=== PATIENT | female | born 1965 | race Hispanic/Latino ===

== ENCOUNTER 2018-11-11 05:21 | Observation (INO) | payer SELFPAY ==
[2018-11-11 06:05] LABS: Absolute Lymphocytes (CBC) 3.1 K/uL (0.7-4.9); Absolute Monocytes 0.4 K/uL (0.1-1.3); Absolute Neutrophil 4.5 K/uL (1.8-8.0); Basophils % 0.6 % (0-1.3); Eosinophils % 2.9 % (0-4.4); Lymphocytes % 37.4 % (15.3-44.8); MPV 10.1 fL (7.6-11.3); Protime INR 1.04; RBC Red Blood Cell Count 4.98 M/uL (3.86-4.86)
[2018-11-11 06:11] LABS: ALT/SGPT 54 U/L (12-78); AST/SGOT 34 U/L (15-37); Albumin 3.8 g/dL (3.4-5.0); Alkaline Phosphatase 118 U/L (45-117); BUN Blood Urea Nitrogen 14 mg/dL (7-18); Bicarbonate 27 mmol/L (21-32); Bilirubin Direct 0.1 mg/dL (0-0.2); Bilirubin Total 0.2 mg/dL (0.2-1.0); Glucose Level 269 mg/dL (74-106); Magnesium 1.9 mg/dL (1.8-2.4); NT PRO-BNP 24 pg/mL (<125); Protein, Total 7.6 g/dL (6.4-8.2); Sodium Level 139 mmol/L (136-145); Troponin (Emerg Dept Use Only) < 0.02 ng/mL (0.0-0.045)
[2018-11-11] MEDS ORDERED: ASPIRIN 81 MG CHEWABLE TABLET ONE (06:24)
[2018-11-11] MEDS ORDERED: NITROGLYCERIN 0.4 MG/TAB SL ONE (06:25)
--- NOTE | 2018-11-11 07:04 | ER ---
Nurse's Notes [facility] Name: Magaly Galeana Age: 53 yrs Sex: Female : 1965 Arrival Date: 11/11/2018 Time: 05:24 Bed 5 Private MD: Diagnosis: Chest pain, unspecified Presentation: 11/11 05:25 Presenting complaint: Patient states: that she was sleeping and was woken up by severe fc left sided chest pain that radiates to her left arm and back. Positive shortness of breath but denies any nausea or vomiting. Has not taken any of her bp medication for 2 months. Transition of care: patient was not received from another setting of care. Onset of symptoms was November 11, 2018 at 03:30. Risk Assessment: Do you want to hurt yourself or someone else? Patient reports no desire to harm self or others. Initial Sepsis Screen: Does the patient meet any 2 criteria? HR > 90 bpm. Yes Does the patient have a suspected source of infection? No. Patient's initial sepsis screen is negative. Care prior to arrival: None. 05:25 Method Of Arrival: Ambulatory 05:25 Acuity: EKATERINA 3 fc Historical: - Allergies: 05:36 No Known Allergies; fc - Home Meds: 05:36 None [Active]; fc - PMHx: 05:36 Hypertension; fc - PSHx: 05:36 None; fc - Immunization history:: Last tetanus immunization: unknown, Flu vaccine is not up to date. - Social history:: Smoking status: Patient uses tobacco products, quit 2 months ago, was smoking 1/2 pack a day, Patient/guardian denies using alcohol, the patient reports quitting approximately .5 years ago. - Ebola Screening: : Patient negative for fever greater than or equal to 101.5 degrees Fahrenheit, and additional compatible Ebola Virus Disease symptoms Patient denies exposure to infectious person Patient denies travel to an Ebola-affected area in the 21 days before illness onset. Screenin:35 Abuse screen: Denies threats or abuse. Nutritional screening: No deficits noted. fc Tuberculosis screening: No symptoms or risk factors identified. Fall Risk None identified. Assessment: 05:50 General: Appears in no apparent distress. uncomfortable, Behavior is calm, cooperative, tl2 appropriate for age. Pain: Complains of pain in anterior aspect of left upper chest and left breast Pain radiates to back and left arm Pain currently is 9 out of 10 on a pain scale. Pain began 1 hour ago. Neuro: Level of Consciousness is awake, alert, obeys commands, Oriented to person, place, time, situation. Cardiovascular: Chest pain is described as severe, quality is sharp, is located in left anterior radiates to left arm(s) back began 1 hour prior to arrival. Respiratory: Reports shortness of breath Airway is patent Respiratory effort is even, unlabored, Respiratory pattern is regular, symmetrical. GI: Patient currently denies nausea. Derm: Skin is pink, warm \T\ dry. 07:09 General: Appears in no apparent distress. uncomfortable, Behavior is calm, cooperative, hj appropriate for age. Pain: Complains of pain in chest and left breast and anterior aspect of left upper chest Pain currently is 3 out of 10 on a pain scale. Pain began 1 day ago. Pain: Pain radiates to back and left arm Pain currently is 3 out of 10 on a pain scale. Neuro: Level of Consciousness is awake, alert, obeys commands, Oriented to person, place, time, situation. Cardiovascular: Chest pain is described as mild, quality is sharp, is located in left anterior radiates to left arm(s) back began 1 hour prior to arrival. Respiratory: Airway is patent Respiratory effort is even, unlabored, Respiratory pattern is regular, symmetrical. GI: Patient currently denies nausea. : No signs and/or symptoms were reported regarding the genitourinary system. EENT: No signs and/or symptoms were reported regarding the EENT system. Derm: No signs and/or symptoms reported regarding the dermatologic system. Musculoskeletal: No signs and/or symptoms reported regarding the musculoskeletal system. 08:20 Reassessment: awaiting room placement;. hj 09:42 Reassessment: Patient and/or family updated on plan of care and expected duration. Pain hj level reassessed. Patient is alert, oriented x 3, equal unlabored respirations, skin warm/dry/pink. awaiting room placement;. 10:13 Reassessment: Patient and/or family updated on plan of care and expected duration. Pain hj level reassessed. Patient is alert, oriented x 3, equal unlabored respirations, skin warm/dry/pink. pt eating breakfast; informed pt room 230; called for report; nurse just got a new pt, advised floor sec to call back for report at ext [phone];. 10:47 Reassessment: still waiting for callback from floor nurse;. hj Vital Signs: 05:25 BP 182 / 88; Pulse 100; Resp 18; Temp 98.9(O); Pulse Ox 98% on R/A; Weight 108.86 kg fc (R); Height 4 ft. 11 in. (149.86 cm) (R); Pain 5/10; 06:48 BP 141 / 98; Pulse 77; Resp 15; Pulse Ox 98% on R/A; tl2 07:11 BP 157 / 80; Pulse 78; Resp 18; Pulse Ox 99% on R/A; hj 08:20 BP 153 / 79; Pulse 79; Resp 18; Pulse Ox 100% on R/A; hj 09:43 BP 150 / 87; Pulse 75; Resp 18; Pulse Ox 100% on R/A; hj 10:28 BP 150 / 86; Pulse 76; Resp 18; Pulse Ox 100% on R/A; hj 10:47 BP 149 / 78; Pulse 75; Resp 18; Pulse Ox 100% on R/A; hj 05:25 Body Mass Index 48.47 (108.86 kg, 149.86 cm) fc ED Course: 05:24 Patient arrived in ED. ag3 05:25 Arm band placed on Patient placed in an exam room, on a stretcher. fc 05:25 Patient has correct armband on for positive identification. Placed in gown. Bed in low fc position. Call light in reach. Side rails up X 1. jackaroo on. Pulse ox on. NIBP on. 05:25 No provider procedures requiring assistance completed. fc 05:33 Triage completed. fc 05:42 Inserted saline lock: 20 gauge in right antecubital area, using aseptic technique. tl1 Blood collected. Patient maintains SpO2 saturation greater than 95% on room air. 05:45 X-ray completed. Portable x-ray completed in exam room. Patient tolerated procedure sg4 well. 05:47 XRAY Chest (1 view) In Process Unspecified. EDMS 06:00 Estevan Jefferson PA is PHCP. jr8 06:00 Liu Becerra MD is Attending Physician. jr8 07:03 Saira Mazariegos MD is Hospitalizing Provider. jr8 07:09 Moo Mathias, RN is Primary Nurse. 07:29 Colton Palm MD is Hospitalizing Provider. jr8 10:59 Patient admitted, IV remains in place. intact. hj Administered Medications: 06:43 Drug: Aspirin Chewable Tablet 324 mg Route: PO; tl2 07:11 Follow up: Response: No adverse reaction 06:43 Drug: Nitroglycerin 0.4 mg Route: Sublingual; tl2 07:11 Follow up: Response: No adverse reaction; Pain is decreased Outcome: 07:03 Decision to Hospitalize by Provider. jr8 10:58 Admitted to Med/surg accompanied by tech, via wheelchair, room 230, with chart, Report hj called to ABRAHAM Stiles 10:58 Condition: stable 10:58 Instructed on the need for admit, Demonstrated understanding of instructions. 11:05 Patient left the ED. Signatures: Dispatcher [employer] EDMS Bruna Prince RN RN fc Roszak, Josh, PA PA jr8 Kay Nieves RN RN tl1 Moo Mathias RN RN hj Knox, Taylor, RN RN tl2 Monica Deng Susana 4
--- NOTE | 2018-11-11 07:04 | EDPHYS ---
Physician Documentation [facility] Name: Magaly Galeana Age: 53 yrs Sex: Female : 1965 Arrival Date: 11/11/2018 Time: 05:24 Bed 5 Private MD: ED Physician Liu Becerra HPI: 11/11 06:21 This 53 yrs old Female presents to ER via Ambulatory with complaints of Chest jr8 Pain. 06:21 The patient or guardian reports chest pain that is located primarily in the anterior jr8 chest wall, left. Onset: acutely, this morning, at 04:00. The pain radiates to the left arm, left back. Associated signs and symptoms: The patient has no apparent associated signs or symptoms. The chest pain is described as a pressure, sharp. Duration: The patient or guardian reports a single episode, that is still ongoing, but improving. Modifying factors: The symptoms are alleviated by nothing. the symptoms are aggravated by nothing. Severity of pain: At its worst the pain was moderate in the emergency department the pain has improved. The patient has not experienced similar symptoms in the past. The patient has not recently seen a physician. Historical: - Allergies: 05:36 No Known Allergies; fc - Home Meds: 05:36 None [Active]; fc - PMHx: 05:36 Hypertension; fc - PSHx: 05:36 None; fc - Immunization history:: Last tetanus immunization: unknown, Flu vaccine is not up to date. - Social history:: Smoking status: Patient uses tobacco products, quit 2 months ago, was smoking 1/2 pack a day, Patient/guardian denies using alcohol, the patient reports quitting approximately .5 years ago. - Ebola Screening: : Patient negative for fever greater than or equal to 101.5 degrees Fahrenheit, and additional compatible Ebola Virus Disease symptoms Patient denies exposure to infectious person Patient denies travel to an Ebola-affected area in the 21 days before illness onset. ROS: 06:21 Eyes: Negative for injury, pain, redness, and discharge, ENT: Negative for injury, jr8 pain, and discharge, Neck: Negative for injury, pain, and swelling, Respiratory: Negative for shortness of breath, cough, wheezing, and pleuritic chest pain, Abdomen/GI: Negative for abdominal pain, nausea, vomiting, diarrhea, and constipation, Back: Negative for injury and pain, MS/Extremity: Negative for injury and deformity, Skin: Negative for injury, rash, and discoloration, Neuro: Negative for headache, weakness, numbness, tingling, and seizure. 06:21 Cardiovascular: Positive for chest pain, Negative for edema, orthopnea, palpitations, paroxysmal nocturnal dyspnea. Exam: 06:21 Eyes: Pupils equal round and reactive to light, extra-ocular motions intact. Lids and jr8 lashes normal. Conjunctiva and sclera are non-icteric and not injected. Cornea within normal limits. Periorbital areas with no swelling, redness, or edema. ENT: Nares patent. No nasal discharge, no septal abnormalities noted. Tympanic membranes are normal and external auditory canals are clear. Oropharynx with no redness, swelling, or masses, exudates, or evidence of obstruction, uvula midline. Mucous membranes moist. Neck: Trachea midline, no thyromegaly or masses palpated, and no cervical lymphadenopathy. Supple, full range of motion without nuchal rigidity, or vertebral point tenderness. No Meningismus. Chest/axilla: Normal chest wall appearance and motion. Nontender with no deformity. No lesions are appreciated. Cardiovascular: Regular rate and rhythm with a normal S1 and S2. No gallops, murmurs, or rubs. Normal PMI, no JVD. No pulse deficits. Respiratory: Lungs have equal breath sounds bilaterally, clear to auscultation and percussion. No rales, rhonchi or wheezes noted. No increased work of breathing, no retractions or nasal flaring. Abdomen/GI: Soft, non-tender, with normal bowel sounds. No distension or tympany. No guarding or rebound. No evidence of tenderness throughout. Back: No spinal tenderness. No costovertebral tenderness. Full range of motion. Skin: Warm, dry with normal turgor. Normal color with no rashes, no lesions, and no evidence of cellulitis. MS/ Extremity: Pulses equal, no cyanosis. Neurovascular intact. Full, normal range of motion. Neuro: Awake and alert, GCS 15, oriented to person, place, time, and situation. Cranial nerves II-XII grossly intact. Motor strength 5/5 in all extremities. Sensory grossly intact. Cerebellar exam normal. Normal gait. Vital Signs: 05:25 BP 182 / 88; Pulse 100; Resp 18; Temp 98.9(O); Pulse Ox 98% on R/A; Weight 108.86 kg fc (R); Height 4 ft. 11 in. (149.86 cm) (R); Pain 5/10; 06:48 BP 141 / 98; Pulse 77; Resp 15; Pulse Ox 98% on R/A; tl2 07:11 BP 157 / 80; Pulse 78; Resp 18; Pulse Ox 99% on R/A; hj 08:20 BP 153 / 79; Pulse 79; Resp 18; Pulse Ox 100% on R/A; hj 09:43 BP 150 / 87; Pulse 75; Resp 18; Pulse Ox 100% on R/A; hj 10:28 BP 150 / 86; Pulse 76; Resp 18; Pulse Ox 100% on R/A; hj 10:47 BP 149 / 78; Pulse 75; Resp 18; Pulse Ox 100% on R/A; hj 05:25 Body Mass Index 48.47 (108.86 kg, 149.86 cm) MDM: 06:00 Patient medically screened. jr8 06:55 The patient was given aspirin in the Emergency Department. Data reviewed: vital signs, jr8 nurses notes, lab test result(s), EKG, radiologic studies, plain films, and as a result, I will admit patient. Data interpreted: Pulse oximetry: on room air is 98 %. Interpretation: normal. Counseling: I had a detailed discussion with the patient and/or guardian regarding: the historical points, exam findings, and any diagnostic results supporting the discharge/admit diagnosis, lab results, radiology results, the need for further work-up and treatment in the hospital. ED course: Patient newly diagnosed diabetic. Uncontrolled HTN patient with chest pain. Will put in obs. No PCP. 11/11 05:37 Order name: Basic Metabolic Panel 11/11 05:37 Order name: CBC with Diff 11/11 05:37 Order name: LFT's 11/11 05:37 Order name: Magnesium 11/11 05:37 Order name: NT PRO-BNP 11/11 05:37 Order name: PT-INR; Complete Time: 06:17 11/11 05:37 Order name: Troponin (emerg Dept Use Only); Complete Time: 06:17 11/11 05:37 Order name: XRAY Chest (1 view); Complete Time: 10:50 11/11 05:38 Order name: Basic Metabolic Panel; Complete Time: 06:17 EDMS 11/11 05:38 Order name: CBC with Automated Diff; Complete Time: 06:09 EDMS 11/11 05:38 Order name: Liver (Hepatic) Function; Complete Time: 06:17 EDMS 11/11 05:38 Order name: Magnesium; Complete Time: 06:17 EDMS 11/11 05:38 Order name: NT PRO-BNP; Complete Time: 06:17 EDMS 11/11 05:37 Order name: EKG; Complete Time: 05:38 fc 11/11 05:37 Order name: Cardiac monitoring; Complete Time: 05:37 fc 11/11 05:37 Order name: EKG - Nurse/Tech; Complete Time: 05:37 fc 11/11 05:37 Order name: IV Saline Lock; Complete Time: 05:45 fc 11/11 05:37 Order name: Labs collected and sent; Complete Time: 05:45 fc 11/11 05:37 Order name: O2 Per Protocol; Complete Time: 05:45 fc 11/11 05:37 Order name: O2 Sat Monitoring; Complete Time: 05:45 fc Administered Medications: 06:43 Drug: Aspirin Chewable Tablet 324 mg Route: PO; tl2 07:11 Follow up: Response: No adverse reaction 06:43 Drug: Nitroglycerin 0.4 mg Route: Sublingual; tl2 07:11 Follow up: Response: No adverse reaction; Pain is decreased hj Disposition: 11/11/18 07:03 Hospitalization ordered by Colton Palm for Observation. Preliminary diagnosis is Chest pain, unspecified. - Bed requested for Telemetry/MedSurg (observation). - Status is Observation. hj - Condition is Stable. - Problem is new. - Symptoms have improved. UTI on Admission? No Signatures: Dispatcher [employer] EDOR Iman Ramirez RN ABRAHAM Bruna Prince RN RN Estevan Jefferson PA PA jr8 Moo Mathias RN RN Sandie De RN RN tl2 Corrections: (The following items were deleted from the chart) 07:29 07:03 Hospitalization Ordered by Saira Mazariegos MD for Observation. Preliminary jr8 diagnosis is Chest pain, unspecified. Bed requested for Telemetry/MedSurg (observation). Status is Observation. Condition is Stable. Problem is new. Symptoms have improved. UTI on Admission? No. jr8 10:05 07:29 11/11/2018 07:03 Hospitalization Ordered by Colton Palm MD for Observation. dw Preliminary diagnosis is Chest pain, unspecified. Bed requested for Telemetry/MedSurg (observation). Status is Observation. Condition is Stable. Problem is new. Symptoms have improved. UTI on Admission? No. jr8 11:05 10:05 11/11/2018 07:03 Hospitalization Ordered by Colton Palm MD for Observation. hj Preliminary diagnosis is Chest pain, unspecified. Bed requested for Telemetry/MedSurg (observation). Status is Observation. Condition is Stable. Problem is new. Symptoms have improved. UTI on Admission? No. dw
[2018-11-11 10:40] VITALS: BMI 48.4
--- NOTE | 2018-11-11 10:49 | RAD REPORT ---
EXAM DESCRIPTION: Grazyna Single View11/11/2018 5:48 am CLINICAL HISTORY: Chest pain COMPARISON: none FINDINGS: The lungs appear clear of acute infiltrate. The heart is mildly enlarged IMPRESSION: No acute abnormalities displayed
[2018-11-11] MEDS ORDERED: ACETAMINOPHEN 500 MG TAB PO PRN (10:58)
[2018-11-11] MEDS: ENOXAPARIN 40 MG/0.4 ML SQ SCH (11:28)
[2018-11-11] MEDS ORDERED: INFLUENZA VACCINE (for 3y+) 0.5 ML DOSE IMVAC ONE (12:00)
--- NOTE | 2018-11-11 13:54 | EKG ---
Test Date: 2018-11-11 Test Time: 05:34:02 Soft Sugar Operator Head: MINGO MEASUREMENT RESULTS: Intervals: Rate: 78 IA: 164 QRSD: 80 QT: 376 QTc: 428 [place]: P: 26 IA: 164 QRS: 27 T: 72 INTERPRETIVE STATEMENTS: Normal sinus rhythm Cannot rule out Anterior infarct, age undetermined Abnormal ECG No previous ECG available for comparison Electronically Signed On 11-11-18 13:53:31 HEALTH INFORMATICS SPECIALIST by Uvaldo Petersen
--- NOTE | 2018-11-11 14:00 | P.HP ---
Certification for Inpatient Patient admitted to: Observation With expected LOS: <2 Midnights Practitioner: I am a practitioner with admitting privileges, knowledge of patient current condition, hospital course, and medical plan of care. Services: Services provided to patient in accordance with Admission requirements found in Title 42 Section 412.3 of the Code of Federal Regulations Patient History Date of Service: 11/11/18 Primary Care Provider: Does not have one Reason for admission: Chest pain, HTN History of Present Illness: This is a 53 year old female with hx of HTN, not on any medications for 2 months , no PCP, former 1 PPD smoker x 40 yrs admitted for chest pain. per patient, she had sharp chest pain this morning around 8 am, woke her from sleep, that went to the back. Associated with left arm numbness, and shortness of breath. no prior eposides like this. She came to the ER. In the ED, her BP was elevated to 188/88, given nitro. Symptoms resolved and BP improved. At the time of my exam, pt was AAOx4, not in any acute distress, symptoms had resolved. Allergies No Known Allergies Allergy (Verified 11/11/18 11:26) Home Medications: NK [No Home Meds] 11/11/18 - Past Medical/Surgical History Has patient received pneumonia vaccine in the past: No Diabetic: No -: HTN - Family History Father -: Hypertension - Social History Smoking Status: Never smoker Alcohol use: No CD- Drugs: No Caffeine use: Yes Place of Residence: Home Review of Systems 10-point ROS is otherwise unremarkable Physical Examination - Vital Signs Temperature: 97.2 F Blood Pressure: 152/69 Pulse: 86 Respirations: 17 Pulse Ox (%): 98 - Physical Exam General: Alert, In no apparent distress, Oriented x3 HEENT: Atraumatic, PERRLA, Mucous membr. moist/pink, EOMI, Sclerae nonicteric Neck: Supple, 2+ carotid pulse no bruit, No LAD, Without JVD or thyroid abnormality Respiratory: Clear to auscultation bilaterally, Normal air movement Cardiovascular: Regular rate/rhythm, Normal S1 S2 Gastrointestinal: Normal bowel sounds, No tenderness Musculoskeletal: No tenderness Integumentary: No rashes Neurological: Normal gait, Normal speech, Normal strength at 5/5 x4 extr, Normal tone, Normal affect Lymphatics: No axilla or inguinal lymphadenopathy - Studies Laboratory Data (last 24 hrs) 11/11/18 05:30: Triglycerides 176 H, Cholesterol 214 H, HDL Cholesterol 43, Cholesterol/HDL Ratio 4.98 11/11/18 05:30: PT 12.3, INR 1.04 11/11/18 05:30: WBC 8.4, Hgb 11.9 L, Hct 37.0, Plt Count 238 11/11/18 05:30: Sodium 139, Potassium 4.0, BUN 14, Creatinine 0.71, Glucose 269 H, Magnesium 1.9, Total Bilirubin 0.2, AST 34, ALT 54, Alkaline Phosphatase 118 H Assessment and Plan - Problems (Diagnosis) (1) Hypertension Current Visit: Yes Status: Chronic Qualifiers: Hypertension type: essential hypertension Qualified Code(s): I10 - Essential (primary) hypertension (2) Chest pain Current Visit: Yes Status: Acute Qualifiers: Chest pain type: unspecified Qualified Code(s): R07.9 - Chest pain, unspecified (3) Hyperglycemia Current Visit: Yes Status: Acute (4) Former heavy cigarette smoker (20-39 per day) Current Visit: Yes Status: Acute (5) Morbid obesity with BMI of 45.0-49.9, adult Current Visit: Yes Status: Acute (6) Hyperlipidemia Current Visit: Yes Status: Acute Qualifiers: Hyperlipidemia type: mixed hyperlipidemia Qualified Code(s): E78.2 - Mixed hyperlipidemia - Plan Patient Problems: Hypertension (Acute) I10 Chest pain (Acute) R07.9 Hyperglycemia (Acute) R73.9 Former heavy cigarette smoker (20-39 per day) (Acute) Z87.891 Hyperlipidemia Morbid obesity Admit patient to floor with tele, OBS BP elevated, though improved. A1c pending. Start lisinopril, ASA, metformin, and atorvastatin Monitor with AM labs. She will needs education on lifestyle modifications, emphasis on PCP followup and compliance. DVT Prophylaxis: Lovenox GI prophylaxis: None Diet: Heart healthy/Diabetic Dispo: Pending workup, symptomatic improvement. Likely discharge home in the next 24-48 hours of PO BP medications and possible Diabetes medications. - Advance Directives Does patient have a Living Will: No Does patient have a Durable POA for Healthcare: No Physician Review: Patient Assessed, Agree with Above Assessment and Plan Time Spent Managing Pts Care (In Minutes): 55
[2018-11-11 16:08] LABS: Urine Appearance CLEAR; Urine Bilirubin NEGATIVE (NEG); Urine Blood NEGATIVE (NEG); Urine Color YELLOW; Urine Glucose 3+ (NEG); Urine Protein NEGATIVE (NEG); Urine Specific Gravity >=1.030 (1.005-1.030); Urine Urobilinogen 0.2 mg/dL (0.2-1.0); Urine pH 5.5 (5.0-7.0)
[2018-11-11 16:15] LABS: Urine Microscopic Reflex NO UMIC
[2018-11-11] MEDS: METFORMIN HCL 500 MG TAB PO SCH (17:04)
[2018-11-11] MEDS: ATORVASTATIN 20 MG TAB PO SCH (20:56)
[2018-11-12 06:18] LABS: Absolute Lymphocytes (CBC) 2.7 K/uL (0.7-4.9); Absolute Monocytes 0.3 K/uL (0.1-1.3); Absolute Neutrophil 3.8 K/uL (1.8-8.0); Basophils % 0.6 % (0-1.3); Eosinophils % 2.2 % (0-4.4); Hematocrit 35.4 % (36.0-45.0); Lymphocytes % 38.1 % (15.3-44.8); MPV 9.8 fL (7.6-11.3); Monocytes % 4.9 % (3.3-12.3); RBC Red Blood Cell Count 4.81 M/uL (3.86-4.86)
[2018-11-12 06:38] LABS: ALT/SGPT 49 U/L (12-78); AST/SGOT 31 U/L (15-37); Albumin 3.5 g/dL (3.4-5.0); Alkaline Phosphatase 106 U/L (45-117); BUN Blood Urea Nitrogen 13 mg/dL (7-18); Bicarbonate 28 mmol/L (21-32); Bilirubin Total 0.5 mg/dL (0.2-1.0); Glucose Level 149 mg/dL (74-106); Potassium 3.9 mmol/L (3.5-5.1); Protein, Total 7.1 g/dL (6.4-8.2); Sodium Level 139 mmol/L (136-145)
[2018-11-12] MEDS ORDERED: POTASSIUM CL SA 10 MEQ TAB PO SCH (07:00)
[2018-11-12] MEDS ORDERED: POTASSIUM CL SA 10 MEQ TAB PO ONE (07:38)
[2018-11-12] MEDS ORDERED: LISINOPRIL 10 MG TAB PO SCH (09:00)
[2018-11-12] MEDS: METFORMIN HCL 500 MG TAB PO SCH ×2 (09:57→16:57)
[2018-11-12] MEDS: ENOXAPARIN 40 MG/0.4 ML SQ SCH (09:57)
--- NOTE | 2018-11-12 18:04 | P.PN ---
Subjective Date of Service: 11/12/18 Primary Care Provider: Does not have one Chief Complaint: Chest pain, HTN Subjective: No C/O voiced, Ambulating, Improving Patient seen and examined at bedside. family at bedside. Case discussed with nursing staff. Patient without any symptoms at this time. No complaints. Review of Systems 10-point ROS is otherwise unremarkable Physical Examination - Vital Signs Temperature: 97.8 F Blood Pressure: 165/74 Pulse: 70 Respirations: 16 Pulse Ox (%): 96 - Physical Exam General: Alert, In no apparent distress, Oriented x3 HEENT: Atraumatic, PERRLA, EOMI Neck: Supple, JVD not distended Respiratory: Clear to auscultation bilaterally, Normal air movement Cardiovascular: Regular rate/rhythm, Normal S1 S2 Gastrointestinal: Normal bowel sounds, No tenderness Musculoskeletal: No tenderness Integumentary: No rashes Neurological: Normal speech, Normal tone, Normal affect Lymphatics: No axilla or inguinal lymphadenopathy Assessment And Plan - Current Problems (Diagnosis) (1) Hypertension Current Visit: Yes Status: Chronic Qualifiers: Hypertension type: essential hypertension Qualified Code(s): I10 - Essential (primary) hypertension (2) Chest pain Current Visit: Yes Status: Acute Qualifiers: Chest pain type: unspecified Qualified Code(s): R07.9 - Chest pain, unspecified (3) Hyperglycemia Current Visit: Yes Status: Acute (4) Former heavy cigarette smoker (20-39 per day) Current Visit: Yes Status: Acute (5) Morbid obesity with BMI of 45.0-49.9, adult Current Visit: Yes Status: Acute (6) Hyperlipidemia Current Visit: Yes Status: Acute Qualifiers: Hyperlipidemia type: mixed hyperlipidemia Qualified Code(s): E78.2 - Mixed hyperlipidemia - Plan Patient Problems: Hypertension (Acute) I10 Chest pain (Acute) R07.9 Hyperglycemia (Acute) R73.9 Former heavy cigarette smoker (20-39 per day) (Acute) Z87.891 Hyperlipidemia Morbid obesity Admit patient to floor with tele, OBS BP elevated, though improved. Lisinopril dosage increased to 20 mg daily. if BP still elevated, may consider adding amlodipine. A1c still pending. Continue ASA, metformin, and atorvastatin Monitor with AM labs. Discussed and counseled extensively on lifestyle modifications and the importance of selecting a PCP for regualr folow up.. Will provide a list of PCP prior to discharge. DVT Prophylaxis: Lovenox GI prophylaxis: None Diet: Heart healthy/Diabetic Dispo: Pending workup, symptomatic improvement. Likely discharge home in the next 24-48 hours on PO BP medications and possible Diabetes medications. Physician Review: Patient Assessed, Agree with Above Assessment and Plan
[2018-11-12] MEDS: ATORVASTATIN 20 MG TAB PO SCH (20:23)
[2018-11-13 06:42] LABS: BUN Blood Urea Nitrogen 11 mg/dL (7-18); Bicarbonate 28 mmol/L (21-32); Glucose Level 148 mg/dL (74-106); Sodium Level 140 mmol/L (136-145)
[2018-11-13] MEDS: METFORMIN HCL 500 MG TAB PO SCH (08:00)
[2018-11-13] MEDS ORDERED: LISINOPRIL 20 MG TAB PO SCH (09:00)
[2018-11-13] MEDS: ENOXAPARIN 40 MG/0.4 ML SQ SCH (09:39)
--- NOTE | 2018-11-13 12:54 | EKG ---
Test Date: 2018-11-12 Test Time: 18:41:37 Skin Washer: JOHNSON MEASUREMENT RESULTS: Intervals: Rate: 89 OR: 156 QRSD: 86 QT: 360 QTc: 438 [place]: P: 49 OR: 156 QRS: 38 T: 60 INTERPRETIVE STATEMENTS: Normal sinus rhythm Possible Left atrial enlargement Borderline ECG Compared to ECG 11/11/2018 05:34:02 Myocardial infarct finding no longer present Electronically Signed On 11-13-18 12:53:00 SIGNAL TESTER by Valdez Munroe
[2018-11-13] MEDS ORDERED: hydroCHLOROthiazide 12.5 MG CAP PO SCH (14:00)
[2018-11-13 15:13] VITALS: O2SAT 100
[2018-11-13 17:43] VITALS: BP 164/79; TEMP 97.2
--- NOTE | 2018-11-13 23:18 | P.SSS ---
Patient History Date of Service: 11/13/18 Primary Care Provider: Does not have one Reason for admission: Chest pain, HTN History of Present Illness: This is a 53 year old female with hx of HTN, not on any medications for 2 months , no PCP, former 1 PPD smoker x 40 yrs admitted for chest pain. per patient, she had sharp chest pain this morning around 8 am, woke her from sleep, that went to the back. Associated with left arm numbness, and shortness of breath. no prior eposides like this. She came to the ER. In the ED, her BP was elevated to 188/88, given nitro. Symptoms resolved and BP improved. At the time of my exam, pt was AAOx4, not in any acute distress, symptoms had resolved. Allergies No Known Allergies Allergy (Verified 11/11/18 11:26) Home Medications: Atorvastatin Calcium [Lipitor*] 20 mg PO BEDTIME #30 tab 11/13/18 Lisinopril [Prinivil*] 20 mg PO DAILY #30 tab 11/13/18 Metformin HCl [Glucophage*] 1,000 mg PO BIDWM #60 tab 11/13/18 hydroCHLOROthiazide [Hydrochlorothiazide*] 12.5 mg PO DAILY #30 cap 11/13/18 - Past Medical/Surgical History Has patient received pneumonia vaccine in the past: No Diabetic: No -: HTN - Family History Father -: Hypertension - Social History Smoking Status: Never smoker Alcohol use: No CD- Drugs: No Caffeine use: Yes Place of Residence: Home Review of Systems 10-point ROS is otherwise unremarkable Physical Examination - Vital Signs Temperature: 97.2 F Blood Pressure: 164/79 Pulse: 78 Respirations: 20 Pulse Ox (%): 98 - Physical Exam General: Alert, In no apparent distress, Oriented x3 HEENT: Atraumatic, PERRLA, Mucous membr. moist/pink, EOMI, Sclerae nonicteric Neck: Supple, 2+ carotid pulse no bruit, No LAD, Without JVD or thyroid abnormality Respiratory: Clear to auscultation bilaterally, Normal air movement Cardiovascular: Regular rate/rhythm, Normal S1 S2 Gastrointestinal: Normal bowel sounds, No tenderness Musculoskeletal: No tenderness Integumentary: No rashes Neurological: Normal gait, Normal speech, Normal strength at 5/5 x4 extr, Normal tone, Normal affect Lymphatics: No axilla or inguinal lymphadenopathy - Diagnosis (Problem(s)) (1) Hypertension Onset Date: 11/13/18 Status: Chronic Qualifiers: Hypertension type: essential hypertension Qualified Code(s): I10 - Essential (primary) hypertension (2) Chest pain Onset Date: 11/13/18 Status: Acute Qualifiers: Chest pain type: unspecified Qualified Code(s): R07.9 - Chest pain, unspecified (3) Hyperglycemia Onset Date: 11/13/18 Status: Acute (4) Former heavy cigarette smoker (20-39 per day) Onset Date: 11/13/18 Status: Acute (5) Morbid obesity with BMI of 45.0-49.9, adult Onset Date: 11/13/18 Status: Acute (6) Hyperlipidemia Onset Date: 11/13/18 Status: Acute Qualifiers: Hyperlipidemia type: mixed hyperlipidemia Qualified Code(s): E78.2 - Mixed hyperlipidemia Treatment Summary: Admitted patient to floor with tele for OBS BP was elevated, though improved with Lisinopril 20 mg daily and HCTZ 12.5 mg daily. A1c elevated at 9.4. Started ASA, metformin, and atorvastatin Discussed and counseled extensively on lifestyle modifications and the importance of selecting a PCP for regualr folow up.. List of PCP provided to patient. Discharged on lisinopril 20 mg, HCTZ 12.5 mg, atorvastatin and metformin - Disposition Discharge Date: 11/13/18 Disposition: ROUTINE DISCHARGE Condition: GOOD Patient Discharge Instructions: Please follow up with a primary care physician in 1-2 weeks for follow up and furhter management of your diabetes and High blood pressure. New medications: Metformin, lisinopril, Hydrochlorothiazide, atorvastatin Diet: ADA Activity: Ad sammy Time Spent Managing Pts Care (In Minutes): 55
== END 2018-11-13 16:45 | disposition home or self-care (01) ==
LOC: ER 05:21 → ERHOLD 07:37 → 2ND 10:57
PROVIDERS: ADMIT Family Medicine; ATTEND Family Medicine
DX: R07.9 Chest pain, unspecified (principal); I10 Essential (primary) hypertension; R73.9 Hyperglycemia, unspecified; Z87.891 Personal history of nicotine dependence; E78.5 Hyperlipidemia, unspecified; E66.01 Morbid (severe) obesity due to excess calories; Z68.42 Body mass index [BMI] 45.0-49.9, adult; Z23 Encounter for immunization
CPT/HCPCS: 36415; 71045; 80048; 80053; 80061; 80076; 81003; 82962; 83036; 83735; 83880; 84484; 85025; 85610; 93005; 94760; 99285; G0008; G0378; J1650; Q2035

== ENCOUNTER 2018-12-20 23:57 | Emergency (ER) | payer SELFPAY ==
--- NOTE | 2018-12-21 02:22 | ER ---
Nurse's Notes [facility] Name: Magaly Galeana Age: 53 yrs Sex: Female : 1965 Arrival Date: 12/20/2018 Time: 23:59 Bed 8 Private MD: Diagnosis: Essential (primary) hypertension;Type 2 diabetes mellitus Presentation: 12/21 00:28 Presenting complaint: Patient states: my blood pressure has been high today, 211/106 mg2 mmHg. i have headache, upper back pain, shortness of breath. I dont have my bp medications because i dont have a doctor here. im also feeling shaky with tingling sensation in my left arm. Transition of care: patient was not received from another setting of care. Onset of symptoms was December 20, 2018. Risk Assessment: Do you want to hurt yourself or someone else? Patient reports no desire to harm self or others. Initial Sepsis Screen: Does the patient meet any 2 criteria? No. Patient's initial sepsis screen is negative. Does the patient have a suspected source of infection? No. Patient's initial sepsis screen is negative. Care prior to arrival: None. 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 - Social history:: Smoking status: Patient/guardian denies using tobacco, Patient/guardian denies using alcohol, street drugs, IV drugs. - Ebola Screening: : Patient positive for the following Ebola Virus Disease associated symptoms: . - Family history:: not pertinent. Screenin:51 Abuse screen: Denies threats or abuse. Denies injuries from another. Nutritional mg2 screening: No deficits noted. Tuberculosis screening: No symptoms or risk factors identified. Fall Risk None identified. Assessment: 02:10 General: Appears in no apparent distress. comfortable, Behavior is calm, cooperative, aa1 appropriate for age. Pain: Denies pain. Neuro: Level of Consciousness is awake, alert, obeys commands, Oriented to person, place, time, situation. Cardiovascular: Denies chest pain, diaphoresis, lightheadedness, nausea, palpitations, shortness of breath, Heart tones S1 S2 present Rhythm is regular. Respiratory: Airway is patent Respiratory effort is even, unlabored, Respiratory pattern is regular, symmetrical. GI: No signs and/or symptoms were reported involving the gastrointestinal system. : No signs and/or symptoms were reported regarding the genitourinary system. EENT: No signs and/or symptoms were reported regarding the EENT system. Derm: Skin is intact, is healthy with good turgor, Skin is pink, warm \T\ dry. Musculoskeletal: Circulation, motion, and sensation intact. Capillary refill < 3 seconds. 02:37 Reassessment: Patient appears in no apparent distress at this time. Patient is alert, aa1 oriented x 3, equal unlabored respirations, skin warm/dry/pink. Discussed d/c \T\ f/u instructions with pt \T\ spouse; denies questions or concerns at this time Patient denies pain at this time. Patient states feeling better. Vital Signs: 00:31 BP 165 / 66; Pulse 90; Resp 18; Temp 99(TE); Pulse Ox 100% ; Weight 102.06 kg; Height 4 mg2 ft. 11 in. (149.86 cm); Pain 7/10; 02:35 BP 160 / 73; Pulse 69; Resp 18; Pulse Ox 100% on R/A; Pain 0/10; aa1 00:31 Body Mass Index 45.44 (102.06 kg, 149.86 cm) mg2 ED Course: 12/20 23:59 Patient arrived in ED. ag3 12/21 00:31 Triage completed. mg2 00:33 Arm band placed on. mg2 00:51 Patient has correct armband on for positive identification. mg2 01:54 Tab Solo MD is Attending Physician. bo 02:10 Argenis Cote, ABRAHAM is Primary Nurse. lp1 02:37 No provider procedures requiring assistance completed. Patient did not have IV access aa1 during this emergency room visit. Administered Medications: 02:19 Drug: Lisinopril 20 mg Route: PO; aa1 02:39 Follow up: Response: No adverse reaction; Medication administered at discharge. aa1 Point of Care Testing: Blood Glucose: 00:38 Blood Glucose: 137 mg/dL; mg2 Ranges: Outcome: 02:21 Discharge ordered by . bo 02:37 Discharged to home ambulatory, with significant other. aa1 02:37 Condition: good 02:37 Discharge instructions given to patient, significant other, Instructed on discharge instructions, follow up and referral plans. medication usage, Demonstrated understanding of instructions, follow-up care, medications, Prescriptions given X 1. 02:38 Patient left the ED. aa1 Signatures: Selene Keys RN RN aa1 Tab Solo MD MD cha Pena, Laura, RN RN lp1 Ernie Chavez RN RN mg2 Monica Deng ag3
--- NOTE | 2018-12-21 02:22 | EDPHYS ---
Physician Documentation [facility] Name: Magaly Galeana Age: 53 yrs Sex: Female : 1965 Arrival Date: 12/20/2018 Time: 23:59 Bed 8 Private MD: ED Physician Tab Solo HPI: 12/21 02:14 This 53 yrs old Female presents to ER via Ambulatory with complaints of High bo Blood Pressure. 02:14 The patient has elevated blood pressure and discovered this at [facility]. Onset: The bo symptoms/episode began/occurred 1 week(s) ago. Modifying factors: The symptoms are aggravated by activity, The symptoms are alleviated by remaining still. Associated signs and symptoms: The patient has no apparent associated signs or symptoms. Severity of symptoms: At its worst the blood pressure was mild. The patient has experienced similar episodes in the past, several times. 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 - Social history:: Smoking status: Patient/guardian denies using tobacco, Patient/guardian denies using alcohol, street drugs, IV drugs. - Ebola Screening: : Patient positive for the following Ebola Virus Disease associated symptoms: . - Family history:: not pertinent. ROS: 02:14 Constitutional: Negative for fever, chills, and weight loss, Eyes: Negative for injury, bo pain, redness, and discharge, ENT: Negative for injury, pain, and discharge, Neck: Negative for injury, pain, and swelling, Cardiovascular: Negative for chest pain, palpitations, and edema, Respiratory: Negative for shortness of breath, cough, wheezing, and pleuritic chest pain, Abdomen/GI: Negative for abdominal pain, nausea, vomiting, diarrhea, and constipation, Back: Negative for injury and pain, : Negative for injury, bleeding, discharge, and swelling, MS/Extremity: Negative for injury and deformity, Skin: Negative for injury, rash, and discoloration, Neuro: Negative for headache, weakness, numbness, tingling, and seizure. Exam: 02:14 Constitutional: This is a well developed, well nourished patient who is awake, alert, bo and in no acute distress. Head/Face: Normocephalic, atraumatic. Eyes: Pupils equal round and reactive to light, extra-ocular motions intact. Lids and lashes normal. Conjunctiva and sclera are non-icteric and not injected. Cornea within normal limits. Periorbital areas with no swelling, redness, or edema. ENT: Nares patent. No nasal discharge, no septal abnormalities noted. Tympanic membranes are normal and external auditory canals are clear. Oropharynx with no redness, swelling, or masses, exudates, or evidence of obstruction, uvula midline. Mucous membranes moist. Neck: Trachea midline, no thyromegaly or masses palpated, and no cervical lymphadenopathy. Supple, full range of motion without nuchal rigidity, or vertebral point tenderness. No Meningismus. Chest/axilla: Normal chest wall appearance and motion. Nontender with no deformity. No lesions are appreciated. Cardiovascular: Regular rate and rhythm with a normal S1 and S2. No gallops, murmurs, or rubs. Normal PMI, no JVD. No pulse deficits. Respiratory: Lungs have equal breath sounds bilaterally, clear to auscultation and percussion. No rales, rhonchi or wheezes noted. No increased work of breathing, no retractions or nasal flaring. Abdomen/GI: Soft, non-tender, with normal bowel sounds. No distension or tympany. No guarding or rebound. No evidence of tenderness throughout. Back: No spinal tenderness. No costovertebral tenderness. Full range of motion. Skin: Warm, dry with normal turgor. Normal color with no rashes, no lesions, and no evidence of cellulitis. MS/ Extremity: Pulses equal, no cyanosis. Neurovascular intact. Full, normal range of motion. Neuro: Awake and alert, GCS 15, oriented to person, place, time, and situation. Cranial nerves II-XII grossly intact. Motor strength 5/5 in all extremities. Sensory grossly intact. Cerebellar exam normal. Normal gait. Psych: Awake, alert, with orientation to person, place and time. Behavior, mood, and affect are within normal limits. Vital Signs: 00:31 BP 165 / 66; Pulse 90; Resp 18; Temp 99(TE); Pulse Ox 100% ; Weight 102.06 kg; Height 4 mg2 ft. 11 in. (149.86 cm); Pain 7/10; 02:35 BP 160 / 73; Pulse 69; Resp 18; Pulse Ox 100% on R/A; Pain 0/10; aa1 00:31 Body Mass Index 45.44 (102.06 kg, 149.86 cm) mg2 MDM: 01:[address] [facility] 02:16 Data reviewed: vital signs, nurses notes. [facility] Administered Medications: 02:19 Drug: Lisinopril 20 mg Route: PO; aa1 02:39 Follow up: Response: No adverse reaction; Medication administered at discharge. [facility] Point of Care Testing: Blood Glucose: 00:38 Blood Glucose: 137 mg/dL; mg2 Ranges: Critical Glucose Levels:Adult <50 mg/dl or >400 mg/dl <40 mg/dl or >180 mg/dl Disposition: 12/21/18 02:21 Discharged to Home. Impression: Essential (primary) hypertension, Type 2 diabetes mellitus. - Condition is Stable. - Discharge Instructions: Type 2 Diabetes Mellitus, Diagnosis, Adult, Hypertension, Hypertension, [id number], How to Take Your Blood Pressure, [id number], Type 2 Diabetes Mellitus, Diagnosis, Adult, [id number], Managing Your Hypertension. - Prescriptions for Lisinopril 20 mg Oral Tablet - take 1 tablet by ORAL route once daily; 20 tablet. - Medication Reconciliation Form, Thank You Letter, Antibiotic Education, Prescription Opioid Use form. - Follow up: Private Physician; When: 2 - 3 days; Reason: Recheck today's complaints, Continuance of care, Re-evaluation by your physician. - Problem is new. - Symptoms have improved. Signatures: Selene Keys RN RN aa1 Tab Solo MD MD cha Gardose, Michele RN RN mg2 Corrections: (The following items were deleted from the chart) 02:38 02:21 12/21/2018 02:21 Discharged to Home. Impression: Essential (primary) aa1 hypertension; Type 2 diabetes mellitus. Condition is Stable. Forms are Medication Reconciliation Form, Thank You Letter, Antibiotic Education, Prescription Opioid Use. Follow up: Private Physician; When: 2 - 3 days; Reason: Recheck today's complaints, Continuance of care, Re-evaluation by your physician. Problem is new. Symptoms have improved. bo
[2018-12-21] MEDS ORDERED: LISINOPRIL 20 MG TAB ONE (02:27)
[2018-12-21 05:11] VITALS: TEMP 99; O2SAT 100
[2018-12-21 05:12] VITALS: BP 160/73
== END 2018-12-21 02:38 | disposition home or self-care (01) ==
LOC: ER 23:57
DX: I10 Essential (primary) hypertension (principal); E11.9 Type 2 diabetes mellitus without complications
CPT/HCPCS: 82962; 99283

== ENCOUNTER 2018-12-27 00:04 | Emergency (ER) | payer SELFPAY ==
[2018-12-27 00:27] LABS: Absolute Lymphocytes (CBC) 2.9 K/uL (0.7-4.9); Absolute Monocytes 0.4 K/uL (0.1-1.3); Basophils % 0.5 % (0-1.3); Eosinophils % 1.7 % (0-4.4); Hematocrit 35.8 % (36.0-45.0); Lymphocytes % 33.8 % (15.3-44.8); Monocytes % 4.9 % (3.3-12.3); RBC Red Blood Cell Count 4.85 M/uL (3.86-4.86)
[2018-12-27 00:45] LABS: BUN Blood Urea Nitrogen 12 mg/dL (7-18); Bicarbonate 27 mmol/L (21-32); Glucose Level 135 mg/dL (74-106); NT PRO-BNP 81 pg/mL (<125); Potassium 3.4 mmol/L (3.5-5.1); Sodium Level 140 mmol/L (136-145); Troponin (Emerg Dept Use Only) 0.02 ng/mL (0.0-0.045)
[2018-12-27] MEDS ORDERED: ACETAMINOPHEN 325 MG TABLET ONE (03:33)
--- NOTE | 2018-12-27 03:47 | ER ---
Nurse's Notes [facility] Name: Magaly Galeana Age: 53 yrs Sex: Female : 1965 Arrival Date: 12/27/2018 Time: 00:07 Bed 6 Private MD: Diagnosis: Paresthesia of skin;hypertension Presentation: 12/27 00:09 Presenting complaint: Patient states: increased stress at home. pt c/o increased blood ak1 pressure and tingling in her arm. Transition of care: patient was not received from another setting of care. Onset of symptoms was December 27, 2018. Risk Assessment: Do you want to hurt yourself or someone else? Patient reports no desire to harm self or others. Initial Sepsis Screen: Does the patient meet any 2 criteria? No. Patient's initial sepsis screen is negative. Does the patient have a suspected source of infection? No. Patient's initial sepsis screen is negative. Care prior to arrival: None. 00:09 Method Of Arrival: EMS: [facility] ak1 00:09 Acuity: EKATERINA 3 ak1 Triage Assessment: 00:12 General: Appears in no apparent distress. Behavior is calm, cooperative. Pain: Denies ak1 pain. EENT: No signs and/or symptoms were reported regarding the EENT system. Neuro: Level of Consciousness is awake, alert, obeys commands, Oriented to person, place, time, situation, Player Development Executive are equal bilaterally Moves all extremities. Gait is steady, Speech is normal, Facial symmetry appears normal. Cardiovascular: No deficits noted. Respiratory: No deficits noted. GI: No signs and/or symptoms were reported involving the gastrointestinal system. : No signs and/or symptoms were reported regarding the genitourinary system. Derm: No signs and/or symptoms reported regarding the dermatologic system. Musculoskeletal: No signs and/or symptoms reported regarding the musculoskeletal system. Historical: - Allergies: 00:12 No Known Allergies; ak1 - Home Meds: 00:12 lisinopril 20 mg Oral tab 1 tab once daily [Active]; ak1 - PMHx: 00:12 Diabetes - NIDDM; Hypertension; ak1 - PSHx: 00:12 ; ak1 - Immunization history:: Adult Immunizations unknown. - Social history:: Smoking status: Patient/guardian denies using tobacco. - Ebola Screening: : No symptoms or risks identified at this time. - Family history:: not pertinent. - Hospitalizations: : No recent hospitalization is reported. Screenin:15 Abuse screen: Denies threats or abuse. Denies injuries from another. Nutritional ak1 screening: No deficits noted. Tuberculosis screening: No symptoms or risk factors identified. Fall Risk None identified. Assessment: 00:17 Reassessment: Patient appears in no apparent distress at this time. No changes from ak1 previously documented assessment. see triage assessment. 01:52 Reassessment: Patient appears in no apparent distress at this time. No changes from ak1 previously documented assessment. Patient and/or family updated on plan of care and expected duration. Pain level reassessed. Patient is alert, oriented x 3, equal unlabored respirations, skin warm/dry/pink. 04:03 Reassessment: Patient appears in no apparent distress at this time. Patient is alert, aa1 oriented x 3, equal unlabored respirations, skin warm/dry/pink. Discussed d/c \T\ f/u instructions with pt; denies questions or concerns at this time Patient denies pain at this time. Patient states feeling better. Vital Signs: 00:08 BP 169 / 77; Pulse 82; Resp 18; Temp 98.6(O); Pulse Ox 97% on R/A; Weight 102.06 kg ak1 (R); Height 4 ft. 11 in. (149.86 cm) (R); Pain 0/10; 01:04 BP 148 / 67; Pulse 72; Resp 20; Temp 98.7; Pulse Ox 100% on R/A; ak1 01:52 BP 140 / 62; Pulse 69; Resp 18; Pulse Ox 100% on R/A; ak1 02:48 BP 138 / 66; Pulse 71; Resp 19; Pulse Ox 100% on R/A; ak1 00:08 Body Mass Index 45.44 (102.06 kg, 149.86 cm) ak1 ED Course: 00:07 Patient arrived in ED. rn 00:07 Rito Canada MD is Attending Physician. rn 00:07 Renetta Arizmenid, ABRAHAM is Primary Nurse. ak1 00:10 Triage completed. ak1 00:11 Inserted saline lock: 20 gauge in right antecubital area, using aseptic technique. mw2 Blood collected. 00:12 Arm band placed on Patient placed in an exam room, on a stretcher, on patient monitor, ak1 on pulse oximetry, Patient notified of wait time. 00:15 Patient has correct armband on for positive identification. Bed in low position. Call ak1 light in reach. Side rails up X 1. media monitor on. Pulse ox on. NIBP on. 00:17 CT Head Brain wo Cont Sent. mw2 00:[address] via wheelchair. kw1 00:27 CT completed. Patient tolerated procedure well. kw 00:27 Patient moved to radiology via wheelchair. kw 00:27 X-ray completed. Patient tolerated procedure well. kw 00:27 Patient moved back from radiology. kw 00:39 XRAY Chest (1 view) In Process Unspecified. EDMS 00:39 CT Head Brain wo Cont In Process Unspecified. EDMS 04:03 No provider procedures requiring assistance completed. IV discontinued, intact, aa1 bleeding controlled, No redness/swelling at site. Pressure dressing applied. Administered Medications: No medications were administered Outcome: 03:46 Discharge ordered by MD. rn 04:04 Discharged to home ambulatory. aa1 04:04 Condition: good 04:04 Discharge instructions given to patient, Instructed on discharge instructions, follow up and referral plans. Demonstrated understanding of instructions, follow-up care. 04:04 Patient left the ED. aa1 Signatures: Dispatcher [employer] EDMS Selene Keys, RN RN aa1 Rito Canada MD MD rn Whitley, Kimberlee kw Krenek, Amber, RN RN ak1 Anamaria Talavera kw1 Mary Gonzalez mw2
--- NOTE | 2018-12-27 03:48 | EDPHYS ---
Physician Documentation [facility] Name: Magaly Galeana Age: 53 yrs Sex: Female : 1965 Arrival Date: 12/27/2018 Time: 00:07 Bed 6 Private MD: ED Physician Rito Canada HPI: 12/27 00:17 This 53 yrs old Female presents to ER via EMS with complaints of paresthesias. rn 00:17 Reports has been very stressed lately, tonight one of her sons very intoxicated, felt rn left arm tingling, waited about an hour and didn't get better, so called 911, BP was elevated, no meds given, patient feels better now. Denies chest pain.. Onset: The symptoms/episode began/occurred 1 hour(s) ago. Severity of symptoms: At their worst the symptoms were moderate in the emergency department the symptoms have improved. The patient has not experienced similar symptoms in the past. The patient has not recently seen a physician. Historical: - Allergies: 00:12 No Known Allergies; ak1 - Home Meds: 00:12 lisinopril 20 mg Oral tab 1 tab once daily [Active]; ak1 - PMHx: 00:12 Diabetes - NIDDM; Hypertension; ak1 - PSHx: 00:12 ; ak1 - Immunization history:: Adult Immunizations unknown. - Social history:: Smoking status: Patient/guardian denies using tobacco. - Ebola Screening: : No symptoms or risks identified at this time. - Family history:: not pertinent. - Hospitalizations: : No recent hospitalization is reported. ROS: 00:17 Constitutional: Negative for fever, chills, and weight loss, Eyes: Negative for injury, rn pain, redness, and discharge, Cardiovascular: Negative for chest pain, palpitations, and edema, Respiratory: Negative for shortness of breath, cough, wheezing, and pleuritic chest pain, Abdomen/GI: Negative for abdominal pain, nausea, vomiting, diarrhea, and constipation, MS/Extremity: Negative for injury and deformity, Skin: Negative for injury, rash, and discoloration, Neuro: + numbness of left arm Exam: 00:17 Constitutional: This is a well developed, well nourished patient who is awake, alert, rn appears anxious Head/Face: Normocephalic, atraumatic. Eyes: Pupils equal round and reactive to light, extra-ocular motions intact. Lids and lashes normal. Conjunctiva and sclera are non-icteric and not injected. Cornea within normal limits. Periorbital areas with no swelling, redness, or edema. Cardiovascular: Regular rate and rhythm, No pulse deficits. Respiratory: Lungs have equal breath sounds bilaterally, clear to auscultation, No increased work of breathing, no retractions or nasal flaring. Abdomen/GI: soft, non-tender Skin: Warm, dry with normal turgor. Normal color with no rashes, no lesions, and no evidence of cellulitis. MS/ Extremity: Pulses equal, no cyanosis. Neurovascular intact. Full, normal range of motion. Equal circumference. Neuro: Awake and alert, GCS 15, oriented to person, place, time, and situation. Cranial nerves II-XII grossly intact. Motor strength 5/5 in all extremities. Sensory grossly intact. Cerebellar exam normal. Vital Signs: 00:08 BP 169 / 77; Pulse 82; Resp 18; Temp 98.6(O); Pulse Ox 97% on R/A; Weight 102.06 kg ak1 (R); Height 4 ft. 11 in. (149.86 cm) (R); Pain 0/10; 01:04 BP 148 / 67; Pulse 72; Resp 20; Temp 98.7; Pulse Ox 100% on R/A; ak1 01:52 BP 140 / 62; Pulse 69; Resp 18; Pulse Ox 100% on R/A; ak1 02:48 BP 138 / 66; Pulse 71; Resp 19; Pulse Ox 100% on R/A; ak1 00:08 Body Mass Index 45.44 (102.06 kg, 149.86 cm) ak1 MDM: 00:07 Patient medically screened. rn 03:45 Differential Diagnosis paresthesias, cardiac pain, stress, anxiety. Data reviewed: rn vital signs, nurses notes, lab test result(s), EKG, radiologic studies, plain films, and as a result, I will discharge patient. Counseling: I had a detailed discussion with the patient and/or guardian regarding: the historical points, exam findings, and any diagnostic results supporting the discharge/admit diagnosis, lab results, radiology results, the need for outpatient follow up, to return to the emergency department if symptoms worsen or persist or if there are any questions or concerns that arise at home. Special discussion: Based on the patient's history, exam, and Dx evaluation, there is no indication for emergent intervention or inpatient Tx. It is understood by the patient/guardian that if the Sx's persist or worsen they need to return immediately for re-evaluation. I discussed with the patient/guardian in detail that at this point there is no indication for admission to the hospital. It is understood, however, that if the symptoms persist or worsen the patient needs to return immediately for re-evaluation. ED course: Trop neg X 2, neg cxr, no changes in ECG and without ischemia.. 03:47 ED course: Pt states feels much better, symptoms comes and goes.. rn 12/27 00:08 Order name: Basic Metabolic Panel; Complete Time: 01:36 rn 12/27 00:08 Order name: CBC with Diff rn 12/27 00:08 Order name: NT PRO-BNP; Complete Time: 01:36 rn 12/27 00:08 Order name: Troponin (emerg Dept Use Only); Complete Time: 01:36 rn 12/27 00:34 Order name: CBC with Automated Diff EDMS 12/27 02:31 Order name: Troponin (emerg Dept Use Only): draw at 0300; Complete Time: 03:45 rn 12/27 00:08 Order name: XRAY Chest (1 view) rn 12/27 00:08 Order name: EKG; Complete Time: 00:09 rn 12/27 00:08 Order name: Cardiac monitoring; Complete Time: 00:16 rn 12/27 00:08 Order name: EKG - Nurse/Tech; Complete Time: 00:59 rn 12/27 00:08 Order name: IV Saline Lock; Complete Time: 00:16 rn 12/27 00:08 Order name: Labs collected and sent; Complete Time: 00:16 rn 12/27 00:08 Order name: CT Head Brain wo Cont rn 12/27 02:31 Order name: EKG; Complete Time: 02:31 rn 12/27 00:08 Order name: O2 Per Protocol; Complete Time: 00:16 rn 12/27 00:08 Order name: O2 Sat Monitoring; Complete Time: 00:16 rn 12/27 02:31 Order name: EKG - Nurse/Tech; Complete Time: 03:54 rn Administered Medications: No medications were administered Disposition: 12/27/18 03:46 Discharged to Home. Impression: Paresthesia of skin, hypertension. - Condition is Stable. - Discharge Instructions: Hypertension, Paresthesia. - Medication Reconciliation Form, Thank You Letter, Antibiotic Education, Prescription Opioid Use form. - Follow up: Private Physician; When: As needed; Reason: Recheck today's complaints, Re-evaluation by your physician. - Problem is new. - Symptoms have improved. Signatures: Dispatcher [employer] EDMS Selene Keys, RN RN aa1 Rito Canada MD MD rn Krenek, Amber, RN RN ak1 Corrections: (The following items were deleted from the chart) 04:04 03:46 12/27/2018 03:46 Discharged to Home. Impression: Paresthesia of skin; aa1 hypertension. Condition is Stable. Forms are Medication Reconciliation Form, Thank You Letter, Antibiotic Education, Prescription Opioid Use. Follow up: Private Physician; When: As needed; Reason: Recheck today's complaints, Re-evaluation by your physician. Problem is new. Symptoms have improved. rn
[2018-12-27 04:18] VITALS: TEMP 98.7; O2SAT 100
[2018-12-27 04:20] VITALS: BP 138/66
--- NOTE | 2018-12-27 07:46 | EKG ---
Test Date: 2018-12-27 Test Time: 00:55:31 Small Arms Repairer: ELISA MEASUREMENT RESULTS: Intervals: Rate: 66 DE: 162 QRSD: 86 QT: 382 QTc: 400 [place]: P: 24 DE: 162 QRS: 16 T: 48 INTERPRETIVE STATEMENTS: Normal sinus rhythm Normal ECG Compared to ECG 11/12/2018 18:41:37 No significant changes Electronically Signed On 12-27-18 07:45:44 ROLL OUT MANAGER by Valdez Munroe
--- NOTE | 2018-12-27 07:46 | EKG ---
Test Date: 2018-12-27 Test Time: 03:05:07 Crepe Sole Scourer: ELISA MEASUREMENT RESULTS: Intervals: Rate: 70 PA: 170 QRSD: 86 QT: 406 QTc: 438 [place]: P: 25 PA: 170 QRS: 16 T: 47 INTERPRETIVE STATEMENTS: Normal sinus rhythm Nonspecific T wave abnormality Abnormal ECG Compared to ECG 12/27/2018 00:55:31 T-wave abnormality now present Electronically Signed On 12-27-18 07:45:39 RAILROAD AUDITOR by Valdez Munroe
--- NOTE | 2018-12-27 08:50 | RAD REPORT ---
EXAM DESCRIPTION: Grazyna Single View12/27/2018 12:30 am CLINICAL HISTORY: Hypertension COMPARISON: November 2018 FINDINGS: The lungs appear clear of acute infiltrate. The heart is normal size IMPRESSION: No acute abnormalities displayed
--- NOTE | 2018-12-27 13:12 | RAD REPORT ---
EXAM DESCRIPTION: CT - Head Brain Wo Cont - 12/27/2018 5:05 am CLINICAL HISTORY: 53 years Female NUMBNESS COMPARISON: None. TECHNIQUE: Contiguous axial images of the brain were obtained without the administration of intravenous contrast . This exam was performed according to our departmental dose-optimization program, which includes aut omated exposure control, adjustment of the mA and/or kV according to patient size and/or less of iter ative reconstruction technique. FINDINGS: Brain: No acute intracranial hemorrhage. No acute territorial infarct. No extra-axial peter ection. No mass effect or herniation. Ventricles: Within normal limits in size. Globes and orbits: No acute abnormality. Bones: No acute osseous finding. Paranasal sinuses: Paranasal sinuses are clear. Frontal sinuses are hypoplastic. Mastoid air cells: Not pneumatized. Soft tissues: Within normal limits. Returned Goods Sorter view shows no additional significant finding. IMPRESSION: No acute intracranial abnormality. Electronically signed by Isreal Small DO 12/27/2018 12:37 AM BRICK KILN WORKER Due to temporary technical issues with the PACS/Fluency reporting system, reports are being signed by the in house radiologist as a courtesy to ensure prompt reporting. The interpreting radiologist is f ully responsible for the content of the report.
== END 2018-12-27 04:04 | disposition home or self-care (01) ==
LOC: ER 00:04
DX: R20.2 Paresthesia of skin (principal); I10 Essential (primary) hypertension; E11.9 Type 2 diabetes mellitus without complications
CPT/HCPCS: 36415; 70450; 71045; 80048; 83880; 84484; 85025; 93005; 99285

== ENCOUNTER 2019-03-22 00:32 | Observation (INO) | payer SELFPAY ==
[2019-03-22] MEDS ORDERED: ASPIRIN 81 MG CHEWABLE TABLET ONE (01:03)
[2019-03-22] MEDS ORDERED: NITROGLYCERIN 0.4 MG/TAB SL ONE (01:03)
[2019-03-22] MEDS ORDERED: NITROGLYCERIN 1 GM PKT TD ONE (01:03)
[2019-03-22 01:26] LABS: Absolute Lymphocytes (CBC) 2.7 K/uL (0.7-4.9); Absolute Monocytes 0.3 K/uL (0.1-1.3); Absolute Neutrophil 3.5 K/uL (1.8-8.0); Basophils % 0.5 % (0-1.3); Eosinophils % 2.3 % (0-4.4); Hematocrit 33.8 % (36.0-45.0); Lymphocytes % 40.1 % (15.3-44.8); MPV 10.4 fL (7.6-11.3); Monocytes % 4.8 % (3.3-12.3); RBC Red Blood Cell Count 4.35 M/uL (3.86-4.86)
[2019-03-22 01:27] LABS: Protime INR 1.07
[2019-03-22 01:33] LABS: ALT/SGPT 18 U/L (12-78); AST/SGOT 13 U/L (15-37); Albumin 4.1 g/dL (3.4-5.0); Alkaline Phosphatase 102 U/L (45-117); BUN Blood Urea Nitrogen 12 mg/dL (7-18); Bicarbonate 27 mmol/L (21-32); Bilirubin Direct 0.1 mg/dL (0-0.2); Bilirubin Total 0.5 mg/dL (0.2-1.0); Glucose Level 111 mg/dL (74-106); Magnesium 2.1 mg/dL (1.8-2.4); NT PRO-BNP 39 pg/mL (<125); Potassium 3.6 mmol/L (3.5-5.1); Sodium Level 138 mmol/L (136-145); Troponin (Emerg Dept Use Only) < 0.02 ng/mL (0.0-0.045)
--- NOTE | 2019-03-22 02:48 | EDPHYS ---
Physician Documentation [facility] Name: Magaly Galeana Age: 54 yrs Sex: Female : 1965 Arrival Date: 03/22/2019 Time: 00:34 Bed 13 Private MD: Renee Rene C ED Physician Jenaro Granados HPI: 03/22 07:28 This 54 yrs old Female presents to ER via Ambulatory with complaints of Chest wa Pain, Numbness Of Arm - tingling. 07:28 The patient or guardian reports chest pain that is located primarily in the substernal wa area. Onset: today. The pain radiates to the left arm. Associated signs and symptoms: Pertinent positives: dizziness, shortness of breath, Pertinent negatives: abdominal pain, cough, headache, palpitations, vomiting. The chest pain is described as a pressure. Duration: The patient or guardian reports multiple episodes, that are intermittent, the episodes last approximately 20 minute(s). Modifying factors: The symptoms are alleviated by nothing. the symptoms are aggravated by nothing. Severity of pain: At its worst the pain was moderate in the emergency department the pain is actually worse moderately. The patient has experienced a previous episode, approximately 3 months ago. The patient has not recently seen a physician. on and off chest pains with radiation to L arm. assoc with dizziness and mild SOB. DECAL TRANSFERRER: 00:35 LMP N/A - Post-menopause fc Historical: - Allergies: 00:54 No Known Allergies; fc - Home Meds: 00:54 lisinopril 20 mg Oral tab 1 tab once daily [Active]; terbinafine HCl 250 mg oral tab 1 fc tab once daily [Active]; metformin 500 mg Oral tab 1 tab 2 times per day [Active]; - PMHx: 00:54 Diabetes - NIDDM; Hypertension; High Cholesterol; fc - PSHx: 00:54 ; right ankle; fc - Immunization history:: Last tetanus immunization: unknown. - Social history:: Smoking status: Patient/guardian denies using tobacco, the patient reports quitting approximately 1 years ago, Patient/guardian denies using alcohol, street drugs. - Ebola Screening: : Patient negative for fever greater than or equal to 101.5 degrees Fahrenheit, and additional compatible Ebola Virus Disease symptoms Patient denies exposure to infectious person Patient denies travel to an Ebola-affected area in the 21 days before illness onset. - Family history:: not pertinent. - Hospitalizations: : No recent hospitalization is reported. ROS: 07:32 Constitutional: Negative for fever, chills, and weight loss, Eyes: Negative for injury, wa pain, redness, and discharge, ENT: Negative for injury, pain, and discharge, Neck: Negative for injury, pain, and swelling, Abdomen/GI: Negative for abdominal pain, nausea, vomiting, diarrhea, and constipation, Back: Negative for injury and pain, : Negative for injury, bleeding, discharge, and swelling, MS/Extremity: Negative for injury and deformity, Skin: Negative for injury, rash, and discoloration, Neuro: Negative for headache, weakness, numbness, tingling, and seizure, Psych: Negative for depression, anxiety, suicide ideation, homicidal ideation, and hallucinations. 07:32 Cardiovascular: Positive for chest pain, Negative for edema, orthopnea, palpitations, paroxysmal nocturnal dyspnea. 07:32 Respiratory: Positive for shortness of breath, Negative for cough, hemoptysis, wheezing. 07:32 All other systems are negative. Exam: 07:33 Constitutional: This is a well developed, well nourished patient who is awake, alert, wa and in no acute distress. Head/Face: Normocephalic, atraumatic. Eyes: Pupils equal round and reactive to light, extra-ocular motions intact. Lids and lashes normal. Conjunctiva and sclera are non-icteric and not injected. Cornea within normal limits. Periorbital areas with no swelling, redness, or edema. ENT: Nares patent. No nasal discharge, no septal abnormalities noted. Tympanic membranes are normal and external auditory canals are clear. Oropharynx with no redness, swelling, or masses, exudates, or evidence of obstruction, uvula midline. Mucous membranes moist. Neck: Trachea midline, no thyromegaly or masses palpated, and no cervical lymphadenopathy. Supple, full range of motion without nuchal rigidity, or vertebral point tenderness. No Meningismus. Chest/axilla: Normal chest wall appearance and motion. Nontender with no deformity. No lesions are appreciated. Abdomen/GI: Soft, non-tender, with normal bowel sounds. No distension or tympany. No guarding or rebound. No evidence of tenderness throughout. Back: No spinal tenderness. No costovertebral tenderness. Full range of motion. Skin: Warm, dry with normal turgor. Normal color with no rashes, no lesions, and no evidence of cellulitis. MS/ Extremity: Pulses equal, no cyanosis. Neurovascular intact. Full, normal range of motion. Neuro: Awake and alert, GCS 15, oriented to person, place, time, and situation. Cranial nerves II-XII grossly intact. Motor strength 5/5 in all extremities. Sensory grossly intact. Cerebellar exam normal. Normal gait. Psych: Awake, alert, with orientation to person, place and time. Behavior, mood, and affect are within normal limits. 07:33 Cardiovascular: Rate: normal, Rhythm: regular, Pulses: no pulse deficits are appreciated, Heart sounds: normal, Edema: is not appreciated, JVD: is not appreciated. 07:33 Respiratory: the patient does not display signs of respiratory distress, Respirations: normal, Breath sounds: are clear throughout, Respiratory rate: nml Vital Signs: 00:35 BP 154 / 84; Pulse 79; Resp 18; Temp 98.2(O); Pulse Ox 100% on R/A; Weight 102.06 kg fc (R); Height 5 ft. 0 in. (152.40 cm) (R); Pain 5/10; 01:30 BP 135 / 67; Pulse 65; Resp 17; Pulse Ox 99% on R/A; Pain 0/10; rr5 02:30 BP 131 / 81; Pulse 67; Resp 18; Pulse Ox 99% on R/A; rr5 03:50 BP 145 / 77; Pulse 65; Resp 17; Temp 98.3; Pulse Ox 99% on R/A; rr5 00:35 Body Mass Index 43.94 (102.06 kg, 152.40 cm) MDM: 00:41 Patient medically screened. 07:34 Differential diagnosis: acute myocardial infarction, acute pericarditis, coronary wa artery disease congestive heart failure stable angina, unstable angina. Data reviewed: vital signs, nurses notes, lab test result(s), EKG, radiologic studies. Test interpretation: by ED physician or midlevel provider: EKG: nml sinus. no acute zonal ischemia. CXR: wnl.. 03/22 00:42 Order name: Basic Metabolic Panel; Complete Time: 02:00 03/22 00:42 Order name: CBC with Diff; Complete Time: 02:00 sd 03/22 00:42 Order name: LFT's; Complete Time: 02: sd 03/22 00:42 Order name: Magnesium; Complete Time: 02: sd 03/22 00:42 Order name: NT PRO-BNP; Complete Time: 02:00 sd 03/22 00:42 Order name: PT-INR; Complete Time: 02: sd 03/22 00:42 Order name: Troponin (emerg Dept Use Only); Complete Time: 02: sd 03/22 00:42 Order name: XRAY Chest (1 view) 03/22 00:42 Order name: EKG; Complete Time: 00:44 sd 03/22 00:42 Order name: Cardiac monitoring; Complete Time: : sd 03/22 00:42 Order name: EKG - Nurse/Tech; Complete Time: : sd 03/22 00:42 Order name: IV Saline Lock; Complete Time: : sd 03/22 00:42 Order name: Labs collected and sent; Complete Time: : sd 03/22 00:42 Order name: O2 Sat Monitoring; Complete Time: 01: sd Administered Medications: 00:52 Drug: Nitro-Bid Ointment 2 % 1 inches {Note: right.} Route: Transdermal; Site: anterior rr5 chest wall; 02:00 Follow up: Response: No adverse reaction rr5 00:54 Drug: Nitroglycerin 0.4 mg Route: Sublingual; rr5 02:00 Follow up: Response: No adverse reaction; Marked relief of symptoms rr5 00:55 Drug: Aspirin Chewable Tablet 324 mg Route: PO; rr5 02:00 Follow up: Response: No adverse reaction rr5 Disposition: 03/22/19 02:47 Hospitalization ordered by Rubi Bingham for Observation. Preliminary diagnosis is Acute Chest Pain. - Bed requested for Telemetry/MedSurg (observation). - Status is Observation. rr5 - Condition is Fair. - Problem is new. - Symptoms have improved. UTI on Admission? No Signatures: Dispatcher [employer] Bruna Juarez RN RN fc Garcia, Cindy, RN RN Roberta, Jenaro, MD MD wa Contreras, Rajiv, RN RN rr5 Corrections: (The following items were deleted from the chart) 03:17 02:47 Hospitalization Ordered by Rubi Bingham MD for Observation. Preliminary cg diagnosis is Acute Chest Pain. Bed requested for Telemetry/MedSurg (observation). Status is Observation. Condition is Fair. Problem is new. Symptoms have improved. UTI on Admission? No. sd 04:25 03:17 03/22/2019 02:47 Hospitalization Ordered by Rubi Bingham MD for Observation. rr5 Preliminary diagnosis is Acute Chest Pain. Bed requested for Telemetry/MedSurg (observation). Status is Observation. Condition is Fair. Problem is new. Symptoms have improved. UTI on Admission? No. cg
--- NOTE | 2019-03-22 02:48 | ER ---
Nurse's Notes [facility] Name: Magaly Galeana Age: 54 yrs Sex: Female : 1965 Arrival Date: 03/22/2019 Time: 00:34 Bed 13 Private MD: Renee Rene C Diagnosis: Acute Chest Pain Presentation: 03/22 00:35 Presenting complaint: Patient states: that she is having chest pain that comes and fc goes. When it happens it only last for a few minutes. This has happened x 3 since 0. When the pain comes she has nausea, vomiting and shortness of breath. Transition of care: patient was not received from another setting of care. Onset of symptoms was March 21, 2019 at 17:00. Risk Assessment: Do you want to hurt yourself or someone else? Patient reports no desire to harm self or others. Initial Sepsis Screen: Does the patient meet any 2 criteria? No. Patient's initial sepsis screen is negative. Does the patient have a suspected source of infection? No. Patient's initial sepsis screen is negative. Care prior to arrival: None. 00:35 Method Of Arrival: Ambulatory fc 00:35 Acuity: EKATERINA 3 fc ROVING WEIGHT GAUGER: 00:35 LMP N/A - Post-menopause fc Historical: - Allergies: 00:54 No Known Allergies; fc - Home Meds: 00:54 lisinopril 20 mg Oral tab 1 tab once daily [Active]; terbinafine HCl 250 mg oral tab 1 fc tab once daily [Active]; metformin 500 mg Oral tab 1 tab 2 times per day [Active]; - PMHx: 00:54 Diabetes - NIDDM; Hypertension; High Cholesterol; fc - PSHx: 00:54 ; right ankle; fc - Immunization history:: Last tetanus immunization: unknown. - Social history:: Smoking status: Patient/guardian denies using tobacco, the patient reports quitting approximately 1 years ago, Patient/guardian denies using alcohol, street drugs. - Ebola Screening: : Patient negative for fever greater than or equal to 101.5 degrees Fahrenheit, and additional compatible Ebola Virus Disease symptoms Patient denies exposure to infectious person Patient denies travel to an Ebola-affected area in the 21 days before illness onset. - Family history:: not pertinent. - Hospitalizations: : No recent hospitalization is reported. Screenin:51 Abuse screen: Denies threats or abuse. Nutritional screening: No deficits noted. fc Tuberculosis screening: No symptoms or risk factors identified. Fall Risk None identified. Assessment: 00:50 General: Appears in no apparent distress. uncomfortable, Behavior is calm, cooperative, rr5 appropriate for age. 00:50 Pain: Complains of pain in chest Pain radiates to left arm Pain currently is 5 out of rr5 10 on a pain scale. Quality of pain is described as aching, Pain began gradually, Is intermittent. Neuro: Level of Consciousness is awake, alert, obeys commands, Oriented to person, place, time, situation. Cardiovascular: Reports chest pain, Capillary refill < 3 seconds Patient's skin is warm and dry. Respiratory: Airway is patent Respiratory effort is even, unlabored, Respiratory pattern is regular, symmetrical. GI: No signs and/or symptoms were reported involving the gastrointestinal system. : No signs and/or symptoms were reported regarding the genitourinary system. EENT: No signs and/or symptoms were reported regarding the EENT system. Derm: Skin is intact, Skin temperature is warm. Musculoskeletal: Capillary refill < 3 seconds, Range of motion: Reports tingling sensation at left arm. 01:30 Reassessment: Patient appears in no apparent distress at this time. Patient is alert, rr5 oriented x 3, equal unlabored respirations, skin warm/dry/pink. pain free Patient denies pain at this time. Patient states feeling better. Patient states symptoms have improved. 02:30 Reassessment: Patient appears in no apparent distress at this time. Patient is alert, rr5 oriented x 3, equal unlabored respirations, skin warm/dry/pink. Patient states symptoms have improved. 03:15 Reassessment: Patient appears in no apparent distress at this time. Patient is alert, rr5 oriented x 3, equal unlabored respirations, skin warm/dry/pink. asleep on bed comfortably. awaiting for room assignment. 04:00 Reassessment: Patient appears in no apparent distress at this time. Patient is alert, rr5 oriented x 3, equal unlabored respirations, skin warm/dry/pink. for transfer to room. no complaints made. Vital Signs: 00:35 BP 154 / 84; Pulse 79; Resp 18; Temp 98.2(O); Pulse Ox 100% on R/A; Weight 102.06 kg fc (R); Height 5 ft. 0 in. (152.40 cm) (R); Pain 5/10; 01:30 BP 135 / 67; Pulse 65; Resp 17; Pulse Ox 99% on R/A; Pain 0/10; rr5 02:30 BP 131 / 81; Pulse 67; Resp 18; Pulse Ox 99% on R/A; rr5 03:50 BP 145 / 77; Pulse 65; Resp 17; Temp 98.3; Pulse Ox 99% on R/A; rr5 00:35 Body Mass Index 43.94 (102.06 kg, 152.40 cm) ED Course: 00:34 Patient arrived in ED. am2 00:34 Renee Rene FNP is Private Physician. am2 00:35 Arm band placed on Patient placed in an exam room, on a stretcher. fc 00:41 Jenaro Granados MD is Attending Physician. wa 00:43 Rajiv Contreras RN is Primary Nurse. rr5 00:50 Triage completed. fc 00:51 Patient has correct armband on for positive identification. Placed in gown. Bed in low fc position. Call light in reach. Side rails up X 1. clinical research monitor on. Pulse ox on. NIBP on. 00:51 No provider procedures requiring assistance completed. fc 01:00 Patient maintains SpO2 saturation greater than 95% on room air. rr5 01:01 Initial lab(s) drawn, by me, sent to lab. EKG done, by ED staff. Inserted saline lock: lt1 20 gauge in right antecubital area, using aseptic technique. 01:33 X-ray completed. Portable x-ray completed in exam room. Patient tolerated procedure kw well. 01:39 XRAY Chest (1 view) In Process Unspecified. EDMS 02:46 Rubi Bingham MD is Hospitalizing Provider. wa 04:01 Patient admitted, IV remains in place. intact. rr5 Administered Medications: 00:52 Drug: Nitro-Bid Ointment 2 % 1 inches {Note: right.} Route: Transdermal; Site: anterior rr5 chest wall; 02:00 Follow up: Response: No adverse reaction rr5 00:54 Drug: Nitroglycerin 0.4 mg Route: Sublingual; rr5 02:00 Follow up: Response: No adverse reaction; Marked relief of symptoms rr5 00:55 Drug: Aspirin Chewable Tablet 324 mg Route: PO; rr5 02:00 Follow up: Response: No adverse reaction rr5 Outcome: 02:47 Decision to Hospitalize by Provider. sc 04:00 Admitted to Med/surg accompanied by tech, via wheelchair, room 219, with chart, Report rr5 called to sudhakar 04:00 Condition: stable 04:00 Instructed on the need for admit. 04:25 Patient left the ED. rr5 Signatures: Dispatcher [employer] EDMS Bruna Prince, RN RN Yvette Villafuerte Amanda am2 Jenaro Granados MD MD wa Roque, Raymond RN RN rr5 Fang Blackman 1
--- NOTE | 2019-03-22 03:30 | P.HP ---
Certification for Inpatient Patient admitted to: Observation With expected LOS: <2 Midnights Practitioner: I am a practitioner with admitting privileges, knowledge of patient current condition, hospital course, and medical plan of care. Services: Services provided to patient in accordance with Admission requirements found in Title 42 Section 412.3 of the Code of Federal Regulations Patient History Date of Service: 03/22/19 Reason for admission: chest pain History of Present Illness: Ms Galeana is a 54 years old woman with history of HTN, Dyslipidemia, Diabetes Mellitus II, who came to ED complaining of chest pain. Her symptoms started 5 PM last afternoon. She describe a sharp, pressure like retrosternal pain, radiated to left arm, 8/10 of intensity, lasting for a couple of minutes. She had this episodes 3 times yesterday. She also had nausea but no vomiting associated with. Denied SOB, diaphoresis or dizziness. Pain was not reproducible with palpation or breathing movements. She states that nitro helped with her pain. The patient was admitted on 11/25 with similar symptoms, but no cardiac work up was done. At the moment EKG shows SR at 60 bpm, without ST-T abnormalities. Trop I negative. Allergies No Known Allergies Allergy (Verified 11/11/18 11:26) Home medications list reviewed: Yes Home Medications: Atorvastatin Calcium [Lipitor*] 20 mg PO BEDTIME #30 tab 11/13/18 Lisinopril [Prinivil*] 20 mg PO DAILY #30 tab 11/13/18 Metformin HCl [Glucophage*] 1,000 mg PO BIDWM #60 tab 11/13/18 hydroCHLOROthiazide [Hydrochlorothiazide*] 12.5 mg PO DAILY #30 cap 11/13/18 - Past Medical/Surgical History Diabetic: No -: HTN -: diabetes mellitus II -: dyslipidemia Past Surgical History: Reviewed- Non-Contributory - Family History Family History: Reviewed- Non-Contributory - Family History Father -: Hypertension - Social History Smoking Status: Former smoker Alcohol use: No CD- Drugs: No Caffeine use: Yes Place of Residence: Home Review of Systems 10-point ROS is otherwise unremarkable Physical Examination - Physical Exam General: Alert, In no apparent distress HEENT: Atraumatic, PERRLA, Mucous membr. moist/pink, EOMI, Sclerae nonicteric Neck: Supple, 2+ carotid pulse no bruit, No LAD, Without JVD or thyroid abnormality Respiratory: Clear to auscultation bilaterally, Normal air movement Cardiovascular: Regular rate/rhythm, Normal S1 S2 Gastrointestinal: Normal bowel sounds, No tenderness Musculoskeletal: No tenderness Integumentary: No rashes Neurological: Normal gait, Normal speech, Normal strength at 5/5 x4 extr, Normal tone, Normal affect Lymphatics: No axilla or inguinal lymphadenopathy - Studies Laboratory Data (last 24 hrs) 03/22/19 00:57: PT 12.6 H, INR 1.07 03/22/19 00:57: WBC 6.7, Hgb 11.3 L, Hct 33.8 L, Plt Count 186 03/22/19 00:57: Sodium 138, Potassium 3.6, BUN 12, Creatinine 0.67, Glucose 111 H, Magnesium 2.1, Total Bilirubin 0.5, AST 13 L, ALT 18, Alkaline Phosphatase 102 Assessment and Plan - Problems (Diagnosis) (1) Chest pain Onset Date: 11/13/18 Current Visit: No Status: Acute Qualifiers: Chest pain type: precordial pain Qualified Code(s): R07.2 - Precordial pain (2) Diabetes mellitus Current Visit: No Status: Acute Qualifiers: Diabetes mellitus type: type 2 Diabetes mellitus 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 insulin use: without 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 use Diabetes mellitus complication status: with unspecified complications Qualified Code(s): E11.8 - Type 2 diabetes mellitus with unspecified complications (3) Former heavy cigarette smoker (20-39 per day) Onset Date: 11/13/18 Current Visit: No Status: Acute (4) Hyperlipidemia Onset Date: 11/13/18 Current Visit: No Status: Acute Qualifiers: Hyperlipidemia type: mixed hyperlipidemia Qualified Code(s): E78.2 - Mixed hyperlipidemia (5) Morbid obesity with BMI of 45.0-49.9, adult Onset Date: 11/13/18 Current Visit: No Status: Acute (6) Hypertension Onset Date: 11/13/18 Current Visit: No Status: Chronic Qualifiers: Hypertension type: essential hypertension Qualified Code(s): I10 - Essential (primary) hypertension - Plan Will admit the patient due to chest pain in order to R/O ACS. So far EKG and trop I negative. Will continue with serial cardiac enzymes, EKG, order ECHO and cardiology evaluation. - Advance Directives Does patient have a Living Will: No Does patient have a Durable POA for Healthcare: No - Code Status/Comfort Care Code Status Assessed: Yes Code Status: Full Code
[2019-03-22] MEDS ORDERED: NITROGLYCERIN 0.4 MG/TAB SL PRN (04:27)
[2019-03-22] MEDS: INSULIN -REGULAR HUMAN 50 UNIT/0.5 ML ML SQ SCH ×2 (06:00→12:00)
[2019-03-22 06:15] VITALS: BMI 43.9
[2019-03-22 06:23] LABS: HDL Cholesterol 43 mg/dL (40-60); LDL Cholesterol, Calculated 53 (<130); Troponin I < 0.02 ng/mL (0.0-0.045)
--- NOTE | 2019-03-22 08:36 | RAD REPORT ---
EXAM DESCRIPTION: Grazyna Single View03/22/2019 1:38 am CLINICAL HISTORY: Chest pain COMPARISON: December 2018 FINDINGS: The lungs appear clear of acute infiltrate. The heart is normal size IMPRESSION: No acute abnormalities displayed
[2019-03-22] MEDS ORDERED: LISINOPRIL 20 MG TAB PO SCH (09:00)
[2019-03-22] MEDS ORDERED: ENOXAPARIN 40 MG/0.4 ML SQ SCH (09:00)
[2019-03-22] MEDS ORDERED: REGADENOSON 0.4 MG/5 ML SYR IV ONE (09:15)
[2019-03-22 11:02] VITALS: O2SAT 93
--- NOTE | 2019-03-22 12:45 | EKG ---
Test Date: 2019-03-22 Test Time: 00:47:41 Hr Generalist: ADDY MEASUREMENT RESULTS: Intervals: Rate: 66 OH: 166 QRSD: 88 QT: 386 QTc: 404 [place]: P: 20 OH: 166 QRS: 10 T: 32 INTERPRETIVE STATEMENTS: Normal sinus rhythm Cannot rule out Anterior infarct, age undetermined Abnormal ECG Compared to ECG 12/27/2018 03:05:07 Myocardial infarct finding now present T-wave abnormality no longer present Electronically Signed On 03-22-19 12:44:08 CDT by Uvaldo Petersen
[2019-03-22 12:52] VITALS: BP 145/76; TEMP 97.9
--- NOTE | 2019-03-22 13:25 | ECHO ---
HEIGHT: 5 ft 0 in WEIGHT: 224 lb 13.944 oz DATE OF STUDY: 03/22/[address]: Rubi Bahena MD 2-DIMENSIONAL: YES M.MODE: YES DOPPLER: YES COLOR FLOW: YES TDS: PORTABLE: DEFINITY: BUBBLE STUDY: DIAGNOSIS: CHEST PAIN CARDIAC HISTORY: CATHERIZATION: NO SURGERY: NO PROSTHETIC VALVE: NO PACEMAKER: NO MEASUREMENTS (cm) DIASTOLIC (NORMALS) SYSTOLIC (NORMALS) IVSd 1.0 (0.6-1.2) LA Diam 3.4 (1.9-4.0) LVEF 68% LVIDd 4.7 (3.5-5.7) LVIDs 2.9 (2.0-3.5) %FS 38% LVPWd 1.1 (0.6-1.2) Ao Diam 2.3 (2.0-3.7) 2 DIMENSIONAL ASSESSMENT: RIGHT ATRIUM: NORMAL LEFT ATRIUM: NORMAL RIGHT VENTRICLE: NORMAL LEFT VENTRICLE: NORMAL TRICUSPID VALVE: NORMAL MITRAL VALVE: NORMAL PULMONIC VALVE: NORMAL AORTIC VALVE: NORMAL PERICARDIAL EFFUSION: NONE AORTIC ROOT: NORMAL LEFT VENTRICULAR WALL MOTION: NORMAL DOPPLER/COLOR FLOW: NORMAL COMMENTS: NORMAL TWO DIMENSIONAL ECHOCARDIOGRAM WITH DOPPLER. NO WALL MOTION ABNORMALITY. NO EFFUSION. TECHNOLOGIST: GARRETT DEL CASTILLO
--- NOTE | 2019-03-22 14:25 | P.DS ---
Admission Date: 03/22/19 Discharge Date: 03/22/19 Primary Care Provider: Shoaib Rene NP Disposition: ROUTINE DISCHARGE Discharge Condition: GOOD Reason for Admission: chest pain Consultations: Cardiology-Dr. Petersen Procedures: ECHO: Ejection fraction 68% LEFT VENTRICULAR WALL MOTION: NORMAL DOPPLER/COLOR FLOW: NORMAL COMMENTS: NORMAL TWO DIMENSIONAL ECHOCARDIOGRAM WITH DOPPLER. NO WALL MOTION ABNORMALITY. NO EFFUSION. Cardiac Stress Test: FINDINGS: There is uniformity of radiotracer activity involving the left ventricular myocardium on rest and stress images. Left ventricular ejection fraction equals 66% IMPRESSION: Negative for a myocardial perfusion defect Medical Problem List: Chest pain Hypertension Diabetes mellitus type 2 Obesity, BMI 43 Brief History of Present Illness: 54-year-old female presented to the emergency room with chest pain. Patient with history of diabetes, hypertension, hyperlipidemia. Patient was admitted for further evaluation. Hospital Course: Patient presented with chest pain. Patient was admitted for observation. Cardiac enzymes unremarkable. No significant ST changes noted. Echocardiogram appeared normal. Cardiac stress test performed. Cardiac stress test showed no stress-induced ischemia. No further intervention required. Chest pain may be noncardiac light GERD. Patient may take giva-psn-aptidvv Pepcid as needed. Patient may benefit with GI evaluation as an outpatient if pain persists. At discharge patient will continue with aspirin 81 mg daily. Patient will be provided nitroglycerin to be use as needed for chest pain. Patient may follow up with cardiology in 2-4 weeks to follow up this hospitalization. Patient with hypertension. Blood pressures have remained stable. Patient will continue with lisinopril 20 mg daily. Recommend to maintain blood pressures less 150/80. Further adjustment can be done by her PCP. Patient with diabetes mellitus type 2. Patient will continue with metformin 1000 mg 1 pill twice daily. Recommend to maintain blood sugars less 140 fasting and less than 200 after meals. Further adjustment can be done by her PCP. Patient will be provided Lifestyle modification education. Vital Signs/Physical Exam: Temp Pulse Resp BP Pulse Ox 97.9 F 62 16 145/76 H 99 03/22/19 12:00 03/22/19 12:00 03/22/19 12:00 03/22/19 12:00 03/22/19 12:00 General: Alert, In no apparent distress, Oriented x3, Cooperative HEENT: Atraumatic Neck: Supple Respiratory: Clear to auscultation bilaterally, Normal air movement Cardiovascular: Normal pulses, Regular rate/rhythm Gastrointestinal: Normal bowel sounds, Soft and benign, Non-distended Musculoskeletal: No erythema, No tenderness, No warmth Integumentary: No tenderness/swelling, No erythema, No warmth, No cyanosis Neurological: Normal speech, Normal strength at 5/5 x4 extr, Normal tone Laboratory Data at Discharge: WBC 6.7 K/uL (4.3-10.9) 03/22/19 00:57 Hgb 11.3 g/dL (12.0-15.0) L 03/22/19 00:57 Hct 33.8 % (36.0-45.0) L 03/22/19 00:57 Plt Count 186 K/uL (152-406) 03/22/19 00:57 PT 12.6 SECONDS (9.5-12.5) H 03/22/19 00:57 INR 1.07 03/22/19 00:57 Sodium 138 mmol/L (136-145) 03/22/19 00:57 Potassium 3.6 mmol/L (3.5-5.1) 03/22/19 00:57 BUN 12 mg/dL (7-18) 03/22/19 00:57 Creatinine 0.67 mg/dL (0.55-1.3) 03/22/19 00:57 Glucose 111 mg/dL (74-106) H 03/22/19 00:57 Magnesium 2.1 mg/dL (1.8-2.4) 03/22/19 00:57 Total Bilirubin 0.5 mg/dL (0.2-1.0) 03/22/19 00:57 AST 13 U/L (15-37) L 03/22/19 00:57 ALT 18 U/L (12-78) 03/22/19 00:57 Alkaline Phosphatase 102 U/L (45-117) 03/22/19 00:57 Troponin I < 0.02 ng/mL (0.0-0.045) 03/22/19 11:59 Triglycerides 85 mg/dL (<150) 03/22/19 05:43 Cholesterol 113 mg/dL (<200) 03/22/19 05:43 HDL Cholesterol 43 mg/dL (40-60) 03/22/19 05:43 Cholesterol/HDL Ratio 2.63 03/22/19 05:43 Home Medications: Aspirin [Aspirin EC 81 MG] 81 mg PO DAILY #30 tablet. 03/22/19 Lisinopril 20 mg PO DAILY 03/22/19 Metformin ER [Glucophage ER*] 500 mg PO BID 03/22/19 Nitroglycerin [Nitrostat*] 0.4 mg SL SEECOM PRN #15 tab 03/22/19 New Medications: Aspirin [Aspirin EC 81 MG] 81 mg PO DAILY #30 tablet. Nitroglycerin [Nitrostat*] 0.4 mg SL SEECOM PRN #15 tab PRN Reason: Pain Scale 2-4 (Mild) Patient Discharge Instructions: 1. Patient will follow up with her PCP in 1 week to follow up this hospitalization. 2. Patient presented with chest pain. Patient was admitted for observation. Cardiac enzymes unremarkable. No significant ST changes noted. Echocardiogram appeared normal. Cardiac stress test performed. Cardiac stress test showed no stress-induced ischemia. No further intervention required. Chest pain may be noncardiac light GERD. Patient may take klym-gva-suimuhb Pepcid as needed. Patient may benefit with GI evaluation as an outpatient if pain persists. At discharge patient will continue with aspirin 81 mg daily. Patient will be provided nitroglycerin to be use as needed for chest pain. Patient may follow up with cardiology in 2-4 weeks to follow up this hospitalization. 3. Patient with hypertension. Blood pressures have remained stable. Patient will continue with lisinopril 20 mg daily. Recommend to maintain blood pressures less 150/80. Further adjustment can be done by her PCP. 4. Patient with diabetes mellitus type 2. Patient will continue with metformin 1000 mg 1 pill twice daily. Recommend to maintain blood sugars less 140 fasting and less than 200 after meals. Further adjustment can be done by her PCP. 5. Patient will be provided Lifestyle modification education. Diet: ADA Activity: Ad sammy Time spent managing pt's care (in minutes): 55
--- NOTE | 2019-03-22 14:31 | RAD REPORT ---
EXAM DESCRIPTION: NM - Rest Stress Cardiac Imaging - 03/22/2019 2:10 pm CLINICAL HISTORY: Chest pain. COMPARISON: None. TECHNIQUE: The patient was administered approximately 10mCi of Tc 99m Sestamibi prior to resting SPE CT imaging of the heart. The patient was then administered approximately 30 mCi of Tc 99m Sestamibi f ollowing exercise or pharmacologic stress. Multiplanar SPECT images were reviewed. FINDINGS: There is uniformity of radiotracer activity involving the left ventricular myocardium on rest and stress images. Left ventricular ejection fraction equals 66% IMPRESSION: Negative for a myocardial perfusion defect
--- NOTE | 2019-03-22 23:53 | CON ---
Date of Consultation: 03/22/2019 Reason For Consultation: Chest pain. History Of Present Illness: Ms. Galeana is 54; has a history of diabetes, hypertension, dyslipidemia . Came in with chest pain radiating to the left arm that had been going on since of last we ek. Symptoms typically last 30 minutes to an hour intermittently without any nausea, vomiting, diaph oresis, PND, orthopnea, pedal edema, palpitations, or syncope. Past Medical History: As stated above. Allergies: NONE. Medications: At home include lisinopril, metformin. Review of Systems: Negative. Social History: Negative. Family History: Negative. Physical Examination: Vital signs: Stable. She was afebrile. HEENT: Negative. Neck: Supple without any bruit, lymphadenopathy, JVD, or thyromegaly. Chest: Clear to auscultation and percussion. Cardiac: Exam revealed a regular rhythm and rate. No murmurs, gallops, or rubs. Abdomen: Benign. Extremities: Revealed no clubbing, cyanosis, or edema. Diagnostic Data: Are all within normal limit, chest x-ray, EKG and troponin. Impression And Plan: Atypical chest pain, most likely gastroesophageal reflux disease or musculoskel etal. Her symptoms are nonexertional. Her arm pain happens without her chest pain. She has ruled o ut so far. She does have multiple cardiac risk factors including diabetes, hypertension, dyslipidemi a, and I think she needs to have an echocardiogram and a stress test before she goes home. CORBY/JOHN Voice ID: [id number] Report ID: [id number]
--- NOTE | 2019-03-23 08:30 | TREADPHA ---
DX: CHEST PAIN, HISTORY OF DIABETES, HYPERTENSION AND TOBACCO Date of Study: 03/22/2019 Ht: 5 0 Wt: 224 lb 13.944 oz Consulting Physician: CARLI MEDICATIONS: ASPIRIN, LOVENOX, PRINIVIL, NOVOLIN R, NITROSTAT HISTORY: 54 YEAR OLD FEMALE WITH COMPLAINTS OF CHEST PAIN. HISTORY OF NIDDM, HYPERTENSION, HYPERLIPIDEMIA, FORMER SMOKER QUIT LAST YEAR, NON DRINKER. PHYSICIAL EXAMINATION: RESTING B.P.: 157/78 RESTING H.R.: 72 RESTING EKG: NORMAL PROTOCOL: LEXISCAN EXERCISE TIME: 3:30 B.P. AT PEAK STRESS: 159/82 IMPRESSION: LEXISCAN INJECTED, FOLLOWED BY CARDIOLITE PER PROTOCOL. SEE NUCLEAR MEDICINE REPORT. NO SUPRAVENTRICULAR TACHYCARDIA, VENTRICULAR TACHYCARDIA, PREMATURE VENTRICULAR COMPLEXES OR PREMATURE ATRIAL COMPLEXES. PATIENT REPORTED NO CHEST PAIN. NON DIAGNOSTIC EKG WITH LEXISCAN STRESS.
[2019-03-23] MEDS ORDERED: ASPIRIN EC 81 MG TAB PO SCH (09:00)
== END 2019-03-22 17:15 | disposition home or self-care (01) ==
LOC: ER 00:32 → 2ND 03:13
PROVIDERS: ADMIT Internal Medicine; ATTEND Family Medicine
DX: R07.9 Chest pain, unspecified (principal); E11.8 Type 2 diabetes mellitus with unspecified complications; I10 Essential (primary) hypertension; E66.01 Morbid (severe) obesity due to excess calories; E78.2 Mixed hyperlipidemia; Z87.891 Personal history of nicotine dependence; Z68.41 Body mass index [BMI] 40.0-44.9, adult
CPT/HCPCS: 36415; 71045; 78452; 80048; 80061; 80076; 82962; 83735; 83880; 84484; 85025; 85610; 93005; 93017; 93306; 99285; A9500; G0378; J1650; J2785

== ENCOUNTER 2019-04-16 23:40 | Emergency (ER) | payer SELFPAY ==
[2019-04-17 00:07] LABS: Absolute Lymphocytes (CBC) 1.7 K/uL (0.7-4.9); Absolute Monocytes 0.3 K/uL (0.1-1.3); Absolute Neutrophil 3.8 K/uL (1.8-8.0); Basophils % 0.6 % (0-1.3); Eosinophils % 2.2 % (0-4.4); Hematocrit 30.5 % (36.0-45.0); Lymphocytes % 28.5 % (15.3-44.8); MPV 10.1 fL (7.6-11.3); Monocytes % 5.4 % (3.3-12.3); RBC Red Blood Cell Count 3.91 M/uL (3.86-4.86)
[2019-04-17 00:11] LABS: Protime INR 1.11
[2019-04-17 00:24] LABS: ALT/SGPT 17 U/L (12-78); AST/SGOT 10 U/L (15-37); Albumin 3.5 g/dL (3.4-5.0); Alkaline Phosphatase 92 U/L (45-117); BUN Blood Urea Nitrogen 20 mg/dL (7-18); Bicarbonate 26 mmol/L (21-32); Bilirubin Direct < 0.1 mg/dL (0-0.2); Bilirubin Total 0.2 mg/dL (0.2-1.0); Glucose Level 185 mg/dL (74-106); Magnesium 1.9 mg/dL (1.8-2.4); NT PRO-BNP 115 pg/mL (<125); Potassium 3.4 mmol/L (3.5-5.1); Protein, Total 7.1 g/dL (6.4-8.2); Sodium Level 141 mmol/L (136-145); Troponin (Emerg Dept Use Only) < 0.02 ng/mL (0.0-0.045)
--- NOTE | 2019-04-17 01:30 | ER ---
Nurse's Notes [facility] Name: Magaly Galeana Age: 54 yrs Sex: Female : 1965 Arrival Date: 04/16/2019 Time: 23:42 Bed 5 Private MD: Diagnosis: Essential (primary) hypertension Presentation: 04/16 23:35 Presenting complaint: EMS states: that pt took her bp at home and it was high. She also fc have tingling to left arm and tightness between shoulder blades. Took own Nitro 2220. Transition of care: patient was not received from another setting of care. Onset of symptoms was April 16, 2019 at 22:00. Risk Assessment: Do you want to hurt yourself or someone else? Patient reports no desire to harm self or others. Initial Sepsis Screen: Does the patient meet any 2 criteria? No. Patient's initial sepsis screen is negative. Does the patient have a suspected source of infection? No. Patient's initial sepsis screen is negative. Care prior to arrival: IV initiated. 20 GA, in the left antecubital area, Glucose check: 180. 23:35 Method Of Arrival: EMS: [facility] 23:35 Acuity: EKATERINA 3 fc Historical: - Allergies: 23:51 No Known Allergies; fc - Home Meds: 23:51 lisinopril 20 mg Oral tab 1 tab once daily [Active]; aspirin 81 mg Oral TbEC 1 tab once fc daily [Active]; metformin 500 mg Oral tab 0.5 tab 2 times per day [Active]; atorvastatin 40 mg oral tab 1 tab once daily [Active]; nitroglycerin 0.4 mg SL subl 1 tab every 5 minutes [Active]; - PMHx: 23:51 Diabetes - NIDDM; Hypertension; High Cholesterol; fc - PSHx: 23:51 ; Ankle surg; fc - Immunization history:: Last tetanus immunization: up to date. - Social history:: Smoking status: Patient/guardian denies using tobacco, Patient/guardian denies using alcohol, street drugs, Patient/guardian denies using The patient lives with family. - Ebola Screening: : Patient negative for fever greater than or equal to 101.5 degrees Fahrenheit, and additional compatible Ebola Virus Disease symptoms Patient denies exposure to infectious person Patient denies travel to an Ebola-affected area in the days before illness onset. - Family history:: not pertinent. Screenin:46 Abuse screen: Denies injuries from another. Nutritional screening: No deficits noted. Tuberculosis screening: No symptoms or risk factors identified. Fall Risk None identified. Assessment: 23:40 General: Appears in no apparent distress. comfortable, Behavior is calm, cooperative, aa1 appropriate for age. Pain: Denies pain. Neuro: Level of Consciousness is awake, alert, obeys commands, Oriented to person, place, time, situation, Moves all extremities. Full function Gait is steady, Speech is normal, Facial symmetry appears normal, Pupils are PERRLA, Tingling in left arm and left leg Numbness in left arm and left leg. Cardiovascular: Denies chest pain, diaphoresis, palpitations, shortness of breath, Heart tones S1 S2 present Capillary refill < 3 seconds Patient's skin is warm and dry. Rhythm is regular. Respiratory: Airway is patent Respiratory effort is even, unlabored, Respiratory pattern is regular, symmetrical. GI: No signs and/or symptoms were reported involving the gastrointestinal system. : No signs and/or symptoms were reported regarding the genitourinary system. EENT: No signs and/or symptoms were reported regarding the EENT system. Derm: Skin is intact, is healthy with good turgor, Skin is pink, warm \T\ dry. Musculoskeletal: Circulation, motion, and sensation intact. Capillary refill < 3 seconds. 04/17 00:30 Reassessment: Patient appears in no apparent distress at this time. Patient and/or aa1 family updated on plan of care and expected duration. Pain level reassessed. Patient is alert, oriented x 3, equal unlabored respirations, skin warm/dry/pink. Awaiting completion of test results. 01:44 Reassessment: Patient appears in no apparent distress at this time. Patient is alert, aa1 oriented x 3, equal unlabored respirations, skin warm/dry/pink. Discussed d/c \T\ f/u instructions with pt; denies questions or concerns at this time. Ambulatory to lobby with steady gait Patient denies pain at this time. Patient states feeling better. Vital Signs: 04/16 23:35 BP 150 / 68; Pulse 82; Resp 18; Temp 98.7(O); Pulse Ox 98% on R/A; Weight 102.06 kg (R); Height 4 ft. 11 in. (149.86 cm) (R); Pain 0/10; 04/17 00:30 BP 130 / 65; Pulse 78; Resp 16; Pulse Ox 100% on R/A; Pain 0/10; aa1 01:44 BP 135 / 77; Pulse 76; Resp 18; Temp 98.5; Pulse Ox 99% on R/A; Pain 0/10; aa1 04/16 23:35 Body Mass Index 45.44 (102.06 kg, 149.86 cm) fc ED Course: 04/16 23:35 Arm band placed on Patient placed in an exam room, on a stretcher. fc 23:35 Maintain EMS IV. Dressing intact. Good blood return noted. Site clean \T\ dry. Gauge \T\ fc site: 20 gauge to left a/c. 23:40 EKG done, by ED staff, reviewed by Nick Gordon MD. aa1 23:42 Patient arrived in ED. fc 23:42 Nick Gordon MD is Attending Physician. ma2 23:44 Triage completed. fc 23:46 Patient has correct armband on for positive identification. Placed in gown. Bed in low fc position. Call light in reach. Side rails up X2. telemetry monitor on. Pulse ox on. NIBP on. 23:46 No provider procedures requiring assistance completed. fc 23:50 Initial lab(s) drawn, by nc, sent to lab. aa1 23:56 Selene Ibrahim, RN is Primary Nurse. aa1 04/17 00:02 X-ray completed. Portable x-ray completed in exam room. Patient tolerated procedure kw well. 00:09 XRAY Chest (1 view) In Process Unspecified. EDMS 01:44 IV discontinued, intact, bleeding controlled, No redness/swelling at site. Pressure aa1 dressing applied. Administered Medications: No medications were administered Outcome: 01:29 Discharge ordered by . ma2 01:44 Discharged to home ambulatory, with family. aa1 01:44 Condition: good 01:44 Discharge instructions given to patient, family, Instructed on discharge instructions, follow up and referral plans. Demonstrated understanding of instructions, follow-up care. 01:48 Patient left the ED. aa1 Signatures: Dispatcher [employer] EDMS Dario Ibrahimssa, RN RN aa1 Bruna Prince RN RN fc Yvette Lopez Mohammad, MD MD ma2
--- NOTE | 2019-04-17 01:30 | EDPHYS ---
Physician Documentation [facility] [place] [place] Name: Magaly Galeana Age: 54 yrs Sex: Female : 1965 Arrival Date: 04/16/2019 Time: 23:42 Bed 5 Private MD: ED Physician Nick Gordon HPI: 04/17 01:28 This 54 yrs old Female presents to ER via EMS with complaints of High Blood ma2 Pressure. 01:28 The patient has elevated blood pressure and discovered this at home. Onset: The ma2 symptoms/episode began/occurred gradually, 2 day(s) ago. Associated signs and symptoms: Pertinent negatives: dyspnea, lightheadedness, visual changes. Severity of symptoms: At its worst the blood pressure was mild, in the emergency department the blood pressure is now normal. The blood pressure problem is resolved. The patient has experienced similar episodes in the past. Historical: - Allergies: 04/16 23:51 No Known Allergies; fc - Home Meds: 23:51 lisinopril 20 mg Oral tab 1 tab once daily [Active]; aspirin 81 mg Oral TbEC 1 tab once fc daily [Active]; metformin 500 mg Oral tab 0.5 tab 2 times per day [Active]; atorvastatin 40 mg oral tab 1 tab once daily [Active]; nitroglycerin 0.4 mg SL subl 1 tab every 5 minutes [Active]; - PMHx: 23:51 Diabetes - NIDDM; Hypertension; High Cholesterol; fc - PSHx: 23:51 ; Ankle surg; fc - Immunization history:: Last tetanus immunization: up to date. - Social history:: Smoking status: Patient/guardian denies using tobacco, Patient/guardian denies using alcohol, street drugs, Patient/guardian denies using The patient lives with family. - Ebola Screening: : Patient negative for fever greater than or equal to 101.5 degrees Fahrenheit, and additional compatible Ebola Virus Disease symptoms Patient denies exposure to infectious person Patient denies travel to an Ebola-affected area in the 21 days before illness onset. - Family history:: not pertinent. ROS: 04/17 01:28 Constitutional: Negative for fever, chills, and weight loss, Cardiovascular: Negative ma2 for chest pain, palpitations, and edema, Respiratory: Negative for shortness of breath, cough, wheezing, and pleuritic chest pain, Abdomen/GI: Negative for abdominal pain, nausea, diarrhea, and constipation. All other systems are negative. Exam: 01:28 Constitutional: This is a well developed, well nourished patient who is awake, alert, ma2 and in no acute distress. Chest/axilla: Normal chest wall appearance and motion. Nontender with no deformity. No lesions are appreciated. Cardiovascular: Regular rate and rhythm with a normal S1 and S2. No gallops, murmurs, or rubs. Normal PMI, no JVD. No pulse deficits. Respiratory: Lungs have equal breath sounds bilaterally, clear to auscultation and percussion. No rales, rhonchi or wheezes noted. No increased work of breathing, no retractions or nasal flaring. Abdomen/GI: Soft, non-tender, with normal bowel sounds. No distension or tympany. No guarding or rebound. No evidence of tenderness throughout. MS/ Extremity: Pulses equal, no cyanosis. Neurovascular intact. Full, normal range of motion. Neuro: Awake and alert, GCS 15, oriented to person, place, time, and situation. Cranial nerves II-XII grossly intact. Motor strength 5/5 in all extremities. Sensory grossly intact. Cerebellar exam normal. Normal gait. Vital Signs: 04/16 23:35 BP 150 / 68; Pulse 82; Resp 18; Temp 98.7(O); Pulse Ox 98% on R/A; Weight 102.06 kg fc (R); Height 4 ft. 11 in. (149.86 cm) (R); Pain 0/10; 04/17 00:30 BP 130 / 65; Pulse 78; Resp 16; Pulse Ox 100% on R/A; Pain 0/10; aa1 01:44 BP 135 / 77; Pulse 76; Resp 18; Temp 98.5; Pulse Ox 99% on R/A; Pain 0/10; aa1 04/16 23:35 Body Mass Index 45.44 (102.06 kg, 149.86 cm) fc MDM: 04/16 23:42 Patient medically screened. tx2 04/17 01:28 Differential diagnosis: hypertensive crisis, Malignant HTN. Data reviewed: vital signs, tx2 nurses notes. Counseling: I had a detailed discussion with the patient and/or guardian regarding: the historical points, exam findings, and any diagnostic results supporting the discharge/admit diagnosis, the presence of at least one elevated blood pressure reading (>120/80) during this emergency department visit, the need for outpatient follow up. Response to treatment: the patient's symptoms have resolved after treatment. 04/16 23:42 Order name: Basic Metabolic Panel tx2 04/16 23:42 Order name: CBC with Diff tx2 04/16 23:42 Order name: LFT's; Complete Time: 00:47 ma2 04/16 23:42 Order name: Magnesium; Complete Time: 00:47 ma2 04/16 23:42 Order name: NT PRO-BNP; Complete Time: 00:47 ma2 04/16 23:42 Order name: PT-INR; Complete Time: 00:47 ma2 04/16 23:42 Order name: Troponin (emerg Dept Use Only); Complete Time: 00:47 ma2 04/16 23:42 Order name: XRAY Chest (1 view) [facility] 04/16 23:42 Order name: EKG; Complete Time: 23:46 ma2 04/16 23:42 Order name: Cardiac monitoring; Complete Time: 23:51 ma2 04/16 23:42 Order name: EKG - Nurse/Tech; Complete Time: 23:51 ma2 04/16 23:42 Order name: IV Saline Lock; Complete Time: 23:51 ma2 04/16 23:45 Order name: Basic Metabolic Panel; Complete Time: 00:47 EDMS 04/16 23:45 Order name: CBC with Automated Diff; Complete Time: 00:47 EDMS 04/16 23:42 Order name: Labs collected and sent; Complete Time: 23:57 ma2 04/16 23:42 Order name: O2 Per Protocol; Complete Time: 23:48 ma2 04/16 23:42 Order name: O2 Sat Monitoring; Complete Time: 23:48 ma2 Administered Medications: No medications were administered Disposition: 04/17/19 01:29 Discharged to Home. Impression: Essential (primary) hypertension. - Condition is Stable. - Discharge Instructions: Hypertension, How to Take Your Blood Pressure, [id number]. - Medication Reconciliation Form, Thank You Letter, Antibiotic Education, Prescription Opioid Use form. - Follow up: Private Physician; When: Tomorrow; Reason: If symptoms return. Signatures: Dispatcher [employer] EDSelene Sexton RN RN aa1 Bruna Prince RN RN Nick Gordon MD MD ma2 Corrections: (The following items were deleted from the chart) 01:48 01:29 04/17/2019 01:29 Discharged to Home. Impression: Essential (primary) aa1 hypertension. Condition is Stable. Forms are Medication Reconciliation Form, Thank You Letter, Antibiotic Education, Prescription Opioid Use. Follow up: Private Physician; When: Tomorrow; Reason: If symptoms return. ma2
[2019-04-17 07:07] VITALS: BP 135/77; TEMP 98.5; O2SAT 99
--- NOTE | 2019-04-17 08:19 | RAD REPORT ---
EXAM DESCRIPTION: rGazyna Single View04/17/2019 12:06 am CLINICAL HISTORY: Chest pain COMPARISON: March 22, 2019 FINDINGS: The lungs appear clear of acute infiltrate. The heart is probably normal size IMPRESSION: No acute abnormalities displayed
--- NOTE | 2019-04-17 12:04 | EKG ---
Test Date: 2019-04-16 Test Time: 23:41:30 Manager Graphic: RAVEN MEASUREMENT RESULTS: Intervals: Rate: 78 AK: 162 QRSD: 88 QT: 376 QTc: 428 [place]: P: 14 AK: 162 QRS: 12 T: 40 INTERPRETIVE STATEMENTS: Normal sinus rhythm Cannot rule out Anterior infarct, age undetermined Abnormal ECG Compared to ECG 03/22/2019 00:47:41 No significant changes Electronically Signed On 04-17-19 12:02:29 CDT by Uvaldo Petersen
== END 2019-04-17 01:48 | disposition home or self-care (01) ==
LOC: ER 23:40
DX: I10 Essential (primary) hypertension (principal); E11.9 Type 2 diabetes mellitus without complications; E78.00 Pure hypercholesterolemia, unspecified; Z79.82 Long term (current) use of aspirin
CPT/HCPCS: 36415; 71045; 80048; 80076; 83735; 83880; 84484; 85025; 85610; 93005; 99284

== ENCOUNTER 2019-04-18 00:11 | Emergency (ER) | payer SELFPAY ==
--- NOTE | 2019-04-18 00:45 | ER ---
Nurse's Notes [facility] Name: Magaly Galeana Age: 54 yrs Sex: Female : 1965 Arrival Date: 04/18/2019 Time: 00:15 Bed 5 Private MD: Diagnosis: Zoster [herpes zoster] Presentation: 04/18 00:27 Presenting complaint: Patient states: Rash to upper right thigh and right buttock that lp1 she noticed this morning; States burning sensation to site and pain when walking. Transition of care: patient was not received from another setting of care. Onset of symptoms was April 18, 2019. Risk Assessment: Do you want to hurt yourself or someone else? Patient reports no desire to harm self or others. Initial Sepsis Screen: Does the patient meet any 2 criteria? No. Patient's initial sepsis screen is negative. Does the patient have a suspected source of infection? No. Patient's initial sepsis screen is negative. Care prior to arrival: None. 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 - Social history:: Smoking status: Patient/guardian denies using tobacco. - Ebola Screening: : No symptoms or risks identified at this time. Screenin:35 Abuse screen: Denies threats or abuse. Denies injuries from another. Nutritional lp1 screening: No deficits noted. Tuberculosis screening: No symptoms or risk factors identified. Fall Risk None identified. Assessment: 00:33 General: Appears in no apparent distress. Behavior is calm, cooperative, appropriate lp1 for age. Pain: Complains of pain in right gluteus kyle and right quadriceps Pain currently is 6 out of 10 on a pain scale. Quality of pain is described as burning. Neuro: No deficits noted. Cardiovascular: No deficits noted. Respiratory: No deficits noted. GI: No deficits noted. : No deficits noted. EENT: No deficits noted. Derm: Rash noted that is papular, red, on right gluteus kyle and right quadriceps. Musculoskeletal: Circulation, motion, and sensation intact. Vital Signs: 00:29 BP 151 / 66; Pulse 73; Resp 18; Temp 98.7(O); Pulse Ox 100% on R/A; Weight 102.06 kg; lp1 Height 4 ft. 11 in. (149.86 cm); Pain 6/10; 00:29 Body Mass Index 45.44 (102.06 kg, 149.86 cm) lp1 ED Course: 00:15 Patient arrived in ED. es 00:18 [facility] jr8 00:18 Rito Canada MD is Attending Physician. jr8 00:27 Argenis Cote, ABRAHAM is Primary Nurse. lp1 00:29 Triage completed. lp1 00:30 Arm band placed on right wrist. lp1 00:36 Patient has correct armband on for positive identification. lp1 01:05 No provider procedures requiring assistance completed. Patient did not have IV access lp1 during this emergency room visit. Administered Medications: 00:50 Drug: Acyclovir 800 mg Route: PO; ea 01:06 Follow up: Response: Medication administered at discharge. lp1 00:50 Drug: [place] (7.5 mg-325 mg) 1 tabs Route: PO; ea 01:06 Follow up: Response: Medication administered at discharge. lp1 Outcome: 00:44 Discharge ordered by . jr8 01:05 Discharged to home ambulatory, with family. lp1 01:05 Condition: good 01:05 Discharge instructions given to patient, Instructed on discharge instructions, follow up and referral plans. medication usage, Demonstrated understanding of instructions, follow-up care, medications, Prescriptions given X 2. 01:06 Patient left the ED. lp1 Signatures: Maggie Tran Laura, ABRAHAM ROSARIO lp1 Estevan Jefferson PA PA 8 Rowe, [place], RN RN ea
--- NOTE | 2019-04-18 00:45 | EDPHYS ---
Physician Documentation [facility] Name: Magaly Galeana Age: 54 yrs Sex: Female : 1965 Arrival Date: 04/18/2019 Time: 00:15 Bed 5 Private MD: ED Physician Rito Canada HPI: 04/18 01:58 This 54 yrs old Female presents to ER via Ambulatory with complaints of Rash. jr8 01:58 The patient's rash thought to be caused by an unknown cause. The rash is located on the jr8 right anterior proximal thigh and right back. The rash can be described as vesicular. Onset: The symptoms/episode began/occurred acutely, today. Associated signs and symptoms: Pertinent positives: burning sensation, Pain. Severity of symptoms: At their worst the symptoms were mild in the emergency department the symptoms are unchanged. The patient has not experienced similar symptoms in the past. The patient has not recently seen a physician. 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 - Social history:: Smoking status: Patient/guardian denies using tobacco. - Ebola Screening: : No symptoms or risks identified at this time. ROS: 01:58 Eyes: Negative for injury, pain, redness, and discharge, ENT: Negative for injury, jr8 pain, and discharge, Neck: Negative for injury, pain, and swelling, Cardiovascular: Negative for chest pain, palpitations, and edema, Respiratory: Negative for shortness of breath, cough, wheezing, and pleuritic chest pain, Abdomen/GI: Negative for abdominal pain, nausea, vomiting, diarrhea, and constipation, Back: Negative for injury and pain, MS/Extremity: Negative for injury and deformity, Neuro: Negative for headache, weakness, numbness, tingling, and seizure. :58 Skin: Positive for rash. Exam: :58 Eyes: Pupils equal round and reactive to light, extra-ocular motions intact. Lids and jr8 lashes normal. Conjunctiva and sclera are non-icteric and not injected. Cornea within normal limits. Periorbital areas with no swelling, redness, or edema. ENT: Nares patent. No nasal discharge, no septal abnormalities noted. Tympanic membranes are normal and external auditory canals are clear. Oropharynx with no redness, swelling, or masses, exudates, or evidence of obstruction, uvula midline. Mucous membranes moist. Neck: Trachea midline, no thyromegaly or masses palpated, and no cervical lymphadenopathy. Supple, full range of motion without nuchal rigidity, or vertebral point tenderness. No Meningismus. Cardiovascular: Regular rate and rhythm with a normal S1 and S2. No gallops, murmurs, or rubs. Normal PMI, no JVD. No pulse deficits. Respiratory: Lungs have equal breath sounds bilaterally, clear to auscultation and percussion. No rales, rhonchi or wheezes noted. No increased work of breathing, no retractions or nasal flaring. Abdomen/GI: Soft, non-tender, with normal bowel sounds. No distension or tympany. No guarding or rebound. No evidence of tenderness throughout. Back: No spinal tenderness. No costovertebral tenderness. Full range of motion. MS/ Extremity: Pulses equal, no cyanosis. Neurovascular intact. Full, normal range of motion. Neuro: Awake and alert, GCS 15, oriented to person, place, time, and situation. Cranial nerves II-XII grossly intact. Motor strength 5/5 in all extremities. Sensory grossly intact. Cerebellar exam normal. Normal gait. :58 Skin: rash a mild rash is noted, rash can be described as vesicular, zoster, on the right quadriceps and right back. Vital Signs: 00:29 BP 151 / 66; Pulse 73; Resp 18; Temp 98.7(O); Pulse Ox 100% on R/A; Weight 102.06 kg; lp1 Height 4 ft. 11 in. (149.86 cm); Pain 6/10; 00:29 Body Mass Index 45.44 (102.06 kg, 149.86 cm) lp1 MDM: 00:18 Patient medically screened. jr8 00:42 Data reviewed: vital signs, nurses notes, and as a result, I will discharge patient. jr8 Data interpreted: Pulse oximetry: on room air is 100 %. Interpretation: normal. Counseling: I had a detailed discussion with the patient and/or guardian regarding: the historical points, exam findings, and any diagnostic results supporting the discharge/admit diagnosis, the need for outpatient follow up, a family practitioner, to return to the emergency department if symptoms worsen or persist or if there are any questions or concerns that arise at home. Administered Medications: 00:50 Drug: Acyclovir 800 mg Route: PO; ea 01:06 Follow up: Response: Medication administered at discharge. lp1 00:50 Drug: [place] (7.5 mg-325 mg) 1 tabs Route: PO; ea 01:06 Follow up: Response: Medication administered at discharge. lp1 Disposition: 02:10 Co-signature as Attending Physician, Rito Canada MD. rn Disposition: 04/18/19 00:44 Discharged to Home. Impression: Zoster [herpes zoster]. - Condition is Stable. - Discharge Instructions: Shingles. - Prescriptions for Acyclovir 800 mg Oral Tablet - take 1 tablet by ORAL route 5 times per day for 7 days; 35 tablet. Tylenol- Codeine #3 300-30 mg Oral Tablet - take 2 tablets by ORAL route every 6 hours As needed; 20 tablet. - Medication Reconciliation Form, Thank You Letter, Antibiotic Education, Prescription Opioid Use form. - Follow up: Private Physician; When: 2 - 3 days; Reason: Recheck today's complaints, Continuance of care, Re-evaluation by your physician. - Problem is new. - Symptoms have improved. Signatures: Rito Canada MD MD rn Pena, Laura, RN RN lp1 Estevan Jefferson PA PA jr8 [place] Rowe RN RN ea Corrections: (The following items were deleted from the chart) 01:06 00:44 04/18/2019 00:44 Discharged to Home. Impression: Zoster [herpes zoster]. lp1 Condition is Stable. Forms are Medication Reconciliation Form, Thank You Letter, Antibiotic Education, Prescription Opioid Use. Follow up: Private Physician; When: 2 - 3 days; Reason: Recheck today's complaints, Continuance of care, Re-evaluation by your physician. Problem is new. Symptoms have improved. jr8
[2019-04-18] MEDS ORDERED: ACYCLOVIR 400 MG TABLET ONE (01:03)
[2019-04-18] MEDS ORDERED: HYDROCODONE/APAP 7.5/325 MG TAB ONE (01:04)
[2019-04-18 08:42] VITALS: BP 151/66; TEMP 98.7; O2SAT 100
== END 2019-04-18 01:06 | disposition home or self-care (01) ==
LOC: ER 00:11
DX: B02.9 Zoster without complications (principal); I10 Essential (primary) hypertension; E78.00 Pure hypercholesterolemia, unspecified; E11.9 Type 2 diabetes mellitus without complications; Z79.82 Long term (current) use of aspirin
CPT/HCPCS: 99283

== ENCOUNTER 2019-05-14 23:23 | Emergency (ER) | payer SELFPAY ==
[2019-05-15 00:37] LABS: Absolute Lymphocytes (CBC) 2.9 K/uL (0.7-4.9); Basophils % 0.5 % (0-1.3); Eosinophils % 1.9 % (0-4.4); Hematocrit 34.3 % (36.0-45.0); Lymphocytes % 37.1 % (15.3-44.8); MPV 10.2 fL (7.6-11.3); Monocytes % 5.1 % (3.3-12.3); RBC Red Blood Cell Count 4.36 M/uL (3.86-4.86)
[2019-05-15 00:38] LABS: Protime INR 1.05
[2019-05-15 00:52] LABS: ALT/SGPT 18 U/L (12-78); AST/SGOT 8 U/L (15-37); Albumin 3.8 g/dL (3.4-5.0); Alkaline Phosphatase 88 U/L (45-117); BUN Blood Urea Nitrogen 18 mg/dL (7-18); Bicarbonate 29 mmol/L (21-32); Bilirubin Direct < 0.1 mg/dL (0-0.2); Bilirubin Total 0.3 mg/dL (0.2-1.0); Glucose Level 99 mg/dL (74-106); Magnesium 2.3 mg/dL (1.8-2.4); NT PRO-BNP 25 pg/mL (<125); Potassium 3.9 mmol/L (3.5-5.1); Protein, Total 7.6 g/dL (6.4-8.2); Sodium Level 141 mmol/L (136-145); Troponin (Emerg Dept Use Only) < 0.02 ng/mL (0.0-0.045)
--- NOTE | 2019-05-15 02:08 | EDPHYS ---
Physician Documentation [facility] Name: Magaly Galeana Age: 54 yrs Sex: Female : 1965 Arrival Date: 05/14/2019 Time: 23:26 Bed 27 Private MD: ED Physician Rito Canada HPI: 05/15 00:56 This 54 yrs old Female presents to ER via Ambulatory with complaints of Arm jr8 Pain, Leg Pain. 00:56 The patient's problem is reported as paresthesias, in left upper extremity, in left jr8 side of face. Onset: The symptoms/episode began/occurred acutely, today. Duration: This was a single incident. Context: symptoms became apparent at 22:00. occurred at home, occurred while the patient was at rest. The symptoms are alleviated by nothing. The symptoms are aggravated by nothing. Associated signs and symptoms: The patient has no apparent associated signs or symptoms. Severity of symptoms: At their worst the symptoms were mild in the emergency department the symptoms are unchanged. Patient's baseline: Neuro: alert and fully oriented, Motor: no deficits, Ambulation: walks without assistance, Speech: normal. The patient has experienced similar episodes in the past, a few times. The patient has not recently seen a physician. Patient stated that she has history of paresthesias of the skin and chest pain in the past. Stated that tonight started to feel numbness to face and left arm without chest pain. Was at rest when symptoms occurred . 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 - Social history:: Smoking status: Patient/guardian denies using tobacco. - Ebola Screening: : No symptoms or risks identified at this time. ROS: 05/15 00:56 Eyes: Negative for injury, pain, redness, and discharge, ENT: Negative for injury, jr8 pain, and discharge, Neck: Negative for injury, pain, and swelling, Cardiovascular: Negative for chest pain, palpitations, and edema, Respiratory: Negative for shortness of breath, cough, wheezing, and pleuritic chest pain, Abdomen/GI: Negative for abdominal pain, nausea, vomiting, diarrhea, and constipation, Back: Negative for injury and pain, MS/Extremity: Negative for injury and deformity, Skin: Negative for injury, rash, and discoloration. Neuro: Positive for numbness, tingling. Exam: 00:56 Radiologist reports: no acute findings jr8 00:56 Eyes: Pupils equal round and reactive to light, extra-ocular motions intact. Lids and lashes normal. Conjunctiva and sclera are non-icteric and not injected. Cornea within normal limits. Periorbital areas with no swelling, redness, or edema. ENT: Nares patent. No nasal discharge, no septal abnormalities noted. Tympanic membranes are normal and external auditory canals are clear. Oropharynx with no redness, swelling, or masses, exudates, or evidence of obstruction, uvula midline. Mucous membranes moist. Neck: Trachea midline, no thyromegaly or masses palpated, and no cervical lymphadenopathy. Supple, full range of motion without nuchal rigidity, or vertebral point tenderness. No Meningismus. Cardiovascular: Regular rate and rhythm with a normal S1 and S2. No gallops, murmurs, or rubs. Normal PMI, no JVD. No pulse deficits. Respiratory: Lungs have equal breath sounds bilaterally, clear to auscultation and percussion. No rales, rhonchi or wheezes noted. No increased work of breathing, no retractions or nasal flaring. Abdomen/GI: Soft, non-tender, with normal bowel sounds. No distension or tympany. No guarding or rebound. No evidence of tenderness throughout. Back: No spinal tenderness. No costovertebral tenderness. Full range of motion. Skin: Warm, dry with normal turgor. Normal color with no rashes, no lesions, and no evidence of cellulitis. MS/ Extremity: Pulses equal, no cyanosis. Neurovascular intact. Full, normal range of motion. Neuro: Awake and alert, GCS 15, oriented to person, place, time, and situation. Cranial nerves II-XII grossly intact. Motor strength 5/5 in all extremities. Sensory grossly intact. Cerebellar exam normal. Normal gait. Vital Signs: 05/14 23:44 BP 168 / 79; Pulse 78; Resp 18; Temp 98.1(O); Pulse Ox 99% on R/A; Weight 90.72 kg (R); ak1 Height 4 ft. 11 in. (149.86 cm) (R); Pain 6/10; 05/15 01:00 BP 116 / 67; Pulse 73; Resp 17; Pulse Ox 97% on R/A; rv 02:02 BP 110 / 80; Pulse 75; Resp 16; Pulse Ox 100% on R/A; rv 05/14 23:44 Body Mass Index 40.39 (90.72 kg, 149.86 cm) ak1 NIH Stroke Scale Scores: 00:56 NIHSS Score: 0 jr8 MDM: 05/14 23:40 Patient medically screened. jr8 05/15 02:02 Data reviewed: vital signs, nurses notes, lab test result(s), EKG, radiologic studies, jr8 CT scan, plain films, and as a result, I will discharge patient. Data interpreted: Pulse oximetry: on room air is 97 %. Interpretation: normal. Test interpretation: by ED physician or midlevel provider: plain radiologic studies, No acute cardiac, osseous, or pulmonary findings noted on CXR . Counseling: I had a detailed discussion with the patient and/or guardian regarding: the historical points, exam findings, and any diagnostic results supporting the discharge/admit diagnosis, lab results, radiology results, the need for outpatient follow up, a family practitioner, a neurologist, to return to the emergency department if symptoms worsen or persist or if there are any questions or concerns that arise at home. 02:10 ED course: Patient feeling much better. BP reduced. Was not markedly elevated earlier jr8 but with where it is now is feeling much better. Stated that she has had similar symptoms in past and it ended up being her BP. Has been out of her meds for two days and has PCP appointment on Tue. Will refill her medication now so she can start taking tomorrow . 05/14 23:54 Order name: Basic Metabolic Panel; Complete Time: 00:52 jr8 05/14 23:54 Order name: CBC with Diff; Complete Time: 01:05/14 23:54 Order name: LFT's; Complete Time: 00:52 05/14 23:54 Order name: Magnesium; Complete Time: 00:52 05/14 23:54 Order name: NT PRO-BNP; Complete Time: 00:52 05/14 23:54 Order name: PT-INR; Complete Time: :05/14 23:54 Order name: Troponin (emerg Dept Use Only); Complete Time: 00:52 05/14 23:54 Order name: XRAY Chest (1 view) 05/14 23:54 Order name: EKG; Complete Time: 00:05/14 23:54 Order name: Cardiac monitoring; Complete Time: 00:30 05/14 23:54 Order name: EKG - Nurse/Tech; Complete Time: 00:30 05/14 23:54 Order name: IV Saline Lock; Complete Time: 00:05/14 23:54 Order name: Labs collected and sent; Complete Time: 00:30 05/14 23:54 Order name: CT Head Brain wo Cont 05/14 23:54 Order name: O2 Per Protocol; Complete Time: 00:30 05/14 23:54 Order name: O2 Sat Monitoring; Complete Time: 00:30 Administered Medications: No medications were administered Disposition: 02:24 Co-signature as Attending Physician, Rito Canada MD. rn Disposition: 05/15/19 02:06 Discharged to Home. Impression: Paresthesia of skin. - Condition is Stable. - Discharge Instructions: Paresthesia. - Prescriptions for Lisinopril 20 mg Oral Tablet - take 1 tablet by ORAL route once daily; 20 tablet. - Medication Reconciliation Form, Thank You Letter, Antibiotic Education, Prescription Opioid Use form. - Follow up: Private Physician; When: 2 - 3 days; Reason: Recheck today's complaints, Continuance of care, Re-evaluation by your physician. - Problem is new. - Symptoms have improved. NIH Stroke Scale - NIH Stroke Score Date: 05/15/2019 Time: 00:56 Total Score = 0 1a. Level of Consciousness (LOC) - 0(Alert) 1b. Level of Consciousness (LOC) (Year \T\ Age) - 0(Both) 1c. LOC Commands (Open \T\ Closes Eyes/Multiple Sclerosis Nurse) - 0(Both) 2. Best Gaze (Lateral Gaze Paresis) - 0(Normal) 3. Visual Field Loss - 0(No visual loss) 4. Facial Palsy - 0(Normal) 5a. Left Arm: Motor (10-second hold) - 0(No drift) 5b. Right Arm: Motor (10-second hold) - 0(No drift) 6a. Left Leg: Motor (5-second hold - always test supine) - 0(No drift) 6b. Right Leg: Motor (5-second hold - always test supine) - 0(No drift) 7. Limb Ataxia (finger/nose \T\ heel/gamez - test with eyes open) - 0(Absent) 8. Sensory Loss (pinprick arms/legs/face) - 0(Normal) 9. Best Language: Aphasia (description/naming/reading) - 0(No aphasia) 10. Dysarthria (speech clarity - read or repeat words) - 0(Normal) 11. Extinction and Inattention (visual/tactile/auditory/spatial/personal) - 0(No abnormality) Initials: jr8 Signatures: Dispatcher [employer] EDMS Rito Canada MD MD rn Roszak, Josh, PA PA jr8 Renetta Arizmendi, RN RN ak1 Balta Del Toro, RN RN rv Corrections: (The following items were deleted from the chart) 02:17 02:06 05/15/2019 02:06 Discharged to Home. Impression: Paresthesia of skin. rv Condition is Stable. Forms are Medication Reconciliation Form, Thank You Letter, Antibiotic Education, Prescription Opioid Use. Follow up: Private Physician; When: 2 - 3 days; Reason: Recheck today's complaints, Continuance of care, Re-evaluation by your physician. Problem is new. Symptoms have improved. jr8
--- NOTE | 2019-05-15 02:08 | ER ---
Nurse's Notes [facility] Name: Magaly Galeana Age: 54 yrs Sex: Female : 1965 Arrival Date: 05/14/2019 Time: 23:26 Bed 27 Private MD: Diagnosis: Paresthesia of skin Presentation: 05/14 23:45 Presenting complaint: Patient states: left leg pain. describes pain as "nerve pain and ak1 tingling" pt stated pain started at 2200. pt states she has had same s/s when "my blood pressure is high". Transition of care: patient was not received from another setting of care. Onset of symptoms was May 14, 2019. Risk Assessment: Do you want to hurt yourself or someone else? Patient reports no desire to harm self or others. Initial Sepsis Screen: Does the patient meet any 2 criteria? No. Patient's initial sepsis screen is negative. Does the patient have a suspected source of infection? No. Patient's initial sepsis screen is negative. Care prior to arrival: None. 23:45 Method Of Arrival: Ambulatory ak1 23:45 Acuity: EKATERINA 4 ak1 Triage Assessment: 23:49 General: Appears in no apparent distress. Behavior is calm, cooperative. ak1 23:50 Pain: Complains of pain in left leg. 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 - Social history:: Smoking status: Patient/guardian denies using tobacco. - Ebola Screening: : No symptoms or risks identified at this time. Screenin:49 Abuse screen: Denies threats or abuse. Denies injuries from another. Nutritional ak1 screening: No deficits noted. Tuberculosis screening: No symptoms or risk factors identified. Fall Risk None identified. Assessment: 05/15 00:02 General: Appears in no apparent distress. comfortable, Behavior is calm, cooperative, ca1 appropriate for age. Pain: Denies pain. Neuro: Level of Consciousness is awake, alert, obeys commands, Oriented to person, place, time, situation. Cardiovascular: Heart tones S1 S2 present Capillary refill < 3 seconds Patient's skin is warm and dry. Pulses are all present. Rhythm is regular. Respiratory: Airway is patent Respiratory effort is even, unlabored, Respiratory pattern is regular, symmetrical, Breath sounds are clear bilaterally. GI: Abdomen is round non-distended, Bowel sounds present X 4 quads. Abd is soft and non tender X 4 quads. : No deficits noted. No signs and/or symptoms were reported regarding the genitourinary system. EENT: No deficits noted. No signs and/or symptoms were reported regarding the EENT system. Derm: Skin is intact, is healthy with good turgor, Skin is pink, warm \\T\\ dry. Musculoskeletal: Circulation, motion, and sensation intact. Capillary refill < 3 seconds, Range of motion: intact in all extremities. 02:00 Reassessment: Patient appears in no apparent distress at this time. Patient and/or rv family updated on plan of care and expected duration. Pain level reassessed. Patient is alert, oriented x 3, equal unlabored respirations, skin warm/dry/pink. Vital Signs: 05/14 23:44 BP 168 / 79; Pulse 78; Resp 18; Temp 98.1(O); Pulse Ox 99% on R/A; Weight 90.72 kg (R); ak1 Height 4 ft. 11 in. (149.86 cm) (R); Pain 6/10; 05/15 01:00 BP 116 / 67; Pulse 73; Resp 17; Pulse Ox 97% on R/A; rv 02:02 BP 110 / 80; Pulse 75; Resp 16; Pulse Ox 100% on R/A; rv 05/14 23:44 Body Mass Index 40.39 (90.72 kg, 149.86 cm) ak1 NIH Stroke Scale Scores: 00:56 NIHSS Score: 0 jr8 ED Course: 05/14 23:26 Patient arrived in ED. ag3 23:40 Estevan Jefferson PA is PHCP. jr8 23:40 Rito Canada MD is Attending Physician. jr8 23:43 Balta Del Toro, ABRAHAM is Primary Nurse. rv 23:44 Arm band placed on Patient placed in an exam room, on a stretcher, on pulse oximetry, ak1 Patient notified of wait time. 23:46 Triage completed. ak1 23:49 Patient has correct armband on for positive identification. Bed in low position. Call ak1 light in reach. Side rails up X2. Adult w/ patient. Pulse ox on. NIBP on. 07 00:24 No provider procedures requiring assistance completed. Inserted saline lock: 20 gauge ca1 in right antecubital area, using aseptic technique. Blood collected. 00:29 XRAY Chest (1 view) In Process Unspecified. EDMS 01:37 CT Head Brain wo Cont In Process Unspecified. EDMS 02:17 IV discontinued, intact, bleeding controlled, No redness/swelling at site. Pressure rv dressing applied. Administered Medications: No medications were administered Outcome: 02:06 Discharge ordered by . jr8 02:16 Discharged to home ambulatory. rv 02:16 Condition: improved 02:16 Discharge instructions given to patient, Instructed on discharge instructions, follow up and referral plans. medication usage, Demonstrated understanding of instructions, follow-up care, medications, Prescriptions given X 1. 02:17 Patient left the ED. rv NIH Stroke Scale - NIH Stroke Score Date: 05/15/2019 Time: 00:56 Total Score = 0 1a. Level of Consciousness (LOC) - 0(Alert) 1b. Level of Consciousness (LOC) (Year \\T\\ Age) - 0(Both) 1c. LOC Commands (Open \\T\\ Closes Eyes/Wellness Health Coach) - 0(Both) 2. Best Gaze (Lateral Gaze Paresis) - 0(Normal) 3. Visual Field Loss - 0(No visual loss) 4. Facial Palsy - 0(Normal) 5a. Left Arm: Motor (10-second hold) - 0(No drift) 5b. Right Arm: Motor (10-second hold) - 0(No drift) 6a. Left Leg: Motor (5-second hold - always test supine) - 0(No drift) 6b. Right Leg: Motor (5-second hold - always test supine) - 0(No drift) 7. Limb Ataxia (finger/nose \\T\\ heel/gamez - test with eyes open) - 0(Absent) 8. Sensory Loss (pinprick arms/legs/face) - 0(Normal) 9. Best Language: Aphasia (description/naming/reading) - 0(No aphasia) 10. Dysarthria (speech clarity - read or repeat words) - 0(Normal) 11. Extinction and Inattention (visual/tactile/auditory/spatial/personal) - 0(No abnormality) Initials: jr8 Signatures: Dispatcher [employer] EDMS Estevan Jefferson PA PA jr8 Renetta Arizmendi RN RN ak1 Balta Del Toro, RN RN Monica Tian ag3 Angie Zuniga RN RN ca1
--- NOTE | 2019-05-15 08:07 | RAD REPORT ---
EXAM DESCRIPTION: Grazyna Single View05/15/2019 12:29 am CLINICAL HISTORY: Chest pain COMPARISON: April 2019 FINDINGS: The lungs appear clear of acute infiltrate. The heart is normal size IMPRESSION: No acute abnormalities displayed
--- NOTE | 2019-05-15 08:12 | EKG ---
Test Date: 2019-05-15 Test Time: 00:27:26 Bar Attendant: RV MEASUREMENT RESULTS: Intervals: Rate: 69 FL: 172 QRSD: 90 QT: 402 QTc: 430 [place]: P: 21 FL: 172 QRS: 17 T: 34 INTERPRETIVE STATEMENTS: Normal sinus rhythm Cannot rule out Anterior infarct, age undetermined Abnormal ECG Compared to ECG 04/16/2019 23:41:30 No significant changes Electronically Signed On 05-15-19 08:11:23 CDT by Uvaldo Petersen
--- NOTE | 2019-05-15 10:46 | RAD REPORT ---
EXAM DESCRIPTION: CT - Head Brain Wo Cont - 05/15/2019 2:41 am CLINICAL HISTORY: 54 years Female NUMBNESS COMPARISON: CT head without contrast dated December 27, 2018 TECHNIQUE: Contiguous axial images of the brain were obtained without the administration of intraven ous contrast.This exam was performed according to our departmental dose-optimization program which in cludes use of Automated Exposure Control, adjustment of the mA and/or kV according to patient size an d/or use of iterative reconstruction technique. FINDINGS: Brain: No acute intracranial hemorrhage. No acute territorial infarct. No extra-axial peter ection. No mass effect or herniation. Ventricles: Within normal limits in size. Globes and orbits: No acute abnormality. Bones: No acute osseous finding. Paranasal sinuses: Paranasal sinuses are clear. Mastoid air cells: Well pneumatized.. Soft tissues: Within normal limits IMPRESSION: No acute intracranial abnormality. Electronically signed by: Isreal Small DO 05/15/2019 1:45 AM CDT Due to temporary technical issues with the PACS/Fluency reporting system, reports are being signed by the in house radiologist as a courtesy to ensure prompt reporting. The interpreting radiologist is f ully responsible for the content of the report.
[2019-05-15 11:30] VITALS: TEMP 98.1
[2019-05-15 11:47] VITALS: BP 110/80; O2SAT 100
== END 2019-05-15 02:17 | disposition home or self-care (01) ==
LOC: ER 23:23
DX: R20.2 Paresthesia of skin (principal); E11.9 Type 2 diabetes mellitus without complications; E78.00 Pure hypercholesterolemia, unspecified; I10 Essential (primary) hypertension; Z79.84 Long term (current) use of oral hypoglycemic drugs
CPT/HCPCS: 36415; 70450; 71045; 80048; 80076; 83735; 83880; 84484; 85025; 85610; 93005; 99284

== ENCOUNTER 2019-06-22 21:20 | Emergency (ER) | payer SELFPAY ==
[2019-06-22 22:08] LABS: Absolute Lymphocytes (CBC) 2.5 K/uL (0.7-4.9); Basophils % 0.4 % (0-1.3); Hematocrit 33.5 % (36.0-45.0); Lymphocytes % 35.1 % (15.3-44.8); MPV 9.8 fL (7.6-11.3); RBC Red Blood Cell Count 4.17 M/uL (3.86-4.86)
[2019-06-22 22:27] LABS: Protime INR 1.03
[2019-06-22 22:33] LABS: ALT/SGPT 13 U/L (12-78); AST/SGOT 11 U/L (15-37); Albumin 3.6 g/dL (3.4-5.0); Alkaline Phosphatase 89 U/L (45-117); BUN Blood Urea Nitrogen 10 mg/dL (7-18); Bicarbonate 28 mmol/L (21-32); Bilirubin Direct 0.1 mg/dL (0-0.2); Bilirubin Total 0.3 mg/dL (0.2-1.0); Glucose Level 101 mg/dL (74-106); Magnesium 1.9 mg/dL (1.8-2.4); NT PRO-BNP 155 pg/mL (<125); Potassium 3.7 mmol/L (3.5-5.1); Sodium Level 139 mmol/L (136-145); Troponin (Emerg Dept Use Only) < 0.02 ng/mL (0.0-0.045)
--- NOTE | 2019-06-23 00:08 | ER ---
Nurse's Notes [facility] Name: Magaly Galeana Age: 54 yrs Sex: Female : 1965 Arrival Date: 06/22/2019 Time: 21:24 Bed 7 Private MD: Diagnosis: Hypertensive crisis Presentation: 06/22 21:15 Presenting complaint: Patient states: that her bp was 200/114 which is 60 points higher fc than her normal. Also having left arm and left leg tingling. Was just changed from Lisinopril to Losartan on Jun 07. Transition of care: patient was not received from another setting of care. Onset of symptoms was June 22, 2019. Risk Assessment: Do you want to hurt yourself or someone else? Patient reports no desire to harm self or others. Initial Sepsis Screen: Does the patient meet any 2 criteria? No. Patient's initial sepsis screen is negative. Does the patient have a suspected source of infection? No. Patient's initial sepsis screen is negative. Care prior to arrival: Glucose check: 115. 21:15 Method Of Arrival: EMS: [facility] 21:15 Acuity: EKATERINA 3 fc Historical: - Allergies: 21:37 No Known Allergies; fc - Home Meds: 21:37 losartan 100 mg oral tab 1 tab once daily [Active]; metformin 500 mg Oral tab 1 tab 2 fc times per day [Active]; atorvastatin 20 mg Oral tab 1 tab once daily [Active]; 21:37 aspirin 81 mg Oral TbEC 1 tab once daily [Active]; atorvastatin 20 mg Oral tab 1 tab mg2 once daily [Active]; metformin 500 mg Oral tab 1 tab 2 times per day [Active]; nitroglycerin 0.4 mg SL subl 1 tab every 5 minutes [Active]; losartan oral oral [Active]; - PMHx: 21:37 Diabetes - NIDDM; High Cholesterol; Hypertension; fc - PSHx: 21:37 ; Ankle surg; fc - Immunization history:: Last tetanus immunization: unknown. - Social history:: Smoking status: Patient/guardian denies using tobacco, Patient/guardian denies using alcohol, street drugs. - Ebola Screening: : Patient negative for fever greater than or equal to 101.5 degrees Fahrenheit, and additional compatible Ebola Virus Disease symptoms Patient denies exposure to infectious person Patient denies travel to an Ebola-affected area in the 21 days before illness onset. Screenin:35 Abuse screen: Denies threats or abuse. Nutritional screening: No deficits noted. fc Tuberculosis screening: No symptoms or risk factors identified. Fall Risk None identified. Assessment: 21:25 General: Appears in no apparent distress. comfortable, Behavior is calm, cooperative, aa1 appropriate for age. Pain: Denies pain. Neuro: Level of Consciousness is awake, alert, obeys commands, Oriented to person, place, time, situation, Moves all extremities. Full function Speech is normal, Facial symmetry appears normal, Pupils are PERRLA, Tingling in left arm and left leg. Cardiovascular: Denies chest pain, diaphoresis, nausea, palpitations, shortness of breath, Heart tones S1 S2 present Rhythm is regular. Respiratory: Airway is patent Respiratory effort is even, unlabored, Respiratory pattern is regular, symmetrical. GI: No signs and/or symptoms were reported involving the gastrointestinal system. : No signs and/or symptoms were reported regarding the genitourinary system. EENT: No signs and/or symptoms were reported regarding the EENT system. Derm: Skin is intact, is healthy with good turgor, Skin is pink, warm \T\ dry. Musculoskeletal: Circulation, motion, and sensation intact. Capillary refill < 3 seconds, Range of motion: intact in all extremities. 23:00 Reassessment: Patient appears in no apparent distress at this time. Patient and/or aa1 family updated on plan of care and expected duration. Pain level reassessed. Patient is alert, oriented x 3, equal unlabored respirations, skin warm/dry/pink. Awaiting CT results. 06/23 00:25 Reassessment: Patient appears in no apparent distress at this time. Patient is alert, aa1 oriented x 3, equal unlabored respirations, skin warm/dry/pink. Discussed d/c \T\ f/u instructions with pt; denies questions or concerns at this time. Ambulatory to lobby with steady gait Patient denies pain at this time. Patient states feeling better. Vital Signs: 06/22 21:15 BP 173 / 72; Pulse 70; Resp 18; Temp 98.2(O); Pulse Ox 99% on R/A; Weight 96.16 kg (R); fc Height 4 ft. 11 in. (149.86 cm) (R); Pain 0/10; 23:00 BP 141 / 73; Pulse 66; Resp 18; Pulse Ox 99% on R/A; Pain 0/10; aa1 06/23 00:00 BP 132 / 67; Pulse 68; Resp 16; Temp 98.0; Pulse Ox 98% on R/A; Pain 0/10; aa1 06/22 21:15 Body Mass Index 42.82 (96.16 kg, 149.86 cm) ED Course: 06/22 21:15 Arm band placed on Patient placed in an exam room, on a stretcher. fc 21:15 Patient has correct armband on for positive identification. Placed in gown. Bed in low fc position. Call light in reach. court recording monitor on. Pulse ox on. NIBP on. 21:15 No provider procedures requiring assistance completed. fc 21:24 Patient arrived in ED. mg2 21:30 Surjit Shane MD is Attending Physician. tw4 21:34 Triage completed. fc 21:50 Initial lab(s) drawn, by ar, sent to lab. Inserted saline lock: 20 gauge in right aa1 antecubital area, using aseptic technique. Blood collected. 21:54 Selene Ibrahim, RN is Primary Nurse. aa1 21:56 XRAY Chest (1 view) In Process Unspecified. EDMS 22:32 CT Head Brain wo Cont In Process Unspecified. EDMS 06/23 00:28 IV discontinued, intact, bleeding controlled, No redness/swelling at site. Pressure aa1 dressing applied. Administered Medications: No medications were administered Outcome: 00:05 Discharge ordered by . tw4 00:28 Discharged to home ambulatory, with family. aa1 00:28 Condition: good 00:28 Discharge instructions given to patient, family, Instructed on discharge instructions, follow up and referral plans. medication usage, Demonstrated understanding of instructions, follow-up care, medications. 00:29 Patient left the ED. aa1 Signatures: Dispatcher [employer] EDNE Selene Ibrahim, RN ABRAHAM aa1 Bruna Prince RN RN Surjit Shane MD MD tw4 Ernie Chavez RN RN mg2
--- NOTE | 2019-06-23 00:09 | EDPHYS ---
Physician Documentation [facility] Name: Magaly Galeana Age: 54 yrs Sex: Female : 1965 Arrival Date: 06/22/2019 Time: 21:24 Bed 7 Private MD: ED Physician Surjit Shane HPI: 06/23 04:03 This 54 yrs old Female presents to ER via EMS with complaints of elevated BP. tw4 04:03 The patient has elevated blood pressure and discovered this at home. Onset: The tw4 symptoms/episode began/occurred today. Modifying factors: The symptoms are aggravated by The symptoms are alleviated by. Associated signs and symptoms: The patient has no apparent associated signs or symptoms. Severity of symptoms: At its worst the blood pressure was severe, in the emergency department the blood pressure is unchanged. The patient has not recently seen a physician. Historical: - Allergies: 06/22 21:37 No Known Allergies; fc - Home Meds: 21:37 losartan 100 mg oral tab 1 tab once daily [Active]; metformin 500 mg Oral tab 1 tab 2 fc times per day [Active]; atorvastatin 20 mg Oral tab 1 tab once daily [Active]; 21:37 aspirin 81 mg Oral TbEC 1 tab once daily [Active]; atorvastatin 20 mg Oral tab 1 tab mg2 once daily [Active]; metformin 500 mg Oral tab 1 tab 2 times per day [Active]; nitroglycerin 0.4 mg SL subl 1 tab every 5 minutes [Active]; losartan oral oral [Active]; - PMHx: 21:37 Diabetes - NIDDM; High Cholesterol; Hypertension; fc - PSHx: 21:37 ; Ankle surg; fc - Immunization history:: Last tetanus immunization: unknown. - Social history:: Smoking status: Patient/guardian denies using tobacco, Patient/guardian denies using alcohol, street drugs. - Ebola Screening: : Patient negative for fever greater than or equal to 101.5 degrees Fahrenheit, and additional compatible Ebola Virus Disease symptoms Patient denies exposure to infectious person Patient denies travel to an Ebola-affected area in the 21 days before illness onset. ROS: 06/23 04:03 Constitutional: Negative for fever, chills, and weight loss, Eyes: Negative for injury, tw4 pain, redness, and discharge, Cardiovascular: Negative for chest pain, palpitations, and edema, Respiratory: Negative for shortness of breath, cough, wheezing, and pleuritic chest pain, Abdomen/GI: Negative for abdominal pain, nausea, vomiting, diarrhea, and constipation, Back: Negative for injury and pain, MS/Extremity: Negative for injury and deformity, Skin: Negative for injury, rash, and discoloration. Exam: 04:03 Constitutional: This is a well developed, well nourished patient who is awake, alert, tw4 and in no acute distress. Head/Face: Normocephalic, atraumatic. Chest/axilla: Normal chest wall appearance and motion. Nontender with no deformity. No lesions are appreciated. Cardiovascular: Regular rate and rhythm with a normal S1 and S2. No gallops, murmurs, or rubs. Normal PMI, no JVD. No pulse deficits. Respiratory: Lungs have equal breath sounds bilaterally, clear to auscultation and percussion. No rales, rhonchi or wheezes noted. No increased work of breathing, no retractions or nasal flaring. Abdomen/GI: Soft, non-tender, with normal bowel sounds. No distension or tympany. No guarding or rebound. No evidence of tenderness throughout. MS/ Extremity: Pulses equal, no cyanosis. Neurovascular intact. Full, normal range of motion. Neuro: Awake and alert, GCS 15, oriented to person, place, time, and situation. Cranial nerves II-XII grossly intact. Motor strength 5/5 in all extremities. Sensory grossly intact. Cerebellar exam normal. Normal gait. Vital Signs: 06/22 21:15 BP 173 / 72; Pulse 70; Resp 18; Temp 98.2(O); Pulse Ox 99% on R/A; Weight 96.16 kg (R); fc Height 4 ft. 11 in. (149.86 cm) (R); Pain 0/10; 23:00 BP 141 / 73; Pulse 66; Resp 18; Pulse Ox 99% on R/A; Pain 0/10; aa1 06/23 00:00 BP 132 / 67; Pulse 68; Resp 16; Temp 98.0; Pulse Ox 98% on R/A; Pain 0/10; aa1 06/22 21:15 Body Mass Index 42.82 (96.16 kg, 149.86 cm) fc MDM: 06/22 21:30 Patient medically screened. [facility] 06/23 04:03 Data reviewed: vital signs, nurses notes. Counseling: I had a detailed discussion with [facility] the patient and/or guardian regarding: the historical points, exam findings, and any diagnostic results supporting the discharge/admit diagnosis. Special discussion: I discussed with the patient/guardian in detail that at this point there is no indication for admission to the hospital. It is understood, however, that if the symptoms persist or worsen the patient needs to return immediately for re-evaluation. 06/22 21:34 Order name: Basic Metabolic Panel [facility] 06/22 21:34 Order name: CBC with Diff [facility] 06/22 21:34 Order name: LFT's [facility] 06/22 21:34 Order name: Magnesium [facility] 06/22 21:34 Order name: NT PRO-BNP [facility] 06/22 21:34 Order name: PT-INR [facility] 06/22 21:33 Order name: EKG - Nurse/Tech; Complete Time: 21:33 [facility] 06/22 21:34 Order name: Troponin (emerg Dept Use Only) [facility] 06/22 21:34 Order name: XRAY Chest (1 view) [facility] 06/22 21:34 Order name: EKG; Complete Time: 21:36 [facility] 06/22 21:36 Order name: Basic Metabolic Panel [facility] 06/22 21:36 Order name: CBC with Automated Diff [facility] 06/22 21:36 Order name: Liver (Hepatic) Function [facility] 06/22 22:09 Order name: CT Head Brain wo Cont [facility] 06/22 21:34 Order name: Cardiac monitoring; Complete Time: 21:38 [facility] 06/22 21:34 Order name: IV Saline Lock; Complete Time: 21:58 [facility] 06/22 21:34 Order name: Labs collected and sent; Complete Time: 21:58 [facility] 06/22 21:34 Order name: O2 Per Protocol; Complete Time: 21:38 [facility] 06/22 21:34 Order name: O2 Sat Monitoring; Complete Time: 21:38 4 Administered Medications: No medications were administered Disposition: 06/23/19 00:05 Discharged to Home. Impression: Hypertensive crisis. - Condition is Stable. - Discharge Instructions: Hypertension, Hypertension, [id number]. - Medication Reconciliation Form, Thank You Letter, Antibiotic Education, Prescription Opioid Use form. - Follow up: Private Physician; When: Upon discharge from the Emergency Department; Reason: If symptoms return, Recheck today's complaints, Continuance of care. - Problem is new. - Symptoms have improved. Signatures: Dispatcher [employer] Selene Lechuga RN RN aa1 Bruna Prince RN RN Surjit Shane MD MD tw4 Ernie Chavez RN RN mg2 Corrections: (The following items were deleted from the chart) 06/22 21:35 21:34 EKG - Nurse/Tech ordered. tw4 mg2 06/23 00:29 00:05 06/23/2019 00:05 Discharged to Home. Impression: Hypertensive crisis. Condition aa1 is Stable. Forms are Medication Reconciliation Form, Thank You Letter, Antibiotic Education, Prescription Opioid Use. Follow up: Private Physician; When: Upon discharge from the Emergency Department; Reason: If symptoms return, Recheck today's complaints, Continuance of care. Problem is new. Symptoms have improved. tw4
[2019-06-23 01:49] VITALS: BP 132/67; TEMP 98; O2SAT 98
--- NOTE | 2019-06-23 09:08 | EKG ---
Test Date: 2019-06-22 Test Time: 21:26:21 Metal Reed Tuner: MG MEASUREMENT RESULTS: Intervals: Rate: 64 TN: 164 QRSD: 92 QT: 400 QTc: 412 [place]: P: 21 TN: 164 QRS: 8 T: 26 INTERPRETIVE STATEMENTS: Normal sinus rhythm Cannot rule out Anterior infarct, age undetermined Abnormal ECG Compared to ECG 05/15/2019 00:27:26 No significant changes Electronically Signed On 06-23-19 09:07:45 CDT by Uvaldo Petersen
--- NOTE | 2019-06-23 12:01 | RAD REPORT ---
EXAM DESCRIPTION: RAD - Chest Single View - 06/22/2019 9:59 pm CLINICAL HISTORY: CHEST PAIN Chest pain. COMPARISON: Chest Single View dated 05/15/2019; Chest Single View dated 04/17/2019; Chest Single View d ated 03/22/2019; Chest Single View dated 12/27/2018 FINDINGS: Portable technique limits examination quality. The lungs are grossly clear. The heart is normal in size. No displaced fractures. IMPRESSION: No acute intrathoracic process suspected.
--- NOTE | 2019-06-25 09:55 | RAD REPORT ---
EXAM DESCRIPTION: Head Brain Wo Cont CLINICAL HISTORY: 54 years Female HTN, numbness COMPARISON: None TECHNIQUE: Images were obtained in axial, sagittal, and coronal planes. This exam was performed according to our departmental dose-optimization program which includes use of Automated Exposure Control, adjustment of the mA and/or kV according to patient size and/or use of i terative reconstruction technique. FINDINGS: Ventricular system appears normal. No abnormal areas of increased or decreased attenuation are seen involving the brain parenchyma. No e xtra-axial fluid collections noted. No evidence for skull fracture. Sclerotic changes mastoid air cells bilaterally. Unremarkable paranas al sinuses. IMPRESSION: No acute intracranial abnormality. No evidence for hemorrhage, mass lesion, or large acu te infarction. Suspected chronic inflammatory change mastoid air cells bilaterally. Electronically signed by: Marry Graham MD 06/22/2019 10:39 PM CDT Due to temporary technical issues with the PACS/Fluency reporting system, reports are being signed by the in house radiologist as a courtesy to ensure prompt reporting. The interpreting radiologist is f ully responsible for the content of the report.
== END 2019-06-23 00:29 | disposition home or self-care (01) ==
LOC: ER 21:20
DX: I16.9 Hypertensive crisis, unspecified (principal); E11.9 Type 2 diabetes mellitus without complications; I10 Essential (primary) hypertension; E78.00 Pure hypercholesterolemia, unspecified
CPT/HCPCS: 36415; 70450; 71045; 80048; 80076; 83735; 83880; 84484; 85025; 85610; 93005; 99284

== ENCOUNTER 2019-06-25 06:11 | Emergency (ER) | payer SELFPAY ==
[2019-06-25 06:44] LABS: Absolute Lymphocytes (CBC) 2.2 K/uL (0.7-4.9); Basophils % 0.7 % (0-1.3); Hematocrit 35.2 % (36.0-45.0); Lymphocytes % 29.5 % (15.3-44.8); MPV 10.1 fL (7.6-11.3); RBC Red Blood Cell Count 4.43 M/uL (3.86-4.86)
[2019-06-25 06:57] LABS: BUN Blood Urea Nitrogen 12 mg/dL (7-18); Bicarbonate 27 mmol/L (21-32); Glucose Level 122 mg/dL (74-106); Magnesium 1.9 mg/dL (1.8-2.4); Potassium 3.9 mmol/L (3.5-5.1); Sodium Level 139 mmol/L (136-145); Troponin (Emerg Dept Use Only) < 0.02 ng/mL (0.0-0.045)
--- NOTE | 2019-06-25 07:11 | ER ---
Nurse's Notes [facility] Name: Magaly Galeana Age: 54 yrs Sex: Female : 1965 Arrival Date: 06/25/2019 Time: 06:13 Bed 5 Private MD: Diagnosis: Essential (primary) hypertension Presentation: 06/25 06:22 Presenting complaint: Patient states: Pt reports she woke up this morning with her legs ea and arms cramping, reports she checked her blood pressure and it was elevated. Pt had recent blood pressure medication change, she was placed on losartan 100 mg QD. Transition of care: patient was not received from another setting of care. Onset of symptoms was June 25, 2019. Risk Assessment: Do you want to hurt yourself or someone else? Patient reports no desire to harm self or others. Initial Sepsis Screen: Does the patient meet any 2 criteria? No. Patient's initial sepsis screen is negative. Does the patient have a suspected source of infection? No. Patient's initial sepsis screen is negative. Care prior to arrival: None. 06:22 Method Of Arrival: Ambulatory ea 06:22 Acuity: EKATERINA 3 ea Historical: - Allergies: 06:28 No Known Allergies; ea - Home Meds: 06:28 nitroglycerin 0.4 mg SL subl 1 tab every 5 minutes [Active]; metformin 500 mg Oral tab ea 1 tab 2 times per day [Active]; losartan 100 mg Oral tab 1 tab once daily [Active]; atorvastatin 20 mg Oral tab 1 tab once daily [Active]; aspirin 81 mg Oral TbEC 1 tab once daily [Active]; losartan Oral [Active]; - PMHx: 06:28 Hypertension; High Cholesterol; Diabetes - NIDDM; ea - PSHx: 06:28 Ankle surg; ; ea - Immunization history:: Adult Immunizations up to date. - Social history:: Smoking status: Patient/guardian denies using tobacco. - Ebola Screening: : No symptoms or risks identified at this time. Screenin:26 Abuse screen: Denies threats or abuse. Nutritional screening: No deficits noted. ea Tuberculosis screening: No symptoms or risk factors identified. Fall Risk None identified. Assessment: 06:33 General: Appears in no apparent distress. comfortable, Behavior is calm, cooperative, ak1 anxious. Pain: Complains of pain in left arm. Neuro: Level of Consciousness is awake, alert, obeys commands, Oriented to person, place, time, situation, Firer Helper are equal bilaterally Moves all extremities. Gait is steady, Speech is normal, Facial symmetry appears normal. Cardiovascular: No deficits noted. Respiratory: No deficits noted. GI: No signs and/or symptoms were reported involving the gastrointestinal system. : No signs and/or symptoms were reported regarding the genitourinary system. EENT: No signs and/or symptoms were reported regarding the EENT system. Derm: No signs and/or symptoms reported regarding the dermatologic system. Musculoskeletal: No signs and/or symptoms reported regarding the musculoskeletal system. 07:04 Reassessment: Patient is alert, oriented x 3, equal unlabored respirations, skin aa5 warm/dry/pink. Awaiting disposition. . Vital Signs: 06:26 BP 158 / 78; Pulse 87; Resp 18; Temp 97.1; Pulse Ox 99% on R/A; Weight 96.16 kg; Height ea 4 ft. 11 in. (149.86 cm); 06:33 BP 138 / 64; Pulse 73; Resp 13; Pulse Ox 97% on R/A; ak1 07:04 BP 140 / 60; Pulse 70; Resp 18 S; Pulse Ox 98% on R/A; aa5 06:26 Body Mass Index 42.82 (96.16 kg, 149.86 cm) ea ED Course: 06:13 Patient arrived in ED. ag3 06:14 Steph Warner [facility]-C [facility]. kb 06:14 Surjit Shane MD is Attending Physician. kb 06:24 Triage completed. ea 06:25 Patient has correct armband on for positive identification. Bed in low position. Call ea light in reach. 06:25 Arm band placed on right wrist. Patient placed in an exam room, on a stretcher, on ea pulse oximetry. 06:31 Initial lab(s) drawn, by me, sent to lab. EKG done, by ED staff, reviewed by Surjit Shane MD. Inserted saline lock: 22 gauge in left hand, using aseptic technique. Blood collected. 07:03 Haley Patterson, RN is Primary Nurse. aa5 07:23 No provider procedures requiring assistance completed. IV discontinued, intact, jl7 bleeding controlled, No redness/swelling at site. Pressure dressing applied. Administered Medications: No medications were administered Outcome: 07:10 Discharge ordered by MD. crump 07:23 Discharged to home ambulatory. jl7 07:23 Condition: stable 07:23 Discharge instructions given to patient, family, Instructed on discharge instructions, follow up and referral plans. Demonstrated understanding of instructions, follow-up care. 07:24 Patient left the ED. jl7 Signatures: Steph Warner, BROADCAST OPERATIONS DIRECTOR-C BROADCAST OPERATIONS DIRECTOR-CkHaley Gonzalez RN RN aa5 Renetta Arizmendi RN RN ak1 Alicia Escobar RN RN jl7 China Rowe, RN RN Monica Rodriguez3
--- NOTE | 2019-06-25 07:12 | EDPHYS ---
Physician Documentation [facility] Name: Magaly Galeana Age: 54 yrs Sex: Female : 1965 Arrival Date: 06/25/2019 Time: 06:13 Bed 5 Private MD: ED Physician Surjit Shane HPI: 06/25 07:07 This 54 yrs old Female presents to ER via Ambulatory with complaints of High kb Blood Pressure. 07:07 The patient has elevated blood pressure and discovered this at home. Onset: The kb symptoms/episode began/occurred this morning. Modifying factors: The symptoms are aggravated by change of meds. Associated signs and symptoms: The patient has no apparent associated signs or symptoms. Severity of symptoms: At its worst the blood pressure was moderate, in the emergency department the blood pressure is unchanged. The patient has experienced similar episodes in the past. The patient has been recently seen at the [facility] Emergency Department, this week, for similar complaints labs were performed, X-rays were performed, CT scan was performed. Pt reports her dr changed her medication from lisinopril to losartan because the lisinopril wasn't keeping her BP done. States she has had feeling like her BP was high intermittently since then. "I just wake up and my blood pressure will be high." Denies any neuro symptoms. No weakness, headache. Reports she does have cramps in her extremities. . Historical: - Allergies: 06:28 No Known Allergies; ea - Home Meds: 06:28 nitroglycerin 0.4 mg SL subl 1 tab every 5 minutes [Active]; metformin 500 mg Oral tab ea 1 tab 2 times per day [Active]; losartan 100 mg Oral tab 1 tab once daily [Active]; atorvastatin 20 mg Oral tab 1 tab once daily [Active]; aspirin 81 mg Oral TbEC 1 tab once daily [Active]; losartan Oral [Active]; - PMHx: 06:28 Hypertension; High Cholesterol; Diabetes - NIDDM; ea - PSHx: 06:28 Ankle surg; ; ea - Immunization history:: Adult Immunizations up to date. - Social history:: Smoking status: Patient/guardian denies using tobacco. - Ebola Screening: : No symptoms or risks identified at this time. ROS: 07:01 Constitutional: Negative for fever, chills, and weight loss, Neck: Negative for injury, kb pain, and swelling, Cardiovascular: Negative for chest pain, palpitations, and edema, Respiratory: Negative for shortness of breath, cough, wheezing, and pleuritic chest pain, Abdomen/GI: Negative for abdominal pain, nausea, vomiting, diarrhea, and constipation, Back: Negative for injury and pain, Skin: Negative for injury, rash, and discoloration, Neuro: Negative for headache, weakness, numbness, tingling, and seizure. 07:01 MS/extremity: Positive for cramping in extremities. Exam: 07:06 Constitutional: This is a well developed, well nourished patient who is awake, alert, kb and in no acute distress. Head/Face: Normocephalic, atraumatic. Eyes: Pupils equal round and reactive to light, extra-ocular motions intact. Lids and lashes normal. Conjunctiva and sclera are non-icteric and not injected. Cornea within normal limits. Periorbital areas with no swelling, redness, or edema. ENT: Nares patent. No nasal discharge, no septal abnormalities noted. Tympanic membranes are normal and external auditory canals are clear. Oropharynx with no redness, swelling, or masses, exudates, or evidence of obstruction, uvula midline. Mucous membranes moist. Neck: Trachea midline, no thyromegaly or masses palpated, and no cervical lymphadenopathy. Supple, full range of motion without nuchal rigidity, or vertebral point tenderness. No Meningismus. Chest/axilla: Normal chest wall appearance and motion. Nontender with no deformity. No lesions are appreciated. Cardiovascular: Regular rate and rhythm with a normal S1 and S2. No gallops, murmurs, or rubs. Normal PMI, no JVD. No pulse deficits. Respiratory: Lungs have equal breath sounds bilaterally, clear to auscultation and percussion. No rales, rhonchi or wheezes noted. No increased work of breathing, no retractions or nasal flaring. Abdomen/GI: Soft, non-tender, with normal bowel sounds. No distension or tympany. No guarding or rebound. No evidence of tenderness throughout. Back: No spinal tenderness. No costovertebral tenderness. Full range of motion. Skin: Warm, dry with normal turgor. Normal color with no rashes, no lesions, and no evidence of cellulitis. MS/ Extremity: Pulses equal, no cyanosis. Neurovascular intact. Full, normal range of motion. Neuro: Awake and alert, GCS 15, oriented to person, place, time, and situation. Cranial nerves II-XII grossly intact. Motor strength 5/5 in all extremities. Sensory grossly intact. Cerebellar exam normal. Normal gait. Vital Signs: 06:26 BP 158 / 78; Pulse 87; Resp 18; Temp 97.1; Pulse Ox 99% on R/A; Weight 96.16 kg; Height ea 4 ft. 11 in. (149.86 cm); 06:33 BP 138 / 64; Pulse 73; Resp 13; Pulse Ox 97% on R/A; ak1 07:04 BP 140 / 60; Pulse 70; Resp 18 S; Pulse Ox 98% on R/A; aa5 06:26 Body Mass Index 42.82 (96.16 kg, 149.86 cm) ea MDM: 06:15 Patient medically screened. kb 07:01 Data reviewed: vital signs, nurses notes. Data interpreted: Pulse oximetry: on room air kb is 97 %. Interpretation: normal. Counseling: I had a detailed discussion with the patient and/or guardian regarding: the historical points, exam findings, and any diagnostic results supporting the discharge/admit diagnosis, lab results, the need for outpatient follow up, a family practitioner, to return to the emergency department if symptoms worsen or persist or if there are any questions or concerns that arise at home. 07:09 Data reviewed: old medical records, pt was seen on 06/22/19 for same symptoms. Had kb cardiac workup, CXR and CT head without acute findings. 06/25 06:21 Order name: Basic Metabolic Panel; Complete Time: 07:01 kb 06/25 06:21 Order name: CBC with Diff; Complete Time: 07:01 kb 06/25 06:21 Order name: Magnesium; Complete Time: 07:01 kb 06/25 06:21 Order name: Troponin (emerg Dept Use Only); Complete Time: 07:01 kb 06/25 06:21 Order name: EKG; Complete Time: 06:25 kb 06/25 06:21 Order name: Cardiac monitoring; Complete Time: 06:29 kb 06/25 06:21 Order name: EKG - Nurse/Tech; Complete Time: 06:31 kb 06/25 06:21 Order name: IV Saline Lock; Complete Time: 06:31 kb 06/25 06:21 Order name: Labs collected and sent; Complete Time: 06:31 kb 06/25 06:21 Order name: O2 Per Protocol; Complete Time: 06:23 kb 06/25 06:21 Order name: O2 Sat Monitoring; Complete Time: 06:23 kb Administered Medications: No medications were administered Disposition: 10:44 Co-signature as Attending Physician, Surjit Shane MD I agree with the assessment and tw4 plan of care. Disposition: 06/25/19 07:10 Discharged to Home. Impression: Essential (primary) hypertension. - Condition is Stable. - Discharge Instructions: Hypertension, [id number], Managing Your Hypertension. - Medication Reconciliation Form, Thank You Letter, Antibiotic Education, Prescription Opioid Use form. - Follow up: Emergency Department; When: As needed; Reason: Worsening of condition. Follow up: Private Physician; When: 2 - 3 days; Reason: Recheck today's complaints, Continuance of care, Re-evaluation by your physician. Signatures: Dispatcher [employer] EDMS Steph Warner, CLIENT SERVICES ASSOCIATE-C CLIENT SERVICES ASSOCIATE-CkAlicia Carrera RN RN jl7 China Rowe RN RN Surjit Winters MD MD tw4 Corrections: (The following items were deleted from the chart) 07:24 07:10 06/25/2019 07:10 Discharged to Home. Impression: Essential (primary) jl7 hypertension. Condition is Stable. Forms are Medication Reconciliation Form, Thank You Letter, Antibiotic Education, Prescription Opioid Use. Follow up: Emergency Department; When: As needed; Reason: Worsening of condition. Follow up: Private Physician; When: 2 - 3 days; Reason: Recheck today's complaints, Continuance of care, Re-evaluation by your physician. kb
[2019-06-25 07:31] VITALS: TEMP 97.1
[2019-06-25 07:34] VITALS: BP 140/60; O2SAT 98
--- NOTE | 2019-06-25 09:59 | EKG ---
Test Date: 2019-06-25 Test Time: 06:28:47 Cloth Burler: TANO MEASUREMENT RESULTS: Intervals: Rate: 68 MD: 164 QRSD: 88 QT: 370 QTc: 393 [place]: P: -25 MD: 164 QRS: -22 T: 146 INTERPRETIVE STATEMENTS: Normal sinus rhythm Low voltage QRS Inferior infarct, age undetermined Cannot rule out Anterior infarct, age undetermined Abnormal ECG Compared to ECG 06/22/2019 21:26:21 Low QRS voltage now present Myocardial infarct finding still present Electronically Signed On 06-25-19 09:58:08 CDT by Valdez Munroe
== END 2019-06-25 07:24 | disposition home or self-care (01) ==
LOC: ER 06:11
DX: I10 Essential (primary) hypertension (principal); E11.9 Type 2 diabetes mellitus without complications; E78.00 Pure hypercholesterolemia, unspecified; Z79.82 Long term (current) use of aspirin
CPT/HCPCS: 36415; 80048; 83735; 84484; 85025; 93005; 99284

== ENCOUNTER 2020-01-16 22:08 | Emergency (ER) | payer OTHER, SELFPAY ==
--- OUTSIDE RECORDS SUMMARY | 2020-01-16 22:10 | XMS REPORT ---
:1965 [facility] [place] [address] [place] [id number] Care Team Providers Name Role Phone Unavailable Unavailable Unavailable Problems This patient has no known problems. Allergies, Adverse Reactions, Alerts This patient has no known allergies or adverse reactions. Medications This patient has no known medications.
--- OUTSIDE RECORDS SUMMARY | 2020-01-16 22:11 | XMS REPORT | Summary of Care ---
:1965 Author Organization [facility] Address [address] [place] [address] Care Team Providers Name Role Phone Dominique Christianson MC KAY MACHINE OPERATOR Primary Care Provider Reason for Referral (Routine) Status Reason Specialty Diagnoses / Procedures Referred By Referred To Contact Contact New Request Gastroenterology Diagnoses Encounter for screening colonoscopy Dominique Christianson, Procedures CONSULT/REFERRAL GASTROENTEROLOGY MC KAY MACHINE OPERATOR [address] [place], [place] [id number] Radiology Services (MARIAH) Status Reason Specialty Diagnoses / Referred By Referred To Procedures Contact Contact New Request Diagnostic Diagnoses Abnormality of left breast on screening mammogram Dominique Christianson, Radiology Procedures BI ULTRASOUND BREAST COMPLETE LEFT MC KAY MACHINE OPERATOR [address] [place] [address] Radiology Services (Routine) Status Reason Specialty Diagnoses / Referred By Referred To Procedures Contact Contact New Request Diagnostic Diagnoses Abnormality of left breast on screening mammogram Dominique Christianson, Radiology Procedures BI ULTRASOUND BREAST COMPLETE LEFT MC KAY MACHINE OPERATOR [address] [place] [address] Radiology Services (Routine) Status Reason Specialty Diagnoses / Referred By Referred To Procedures Contact Contact New Request Diagnostic Diagnoses Abnormality of left breast on screening mammogram Dominique Christianson, Radiology Procedures BI DIAGNOSTIC MAMMOGRAM LEFT MC KAY MACHINE OPERATOR [address] [place] [address] Reason for Visit Reason Comments Arm Pain bilateral arm pain Refill Request needs refill on Metformin Encounter Details Date Type Department Care Team Description 11/29/2019 Office Visit [facility] Dominique Bowens, MC KAY MACHINE OPERATOR [address] [place], [place] [id number] Abnormality of left breast on screening mammogram (Primary Dx); [facility] Primary New onset type 2 diabetes mellitus; Clinic HTN (hypertension), benign; [address] [place] [address] Mixed hyperlipidemia; [place], [place] Chronic pain of both shoulders; [address] Influenza vaccine needed; [phone] Encounter for screening colonoscopy Allergies No Known Allergiesdocumented as of this encounter (statuses as of 11/29/2019) Medications Medication Sig Dispensed Refills Start Date End Date Status atorvastatin 20 mg Take 1 30 tablet 5 11/29/2019 Active tabletIndications: tablet by Mixed hyperlipidemia mouth at bedtime. carvediloL 6.25 mg Take 1 60 tablet 5 11/29/2019 Active tabletIndications: tablet by HTN (hypertension), mouth 2 benign (two) times daily with meals. metFORMIN 500 mg Take 1 60 tablet 5 11/29/2019 Active tabletIndications: tablet by New onset type 2 mouth 2 diabetes mellitus (two) times daily with meals. ibuprofen 600 mg Take 1 90 tablet 5 11/29/2019 Active tabletIndications: tablet by Chronic pain of both mouth every shoulders 6 (six) hours as needed for Pain (scale 4-6). metFORMIN 500 mg Take 500 mg 0 Discontinued tablet by mouth 2 0 (Reorder) (two) times daily with meals. atorvastatin 20 mg Take 20 mg 0 Discontinued tablet by mouth at 0 (Reorder) bedtime. carvedilol 6.25 mg Take 6.25 0 Discontinued tablet mg by mouth 0 (Reorder) 2 (two) times daily with meals. citalopram 20 mg Take 1 30 tablet 5 08/02/2019 Discontinued tabletIndications: tablet by 0 (Ineffective Anxiety and mouth Medication) depression daily. documented as of this encounter (statuses as of 11/29/2019) Active Problems Problem Noted Date New onset type 2 diabetes mellitus 08/02/2019 HTN (hypertension), benign 08/02/2019 Anxiety and depression 08/02/2019 Uterine bleeding, dysfunctional 08/02/2019 documented as of this encounter (statuses as of 11/29/2019) Immunizations Name Administration Dates Next Due Influenza Virus Vaccine Quad .5 mL IM 6+ MO 11/29/2019 Pneumococcal Polysaccharide, PPSV23 (PNEUMOVAX) 11/29/2019 Tdap 11/29/2019 Zoster Vaccine Recombinant 11/29/2019 documented as of this encounter Social History Tobacco Use Types Packs/Day Years Used Date Former Smoker Cigarettes 1 16 Quit: 10/07/2018 Smokeless Tobacco: Never Used Alcohol Use Drinks/Week oz/Week Comments Not Currently Last drink 1 year ago. drank a bottle or 12 ranjit a day Sex Assigned at Date Recorded Not on file Job Start Date Occupation Industry Not on file Not on file Not on file Travel History Travel Start Travel End No recent travel history available. documented as of this encounter Last Filed Vital Signs Vital Sign Reading Time Taken Comments Blood Pressure 133/76 11/29/2019 10:08 AM MANAGER MATERIAL Pulse 66 11/29/2019 10:08 AM MANAGER MATERIAL Temperature 37 C (98.6 F) 11/29/2019 10:08 AM MANAGER MATERIAL Respiratory Rate 18 11/29/2019 10:08 AM MANAGER MATERIAL Oxygen Saturation 99% 11/29/2019 10:08 AM MANAGER MATERIAL Inhaled Oxygen Concentration - - Weight 91.5 kg (201 lb 12.8 oz) 11/29/2019 10:08 AM MANAGER MATERIAL Height 149.9 cm (4' 11") 11/29/2019 10:08 AM MANAGER MATERIAL Body Mass Index 40.76 11/29/2019 10:08 AM MANAGER MATERIAL documented in this encounter Progress Notes Dominique Christianson, EUNICE - 11/29/2019 10:00 AM CST Cc: Chief Complaint Patient presents with Arm Pain bilateral arm pain Refill Request needs refill on Metformin HPI Magaly Galeana is a 54 year old female in clinic today for to follow up on her chronic issues, get refills and discuss new onset of bilateral shoulder pain which is worse at night for the last 2 months. Last labs were done in Jul 2019. Lipids were within normal limits. A1C was not done. Microalbumin was negative. Did not go the get the follow up left follow up US mammogram or the colonoscopy because she was supposed to go to [place] and can not get transportation to the area. Was given celexa 20mg on last visit. Took in 1 time. States she got every side effect that was mentioned on the pharmacy information document. Decided not to continue. New orders placed today Needs Tdap, pneumonia, Flu and shingles vaccines. Agrees to the flu, tdap and pneumonia. Is afraidof getting shingle if she takes the vaccine, therefore declines. Denies fevers, chills, Nausea or vomiting Allergies Magaly has No Known Allergies. Medications Outpatient Medications Prior to Visit Medication Sig Dispense Refill atorvastatin 20 mg tablet Take 20 mg by mouth at bedtime. carvedilol 6.25 mg tablet Take 6.25 mg by mouth 2 (two) times daily with meals. citalopram 20 mg tablet Take 1 tablet by mouth daily. 30 tablet 5 metFORMIN 500 mg tablet Take 500 mg by mouth 2 (two) times daily with meals. No facility-administered medications prior to visit. Histories Past Medical History: Diagnosis Date Anxiety Depression Diabetes mellitus Hyperlipidemia Hypertension Past Surgical History: Procedure Laterality Date ANKLE ORIF Right 1999 SECTION Social History Socioeconomic History Marital status: Spouse name: Not on file Number of children: Not on file Years of education: Not on file Highest education level: Not on file Occupational History Not on file Social Needs Financial resource strain: Not on file Food insecurity: Worry: Not on file Inability: Not on file Transportation needs: Medical: Not on file Non-medical: Not on file Tobacco Use Smoking status: Former Smoker Packs/day: 1.00 Years: 16.00 Pack years: 16.00 Types: Cigarettes Last attempt to quit: 10/07/2018 Years since quittin.1 Smokeless tobacco: Never Used Substance and Sexual Activity Alcohol use: Not Currently Comment: Last drink 1 year ago. drank a bottle or 12 ranjit a day Drug use: Never Sexual activity: Not Currently Partners: Male Comment: last active prior to 2008 Lifestyle Physical activity: Days per week: Not on file Minutes per session: Not on file Stress: Not on file Relationships Social connections: Talks on phone: Not on file Gets together: Not on file Attends religion service: Not on file Active member of club or organization: Not on file Attends meetings of clubs or organizations: Not on file Relationship status: Not on file Intimate partner violence: Fear of current or ex partner: Not on file Emotionally abused: Not on file Physically abused: Not on file Forced sexual activity: Not on file Other Topics Concern Not on file Social History Narrative Admission noted 9/26/19: Live alone in a single family home close to her 2 sons. Sons come to visit almost daily and teen grand daughter visits weekends Walks 10 blocks a day Working on losing weight and eating better since admission for DM/HTN dx in Nov 2018 Family History Problem Relation Age of Onset Diabetes Mother Hypertension Mother Coronary Heart Disease Father Diabetes Father Hypertension Father Review of Systems Constitutional: Positive for fatigue. HENT: Negative. Respiratory: Negative. Cardiovascular: Negative. Musculoskeletal: Positive for arthralgias and back pain. Skin: Negative. Neurological: Negative. Psychiatric/Behavioral: Negative. Vital Signs BP 133/76 | Pulse 66 | Temp 37 C (98.6 F) (Oral) | Resp 18 | Ht 4' 11" ( 1.499 m) | Wt 201 lb 12.8 oz (91.5 kg) | SpO2 99% | BMI 40.76 kg/m Physical Exam Constitutional: She is oriented to person, place, and time. Cardiovascular: Normal rate, regular rhythm and normal heart sounds. Pulmonary/Chest: Effort normal and breath sounds normal. No respiratory distress. Musculoskeletal: Normal range of motion. Patient has reduced ROM to both arm due to shoulder pain with lifting above the head, reaching behind her and lateral extension. Tenderness to bilateral supraspinous tendons. Neurological: She is alert and oriented to person, place, and time. Skin: Skin is warm and dry. Assessment/Plan 1. Abnormality of left breast on screening mammogram - BI DIAGNOSTIC MAMMOGRAM LEFT; Future - BI ULTRASOUND BREAST COMPLETE LEFT; Future - BI ULTRASOUND BREAST COMPLETE LEFT; Future 2. New onset type 2 diabetes mellitus - metFORMIN 500 mg tablet; Take 1 tablet by mouth 2 (two) times daily with meals. Dispense: 60 tablet; Refill: 5 3. HTN (hypertension), benig - carvediloL 6.25 mg tablet; Take 1 tablet by mouth 2 (two) times daily with meals. Dispense: 60 tablet; Refill: 5 4. Mixed hypernlipidemia - atorvastatin 20 mg tablet; Take 1 tablet by mouth at bedtime. Dispense: 30 tablet; Refill: 5 5. Chronic pain of both shoulders - ibuprofen 600 mg tablet; Take 1 tablet by mouth every 6 (six) hours as needed for Pain (scale 4-6). Dispense: 90 tablet; Refill: 5 6. Influenza vaccine needed - FLU VACC(), 6+ MONTHS, IM, QUAD (FLUZONE/FLULAVAL/FLUARIX) 7. Encounter for screening colonoscopy - CONSULT/REFERRAL GASTROENTEROLOGY 8. Tdap given by [facility] Fasting labs drawn today Appropriate plan of care, desired health behaviors, goals and medications discussed with patient andeducational resources and self-management tools provided, as applicable. Patient/family/guardian voice understanding. Barriers to adherence: none Ability to manage care: Good As necessary, prescribed medications and potential significant medication side effects or medicationinteractions were discussed with the patient and pt will let me know if any occur. Call or return to clinic prn if these symptoms worsen or fail to improve as anticipated. Call or report to ER if symptoms should symptoms progress or worsen. AVS reviewed and given to patient at conclusion of visit. The patient indicates understanding of these issues and agrees with the plan. Dominique DAWSON- WCC documented in this encounter Plan of Treatment Name Type Priority Associated Diagnoses Order Schedule BI DIAGNOSTIC MAMMOGRAM IMAGING Routine Abnormality of left Expected: 11/29, LEFT breast on screening Expires: 01/27/2021 mammogram BI ULTRASOUND BREAST IMAGING Routine Abnormality of left Expected: 2019, COMPLETE LEFT breast on screening Expires: 01/27/2021 mammogram BI ULTRASOUND BREAST IMAGING MARIAH Abnormality of left Expected: 11/29/2019, COMPLETE LEFT breast on screening Expires: 01/27/2021 mammogram Health Maintenance Due Date Last Done Comments PNEUMOCOCCAL 0-64 YEARS 1971 COMBINED SERIES (1 of 1 - PPSV23) DTaP,Tdap,and Td Vaccines (1 01/08/1976 - Tdap) PAP SMEAR 1986 COLONOSCOPY 2015 INFLUENZA VACCINE (#1) 2019 HgA1C 01/31/2020 08/02/2019 CREATININE (SERUM) 08/02/2020 08/02/2019, 01/23/2018 EYE EXAM 08/02/2020 08/02/2019 FOOT EXAM 08/02/2020 08/02/2019 LDL-C 08/02/2020 08/02/2019 URINE MICROALBUMIN 08/02/2020 08/02/2019 Breast Cancer Screening 09/06/2020 09/06/2019 (MAMMOGRAM) Zoster Recombinant Vaccine 11/29/2020 Postponed from 2015 (SHINGRIX) (1 of 2) (Refused) HEPATITIS C (HCV) SCREEN Completed 08/02/2019 documented as of this encounter Procedures Procedure Name Priority Date/Time Associated Diagnosis Comments FLU VACC ([id number]), Routine 11/29/2019 10:45 AM Influenza vaccine 6+ MONTHS, IM, QUAD MANAGER MATERIAL needed documented in this encounter Results Not on filedocumented in this encounter Visit Diagnoses Diagnosis Abnormality of left breast on screening mammogram - Primary New onset type 2 diabetes mellitus HTN (hypertension), benign Essential hypertension, benign Mixed hyperlipidemia Chronic pain of both shoulders Pain in joint, shoulder region Influenza vaccine needed Need for prophylactic vaccination and inoculation against influenza Encounter for screening colonoscopy Special screening for malignant neoplasms, colon documented in this encounter Insurance Payer Benefit Plan / Subscriber ID Effective Phone Address Type Group Dates MARIA DEL ROSARIO MIX [id number] 2019-Pres [phone] [facility] PRIMARY CARE PRIMARY CARE ent [address] [place] [address] documented as of this encounter
--- OUTSIDE RECORDS SUMMARY | 2020-01-16 22:11 | XMS REPORT | Summary of Care ---
:1965 Author Organization [facility] Address [address] [place] [address] Care Team Providers Name Role Phone Dominique Christianson Primary Care Provider Reason for Visit Reason Comments Lab Results Encounter Details Date Type Department Care Team Description 12/04/2019 Telephone [facility] Dominique Story FNP Lab Results [address], [address] [place] [address] [place] [address] Allergies No Known Allergiesdocumented as of this encounter (statuses as of 12/04/2019) Medications Medication Sig Dispensed Refills Start Date End Date Status atorvastatin 20 mg Take 1 tablet by 30 tablet 5 11/29/2019 Active tabletIndications: Mixed mouth at hyperlipidemia bedtime. carvediloL 6.25 mg Take 1 tablet by 60 tablet 5 11/29/2019 Active tabletIndications: HTN mouth 2 (two) (hypertension), benign times daily with meals. metFORMIN 500 mg Take 1 tablet by 60 tablet 5 11/29/2019 Active tabletIndications: New mouth 2 (two) onset type 2 diabetes times daily with mellitus meals. ibuprofen 600 mg Take 1 tablet by 90 tablet 5 11/29/2019 Active tabletIndications: mouth every 6 Chronic pain of both (six) hours as shoulders needed for Pain (scale 4-6). documented as of this encounter (statuses as of 12/04/2019) Active Problems Problem Noted Date New onset type 2 diabetes mellitus 08/02/2019 HTN (hypertension), benign 08/02/2019 Anxiety and depression 08/02/2019 Uterine bleeding, dysfunctional 08/02/2019 documented as of this encounter (statuses as of 12/04/2019) Immunizations Name Administration Dates Next Due Influenza [...] of this encounter Last Filed Vital Signs Not on filedocumented in this encounter Plan of Treatment Health Maintenance Due Date Last Done Comments PAP SMEAR 1986 COLONOSCOPY 2015 Zoster Recombinant Vaccine (SHINGRIX) (2 01/24/2020 11/29/2019 of 2) HgA1C 01/31/2020 08/02/2019 CREATININE (SERUM) 08/02/2020 08/02/2019, 01/23/2018 EYE EXAM 08/02/2020 08/02/2019 FOOT EXAM 08/02/2020 08/02/2019 LDL-C 08/02/2020 08/02/2019 URINE MICROALBUMIN 08/02/2020 08/02/2019 Breast Cancer Screening (MAMMOGRAM) 09/06/2020 09/06/2019 DTaP,Tdap,and Td Vaccines (2 - Td) 11/29/2029 11/29/2019 HEPATITIS C (HCV) SCREEN Completed 08/02/2019 INFLUENZA VACCINE Completed 11/29/2019 PNEUMOCOCCAL 0-64 YEARS COMBINED SERIES Completed 11/29/2019 documented as of this encounter Results Not on filedocumented in this encounter Insurance Payer Benefit Plan Subscriber ID Effective Phone Address Type / Group Dates MARIA DEL ROSARIO MIX [id number] 2019-Pres [phone] [facility] PRIMARY CARE PRIMARY CARE ent [address] [place] [address] [place]. [id number] 2019-[place] [address] [place] [address] documented as of this encounter
--- OUTSIDE RECORDS SUMMARY | 2020-01-16 22:11 | XMS REPORT | Summary of Care ---
:1965 Author Organization [facility] Address [address] [place] [address] Care Team Providers Name Role Phone Dominique Christianson Primary Care Provider Reason for Visit Reason Comments Lab Results Encounter Details Date Type Department Care Team Description 12/04/2019 Telephone [facility] Dominique Story FNP Lab Results [address], [address] [place] [address] [place] [address] Allergies No Known Allergiesdocumented as of this encounter (statuses as of 12/05/2019) Medications Medication Sig Dispensed Refills Start Date [...] as of this encounter (statuses as of 12/05/2019) Active Problems Problem Noted Date New onset type 2 diabetes mellitus 08/02/2019 HTN (hypertension), benign 08/02/2019 Anxiety and depression 08/02/2019 Uterine bleeding, dysfunctional 08/02/2019 documented as of this encounter (statuses as of 12/05/2019) Immunizations Name Administration Dates Next Due Influenza [...] / Group Dates MARIA DEL ROSARIO MIX [id number] 2019-Pres [phone] [facility] PRIMARY CARE PRIMARY CARE ent [address] [place] [address] [place]. [id number] 2019-[place] [address] [place] [address] documented as of this encounter
--- OUTSIDE RECORDS SUMMARY | 2020-01-16 22:11 | XMS REPORT | Summary of Care ---
:1965 Author Organization [facility] Address [address] [place] [address] Care Team Providers Name Role Phone Dominique Christianson Primary Care Provider Reason for Visit Reason Comments Lab Results Encounter Details Date Type Department Care Team Description 12/04/2019 Telephone [facility] Dominique Story FNP Lab Results [address], [address] [place] [address] [place] [address] Allergies No Known Allergiesdocumented as of this encounter (statuses as of 12/06/2019) Medications Medication Sig Dispensed Refills Start Date [...] as of this encounter (statuses as of 12/06/2019) Active Problems Problem Noted Date New onset type 2 diabetes mellitus 08/02/2019 HTN (hypertension), benign 08/02/2019 Anxiety and depression 08/02/2019 Uterine bleeding, dysfunctional 08/02/2019 documented as of this encounter (statuses as of 12/06/2019) Immunizations Name Administration Dates Next Due Influenza [...] / Group Dates MARIA DEL ROSARIO MIX [id number] 2019-Pres [phone] [facility] PRIMARY CARE PRIMARY CARE ent [address] [place] [address] [place]. [id number] 2019-[place] [address] [place] [address] documented as of this encounter
--- OUTSIDE RECORDS SUMMARY | 2020-01-16 22:11 | XMS REPORT | Summary of Care ---
:1965 Author Organization [facility] Address [address] [place] [address] Care Team Providers Name Role Phone Dominique Christianson DIRECTOR OF SECURITIES AND REAL ESTATE Primary Care Provider Reason for Referral (Routine) Status Reason Specialty Diagnoses / Procedures Referred By Referred To Contact Contact New Request Gastroenterology Diagnoses Encounter for screening colonoscopy Dominique Christianson, Procedures CONSULT/REFERRAL GASTROENTEROLOGY DIRECTOR OF SECURITIES AND REAL ESTATE [address] [place], [place] [address] Radiology Services (MARIAH) Status Reason Specialty Diagnoses / Referred By Referred To Procedures Contact Contact New Request Diagnostic Diagnoses Abnormality of left breast on screening mammogram Dominique Christianson, Radiology Procedures BI ULTRASOUND BREAST COMPLETE LEFT DIRECTOR OF SECURITIES AND REAL ESTATE [address] [place] [address] Radiology Services (Routine) Status Reason Specialty Diagnoses / Referred By Referred To Procedures Contact Contact New Request Diagnostic Diagnoses Abnormality of left breast on screening mammogram Dominique Christianson, Radiology Procedures BI ULTRASOUND BREAST COMPLETE LEFT DIRECTOR OF SECURITIES AND REAL ESTATE [address] [place] [address] Radiology Services (Routine) Status Reason Specialty Diagnoses / Referred By Referred To Procedures Contact Contact New Request Diagnostic Diagnoses Abnormality of left breast on screening mammogram Dominique Christianson, Radiology Procedures BI DIAGNOSTIC MAMMOGRAM LEFT DIRECTOR OF SECURITIES AND REAL ESTATE [address] [place] [address] Reason for Visit Reason Comments Arm Pain bilateral arm pain Refill Request needs refill on Metformin Encounter Details Date Type Department Care Team Description 11/29/2019 Office Visit [facility] Dominique Bowens, DIRECTOR OF SECURITIES AND REAL ESTATE [address] [place], [place] [address] Abnormality of left breast on screening mammogram (Primary Dx); [facility] Primary New onset type 2 diabetes mellitus; Clinic HTN (hypertension), benign; [address] Mixed hyperlipidemia; [place], [place] Chronic pain of both shoulders; [address] Influenza vaccine needed; [phone] Encounter for screening colonoscopy Allergies No Known [...] Comments Blood Pressure 133/76 11/29/2019 10:08 AM FULL TIME Pulse 66 11/29/2019 10:08 AM FULL TIME Temperature 37 C (98.6 F) 11/29/2019 10:08 AM FULL TIME Respiratory Rate 18 11/29/2019 10:08 AM FULL TIME Oxygen Saturation 99% 11/29/2019 10:08 AM FULL TIME Inhaled Oxygen Concentration - - Weight 91.5 kg (201 lb 12.8 oz) 11/29/2019 10:08 AM FULL TIME Height 149.9 cm (4' 11") 11/29/2019 10:08 AM FULL TIME Body Mass Index 40.76 11/29/2019 10:08 AM FULL TIME documented in this encounter Progress Notes Dominique [...] because she was supposed to go to [place] and can not get transportation to the [...] file Gets together: Not on file Attends adventism service: Not on file Active member of [...] - CONSULT/REFERRAL GASTROENTEROLOGY 8. Tdap given by [facility] Fasting labs drawn today Appropriate plan [...] Priority Date/Time Associated Diagnosis Comments FLU VACC ([id number]), Routine 11/29/2019 10:45 AM Influenza vaccine 6+ MONTHS, IM, QUAD FULL TIME needed documented in this encounter Results Not [...] Type Group Dates MARIA DEL ROSARIO MIX [id number] 2019-Pres [phone] [facility] PRIMARY CARE PRIMARY CARE ent [address] [place] [address] documented as of this encounter
--- OUTSIDE RECORDS SUMMARY | 2020-01-16 22:12 | XMS REPORT | Summary of Care ---
:1965 Author Organization [facility] Address [address] [place] [address] Care Team Providers Name Role Phone Dominique Christianson Primary Care Provider Reason for Visit Reason Comments COLD SYMPTOMS Encounter Details Date Type Department Care Team Description 01/03/2020 Office Visit [facility] Dominique Christianson FNP [address] [place] [address] Acute non-recurrent maxillary sinusitis (Primary Dx); [facility] New onset type 2 diabetes mellitus; Clinic Iron deficiency anemia due to chronic blood loss [address] [place] [address] Allergies No Known Allergiesdocumented as of this encounter (statuses as of 01/04/2020) Medications Medication Sig Dispensed Refills Start Date End Date Status atorvastatin 20 mg Take 1 tablet 30 tablet 5 11/29/2019 Active tabletIndications: by mouth at Mixed hyperlipidemia bedtime. carvediloL 6.25 mg Take 1 tablet 60 tablet 5 11/29/2019 Active tabletIndications: HTN by mouth 2 (hypertension), benign (two) times daily with meals. metFORMIN 500 mg Take 1 tablet 60 tablet 5 11/29/2019 Active tabletIndications: New by mouth 2 onset type 2 diabetes (two) times mellitus daily with meals. ibuprofen 600 mg Take 1 tablet 90 tablet 5 11/29/2019 Active tabletIndications: by mouth every Chronic pain of both 6 (six) hours shoulders as needed for Pain (scale 4-6). amoxicillin-clavulanate Take 1 tablet 20 tablet 0 01/03/2020 01/13/2020 Active 875-125 mg per by mouth 2 tabletIndications: (two) times Acute non-recurrent daily for 10 maxillary sinusitis days. documented as of this encounter (statuses as of 01/04/2020) Active Problems Problem Noted Date New onset type 2 diabetes mellitus 08/02/2019 HTN (hypertension), benign 08/02/2019 Anxiety and depression 08/02/2019 Uterine bleeding, dysfunctional 08/02/2019 documented as of this encounter (statuses as of 01/04/2020) Immunizations Name Administration Dates Next Due Influenza [...] Sign Reading Time Taken Comments Blood Pressure 118/69 01/03/2020 1:16 PM RADIO INTERFERENCE TROUBLE SHOOTER Pulse 73 01/03/2020 1:16 PM RADIO INTERFERENCE TROUBLE SHOOTER Temperature 36.6 C (97.9 F) 01/03/2020 1:16 PM RADIO INTERFERENCE TROUBLE SHOOTER Respiratory Rate 20 01/03/2020 1:16 PM RADIO INTERFERENCE TROUBLE SHOOTER Oxygen Saturation - - Inhaled Oxygen Concentration - - Weight 94.8 kg (209 lb) 01/03/2020 1:16 PM RADIO INTERFERENCE TROUBLE SHOOTER Height 149.9 cm (4' 11") 01/03/2020 1:16 PM RADIO INTERFERENCE TROUBLE SHOOTER Body Mass Index 42.21 01/03/2020 1:16 PM RADIO INTERFERENCE TROUBLE SHOOTER documented in this encounter Progress Notes Dominique Christianson FNP - 01/03/2020 1:30 PM CST Cc: Chief Complaint Patient presents with COLD SYMPTOMS . INMESH Galeana is a 54 year old female complaining of cough and congestion with facial pressure and pain for 10 days. Had fever of 101-103 for 3 days at the beginning of illness which has passed. Had seasonal flu vaccine in July. Last Jul was dx with dysfunctional uterine bleeding after no period for 10 months. Bleeding was heavy for 2 wks. Has definite drop in H/H of 10.5/33.7 in November. Was asked to take vitamins daily which she never started. Has not have any bleeding since last Jul. Declines CLOTH SANDER and GI referral for screening colonoscopy. Feels like she dosesn't need to see the specialist and transportation is difficult Allergies Magaly has No Known Allergies. Medications Outpatient Medications Prior to Visit Medication Sig Dispense Refill atorvastatin 20 mg tablet Take 1 tablet by mouth at bedtime. 30 tablet 5 carvediloL 6.25 mg tablet Take 1 tablet by mouth 2 (two) times daily with meals. 60 tablet 5 ibuprofen 600 mg tablet Take 1 tablet by mouth every 6 (six) hours as needed for Pain (scale 4-6). 90 tablet 5 metFORMIN 500 mg tablet Take 1 tablet by mouth 2 (two) times daily with meals. 60 tablet 5 No facility-administered medications prior to visit. Histories [...] Last attempt to quit: 10/07/2018 Years since quittin.2 Smokeless tobacco: Never Used Substance and Sexual [...] file Gets together: Not on file Attends jain service: Not on file Active member of [...] on file Social History Narrative Admission noted 08/02/19: Live alone in a single family home [...] Father Hypertension Father Review of Systems Constitutional: Negative. HENT: Positive for congestion, ear pain and sinus pressure. Eyes: Negative. Respiratory: Positive for cough. Negative for shortness of breath and wheezing. Gastrointestinal: Negative. Genitourinary: Negative. Musculoskeletal: Positive for myalgias. Skin: Negative. Neurological: Positive for headaches. Psychiatric/Behavioral: Negative. Vital Signs BP 118/69 (BP Location: Left arm, Patient Position: Sitting) | Pulse 73 | Temp 36.6 C (97.9 F)(Oral) | Resp 20 | Ht 4' 11" (1.499 m) | Wt 209 lb ( 94.8 kg) | BMI 42.21 kg/m Physical Exam Constitutional: She appears well-developed and well-nourished. No distress. HENT: Right Ear: Tympanic membrane is scarred and bulging. A middle ear effusion is present. Left Ear: Tympanic membrane is bulging. A middle ear effusion is present. Nose: Mucosal edema and sinus tenderness present. Right sinus exhibits maxillary sinus tenderness. Left sinus exhibits maxillary sinus tenderness. Cardiovascular: Normal rate, regular rhythm and normal heart sounds. Pulmonary/Chest: Effort normal and breath sounds normal. Lymphadenopathy: Head (right side): No submandibular adenopathy present. Head (left side): No submandibular adenopathy present. Skin: Skin is warm, dry and intact. Nursing note and vitals reviewed. Assessment/Plan 1. Acute non-recurrent maxillary sinusitis - amoxicillin-clavulanate 875-125 mg per tablet; Take 1 tablet by mouth 2 (two) times daily for 10 days. Dispense: 20 tablet; Refill: 0 Continue OTC cough and congestion medication 2. New onset type 2 diabetes mellitus - POCT GLUCOSE(AGE >30DAYS) 3. Iron Deficiency Anemia H/H drawn Appropriate plan of care, desired health behaviors, [...] if symptoms should symptoms progress or worsen. . The patient indicates understanding of these issues and agrees with the plan. [facility] arlota Mercer LVN - 01/03/2020 1:30 PM CSTMagaly Galeana is a 54 year old female Patient here today for cold symptoms. Reports 0 pain on scale 0/10, MD notified. Reviewed medications and allergies with patient today. Fall Risk Assessment/Screening performed with patient today and patient is not at risk for falls. Lab work drawn per provider orders. Needle stick x (1) attempt to left antecubital. Tolerated well. No bruising, or complaint of discomfort noted to site. documented in this encounter Plan of Treatment Date Type Specialty Care Team Description 01/09/2020 Office Visit [facility] [address] [place] [address] [phone] Health Maintenance Due Date Last Done Comments [...] Completed 11/29/2019 documented as of this encounter Procedures Procedure Name Priority Date/Time Associated Diagnosis Comments POCT GLUCOSE(AGE Routine 01/03/2020 1:28 PM New onset type 2 Results for this >30DAYS) RADIO INTERFERENCE TROUBLE SHOOTER diabetes mellitus procedure are in the results section. documented in this encounter Results POCT GLUCOSE(AGE >30DAYS) (01/03/2020 1:28 PM RADIO INTERFERENCE TROUBLE SHOOTER) POCT Glu (age>30days) 123 (A) 70 - 110 mg/dL Specimen Blood - CAPILLARY documented in this encounter Visit Diagnoses Diagnosis Acute non-recurrent maxillary sinusitis - Primary New onset type 2 diabetes mellitus Iron deficiency anemia due to chronic blood loss Iron deficiency anemia secondary to blood loss (chronic) documented in this encounter Insurance Payer Benefit Plan / Subscriber ID Effective Phone Address Type Group Dates MARIA [place] ROSARIO MIX [id number] 2019-Pres [phone] [facility] PRIMARY CARE PRIMARY CARE ent [address] [place] [address] documented as of this encounter
--- OUTSIDE RECORDS SUMMARY | 2020-01-16 22:12 | XMS REPORT | Summary of Care ---
:1965 Author Organization [facility] Address [address] [place] [address] Care Team Providers Name Role Phone Dominique Christianson Primary Care Provider Reason for Visit Reason Comments COLD SYMPTOMS Encounter Details Date Type Department Care Team Description 01/03/2020 Office Visit [facility] Dominique Christianson FNP [address] [place] [address] Acute non-recurrent maxillary sinusitis (Primary Dx); [facility] New onset type 2 diabetes mellitus; Clinic Iron deficiency anemia due to chronic blood loss [address] [place] [address] Allergies No Known Allergiesdocumented as [...] Comments Blood Pressure 118/69 01/03/2020 1:16 PM CIVIL ENGINEERING PROJECT DESIGNER Pulse 73 01/03/2020 1:16 PM CIVIL ENGINEERING PROJECT DESIGNER Temperature 36.6 C (97.9 F) 01/03/2020 1:16 PM CIVIL ENGINEERING PROJECT DESIGNER Respiratory Rate 20 01/03/2020 1:16 PM CIVIL ENGINEERING PROJECT DESIGNER Oxygen Saturation - - Inhaled Oxygen Concentration - - Weight 94.8 kg (209 lb) 01/03/2020 1:16 PM CIVIL ENGINEERING PROJECT DESIGNER Height 149.9 cm (4' 11") 01/03/2020 1:16 PM CIVIL ENGINEERING PROJECT DESIGNER Body Mass Index 42.21 01/03/2020 1:16 PM CIVIL ENGINEERING PROJECT DESIGNER documented in this encounter Progress Notes Dominique Christianson FNP - 01/03/2020 1:30 PM CST Cc: Chief Complaint Patient presents with COLD SYMPTOMS . NIMESH Galeana is a 54 year old female [...] have any bleeding since last Jul. 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 Feels [...] file Gets together: Not on file Attends druze service: Not on file Active member of [...] issues and agrees with the plan. [facility] arlota Mercer LVN - 01/03/2020 1:30 PM [...] 01/09/2020 Office Visit [facility] [address] [place] [address] [phone] Health Maintenance Due Date Last Done Comments [...] onset type 2 Results for this >30DAYS) CIVIL ENGINEERING PROJECT DESIGNER diabetes mellitus procedure are in the results section. documented in this encounter Results POCT GLUCOSE(AGE >30DAYS) (01/03/2020 1:28 PM CIVIL ENGINEERING PROJECT DESIGNER) POCT Glu (age>30days) 123 (A) 70 - [...] Type Group Dates MARIA DEL ROSARIO MIX [id number] 2019-Pres [phone] [facility] PRIMARY CARE PRIMARY CARE ent [address] [place] [address] documented as of this encounter
--- OUTSIDE RECORDS SUMMARY | 2020-01-16 22:12 | XMS REPORT | Summary of Care ---
:1965 Author Organization [facility] - Health Address [address] [place] [address] Care Team Providers Name Role Phone Sammy Dominique EUNICE Primary Care Provider Encounter Details Date Type Department Care Team Description 11/29/2019 Orders Only [facility] Doctor Unassigned, No [address] [facility] [place] [address] [address] [place] [id number] Allergies No Known Allergiesdocumented as of this encounter (statuses as of 01/11/2020) Medications Medication Sig Dispensed Refills Start Date [...] as of this encounter (statuses as of 01/11/2020) Active Problems Problem Noted Date New onset type 2 diabetes mellitus 08/02/2019 HTN (hypertension), benign 08/02/2019 Anxiety and depression 08/02/2019 Uterine bleeding, dysfunctional 08/02/2019 documented as of this encounter (statuses as of 01/11/2020) Immunizations Name Administration Dates Next Due Influenza [...] Done Comments PAP SMEAR 1986 COLONOSCOPY 2015 LUNG CANCER SCREEN: Recommended for age 0301/08/2020 55-80 with 30 + pack year history Zoster Recombinant Vaccine (SHINGRIX) (2 01/24/2020 11/29/2019 [...] Procedure Name Priority Date/Time Associated Diagnosis Comments SCANNED LAB RESULTS Routine 11/29/2019 12:01 AM PADDOCK JUDGE documented in this encounter Results SCANNED LAB RESULTS (11/29/2019 12:01 AM PADDOCK JUDGE) Specimen Performing Organization Address City/State/Zipcode Phone Number HIM documented in this encounter Insurance Payer Benefit Plan Subscriber ID Effective Phone Address Type / Group Dates MARIA DEL ROSARIO MIX [id number] 2019-Pres [phone] [facility] PRIMARY CARE PRIMARY CARE ent [address] [place] [address] MARIA DEL ROSARIO [place]. [id number] 2019-[place] [address] C I H C sent [address] [place] [address] documented as of this encounter
--- OUTSIDE RECORDS SUMMARY | 2020-01-16 22:12 | XMS REPORT | Summary of Care ---
:1965 Author Organization [facility] Address [address] [place] [address] Care Team Providers Name Role Phone Dominique Christianson NURSE PRACTITIONER ADULT Primary Care Provider Reason for Referral Radiology Services (Routine) Status Reason Specialty Diagnoses / Referred By Referred To Procedures Contact Contact Authorized Diagnostic Diagnoses Abnormality of left breast on screening mammogram Abnormality of left breast on screening mammogram Dominique Christianson, Radiology Procedures BI DIAGNOSTIC MAMMOGRAM LEFT CHG DIAGNOSTIC MAMMOGRAPHY COMPUTER-AIDED DETCJ UNI DIAGNOSTIC MAMMOGRAM LEFT NURSE PRACTITIONER ADULT [address] [place] [address] Reason for Visit Radiology Services (Routine) Status Reason Specialty Diagnoses / Referred By Referred To Procedures Contact Contact Authorized Diagnostic Diagnoses Abnormality of left breast on screening mammogram Abnormality of left breast on screening mammogram Dominique Christianson, Radiology Procedures BI DIAGNOSTIC MAMMOGRAM LEFT CHG DIAGNOSTIC MAMMOGRAPHY COMPUTER-AIDED DETCJ UNI DIAGNOSTIC MAMMOGRAM LEFT NURSE PRACTITIONER ADULT [address] [place] [address] Encounter Details Date Type Department Care Team Description 12/26/2019 Hospital Encounter [facility] Dominique Christianson, Canceled ( RAD EXAM [place] Breast NURSE PRACTITIONER ADULT CANCELLED PER Imaging 301 [facility] RADIOLOGIST) [address] [place] [address] [phone] Allergies No Known Allergiesdocumented as of this encounter (statuses as of 12/27/2019) Medications Medication Sig Dispensed Refills Start Date [...] as of this encounter (statuses as of 12/27/2019) Active Problems Problem Noted Date New onset type 2 diabetes mellitus 08/02/2019 HTN (hypertension), benign 08/02/2019 Anxiety and depression 08/02/2019 Uterine bleeding, dysfunctional 08/02/2019 documented as of this encounter (statuses as of 12/27/2019) Immunizations Name Administration Dates Next Due Influenza [...] filedocumented in this encounter Plan of Treatment Date Type Specialty Care Team Description 01/09/2020 Office Visit [facility] [address] [place] [address] [phone] Name Type Priority Associated Diagnoses Order Schedule BI DIAGNOSTIC IMAGING Routine Abnormality of left 1 Occurrences starting MAMMOGRAM LEFT breast on screening 12/26/2019 until mammogram 12/26/2019 Health Maintenance Due Date Last Done Comments [...] Abnormality of left breast on screening mammogram documented in this encounter Insurance Payer Benefit Plan Subscriber ID Effective Phone Address Type / Group Dates [place] [place] [employer] [id number] [place] [address] C [address] C sent [address] [place] [address] documented as of this encounter
--- OUTSIDE RECORDS SUMMARY | 2020-01-16 22:12 | XMS REPORT | Summary of Care ---
:1965 Author Organization [facility] Address [address] [place] [address] Care Team Providers Name Role Phone Dominique Christianson Primary Care Provider Reason for Visit Radiology Services (MARIA[facility]) Status Reason Specialty Diagnoses / Referred By Referred To Procedures Contact Contact New Request Diagnostic Diagnoses Abnormality of left breast on screening mammogram Abnormality of left breast on screening mammogram Dominique Christianson, Radiology Procedures BI ULTRASOUND BREAST LIMITED LEFT BI ULTRASOUND BREAST COMPLETE LEFT CHG US BREAST UNI REAL TIME WITH IMAGE COMPLETE ULTRASOUND BREAST COMPLETE LEFT APPLICATION PROCESSOR [address] [place] [address] Encounter Details Date Type Department Care Team Description 12/26/2019 Hospital Encounter [facility] Dominique Bowens FNP Arrived [place] [facility] [address] [facility] [address] [place] [facility] [place] [phone] Allergies No Known Allergiesdocumented as of this [...] 01/09/2020 Office Visit [facility] [address] [place], [place] [id number] Health Maintenance Due Date Last Done Comments [...] Procedure Name Priority Date/Time Associated Diagnosis Comments BI ULTRASOUND BREAST MARIAH 12/26/2019 11:49 Abnormality of left Results for this LIMITED LEFT AM NIGHT COURT MAGISTRATE breast on screening procedure are in mammogram the results section. NOTICE OF PRIVACY Routine 12/26/2019 11:[address] MAGISTRATE CONSENT/REFUSAL FOR Routine 12/26/2019 11:[address]IS AND AM [address] MAGISTRATE TREATMENT ASSIGNMENT OF Routine 12/26/2019 11:[address] MAGISTRATE documented in this encounter Results BI ULTRASOUND BREAST LIMITED LEFT (12/26/2019 11:[address] MAGISTRATE) Specimen Narrative Performed At Examination: PACS BI ULTRASOUND BREAST LIMITED LEFT History: Patient is 54 year old and is seen for: Abnormal mammagram screening. Comparisons: 09/06/2019 BI SCREENING MAMMOGRAM BILATERAL HISTORY: Abnormal mammogram. Rule out mass in the left breast. TECHNIQUE: Outer half of the left breast was evaluated in radial/antiradial/sagittal/coronal planes both by the technologist and by me. Female technologist was present in the room during all imaging evaluations. FINDINGS: Multiple cystic lesions are detected, 5.8 x 2.3 mm at 9:00, 3.0 x 2.0 mm at 10:00, 3.5 x 3.2 mm at 11:00 containing slightly thick fluid, 4.4 x 2.2 mm at 12:00 containing thick fluid, 9.2 x 7.5 mm at 3:00, 6.1 x 5.3 mm at 2:00, 6.4 x 3.3 mm at 3:00 locations. No solid lesions detected. Lesion at 1:00 appears slightly irregular in shape. Lesion at 2:00 appear multiloculated with complex texture. CONCLUSIONS: No solid masses detected. However, lesions at 1 and 2:00 locations in left breast should be monitored by follow up ultrasound study. This patient is due for bilateral annual mammography evaluation in August 2020, at which time patient should also be scheduled for left breast ultrasound. This was discussed with the patient and she appeared to understand. ACR classification: Category III. Recommendation: Short interval follow-up mammogram 6 months - Left BI-RADS Category: Left 3 - Probably Benign Performing Organization Address City/State/Zipcode Phone Number PACS documented in this encounter Visit Diagnoses Diagnosis Abnormality of left breast on screening mammogram documented in this encounter Insurance Payer Benefit Plan Subscriber ID Effective Phone Address Type / Group Dates [facility] [place] [place] [id number] 2019-Pre [phone] [facility] I H C sent [address] [place] [address] documented as of this encounter
[2020-01-16] MEDS ORDERED: HYDROCODONE/APAP 10/325 TAB ONE (23:14)
--- NOTE | 2020-01-16 23:34 | EDPHYS ---
Physician Documentation [facility] Name: Magaly Galeana Age: 55 yrs Sex: Female : 1965 Arrival Date: 01/16/2020 Time: 22:10 Bed 8 Private MD: ED Physician Tab Sool HPI: 01/15 22:57 This 55 yrs old Female presents to ER via Unassigned with complaints of Leg bo Pain. 22:57 The patient presents with decreased range of motion, pain, that is acute. The bo complaints affect the right knee. Context: The problem was sustained at home. Onset: The symptoms/episode began/occurred 5 day(s) ago. Modifying factors: The symptoms are alleviated by elevating leg, the symptoms are aggravated by nothing. Associated signs and symptoms: The patient has no apparent associated signs or symptoms. Severity of symptoms: At their worst the symptoms were mild, moderate, in the emergency department the symptoms are unchanged. The patient has not experienced similar symptoms in the past. Historical: - Allergies: 22:47 No Known Allergies; jb4 - Home Meds: 22:47 atorvastatin 20 mg Oral tab 1 tab once daily [Active]; metformin 500 mg Oral tab 1 tab jb4 2 times per day [Active]; Motrin 600mg Oral tab 1 tab every 6 hours [Active]; carvedilol 6.25 mg oral tab 1 tab every 12 hours [Active]; - PMHx: 22:47 Diabetes - NIDDM; High Cholesterol; Hypertension; jb4 - PSHx: 22:47 Ankle surg; ; jb4 - Immunization history:: Adult Immunizations up to date. - Social history:: Smoking status: Patient denies any tobacco usage or history of. Patient/guardian denies using alcohol, street drugs. - Family history:: not pertinent. ROS: 22:57 Constitutional: Negative for fever, chills, and weight loss, Eyes: Negative for injury, bo pain, redness, and discharge, ENT: Negative for injury, pain, and discharge, Neck: Negative for injury, pain, and swelling, Cardiovascular: Negative for chest pain, palpitations, and edema, Respiratory: Negative for shortness of breath, cough, wheezing, and pleuritic chest pain, Abdomen/GI: Negative for abdominal pain, nausea, vomiting, diarrhea, and constipation, Back: Negative for injury and pain, : Negative for injury, bleeding, discharge, and swelling, Skin: Negative for injury, rash, and discoloration, Neuro: Negative for headache, weakness, numbness, tingling, and seizure, Psych: Negative for depression, anxiety, suicide ideation, homicidal ideation, and hallucinations, Allergy/Immunology: Negative for hives, rash, and allergies, Endocrine: Negative for neck swelling, polydipsia, polyuria, polyphagia, and marked weight changes, Hematologic/Lymphatic: Negative for swollen nodes, abnormal bleeding, and unusual bruising. 22:57 MS/extremity: Positive for decreased range of motion, pain, swelling, tenderness, of the right knee. Exam: 22:57 Constitutional: This is a well developed, well nourished patient who is awake, alert, bo and in no acute distress. Head/Face: Normocephalic, atraumatic. Eyes: Pupils equal round and reactive to light, extra-ocular motions intact. Lids and lashes normal. Conjunctiva and sclera are non-icteric and not injected. Cornea within normal limits. Periorbital areas with no swelling, redness, or edema. ENT: Nares patent. No nasal discharge, no septal abnormalities noted. Tympanic membranes are normal and external auditory canals are clear. Oropharynx with no redness, swelling, or masses, exudates, or evidence of obstruction, uvula midline. Mucous membranes moist. Neck: Trachea midline, no thyromegaly or masses palpated, and no cervical lymphadenopathy. Supple, full range of motion without nuchal rigidity, or vertebral point tenderness. No Meningismus. Chest/axilla: Normal chest wall appearance and motion. Nontender with no deformity. No lesions are appreciated. Cardiovascular: Regular rate and rhythm with a normal S1 and S2. No gallops, murmurs, or rubs. Normal PMI, no JVD. No pulse deficits. Respiratory: Lungs have equal breath sounds bilaterally, clear to auscultation and percussion. No rales, rhonchi or wheezes noted. No increased work of breathing, no retractions or nasal flaring. Abdomen/GI: Soft, non-tender, with normal bowel sounds. No distension or tympany. No guarding or rebound. No evidence of tenderness throughout. Back: No spinal tenderness. No costovertebral tenderness. Full range of motion. Female : Normal external genitalia. Skin: Warm, dry with normal turgor. Normal color with no rashes, no lesions, and no evidence of cellulitis. Neuro: Awake and alert, GCS 15, oriented to person, place, time, and situation. Cranial nerves II-XII grossly intact. Motor strength 5/5 in all extremities. Sensory grossly intact. Cerebellar exam normal. Normal gait. Psych: Awake, alert, with orientation to person, place and time. Behavior, mood, and affect are within normal limits. 22:57 Musculoskeletal/extremity: Extremities: noted in the right knee: decreased ROM, pain. Vital Signs: 22:47 BP 192 / 84; Pulse 75; Resp 18; Temp 98.3(O); Pulse Ox 100% on R/A; Weight 94.8 kg (R); [facility] Height 5 ft. 0 in. (152.40 cm) (R); Pain 7/10; 01/16 01:01 BP 140 / 116; Pulse 69; Resp 16; Pulse Ox 99% on R/A; [facility] 01/15 22:47 Body Mass Index 40.82 (94.80 kg, 152.40 cm) [facility] MDM: 01/15 22:47 Patient medically screened. [facility] 22:59 Data reviewed: vital signs, nurses notes, radiologic studies, plain films. [facility] 01/15 23:00 Order name: Knee Right 3 View XRAY [facility] 01/15 23:00 Order name: Ice pack; Complete Time: 23:12 [facility] 01/15 23:00 Order name: Knee Immobilizer; Complete Time: 01:09 [facility] Administered Medications: 23:12 Drug: [place] 10 mg-325 mg 1 tabs Route: PO; [facility] 01/16 00:00 Follow up: Response: No adverse reaction; Pain is decreased; RASS: Alert and Calm (0) [facility] Disposition: 01/16/20 23:31 Discharged to Home. Impression: Pain in right knee, Fall due to bumping against object, Obesity, unspecified, Type 2 diabetes mellitus. - Condition is Stable. - Discharge Instructions: Joint Pain, Type 2 Diabetes Mellitus, Diagnosis, Adult, How to Use a Knee Brace, Musculoskeletal Pain, Obesity, Adult, Knee Pain, Fall Prevention in the Home, Wpyp-[id number]-[id number], Type 2 Diabetes Mellitus, Diagnosis, Adult, Myly-gh-Jwxf, Knee Pain, Vxqh-yx-Ztwe, Joint Pain, Mgrk-tc-Vtak. - Prescriptions for Ibuprofen 600 mg Oral Tablet - take 1 tablet by ORAL route every 8 hours As needed take with food; 24 tablet. Tylenol- Codeine #3 300-30 mg Oral Tablet - take 2 tablets by ORAL route every 6 hours As needed; 24 tablet. - Medication Reconciliation Form, Thank You Letter, Antibiotic Education, Prescription Opioid Use form. - Follow up: Private Physician; When: 2 - 3 days; Reason: Recheck today's complaints, Continuance of care, Re-evaluation by your physician. Follow up: Roger Sutton; When: 2 - 3 days; Reason: Recheck today's complaints, Re-evaluation by your physician. - Problem is new. - Symptoms have improved. Signatures: Dispatcher [employer] Tab Saldaña MD MD cha Bryson, James, RN RN jb4 Corrections: (The following items were deleted from the chart) 01:09 01/15 23:31 01/16/2020 23:31 Discharged to Home. Impression: Pain in right knee; Fall jb4 due to bumping against object; Obesity, unspecified; Type 2 diabetes mellitus. Condition is Stable. Discharge Instructions: Joint Pain, How to Use a Knee Brace, Musculoskeletal Pain, Knee Pain, Fall Prevention in the Home, Ndym-js-Krcg, Knee Pain, Kqgy-uw-Ecld, Joint Pain, Gndf-eu-Loxd. Prescriptions for Ibuprofen 600 mg Oral Tablet - take 1 tablet by ORAL route every 8 hours As needed take with food; 24 tablet, Tylenol-Codeine #3 300-30 mg Oral Tablet - take 2 tablets by ORAL route every 6 hours As needed; 24 tablet. and Forms are Medication Reconciliation Form, Thank You Letter, Antibiotic Education, Prescription Opioid Use. Follow up: Private Physician; When: 2 - 3 days; Reason: Recheck today's complaints, Continuance of care, Re-evaluation by your physician. Follow up: Roger Sutton; When: 2 - 3 days; Reason: Recheck today's complaints, Re-evaluation by your physician. Problem is new. Symptoms have improved. bo
--- NOTE | 2020-01-16 23:34 | ER ---
Nurse's Notes [facility] Name: Magaly Galeana Age: 55 yrs Sex: Female : 1965 Arrival Date: 01/16/2020 Time: 22:10 Bed 8 Private MD: Diagnosis: Pain in right knee;Fall due to bumping against object;Obesity, unspecified;Type 2 diabetes mellitus Presentation: 01/15 22:47 Chief complaint: Patient states: I fell a week ago and landed on my right knee. I have jb4 not injured it since and now today it just started hurting. 22:47 Coronavirus screen: The patient has NOT traveled to a country currently being monitored jb4 by the [facility] within the last 14 days. Proceed with normal triage procedures. The patient has NOT had contact with any known and/or suspected case of coronavirus. Proceed with normal triage procedures. Ebola Screen: No symptoms or risks identified at this time. Initial Sepsis Screen: Does the patient meet any 2 criteria? No. Patient's initial sepsis screen is negative. Does the patient have a suspected source of infection? No. Patient's initial sepsis screen is negative. Risk Assessment: Do you want to hurt yourself or someone else? Patient reports no desire to harm self or others. 22:47 Method Of Arrival: Wheelchair jb4 22:47 Acuity: EKATERINA 4 jb4 Historical: - Allergies: 22:47 No Known Allergies; jb4 - Home Meds: 22:47 atorvastatin 20 mg Oral tab 1 tab once daily [Active]; metformin 500 mg Oral tab 1 tab jb4 2 times per day [Active]; Motrin 600mg Oral tab 1 tab every 6 hours [Active]; carvedilol 6.25 mg oral tab 1 tab every 12 hours [Active]; - PMHx: 22:47 Diabetes - NIDDM; High Cholesterol; Hypertension; jb4 - PSHx: 22:47 Ankle surg; ; jb4 - Immunization history:: Adult Immunizations up to date. - Social history:: Smoking status: Patient denies any tobacco usage or history of. Patient/guardian denies using alcohol, street drugs. - Family history:: not pertinent. Screenin:47 Abuse screen: Denies threats or abuse. Nutritional screening: No deficits noted. jb4 Tuberculosis screening: No symptoms or risk factors identified. Fall Risk Fall in past 12 months (25 points). Total Mendez Fall Scale indicates Low Risk Score (25-44 pts). Fall prevention measures have been instituted. Side Rails Up X 2 Placed close to Nursing Station Frequent Obs/Assesments occuring Family Present and informed to notify staff if they need to leave bedside As available Patient and Family Educated on Fall Prevention Program and strategies. Assessment: 22:47 General: Appears in no apparent distress. uncomfortable, Behavior is calm, cooperative, jb4 appropriate for age. Pain: Complains of pain in right knee Pain does not radiate. Pain currently is 7 out of 10 on a pain scale. Quality of pain is described as Constant pain. Neuro: Level of Consciousness is awake, alert, obeys commands, Oriented to person, place, time, situation. Cardiovascular: Patient's skin is warm and dry. Respiratory: Airway is patent Respiratory effort is even, unlabored, Respiratory pattern is regular, symmetrical. GI: No signs and/or symptoms were reported involving the gastrointestinal system. : No signs and/or symptoms were reported regarding the genitourinary system. EENT: No signs and/or symptoms were reported regarding the EENT system. Derm: Skin is intact, Skin is pink, warm \T\ dry. Musculoskeletal: Circulation, motion, and sensation intact. Range of motion: intact in all extremities. 01/16 00:00 Reassessment: Patient appears in no apparent distress at this time. Patient and/or jb4 family updated on plan of care and expected duration. Pain level reassessed. Patient is alert, oriented x 3, equal unlabored respirations, skin warm/dry/pink. 01:00 Reassessment: Patient appears in no apparent distress at this time. Patient and/or jb4 family updated on plan of care and expected duration. Pain level reassessed. Patient is alert, oriented x 3, equal unlabored respirations, skin warm/dry/pink. Pt verbalized understanding of d/c and follow instructions. Denies questions or concerns. Pt assisted to vehicle via wheel chair. Vital Signs: 01/15 22:47 BP 192 / 84; Pulse 75; Resp 18; Temp 98.3(O); Pulse Ox 100% on R/A; Weight 94.8 kg (R); jb4 Height 5 ft. 0 in. (152.40 cm) (R); Pain 7/10; 01/16 01:01 BP 140 / 116; Pulse 69; Resp 16; Pulse Ox 99% on R/A; jb4 01/15 22:47 Body Mass Index 40.82 (94.80 kg, 152.40 cm) jb4 ED Course: 01/15 22:10 Patient arrived in ED. jg7 22:47 Tab Solo MD is Attending Physician. [facility] 22:47 Patient has correct armband on for positive identification. Placed in gown. Bed in low jb4 position. Call light in reach. Side rails up X 1. Pulse ox on. NIBP on. 23:01 Donell Alcazar, RN is Primary Nurse. jb4 23:03 Triage completed. jb4 23:06 Arm band placed on right wrist. jb4 23:30 Roger Sutton MD is Referral Physician. [facility] 01/16 01:00 No provider procedures requiring assistance completed. Patient did not have IV access jb4 during this emergency room visit. 05:21 Knee Right 3 View XRAY In Process Unspecified. EDMS Administered Medications: 01/15 23:12 Drug: [place] 10 mg-325 mg 1 tabs Route: PO; jb4 01/16 00:00 Follow up: Response: No adverse reaction; Pain is decreased; RASS: Alert and Calm (0) jb4 Outcome: 01/15 23:31 Discharge ordered by . [facility] 01/16 01:00 Discharged to home ambulatory, via wheelchair, with crutches. jb4 Condition: stable Discharge instructions given to patient, Instructed on discharge instructions, follow up and referral plans. medication usage, Demonstrated understanding of instructions, follow-up care, medications, Prescriptions given X 2. 01:09 Patient left the ED. jb4 Signatures: Dispatcher [employer] EDMS Tab Solo MD MD cha Bryson, James, RN RN jb4 Sandy Carlson jg7
[2020-01-17 01:17] VITALS: TEMP 98.3
[2020-01-17 01:18] VITALS: BP 140/116; O2SAT 99
--- NOTE | 2020-01-17 08:20 | RAD REPORT ---
EXAM DESCRIPTION: RAD - Knee Right 3 View - 01/16/2020 11:35 pm CLINICAL HISTORY: Right knee pain FINDINGS: No fracture or dislocation is seen. Mild osteoarthritis medial compartment
== END 2020-01-17 01:09 | disposition home or self-care (01) ==
LOC: ER 22:08
DX: M25.561 Pain in right knee (principal); E11.9 Type 2 diabetes mellitus without complications; E66.9 Obesity, unspecified; W18.00XA Striking against unspecified object with subsequent fall, initial encounter; Y93.9 Activity, unspecified; Y92.009 Unspecified place in unspecified non-institutional (private) residence as the place of occurrence of the external cause; I10 Essential (primary) hypertension; E78.00 Pure hypercholesterolemia, unspecified
CPT/HCPCS: 99284

== ENCOUNTER 2022-07-02 19:28 | Emergency (ER) | payer OTHER ==
--- OUTSIDE RECORDS SUMMARY | 2022-07-02 19:33 | XMS REPORT | Continuity of Care Document ---
:1965 Author Organization [facility] t Address [address] [place] [address] Care Team Providers Name Role Phone Pcp, Patient Does Not Have A Primary Care Physician [id number] Dominique Beltran Attending Clinician DOMINIQUE TRAN Attending Clinician Unavailable Doctor Unassigned, [place] Attending Clinician Unavailable Care, Ang Primary Attending Clinician Unavailable NGUYEN DEL CID Attending Clinician Unavailable DOMINIQUE TRAN Admitting Clinician Unavailable Payers Payer Name Policy Type Policy Number Effective Date Expiration Date Danielle [employer] [id number] 2019 00:00:00 Problems Condition Condition Condition Status Onset Resolution Last Treating Co mments Source Name Details Category Date Date Treatment Clinician Date HTN HTN Disease Active Univers (hypertens (hypertens 08-02 it y of ion), ion), 00:00: [place] benign benign 00 Medical Branch Anxiety Anxiety Disease Active Univers and [place] 08-[place] Uterine Uterine Disease Active Univers bleeding, bleeding, 08-02 ity of dysfunctio dysfunctio [place] New onset New onset Disease Active Uni vers type 2 type 2 08-02 ity of diabetes diabetes 00:00: [place] mellitus mellitus 00 Medica l Branch Allergies, Adverse Reactions, Alerts Allergy Allergy Status Severity Reaction(s) Onset Inactive Treating Comm ents Source Name Type Date Date Clinician NO KNOWN Drug Active Univers ALLERGIE Class ity of [facility] Social History Social Habit Start Date Stop Date Quantity Comments Source History SDOH University o f Alcohol Frequency [place] [facility] Std Drinks [place] [facility] [place] [facility] Alcohol Binge [place] [facility] Alcohol intake 2020-01-03 2020-01-03 Ex-drinker University of 00:00:00 00:00:00 (finding) [facility] Tobacco use and 2019-08-02 2019-08-02 Never used Universit y of exposure 00:00:00 00:00:00 [facility] Cigarettes smoked 2019-08-02 2019-08-02 Univers ity of current (pack per 00:00:00 00:00:00 [facility] edical ) - Reported Branch Cigarette 2019-08-02 2019-08-02 University of pack-years 00:00:00 00:00:00 [facility] Alcohol Comment 2019-08-02 2019-08-02 Last drink 1 Univers ity of 00:00:00 00:00:00 year ago. drank [place] [facility] ical a bottle or 12 Branch ranjit a day History of tobacco 2018-10-07 Cigarette Smoker University of use 00:00:00 [facility] Sex [birth year] Universit y of 00:00:00 00:00:00 [facility] Smoking Status Start Date Stop Date Source Former smoker 2019-08-02 00:00:00 2019-08-02 [facility] Medications Ordered Filled Start Stop Current Ordering Indication Dosage Frequency Signature Comments Components Source Medication Medication Date Date Medication? Clinician (SIG) Name Name IBUPROFEN 2020-11 Yes [id number] TAKE 1 Un yarelis 600 mg 2-16 TABLET BY ity of tablet 00:00: MOUTH 00 EVERY 6 Medical HOURS Branch NEEDED FOR PAIN METFORMIN Yes [id number] TAKE 1 Un yarelis 500 mg 4-02 TABLET BY ity of tablet 00:00: MOUTH 00 TWICE Medical DAILY WITH Branch MEALS. CARVEDILOL Yes [id number] TAKE 1 U nivers 6.25 mg 4-02 TABLET BY ity of tablet 00:00: MOUTH [place] 00 TWICE Medical DAILY WITH Branch MEALS. METFORMIN Yes [id number] TAKE 1 Un yarelis 500 mg 4-02 TABLET BY ity of tablet 00:00: MOUTH 00 TWICE Medical DAILY WITH Branch MEALS. CARVEDILOL Yes [id number] TAKE 1 U nivers 6.25 mg 4-02 TABLET BY ity of tablet 00:00: MOUTH [place] 00 TWICE Medical DAILY WITH Branch MEALS. amoxicillin 2019- No [id number] 1{tbl} Take 1 Univers -clavulanat 2-31 01-09 tablet by it y of e 875-125 00:00: 04:59 [place] mg per 00 :00 (two) Medical tablet times Branch daily for 10 days. amoxicillin 2019- No [id number] 1{tbl} Take 1 Univers -clavulanat 2- tablet by it y of e 875-125 00:00: 04:59 [place] per 00 :00 (two) Medical tablet times Branch daily for 10 days. metFORMIN 2019- No 500mg Take 500 Un yarelis 500 mg 1-23 01-23 mg by ity of tablet 16:27: 00:00 mouth 2 [place] 00 :00 (two) Medical times Branch daily with meals. atorvastati 2019- No 20mg Take 20 mg Univers n 20 mg 1-23 -23 by mouth ity of tablet 16:27: 00:00 at [place] 00 :00 bedtime. Medical Branch carvedilol 2020- No 6.25mg Take 6.25 Univers 6.25 mg 1-23 01-23 mg by ity of tablet 16:27: 00:00 mouth 2 [place] 00 :00 (two) Medical times Branch daily with meals. metFORMIN 2019- No 500mg Take 500 Un yarelis 500 mg 1-23 01-23 mg by ity of tablet 16:27: 00:00 mouth 2 [place] 00 :00 (two) Medical times Branch daily with meals. atorvastati 2019- 2020- No 20mg Take 20 mg Univers n 20 mg 1-23 -23 by mouth ity of tablet 16:27: 00:00 at [place] 00 :00 bedtime. Medical Branch carvedilol 2019- 2020- No 6.25mg Take 6.25 Univers 6.25 mg 1-23 01-23 mg by ity of tablet 16:27: 00:00 mouth 2 [place] 00 :00 (two) Medical times Branch daily with meals. atorvastati 2019- Yes [id number] 20mg Take 1 Univers n 20 mg 1-23 tablet by ity of tablet 00:00: mouth at [place] 00 bedtime. Medical Branch carvediloL 2020-0 Yes [id number] 6.25mg Take 1 Univers 6.25 mg 1-23 tablet by ity of tablet 00:00: mouth (two) Medical times Branch daily with meals. metFORMIN 2020-0 Yes [id number] 500mg Take 1 U nivers 500 mg 1-23 tablet by ity of tablet 00:00: mouth (two) Medical times Branch daily with meals. ibuprofen 2020-0 Yes [id number] 600mg Take 1 U nivers 600 mg 1-23 tablet by ity of tablet 00:00: mouth 00 every 6 Medical (six) Branch hours as needed for Pain (scale 4-6). atorvastati 2020-0 Yes [id number] 20mg Take 1 Univers n 20 mg 1-23 tablet by ity of tablet 00:00: mouth at [place] bedtime. Medical Branch carvediloL 2020-0 Yes [id number] 6.25mg Take 1 Univers 6.25 mg 1-23 tablet by ity of tablet 00:00: mouth (two) Medical times Branch daily with meals. metFORMIN 2020-0 Yes [id number] 500mg Take 1 U nivers 500 mg 1-23 tablet by ity of tablet 00:00: mouth (two) Medical times Branch daily with meals. ibuprofen 2020-0 Yes [id number] 600mg Take 1 U nivers 600 mg 1-23 tablet by ity of tablet 00:00: mouth 00 every 6 Medical (six) Branch hours as needed for Pain (scale 4-6). atorvastati 2020-0 Yes [id number] 20mg Take 1 Univers n 20 mg 1-23 tablet by ity of tablet 00:00: mouth at [place] 00 bedtime. Medical Branch carvediloL 2020-0 Yes [id number] 6.25mg Take 1 Univers 6.25 mg 1-23 tablet by ity of tablet 00:00: mouth (two) Medical times Branch daily with meals. metFORMIN 2020-0 Yes [id number] 500mg Take 1 U nivers 500 mg 1-23 tablet by ity of tablet 00:00: mouth (two) Medical times Branch daily with meals. ibuprofen 2020-0 Yes [id number] 600mg Take 1 U nivers 600 mg 1-23 tablet by ity of tablet 00:00: mouth [place] 00 every 6 Medical (six) Branch hours as needed for Pain (scale 4-6). atorvastati 2020-0 Yes [id number] 20mg Take 1 Univers n 20 mg 1-23 tablet by ity of tablet 00:00: mouth at [place] 00 bedtime. Medical Branch carvediloL 2020-0 Yes [id number] 6.25mg Take 1 Univers 6.25 mg 1-23 tablet by ity of tablet 00:00: mouth 2 (two) Medical times Branch daily with meals. metFORMIN 2020-0 Yes [id number] 500mg Take 1 U nivers 500 mg 1-23 tablet by ity of tablet 00:00: mouth (two) Medical times Branch daily with meals. ibuprofen 2020-0 Yes [id number] 600mg Take 1 U nivers 600 mg 1-23 tablet by ity of tablet 00:00: mouth 00 every 6 Medical (six) Branch hours as needed for Pain (scale 4-6). atorvastati 2020-0 Yes [id number] 20mg Take 1 Univers n 20 mg 1-23 tablet by ity of tablet 00:00: mouth at [place] 00 bedtime. Medical Branch carvediloL 2020-0 Yes [id number] 6.25mg Take 1 Univers 6.25 mg 1-23 tablet by ity of tablet 00:00: mouth (two) Medical times Branch daily with meals. metFORMIN 2020-0 Yes [id number] 500mg Take 1 U nivers 500 mg 1-23 tablet by ity of tablet 00:00: mouth (two) Medical times Branch daily with meals. ibuprofen 2020-0 Yes [id number] 600mg Take 1 U nivers 600 mg 1-23 tablet by ity of tablet 00:00: mouth [place] 00 every 6 Medical (six) Branch hours as needed for Pain (scale 4-6). atorvastati 2020-0 Yes [id number] 20mg Take 1 Univers n 20 mg 1-23 tablet by ity of tablet 00:00: mouth at [place] 00 bedtime. Medical Branch carvediloL 2020-0 Yes [id number] 6.25mg Take 1 Univers 6.25 mg 1-23 tablet by ity of tablet 00:00: mouth 2 (two) Medical times Branch daily with meals. metFORMIN 2020-0 Yes [id number] 500mg Take 1 U nivers 500 mg 1-23 tablet by ity of tablet 00:00: mouth 2 (two) Medical times Branch daily with meals. ibuprofen 2020-0 Yes [id number] 600mg Take 1 U nivers 600 mg 1-23 tablet by ity of tablet 00:00: mouth [place] 00 every 6 Medical (six) Branch hours as needed for Pain (scale 4-6). atorvastati 2020-0 Yes [id number] 20mg Take 1 Univers n 20 mg 1-23 tablet by ity of tablet 00:00: mouth at [place] 00 bedtime. Medical Branch carvediloL 2020-0 Yes [id number] 6.25mg Take 1 Univers 6.25 mg 1-23 tablet by ity of tablet 00:00: mouth (two) Medical times Branch daily with meals. metFORMIN 2020-0 Yes [id number] 500mg Take 1 U nivers 500 mg 1-23 tablet by ity of tablet 00:00: mouth [place] (two) Medical times Branch daily with meals. ibuprofen 2020-0 Yes [id number] 600mg Take 1 U nivers 600 mg 1-23 tablet by ity of tablet 00:00: mouth [place] 00 every 6 Medical (six) Branch hours as needed for Pain (scale 4-6). atorvastati 2020-0 Yes [id number] 20mg Take 1 Univers n 20 mg 1-23 tablet by ity of tablet 00:00: mouth at [place] 00 bedtime. Medical Branch ibuprofen 2020-0 Yes [id number] 600mg Take 1 U nivers 600 mg 1-23 tablet by ity of tablet 00:00: mouth [place] 00 every 6 Medical (six) Branch hours as needed for Pain (scale 4-6). atorvastati 2020-0 Yes [id number] 20mg Take 1 Univers n 20 mg 1-23 tablet by ity of tablet 00:00: mouth at [place] 00 bedtime. Medical Branch atorvastati 2020-0 Yes [id number] 20mg Take 1 Univers n 20 mg 1-23 tablet by ity of tablet 00:00: mouth at [place] 00 bedtime. Medical Branch carvediloL 2020-0 Yes [id number] 6.25mg Take 1 Univers 6.25 mg 1-23 tablet by ity of tablet 00:00: mouth (two) Medical times Branch daily with meals. metFORMIN 2020-0 Yes [id number] 500mg Take 1 U nivers 500 mg 1-23 tablet by ity of tablet 00:00: mouth 2 (two) Medical times Branch daily with meals. ibuprofen 2020-0 Yes [id number] 600mg Take 1 U nivers 600 mg 1-23 tablet by ity of tablet 00:00: mouth [place] 00 every 6 Medical (six) Branch hours as needed for Pain (scale 4-6). atorvastati 2020-0 Yes [id number] 20mg Take 1 Univers n 20 mg 1-23 tablet by ity of tablet 00:00: mouth at [place] 00 bedtime. Medical Branch carvediloL 2020-0 Yes [id number] 6.25mg Take 1 Univers 6.25 mg 1-23 tablet by ity of tablet 00:00: mouth (two) Medical times Branch daily with meals. metFORMIN 2020-0 Yes [id number] 500mg Take 1 U nivers 500 mg 1-23 tablet by ity of tablet 00:00: mouth [place] (two) Medical times Branch daily with meals. ibuprofen 2020-0 Yes [id number] 600mg Take 1 U nivers 600 mg 1-23 tablet by ity of tablet 00:00: mouth [place] 00 every 6 Medical (six) Branch hours as needed for Pain (scale 4-6). atorvastati 2020-0 Yes [id number] 20mg Take 1 Univers n 20 mg 1-23 tablet by ity of tablet 00:00: mouth at [place] 00 bedtime. Medical Branch carvediloL 2020-0 Yes [id number] 6.25mg Take 1 Univers 6.25 mg 1-23 tablet by ity of tablet 00:00: mouth (two) Medical times Branch daily with meals. metFORMIN 2020-0 Yes [id number] 500mg Take 1 U nivers 500 mg 1-23 tablet by ity of tablet 00:00: mouth 2 (two) Medical times Branch daily with meals. ibuprofen 2020-0 Yes [id number] 600mg Take 1 U nivers 600 mg 1-23 tablet by ity of tablet 00:00: mouth [place] 00 every 6 Medical (six) Branch hours as needed for Pain (scale 4-6). atorvastati 2020-0 Yes [id number] 20mg Take 1 Univers n 20 mg 1-23 tablet by ity of tablet 00:00: mouth at [place] 00 bedtime. Medical Branch carvediloL 2020-0 Yes [id number] 6.25mg Take 1 Univers 6.25 mg 1-23 tablet by ity of tablet 00:00: mouth 2 (two) Medical times Branch daily with meals. metFORMIN 2020-0 Yes [id number] 500mg Take 1 U nivers 500 mg 1-23 tablet by ity of tablet 00:00: mouth (two) Medical times Branch daily with meals. ibuprofen 2020-0 Yes [id number] 600mg Take 1 U nivers 600 mg 1-23 tablet by ity of tablet 00:00: mouth 00 every 6 Medical (six) Branch hours as needed for Pain (scale 4-6). atorvastati 2020-0 Yes [id number] 20mg Take 1 Univers n 20 mg 1-23 tablet by ity of tablet 00:00: mouth at [place] 00 bedtime. Medical Branch carvediloL 2020-0 Yes [id number] 6.25mg Take 1 Univers 6.25 mg 1-23 tablet by ity of tablet 00:00: mouth (two) Medical times Branch daily with meals. metFORMIN 2020-0 Yes [id number] 500mg Take 1 U nivers 500 mg 1-23 tablet by ity of tablet 00:00: mouth (two) Medical times Branch daily with meals. ibuprofen 2020-0 Yes [id number] 600mg Take 1 U nivers 600 mg 1-23 tablet by ity of tablet 00:00: mouth 00 every 6 Medical (six) Branch hours as needed for Pain (scale 4-6). atorvastati 2020-0 Yes [id number] 20mg Take 1 Univers n 20 mg 1-23 tablet by ity of tablet 00:00: mouth at [place] 00 bedtime. Medical Branch carvediloL 2020-0 Yes [id number] 6.25mg Take 1 Univers 6.25 mg 1-23 tablet by ity of tablet 00:00: mouth 2 (two) Medical times Branch daily with meals. metFORMIN 2020-0 Yes [id number] 500mg Take 1 U nivers 500 mg 1-23 tablet by ity of tablet 00:00: mouth 2 (two) Medical times Branch daily with meals. ibuprofen 2020-0 Yes [id number] 600mg Take 1 U nivers 600 mg 1-23 tablet by ity of tablet 00:00: mouth [place] 00 every 6 Medical (six) Branch hours as needed for Pain (scale 4-6). ibuprofen 2020- No [id number] 600mg Take 1 Univers 600 mg 1-23 12-16 tablet by ity of tablet 00:00: 00:00 mouth [place] 00 :00 every 6 Medical (six) Branch hours as needed for Pain (scale 4-6). carvediloL 2020- No [id number] 6.25mg Take 1 Univers 6.25 mg -27 02-02 tablet by ity of tablet 00:00: 00:00 mouth 2 [place] 00 :00 (two) Medical times Branch daily with meals. metFORMIN 2020- No [id number] 500mg Take 1 Univers 500 mg -27 02-02 tablet by ity of tablet 00:00: 00:00 mouth 2 [place] 00 :00 (two) Medical times Branch daily with meals. citalopram 2019- No [id number] 20mg Take 1 Univers 20 mg -02 12- tablet by ity of tablet 00:00: 00:00 mouth [place] 00 :00 daily. Medical Branch citalopram 2019- No [id number] 20mg Take 1 Univers 20 mg 9-26 - tablet by ity of tablet 00:00: 00:00 mouth [place] 00 :00 daily. Medical Branch Immunizations Ordered Filled Immunization Date Status Comments [facility] [place] e Immunization Name Name Influenza Virus 2019-11-29 Completed Universit y of Vaccine Quad .5 mL 00:00:00 [facility] IM 6+ MO Branch Pneumococcal 2019-11-29 Completed [place] o f Polysaccharide, 00:00:00 [facility] ical PPSV23 (PNEUMOVAX) Branch Tdap 2019-11-29 Completed University 00:00:00 [facility] Zoster Vaccine 2019-11-29 Completed [facility] 00:00:00 [facility] Influenza Virus 2019-11-29 Completed Universit y of Vaccine Quad .5 mL 00:00:00 [facility] IM 6+ MO Branch Pneumococcal 2019-11-29 Completed [place] o f Polysaccharide, 00:00:00 [place] Med ical PPSV23 (PNEUMOVAX) Branch Tdap 2019-11-29 Completed University of 00:00:00 [facility] Zoster Vaccine 2019-11-29 Completed University of Recombinant 00:00:00 [facility] Influenza Virus 2019-11-29 Completed Universit y of Vaccine Quad .5 mL 00:00:00 [facility] IM 6+ MO Branch Pneumococcal 2019-11-29 Completed University o f Polysaccharide, 00:00:00 [place] [facility] ical PPSV23 (PNEUMOVAX) Branch Tdap 2019-11-29 Completed University of 00:00:00 [facility] Zoster Vaccine 2019-11-29 Completed University of Recombinant 00:00:00 [facility] Influenza Virus 2019-11-29 Completed Universit y of Vaccine Quad .5 mL 00:00:00 [facility] 6+ MO Branch Pneumococcal 2019-11-29 Completed University o f Polysaccharide, 00:00:00 [place] [facility] ical PPSV23 (PNEUMOVAX) Branch Tdap 2019-11-29 Completed University of 00:00:00 [facility] Zoster Vaccine 2019-11-29 Completed University of Recombinant 00:00:00 [facility] Influenza Virus 2019-11-29 Completed Universit y of Vaccine Quad .5 mL 00:00:00 [facility] 6+ MO Branch Pneumococcal 2019-11-29 Completed University o f Polysaccharide, 00:00:00 [place] [facility] ical PPSV23 (PNEUMOVAX) Branch Tdap 2019-11-29 Completed University of 00:00:00 [facility] Zoster Vaccine 2019-11-29 Completed University of Recombinant 00:00:00 [facility] Influenza Virus 2019-11-29 Completed Universit y of Vaccine Quad .5 mL 00:00:00 [facility] 6+ MO Branch Pneumococcal 2019-11-29 Completed University o f Polysaccharide, 00:00:00 [place] [facility] ical PPSV23 (PNEUMOVAX) Branch Tdap 2019-11-29 Completed University of 00:00:00 [facility] Zoster Vaccine 2019-11-29 Completed University of Recombinant 00:00:00 [facility] Influenza Virus 2019-11-29 Completed Universit y of Vaccine Quad .5 mL 00:00:00 [facility] IM 6+ MO Branch Pneumococcal 2019-11-29 Completed University o f Polysaccharide, 00:00:00 [place] [facility] ical PPSV23 (PNEUMOVAX) Branch TDAP 2019-11-29 Completed University of 00:00:00 [facility] Zoster Vaccine 2019-11-29 Completed University of Recombinant 00:00:00 [facility] Influenza Virus 2019-11-29 Completed Universit y of Vaccine Quad .5 mL 00:00:00 [facility] IM 6+ MO Branch Pneumococcal 2019-11-29 Completed University o f Polysaccharide, 00:00:00 [place] [facility] ical PPSV23 (PNEUMOVAX) Branch TDAP 2019-11-29 Completed University of 00:00:00 [facility] Zoster Vaccine 2019-11-29 Completed University of Recombinant 00:00:00 [facility] Influenza Virus 2019-11-29 Completed Universit y of Vaccine Quad .5 mL 00:00:00 [facility] IM 6+ MO Branch Pneumococcal 2019-11-29 Completed University o f Polysaccharide, 00:00:00 [place] Med ical PPSV23 (PNEUMOVAX) Branch TDAP 2019-11-29 Completed University of 00:00:00 [facility] Zoster Vaccine 2019-11-29 Completed University of Recombinant 00:00:00 [facility] Influenza Virus 2019-11-29 Completed Universit y of Vaccine Quad .5 mL 00:00:00 [facility] 6+ MO Branch Pneumococcal 2019-11-29 Completed University o f Polysaccharide, 00:00:00 [place] [facility] ical PPSV23 (PNEUMOVAX) Branch Tdap 2019-11-29 Completed University of 00:00:00 [facility] Zoster Vaccine 2019-11-29 Completed University of Recombinant 00:00:00 [facility] Influenza Virus 2019-11-29 Completed Universit y of Vaccine Quad .5 mL 00:00:00 [facility] 6+ MO Branch Pneumococcal 2019-11-29 Completed University o f Polysaccharide, 00:00:00 [place] [facility] ical PPSV23 (PNEUMOVAX) Branch Tdap 2019-11-29 Completed University of 00:00:00 [facility] Zoster Vaccine 2019-11-29 Completed University of Recombinant 00:00:00 [facility] Influenza Virus 2019-11-29 Completed Universit y of Vaccine Quad .5 mL 00:00:00 [facility] IM 6+ MO Branch Pneumococcal 2019-11-29 Completed University o f Polysaccharide, 00:00:00 [place] [facility] ical PPSV23 (PNEUMOVAX) Branch Tdap 2019-11-29 Completed University of 00:00:00 [facility] Zoster Vaccine 2019-11-29 Completed University of Recombinant 00:00:00 [facility] Influenza Virus 2019-11-29 Completed Universit y of Vaccine Quad .5 mL 00:00:00 [facility] IM 6+ MO Branch Pneumococcal 2019-11-29 Completed University o f Polysaccharide, 00:00:00 [place] [facility] ical PPSV23 (PNEUMOVAX) Branch Tdap 2019-11-29 Completed University of 00:00:00 [facility] Zoster Vaccine 2019-11-29 Completed University of Recombinant 00:00:00 [facility] Influenza Virus 2019-11-29 Completed Universit y of Vaccine Quad .5 mL 00:00:00 [facility] IM 6+ MO Branch Pneumococcal 2019-11-29 Completed University o f Polysaccharide, 00:00:00 [place] [facility] ical PPSV23 (PNEUMOVAX) Branch Tdap 2019-11-29 Completed University of 00:00:00 [facility] Zoster Vaccine 2019-11-29 Completed University of Recombinant 00:00:00 [facility] Influenza Virus 2019-11-29 Completed Universit y of Vaccine Quad .5 mL 00:00:00 [facility] 6+ MO Branch Pneumococcal 2019-11-29 Completed University o f Polysaccharide, 00:00:00 [place] Med ical PPSV23 (PNEUMOVAX) Branch Tdap 2019-11-29 Completed University of 00:00:00 [facility] Zoster Vaccine 2019-11-29 Completed University of Recombinant 00:00:00 [facility] Vital Signs Vital Name Observation Time Observation Value Comments Source Systolic blood 2020-01-03 19:16:00 118 mm[Hg] Univer sity of pressure [facility] Diastolic blood 2020-01-03 19:16:00 69 mm[Hg] Unive rsity [facility] Heart rate 2020-01-03 19:16:00 73 /min [facility] Body temperature 2020-01-03 19:16:00 36.61 [facility] 2020-01-03 19:16:00 20 /min [facility] Body height 2020-01-03 19:16:00 149.9 cm [facility] Body weight 2020-01-03 19:16:00 94.802 kg [facility] BMI 2020-01-03 19:16:00 42.21 kg/m2 [facility] Systolic blood 2019-11-29 16:08:00 133 mm[Hg] Univer sity of pressure [facility] Diastolic blood 2019-11-29 16:08:00 76 mm[Hg] Unive rsity of pressure [facility] Heart rate 2019-11-29 16:08:00 66 [facility] 2019-11-29 16:08:00 37 Nellie [facility] Respiratory rate 2019-11-29 16:08:00 18 /min [facility] Body height 2019-11-29 16:08:00 149.9 cm [facility] ty [facility] Body weight 2019-11-29 16:08:[address] [facility] BMI 2019-11-29 16:08:00 40.76 kg/m2 [facility] Oxygen saturation in 2019-11-29 16:08:00 99 /min [facility] Arterial blood by [facility] Pulse oximetry Branch Procedures Procedure Date / Time Performed Performing Clinician Sourc e EXTERNAL PROVIDER 2020-01-29 05:01:00 Doctor Unassigned, No [facility] RECORDS [facility] [place] POCT GLUCOSE(AGE 2020-01-03 19:28:00 Dominique Tran [facility] >30DAYS) Medical Branch SCANNED LAB RESULTS 2020-01-03 06:01:00 Doctor Unassigned, No [facility] [place] BI ULTRASOUND BREAST 2019-12-26 17:49:54 Dominique Tran [facility] LIMITED LEFT Medical Branch NOTICE OF PRIVACY 2019-12-26 17:02:34 Doctor Unassigned, No [facility] PRACTICES Name Medical Branch CONSENT/REFUSAL FOR 2019-12-26 17:01:12 [facility] Un[facility], No [facility] [place] TREATMENT ASSIGNMENT OF BENEFITS 2019-12-26 17:00:49 Doctor Unassigned, No [facility] FLU VACC ([phone]), 2019-11-29 16:45:26 Dominique Tran [facility] 6+ MONTHS, IM, QUAD Medical Bran ch SCANNED LAB RESULTS 2019-11-29 06:01:00 Doctor Unassigned, No Un iversity of [facility] Medical [place] Encounters Start End Encounter Admission Attending Care Care Encounter Source Date/Time Date/Time Type Type Clinicians Facility Department ID 2021-10-21 2021-10-21 Dominique Garcia 1.2.840.114 [id number] Univers 00:00:00 00:00:00 PEDIATRIC 350.1.13.10 [id number] [address] Branch CARE CLINIC 2021-02-06 2021-02-06 Refill Dominique Tran 1.2.840.114 [id number] Univers 00:00:00 00:00:00 Pediatric 350.1.13.10 [place] [id number] [address] 2020-07-24 2020-07-24 Outpatient R MRACDOMINIQUE [facility] [id number] Univers 12:00:00 12:00:[id number] [facility] 2020-07-24 2020-07-24 Outpatient R MARC DOMINIQUE [facility] [id number] Univers 00:00:00 00:00:[address] [facility] 2020-06-27 2020-06-27 Telephone Dominique Tran [place]IA [place] 1.2.840.114 [id number] Univers 00:00:00 00:00:00 [facility] 350.1.13.10 it [place] [id number] [address] 2020-01-29 2020-01-29 Orders Doctor KRYSTYNA 1.2.840.114 [id number] Univers 00:00:00 00:00:00 Only Unassigned, NICK 350.1.13.10 ity of [place] [facility] 4.2.7.2.686 Deric [place] [phone] [place] [address] Branch 2020-01-03 2020-01-03 Office Care, [facility] Primary MARIA DEL ROSARIO 1.2.840 .114 [id number] Univers 13:12:10 14:01:39 Visit Dominique Tran [facility] 350.1.13.10 ity [place] [id number] [address] 2020-01-03 2020-01-03 Outpatient R [facility] [id number] Univers 13:30:00 13:30:[id number] [facility] 2020-01-03 2020-01-03 Outpatient R DOMINIQUE TRAN [facility] [id number] Univers 13:30:00 13:30:[address] [facility] 2020-01-03 2020-01-03 Orders Doctor [place] 1.2.840.114 [id number] Univers 00:00:00 00:00:00 Only Unassigned, NICK 350.1.13.10 ity of [place] [facility] 4.2.7.2.686 Deric as [id number] [facility] 009 Branch 2019-12-26 2019-12-26 [facility] Dominique Tran [facility] 1.2.840.114 [id number] Univers 11:00:00 23:59:00 Encounter [place] 350.1.13.10 it[place] [id number] [facility] [address] [place] 2019-12-26 2019-12-26 Outpatient R DOMINIQUE TRAN [facility] [id number] Univers 10:54:24 10:59:[address] [facility] 2019-12-26 2019-12-26 [facility] Dominique Tran [facility] 1.2.840.114 [id number] Univers 10:54:00 10:59:00 Encounter [place] 350.1.13.10 ity of [place] [id number] [facility] 806 [place] 2019-12-04 2019-12-04 Telephone Dominique Tran [place] 1.2.840.114 [id number] Univers 00:00:00 00:00:00 COUNTY 350.1.13.10 it y of [facility] [place] [id number] [facility] CARE - 362 Branch NATY 2019-11-29 2019-11-29 Office Care, Ang Primary MARIA DEL ROSARIO 1.2.840 .114 [id number] Univers 10:05:30 11:48:36 Visit Dominique Tran [facility] 350.1.13.10 ity [place] [id number] [facility] 362 Branch 2019-11-29 2019-11-29 Orders Doctor [place] 1.2.840.114 [id number] Univers 00:00:00 00:00:00 Only Unassigned, NICK 350.1.13.10 ity of [place] [facility] 4.2.7.2.686 [facility] as [phone] [place] [address] Branch 2019-10-22 2019-10-22 Outpatient R NEHEMIAS [facility] [id number] [facility] 00:00:00 00:00:[address] [facility] Results Test Description Test Time Test Comments Results Result Comments Source HEMOGLOBIN A1c 2022-04-23 04:09:24 Test Item Value Reference Range Interpretation Comme nts HEMOGLOBIN A1c (test code = 7.0 % 4.2-5.6 H [employer] 17869) GUIDELINES FOR HGB A1C: PREDIABETES/INC REASED RISK . . . . . . . 5.7-6.4% DIAGNO SIS OF DIABETES . . . . . . . . . >=6.5% WITH CONFIRMATION OR APPROPRIATE SYM PTOMS NOTE: ASSAY MAY BE AFFECTED BY HEM OGLOBINOPATHIES (SICKLE CELL ANEMIA, S- C DISEASE, OTHERS) OR ARTIFICIALLY LO WERED BY DECREASED RED CELL SURVIVAL ( HEMOLYTIC ANEMIAS, BLOOD LOSS, ETC.). CO NSIDER ALTERNATE TESTING OR LABORATORY C ONSULTATION. LIPID [id number] 03:51:40 Test Item Value Reference Range Interpretation Comments CHOLESTEROL (test 193 MG/DL <200 code = 2210) TRIGLYCERIDES (test 182 MG/DL <150 H code = 2232) HDL CHOLESTEROL (test 49 MG/DL >39 code = 2220) CALC LDL CHOL (test 114 MG/DL <100 H NOTE: C ALCULATED LDL code = 2237) IS BASED ON ALTAF-CARDOZA METHOD WHICHINCLUDES ADJUSTABLE TRIGLYCERIDE:VL DL CHOLESTEROL RAT IO.THIS FACTOR VARIES B Y MEASURED TRIGLY CERIDE AND NON-HDLCHOL ESTEROL CONCENTRATIONS WITH INCREASED CALCU LATED LDL SEENIN HIGH ER TRIGLYCERIDE OR LOWER NON-HDL SPECIME NS. FOR MOREINFORMATION , SEE CLIENT ANNOUNCE MENT AT [email or web address] [email or web address] RATIO LDL/HDL 2.33 RATIO <3.22 (test code = 2238) COMPREHENSIVE METABOLIC [id number] 03:51:40 Test Item Value Reference Range Interpretation Comments GLUCOSE (test code = 126 MG/DL 70-99 H 2216) BUN (test code = 17 MG/DL 6-20 2207) CREATININE (test 0.60 MG/DL 0.60-1.30 code = 2213) eGFR (2020 CKD-EPI) 105 >60 (test code = 33233) ML/MIN/1.73 CALC BUN/CREAT (test 28 RATIO 6-28 code = 2235) SODIUM (test code = 140 MEQ/L 919-476 4010) POTASSIUM (test code 4.5 MEQ/L 3.5-5.4 = 2227) CHLORIDE (test code 102 MEQ/L 95-107 = 2214) CARBON DIOXIDE (test 28 MEQ/L 19-31 code = 2205) CALCIUM (test code = 9.3 MG/DL 8.5-10.5 2208) PROTEIN, TOTAL (test 7.5 G/DL 6.1-8.3 code = 2228) ALBUMIN (test code = 4.5 G/DL 3.5-5.2 2200) CALC GLOBULIN (test 3.0 G/DL 1.9-3.7 code = 2239) CALC A/G RATIO (test 1.5 RATIO 1.0-2.6 code = 2233) BILIRUBIN, TOTAL 0.4 MG/DL See_Comment [Automated message] (test code = 2206) The syste m which generated this result transmitted ref erence range: <=1.2. T he reference range was not used to int erpret this result as normal/abnormal . ALKALINE PHOSPHATASE 119 U/L 40-136 (test code = 2203) AST (test code = 24 U/L 9-40 2217) ALT (test code = 32 U/L 5-40 UNLESS OTH ERWISE 2218) INDICATED, ALL TESTING PERFORM ED ATCLINICAL PATH OLOGY LABORATORIES, [place] [address] [facility] [place] [place] [address] [facility] DIRECTOR: Tushar RESENDIZIA NUMBER [id number] CAP ACCREDITATION N O. [id number] CBC W/AUTO DIFF WITH [id number] 03:01:10 Test Item Value Reference Range Interpretation Comments WBC (test code = 6.6 K/UL 3.5-11.0 1001) RBC (test code = 4.30 M/UL 3.80-5.40 1002) HEMOGLOBIN (test code 11.4 G/DL 11.5-15.5 L = 1003) HEMATOCRIT (test code 34.3 % 34.0-45.0 = 1004) MCV (test code = 79.8 fL 80.0-99.0 L 1005) MCH (test code = 26.5 PG 25.0-33.0 1006) MCHC (test code = 33.2 G/DL 31.0-36.0 1007) RDW (test code = 13.4 % 11.5-15.0 1038) NEUTROPHILS (test 55.3 % code = 1008) LYMPHOCYTES (test 36.3 % code = 1010) MONOCYTES (test code 5.2 % = 1011) EOSINOPHILS (test 2.4 % code = 1012) BASOPHILS (test code 0.5 % = 1013) IMMATURE GRANULOCYTES 0.3 % (test code = 1036) NUCLEATED RBCS (test 0.0 /100 WBC'S See_Comment [Aut omated code = 1065) message] The sy stem which generated this result transmitted reference range : 0.0. The refere nce range was not u sed to interpret th is result as normal/abnormal . PLATELET COUNT (test 194 K/UL 130-400 code = 1015) ABSOLUTE NEUTROPHILS 3.63 K/UL 1.50-7.50 (test code = 1066) ABSOLUTE LYMPHOCYTES 2.38 K/UL 1.00-4.00 (test code = 1067) ABSOLUTE MONOCYTES 0.34 K/UL 0.20-1.00 (test code = 1068) ABSOLUTE EOSINOPHILS 0.16 K/UL 0.00-0.50 (test code = 1040) ABSOLUTE BASOPHILS 0.03 K/UL 0.00-0.20 (test code = 1069) ABS IMMATURE 0.02 K/UL 0.00-0.10 GRANULOCYTES (test code = 1020) ABS NUCLEATED RBCS 0.00 K/UL 0.00-0.11 (test code = 99040) LIPID [id number] 04:32:29 Test Item Value Reference Range Interpretation Comments CHOLESTEROL (test 156 MG/DL <200 code = 2210) TRIGLYCERIDES (test 116 MG/DL <150 code = 2232) HDL CHOLESTEROL (test 49 MG/DL >39 code = 2220) CALC LDL CHOL (test 86 MG/DL <100 NOTE: C ALCULATED LDL code = 2237) IS BASED ON ALTAF-CARDOZA METHOD WHICHINCLUDES ADJUSTABLE TRIGLYCERIDE:VL DL CHOLESTEROL RAT IO.THIS FACTOR VARIES B Y MEASURED TRIGLY CERIDE AND NON-HDLCHOL ESTEROL CONCENTRATIONS WITH INCREASED CALCU LATED LDL SEENIN HIGH ER TRIGLYCERIDE OR LOWER NON-HDL SPECIME NS. FOR MOREINFORMATION , SEE CLIENT ANNOUNCE MENT AT [email or web address] RISK RATIO LDL/HDL 1.76 RATIO <3.22 (test code = 2238) COMPREHENSIVE METABOLIC [id number] 04:32:29 Test Item Value Reference Range Interpretation Comments GLUCOSE (test code = 113 MG/DL 70-99 H 2216) BUN (test code = 12 MG/DL 6-2207) CREATININE (test 0.56 MG/DL 0.60-1.30 L EFFECTIVE code = 2214) 10/19/2021, [facility] HAS IMPLEMENTED THE NKF-ASN RECOMME NDED KD-EPI EGF R REFIT CALCULATI ON THAT DOES NOT I NCLUDE A COEFFICIENT FORRACE. FOR MO RE INFORMATION, SE E ANNOUNCEMENT [email or web address] SV/EGFR_CALC eGFR (2020 CKD-EPI) 107 >60 (test code = 02930) ML/MIN/1.73 CALC BUN/CREAT (test 21 RATIO 6-28 code = 2235) SODIUM (test code = 142 MEQ/L 251-257 6319) POTASSIUM (test code 4.1 MEQ/L 3.5-5.4 = 2227) CHLORIDE (test code 103 MEQ/L 95-107 = 221) CARBON DIOXIDE (test 27 MEQ/L 19-31 code = 2206) CALCIUM (test code = 9.2 MG/DL 8.5-10.5 2208) PROTEIN, TOTAL (test 7.2 G/DL 6.1-8.3 code = 2229) ALBUMIN (test code = 4.3 G/DL 3.5-5.2 2200) CALC GLOBULIN (test 2.9 G/DL 1.9-3.7 code = 2240) CALC A/G RATIO (test 1.5 RATIO 1.0-2.6 code = 2234) BILIRUBIN, TOTAL 0.5 MG/DL See_Comment [Automated message] (test code = 2207) The syste m which generated this result transmitted ref erence range: <=1.2. T he reference range was not used to int erpret this result as normal/abnormal . ALKALINE PHOSPHATASE 116 U/L 40-136 (test code = 2203) AST (test code = 22 U/L 9-40 2218) ALT (test code = 25 U/L 5-40 UNLESS OTH ERWISE 2219) INDICATED, ALL TESTING PERFORM ED ATCLINICAL PATH OLOG LAB[facility]ATORIES[place] [address] [facility] [place] [address] [facility] DIRECTOR: WILD PERLA M.D. CLIA NUMBER [id number] CAP ACCREDITATION N O. [id number] CBC W/AUTO DIFF WITH [id number] 03:53:25 Test Item Value Reference Range Interpretation Comments WBC (test code = 6.3 K/UL 3.5-11.0 1001) RBC (test code = 4.40 M/UL 3.80-5.40 1002) HEMOGLOBIN (test code 11.4 G/DL 11.5-15.5 L = 1003) HEMATOCRIT (test code 34.9 % 34.0-45.0 = 1004) MCV (test code = 79.3 fL 80.0-99.0 L 1005) MCH (test code = 25.9 PG 25.0-33.0 1006) MCHC (test code = 32.7 G/DL 31.0-36.0 1007) RDW (test code = 13.5 % 11.5-15.0 1038) NEUTROPHILS (test 55.2 % code = 1008) LYMPHOCYTES (test 35.6 % code = 1010) MONOCYTES (test code 6.1 % = 1011) EOSINOPHILS (test 2.4 % code = 1012) BASOPHILS (test code 0.5 % = 1013) IMMATURE GRANYLOCYTES 0.2 % (test code = 1036) NUCLEATED RBCS (test 0.0 /100 WBC'S See_Comment [Aut omated code = 1065) message] The sy stem which generated this result transmitted reference range : 0.0. The refere nce range was not u sed to interpret th is result as normal/abnormal . PLATELET COUNT (test 200 K/UL 130-400 code = 1015) ABSOLUTE NEUTROPHILS 3.46 K/UL 1.50-7.50 (test code = 1066) ABSOLUTE LYMPHOCYTES 2.23 K/UL 1.00-4.00 (test code = 1067) ABSOLUTE MONOCYTES 0.38 K/UL 0.20-1.00 (test code = 1068) ABSOLUTE EOSINOPHILS 0.15 K/UL 0.00-0.50 (test code = 1040) ABSOLUTE BASOPHILS 0.03 K/UL 0.00-0.20 (test code = 1069) ABS IMMATURE 0.01 K/UL 0.00-0.10 GRANULOCYTES (test code = 1020) ABS NUCLEATED RBCS 0.00 K/UL 0.00-0.11 (test code = 86445) HEMOGLOBIN [id number] 03:36:21 Test Item Value Reference Range Interpretation Comments HEMOGLOBIN A1c (test 7.0 % 4.2-5.6 H [employer]ES code = 41972) ASSOCIATION IDELINES FOR HGB A1C: PREDIABETES/INC REASED RISK . . . . . . . 5.7 -6.4% DIAGNOSIS OF DI ABETES . . . . . . . . . >=6 .5% WITH CONFIRMATION OR APPROPRIATE SYMPTOMS NOTE: ASSAY MAY BE AFFECTED BY HEMOGLOBINOPATH IES (SICKLE CELL ANEMIA, S- C DISEASE, OTHERS) OR MARGARET FICIALLY LOWERED BY DECR EASED RED CELL SURVIVAL ( HEMOLYTIC ANEMIAS, BLOOD LOSS, ETC.). CONSIDER ALTERN ATE TESTING OR LABORATORY C ONSULTATION. POCT GLUCOSE(AGE >30DAYS)2020-01-03 19:28:00 Test Item Value Reference Range Interpretation Comments POCT Glu (age>30days) (test code = 123 mg/dL 70-110 A 3342) Lab Interpretation (test code = Abnormal 83868-1) [facility] >30DAYS[facility]2020-01-03 19:28:00 Test Item Value Reference Range Interpretation Comments POCT Glu (age>30days) (test code = 123 mg/dL 70-110 A 3342) Lab Interpretation (test code = Abnormal 98463-6) [facility] [id number] 18:07:27Examination:BI ULTRASOUND BREAST LIMITED LEFT History:Patient is 54 year old and is seen for: ?Abnormal mammagram screening. ? Comparisons: 09/06/2019 BI SCREENING MAMMOGRAM BILATERAL HISTORY: ?Abnormal mammogram. Rule out mass in the left breast. TECHNIQUE: Outer half of the left breast was evaluatedin radial/antiradial/sagittal/coronal planes both by the technologist and by me. Female technologistwas present in the room during all imaging [...] appeared to understand. ACR classification: Category III. Recommendation:Short interval follow-up mammogram 6 months - Left ? BI-RADS Category: Left 3 - [facility]
[2022-07-02] MEDS ORDERED: CYCLOBENZAPRINE 10 MG TAB ONE (19:59)
--- NOTE | 2022-07-02 20:36 | RAD REPORT ---
EXAM DESCRIPTION: RAD - Shoulder Left 2 View - 07/02/2022 8:14 pm CLINICAL HISTORY: PAIN COMPARISON: No comparisons TECHNIQUE: Internal and external rotation views of the left shoulder were obtained. FINDINGS: There is no fracture or dislocation. Spurring is seen along the superior aspect of the AC joint. No inferiorly directed spurring. Acromial humeral joint space within normal range. No abnormal soft tissue calcifications. IMPRESSION: Negative two-view left shoulder examination for acute findings. Mild degenerative whittaker e present at the AC joint.
--- NOTE | 2022-07-02 21:02 | ER ---
Nurse's Notes [facility] Name: Magaly Galeana Age: 57 yrs Sex: Female : 1965 Arrival Date: 07/02/2022 Time: 19:30 Bed 4 Private MD: Diagnosis: Pain in left shoulder Presentation: 07/02 19:38 Chief complaint: Patient states: left arm pain for past 3 weeks. ld1 19:38 Coronavirus screen: Vaccine status: Patient reports receiving the 2nd dose of the covid ld1 vaccine. Ebola Screen: No symptoms or risks identified at this time. Initial Sepsis Screen: Does the patient meet any 2 criteria? No. Patient's initial sepsis screen is negative. Does the patient have a suspected source of infection? No. Patient's initial sepsis screen is negative. Risk Assessment: Do you want to hurt yourself or someone else? Patient reports no desire to harm self or others. Onset of symptoms was June 11, 2022. 19:38 Method Of Arrival: Ambulatory ld1 19:38 Acuity: EKATERINA 3 ld1 Triage Assessment: 19:38 General: Appears distressed, uncomfortable, Behavior is cooperative, appropriate for ld1 age. Pain: Complains of pain in left arm Pain radiates to neck Radiates to left side of neck, left side of abdomen, and left mid and lower back Pain currently is 9 out of 10 on a pain scale. Quality of pain is described as aching, shooting, Pain began 3 weeks ago Is continuous, Alleviated by medications, Tylenol Noted to be guarding, resistant to movement, Also complains of no other associated symptoms. 19:51 Neuro: Level of Consciousness is awake, alert, obeys commands, Oriented to person, ld1 place, time, situation. Cardiovascular: Capillary refill < 3 seconds Patient's skin is warm and dry. Respiratory: Airway is patent Respiratory effort is even, unlabored. Historical: - Home Meds: 19:51 aspirin 81 mg Oral TbEC 1 tab once daily [Active]; atorvastatin 20 mg Oral tab 1 tab ld1 once daily [Active]; carvedilol 6.25 mg Oral tab 1 tab every 12 hours [Active]; losartan 100 mg Oral tab 1 tab once daily [Active]; losartan Oral [Active]; metformin 500 mg Oral tab 1 tab 2 times per day [Active]; Motrin 600mg Oral tab 1 tab every 6 hours [Active]; nitroglycerin 0.4 mg SL subl 1 tab every 5 minutes [Active]; - PMHx: 19:51 Diabetes - NIDDM; High Cholesterol; Hypertension; ld1 - Immunization history:: Adult Immunizations unknown. - Social history:: Smoking status: Patient denies any tobacco usage or history of. Patient/guardian denies using alcohol. Screenin:51 Abuse screen: Denies threats or abuse. Denies injuries from another. Nutritional tw5 screening: No deficits noted. Tuberculosis screening: No symptoms or risk factors identified. Fall Risk Secondary diagnosis (15 points). Assessment: 19:51 General: Reports "There is something wrong with my left arm. The pain started three tw5 weeks ago, I tried not to come but it is starting to hurt more. The pain is now starting to come up my neck and down my side.". Pain: Pain. Pain: Complains of pain in left arm Pain radiates to anterior aspect of left upper chest, left breast and anterior aspect of left lateral abdomen Pain currently is 9 out of 10 on a pain scale. Neuro: Level of Consciousness is awake, alert, obeys commands, Oriented to person, place, time, situation. Respiratory: Airway is patent Trachea midline Respiratory effort is even, unlabored. Vital Signs: 19:38 BP 170 / 94 RA Sitting (auto/lg); Pulse 81; Resp 16; Temp 98.0(TE); Pulse Ox 100% on ld1 R/A; Weight 106.59 kg; Height 5 ft. 0 in. (152.40 cm); Pain 10/10; 19:51 BP 185 / 95; Pulse 78; Resp 18; Pulse Ox 99% on R/A; tw5 19:38 Body Mass Index 45.89 (106.59 kg, 152.40 cm) ld1 ED Course: 19:30 Patient arrived in ED. jj6 19:35 Luis Galeana is PHCP. jl9 19:35 Galo Maher DO is Attending Physician. jl9 19:46 Triage completed. ld1 19:48 Isadora Baldwin is Primary Nurse. tw5 19:51 Arm band placed on right wrist. ld1 19:51 Placed in gown. Bed in low position. Call light in reach. Side rails up X 1. Pulse ox tw5 on. NIBP on. Door closed. Noise minimized. Moved to private room. Warm blanket given. Verbal reassurance given. 20:16 XRAY Shoulder LEFT 2 view In Process Unspecified. EDMS 21:12 No provider procedures requiring assistance completed. Patient did not have IV access ll3 during this emergency room visit. Administered Medications: 19:56 Drug: Cyclobenzaprine 10 mg Route: PO; tw5 21:12 Drug: HYDROcodone-acetaminophen 5 mg-325 mg 1 tabs Route: PO; ll3 Medication: 21:12 VIS not applicable for this client. ll3 Outcome: 21:01 Discharge ordered by . denise 21:12 Discharged to home ambulatory, with significant other. ll3 21:12 Condition: stable 21:12 Discharge instructions given to patient, significant other, Instructed on discharge instructions, follow up and referral plans. medication usage, Demonstrated understanding of instructions, follow-up care, medications, Prescriptions given X 2. 21:13 Patient left the ED. ll3 Signatures: Dispatcher [employer] EDPR Sindy Brody, RN RN [email or web address] Isadora Baldwin tw5 Hilda Baij6 Wiliam Toney RN RN ll3 Luis Galeana9
--- NOTE | 2022-07-02 21:02 | EDPHYS ---
Physician Documentation [facility] Name: Magaly Galeana Age: 57 yrs Sex: Female : 1965 Arrival Date: 07/02/2022 Time: 19:30 Bed 4 Private MD: ED Physician Galo Maher HPI: 07/02 20:58 This 57 yrs old Female presents to ER via Ambulatory with complaints of left jl9 shoulder/arm pain x numerous weeks. . 20:58 The patient or guardian complains of decreased range of motion, pain. The complaints jl9 affect the anterior aspect of left shoulder. Context: resulted from. Onset: The symptoms/episode began/occurred 3 week(s) ago. Treatment prior to arrival includes: over the counter medications. Modifying factors: The symptoms are alleviated by remaining still, the symptoms are aggravated by movement. Severity of symptoms: in the emergency department the symptoms a " 5" out of "10". Historical: - Home Meds: 19:51 aspirin 81 mg Oral TbEC 1 tab once daily [Active]; atorvastatin 20 mg Oral tab 1 tab ld1 once daily [Active]; carvedilol 6.25 mg Oral tab 1 tab every 12 hours [Active]; losartan 100 mg Oral tab 1 tab once daily [Active]; losartan Oral [Active]; metformin 500 mg Oral tab 1 tab 2 times per day [Active]; Motrin 600mg Oral tab 1 tab every 6 hours [Active]; nitroglycerin 0.4 mg SL subl 1 tab every 5 minutes [Active]; - PMHx: 19:51 Diabetes - NIDDM; High Cholesterol; Hypertension; ld1 - Immunization history:: Adult Immunizations unknown. - Social history:: Smoking status: Patient denies any tobacco usage or history of. Patient/guardian denies using alcohol. ROS: 20:59 Constitutional: Negative for fever, chills, and weight loss, Eyes: Negative for injury, jl9 pain, redness, and discharge, ENT: Negative for injury, pain, and discharge, Neck: Negative for injury, pain, and swelling, Cardiovascular: Negative for chest pain, palpitations, and edema, Respiratory: Negative for shortness of breath, cough, wheezing, and pleuritic chest pain, Abdomen/GI: Negative for abdominal pain, nausea, vomiting, diarrhea, and constipation, Back: Negative for injury and pain. 20:59 Skin: Negative for injury, rash, and discoloration, Neuro: Negative for headache, weakness, numbness, tingling, and seizure, Psych: Negative for depression, anxiety, suicide ideation, homicidal ideation, and hallucinations, Allergy/Immunology: Negative for hives, rash, and allergies, Endocrine: Negative for neck swelling, polydipsia, polyuria, polyphagia, and marked weight changes, Hematologic/Lymphatic: Negative for swollen nodes, abnormal bleeding, and unusual bruising. 20:59 MS/extremity: Positive for pain. Exam: 20:59 Constitutional: This is a well developed, well nourished patient who is awake, alert, jl9 and in no acute distress. Head/Face: Normocephalic, atraumatic. Eyes: Pupils equal round and reactive to light, extra-ocular motions intact. Lids and lashes normal. Conjunctiva and sclera are non-icteric and not injected. Cornea within normal limits. Periorbital areas with no swelling, redness, or edema. ENT: Mucous membranes moist. Neck: Trachea midline, no thyromegaly or masses palpated, and no cervical lymphadenopathy. Supple, full range of motion without nuchal rigidity, or vertebral point tenderness. No Meningismus. Chest/axilla: Normal chest wall appearance and motion. Nontender with no deformity. No lesions are appreciated. Cardiovascular: Regular rate and rhythm with a normal S1 and S2. No gallops, murmurs, or rubs. Normal PMI, no JVD. No pulse deficits. Respiratory: Lungs have equal breath sounds bilaterally, clear to auscultation and percussion. No rales, rhonchi or wheezes noted. No increased work of breathing, no retractions or nasal flaring. Abdomen/GI: Soft, non-tender, with normal bowel sounds. No distension or tympany. No guarding or rebound. No evidence of tenderness throughout. Back: No spinal tenderness. No costovertebral tenderness. Full range of motion. Skin: Warm, dry with normal turgor. Normal color with no rashes, no lesions, and no evidence of cellulitis. 20:59 Neuro: Awake and alert, GCS 15, oriented to person, place, time, and situation. Cranial nerves II-XII grossly intact. Motor strength 5/5 in all extremities. Sensory grossly intact. Cerebellar exam normal. Normal gait. Psych: Awake, alert, with orientation to person, place and time. Behavior, mood, and affect are within normal limits. 20:59 Musculoskeletal/extremity: Extremities: grossly normal except: pain, ROM: limited active range of motion due to pain, Circulation is intact in all extremities. Sensation intact. Vital Signs: 19:38 BP 170 / 94 RA Sitting (auto/lg); Pulse 81; Resp 16; Temp 98.0(TE); Pulse Ox 100% on ld1 R/A; Weight 106.59 kg; Height 5 ft. 0 in. (152.40 cm); Pain 10/10; 19:51 BP 185 / 95; Pulse 78; Resp 18; Pulse Ox 99% on R/A; tw5 19:38 Body Mass Index 45.89 (106.59 kg, 152.40 cm) ld1 MDM: 19:40 Patient medically screened. jl9 21:00 Data reviewed: vital signs, nurses notes. jl9 21:00 Counseling: I had a detailed discussion with the patient and/or guardian regarding: the jl9 historical points, exam findings, and any diagnostic results supporting the discharge/admit diagnosis, radiology results, the need for outpatient follow up, to return to the emergency department if symptoms worsen or persist or if there are any questions or concerns that arise at home. 07/02 19:50 Order name: XRAY Shoulder LEFT 2 view; Complete Time: 20:55 jl9 Administered Medications: 19:56 Drug: Cyclobenzaprine 10 mg Route: PO; tw5 21:12 Drug: HYDROcodone-acetaminophen 5 mg-325 mg 1 tabs Route: PO; ll3 Disposition: 07/03 09:18 Co-signature as Attending Physician, Galo VALDIVIA was immediately available on-site ms3 in the emergency department for consultation in the care of the patient. Disposition Summary: 07/02/22 21:01 Discharge Ordered Location: Home jl9 Condition: Stable jl9 Diagnosis - Pain in left shoulder jl9 Followup: jl9 - With: Private Physician - When: 1 - 2 days - Reason: Recheck today's complaints, Continuance of care, Re-evaluation by your physician Discharge Instructions: - Discharge Summary Sheet jl9 - Shoulder Pain jl9 Forms: - Medication Reconciliation Form jl9 - Thank You Letter jl9 - Antibiotic Education jl9 - Prescription Opioid Use jl9 Prescriptions: - Tramadol 50 mg Oral Tablet - take 1 tablet by ORAL route every 8 hours as needed; 12 tablet; Refills: 0, Product Selection Permitted - Cyclobenzaprine 5 mg Oral Tablet - take 1 tablet by ORAL route 3 times per day As needed; 15 tablet; Refills: 0, Product Selection Permitted Signatures: Dispatcher [employer] EDGalo Carranza DO DO ms3 Sindy Brody RN RN ld1 Isadora Baldwin 5 Wiliam Toney RN RN ll3 Luis Galeana jl9
[2022-07-02] MEDS ORDERED: HYDROCODONE/APAP 5/325 MG TAB ONE (21:17)
[2022-07-02 23:41] VITALS: BP 185/95; TEMP 98; O2SAT 99
== END 2022-07-02 21:13 | disposition home or self-care (01) ==
LOC: ER 19:28
DX: M25.512 Pain in left shoulder (principal); E11.9 Type 2 diabetes mellitus without complications; I10 Essential (primary) hypertension; Z79.82 Long term (current) use of aspirin
CPT/HCPCS: 99284

== ENCOUNTER 2025-01-23 18:54 | Inpatient (IN) | payer OTHER, SELFPAY ==
--- OUTSIDE RECORDS SUMMARY | 2025-01-23 18:57 | XMS REPORT | Continuity of Care Document ---
Author Name Unknown Address [address] [facility] [address] [place] [address] Organization [facility] [place] Address [address] [facility] [address] [place] [address] Care Team Providers Care Project Coach Name Role Phone Pcp, Patient Does Not Have A Primary Care Physic ermelinda Dominique Beltran Attending Clinician DOMINIQUE TRAN Attending Clinician Unavailable Doctor Unassigned, [place] Attending Clinician U navailable Care, Ang Primary Attending Clinician UnavailNGUYEN Buenrostro Attending Clinician Unav ailable DOMINIQUE TRAN Admitting Clinician Unavailable Payers Payer Name Policy Type Policy Number Effective Date Expirati on Date Source [facility] [employer] [facility] [id number] 2019 7 00:00:00 Problems Condition Name Condition Details Condition Category Status Onset Date Resolution Date Last Treatment Date Treating Clinician Comments Source HTN (hypertens ion), benign HTN (hypertens ion), benign Disease Active 08-02 00:00: 00 [facility] Anxiety and depression Anxiety and depression Disease Active 08-02 00:00: 00 [facility] Uterine bleeding, dysfunctio nal Uterine bleeding, dysfunctio nal Disease Active 08-02 00:00: 00 [facility] New onset type 2 diabetes mellitus New onset type 2 diabetes mellitus Disease Active 08-02 00:00: 00 [facility] Allergies, Adverse Reactions, Alerts Allergy Name Allergy Type Status Severity Reaction(s) Onset Date Inactive Date Treating Clinician Comments Source NO KNOWN ALLERGIE S Drug Class Active [facility] Social History Social Habit Start Date Stop Date Quantity Comments Source History SDOH Alcohol Frequency [facility] History SDOH Alcohol Std Drinks [facility] History SDOH Alcohol Binge [facility] Alcohol intake 2020-01-03 00:00:00 2020-01-03 00:00:00 Ex-drinker (finding) [facility] Tobacco use and exposure 2019-08-02 00:00:00 2019-08-02 00:00:00 Never used [facility] Cigarettes smoked current (pack per day) - Reported 2019-08-02 00:00:00 2019-08-02 00:00:00 [facility] Cigarette pack-years 2019-08-02 00:00:00 2019-08-02 00:00:00 [facility] Alcohol Comment 2019-08-02 00:00:00 2019-08-02 00:00:00 Last drink 1 year ago. drank a bottle or 12 ranjit a day [facility] History of tobacco use 2018-10-07 00:00:00 Cigarette Smoker [facility] Sex Assigned At 1965 00:00:00 1965 00:00:00 [facility] Smoking Status Start Date Stop Date Source Former smoker 2019-08-02 00:00:00 2019-08-02 00:00:00 [facility] Medications Ordered Medication Name Filled Medication Name Start Date Stop Date Current Medication? Ordering Clinician Indication Dosage Frequency Signature (SIG) Comments Components Source IBUPROFEN 600 mg tablet 2020-11 216 00:00: 00 Yes [id number] TAKE 1 TABLET BY MOUTH EVERY 6 HOURS NEEDED FOR PAIN [facility] METFORMIN 500 mg tablet 02-06 00:00: 00 Yes [id number] TAKE 1 TABLET BY MOUTH TWICE DAILY WITH MEALS. [facility] CARVEDILOL 6.25 mg tablet 02-06 00:00: 00 Yes [id number] TAKE 1 TABLET BY MOUTH TWICE DAILY WITH MEALS. [facility] amoxicillin -clavulanat e 875-125 mg per tablet 01-03 00:00: 00 01-13 04:59 :00 No [id number] 1{tbl} Take 1 tablet by mouth 2 (two) times daily for 10 days. [facility] metFORMIN 500 mg tablet 11-29 16:27: 11-29 00:00 :00 No 500mg Take 500 mg by mouth 2 (two) times daily with meals. [facility] atorvastati n 20 mg tablet 11-29 16:27: 11-29 00:00 :00 No 20mg Take 20 mg by mouth at bedtime. [facility] carvedilol 6.25 mg tablet 11-29 16:27: 11-29 00:00 :00 No 6.25mg Take 6.25 mg by mouth 2 (two) times daily with meals. [facility] atorvastati n 20 mg tablet 11-29 00:00: 00 Yes [id number] 20mg Take 1 tablet by mouth at bedtime. [facility] ibuprofen 600 mg tablet 11-29 00:00: 00 10-22 00:00 :00 No [id number] 600mg Take 1 tablet by mouth every 6 (six) hours as needed for Pain (scale 4-6). [facility] carvediloL 6.25 mg tablet 11-29 00:00: 00 02-06 00:00 :00 No [id number] 6.25mg Take 1 tablet by mouth 2 (two) times daily with meals. [facility] metFORMIN 500 mg tablet 11-29 00:00: 00 02-06 00:00 :00 No [id number] 500mg Take 1 tablet by mouth 2 (two) times daily with meals. [facility] citalopram 20 mg tablet 08-02 00:00: 00 11-29 00:00 :00 No [id number] 20mg Take 1 tablet by mouth daily. [facility] Vital Signs Vital Name Observation Time Observation Value Comments Danielle gracia Systolic blood pressure 2020-01-03 19:16:00 118 mm[Hg] [facility] Diastolic blood pressure 2020-01-03 19:16:00 69 mm[Hg] [facility] Heart rate 2020-01-03 19:16:00 73 /min [facility] Body temperature 2020-01-03 19:16:00 36.61 Nellie [facility] Respiratory rate 2020-01-03 19:16:00 20 /min [facility] Body height 2020-01-03 19:16:00 149.9 cm [facility] Body weight 2020-01-03 19:16:00 94.802 kg [facility] BMI 2020-01-03 19:16:00 42.21 kg/m2 [facility] Systolic blood pressure 2019-11-29 16:08:00 133 mm[Hg] [facility] Diastolic blood pressure 2019-11-29 16:08:00 76 mm[Hg] [facility] Heart rate 2019-11-29 16:08:00 66 /min [facility] Body temperature 2019-11-29 16:08:00 37 Nellie [facility] Respiratory rate 2019-11-29 16:08:00 18 /min [facility] Body height 2019-11-29 16:08:00 149.9 cm [facility] Body weight 2019-11-29 16:08:00 91.536 kg [facility] BMI 2019-11-29 16:08:00 40.76 kg/m2 [facility] Oxygen saturation in Arterial blood by Pulse oximetry 2019-11-29 16:08:00 99 /min [facility] Procedures Procedure Date / Time Performed Performing Clinicia n Source EXTERNAL PROVIDER RECORDS 2020-01-29 05:01:00 Doctor Unassigned, [place] [facility] POCT GLUCOSE(AGE >30DAYS) 2020-01-03 19:28:00 Dominique Tran [facility] SCANNED LAB RESULTS 2020-01-03 06:01:00 Doctor Cecille ross, [place] [facility] BI ULTRASOUND BREAST LIMITED LEFT 2019-12-26 17:49:54 Dominique Tran [facility] NOTICE OF PRIVACY PRACTICES 2019-12-26 17:02:34 Doctor Unassigned, [place] [facility] CONSENT/REFUSAL FOR DIAGNOSIS AND TREATMENT 2019-12-26 17:01:12 Doctor Unassigned, [place] [facility] ASSIGNMENT OF BENEFITS 2019-12-26 17:00:49 Docto r Unassigned, [place] [facility] FLU VACC ([phone]), 6+ MONTHS, YODIT ROSENTHAL 2019-11-29 16:45:26 Dominique Tran [facility] SCANNED LAB RESULTS 2019-11-29 06:01:00 Doctor Cecille nassignenrique, [place] [facility] Encounters Start Date/Time End Date/Time Encounter Type Admission Type Attending [facility] Care Department Encounter ID Source 2024-08-31 11:23:33 2024-08-31 11:23:33 Outpatient [facility] [id number] Deven Pittman 2024-08-29 16:00:52 2024-08-29 16:00:52 Outpatient [facility] [id number] Deven Pittman 2024-08-16 15:30:09 2024-08-16 15:30:09 Outpatient [facility] [id number] Deven Pittman 2023-01-21 11:08:59 2023-01-21 11:08:59 Outpatient [facility] [id number] Deven Pittman 2022-11-26 16:13:25 2022-11-26 16:13:25 Outpatient [facility] [id number] Deven Pittman 2022-11-10 11:18:00 2022-11-10 11:18:00 Outpatient [facility] [id number] Deven Pittman 2022-10-26 13:07:30 2022-10-26 13:07:30 Outpatient [facility] [id number] Deven Pittman 2021-10-21 00:00:00 2021-10-21 00:00:00 Ref[facility]ominique [facility] [id number] 350.1.13.10 4.2.7.2.686 [id number] [facility] 2021-02-06 00:00:00 2021-02-06 00:00:00 Refill Dominique Tran [facility] [id number] 350.1.13.10 4.2.7.2.686 [id number] [facility] 2020-07-24 00:00:00 2020-07-24 00:00:00 Outpatient Nima TRAN [facility] [id number] [facility] 2020-06-27 00:00:00 2020-06-27 00:00:00 Telephone [facility] [id number] 350.1.13.10 4.2.7.2.686 [id number] [facility] 2020-01-29 00:00:00 2020-01-29 00:00:00 Orders Only Doctor Unassigned, [place] [facility] 1.2.840.114 350.1.13.10 4.2.7.2.686 [id number] [facility] 2020-01-03 13:12:10 2020-01-03 14:01:39 Office Visit Care, Ang Primary [facility] [id number] 350.1.13.10 4.2.7.2.686 [id number] [facility] 2020-01-03 13:30:00 2020-01-03 13:30:00 Outpatient R MARC [facility] [id number] [facility] 2020-01-03 00:00:00 2020-01-03 00:00:00 Orders Only Doctor Unassigned, [place] [facility] 1.2.840.114 350.1.13.10 4.2.7.2.686 [id number] [facility] 2019-12-26 11:00:00 2019-12-26 23:59:00 Hospital Encounter [facility] 1.2.840.114 350.1.13.10 4.2.7.2.686 [id number] [facility] 2019-12-26 10:54:24 2019-12-26 10:59:00 Outpatient R DOMINIQUE TRAN [facility] [id number] [facility] 2019-12-26 10:54:00 2019-12-26 10:59:00 Hospital Encounter Dominique Tran [facility] 1.2.840.114 350.1.13.10 4.2.7.2.686 [id number] [facility] 2019-12-04 00:00:00 2019-12-04 00:00:00 Telephone [facility] - [facility] 1.2.840.114 350.1.13.10 4.2.7.2.686 [id number] [facility] 2019-11-29 10:05:30 2019-11-29 11:48:36 Office Visit Care, [facility] Primary Marc [facility] 1.2.840.114 350.1.13.10 4.2.7.2.686 [id number] [facility] 2019-11-29 00:00:00 2019-11-29 00:00:00 Orders Only Doctor Unassigned, [place] [facility] 1.2.840.114 350.1.13.10 4.2.7.2.686 [id number] [facility] 2019-10-22 00:00:00 2019-10-22 00:00:00 Outpatient [facility] [id number] [facility] Results Test Description Test Time Test Comments Results Result Co mments Source LIPID [id number] 04:23:25* Test Item Value Reference Range Interpretation Comme nts CHOLESTEROL (test code = 2210) 215 MG/DL <200 H TRIGLYCERIDES (test code = 2232) 213 MG/DL <150 H HDL CHOLESTEROL (test code = 2220) 51 MG/DL >39 CALC LDL CHOL (test code = 2237) 129 MG/DL <100 H NOTE: CALCULATED LDL IS BASED ON ALTAF-CARDOZA METHOD WHICHINCLUDES ADJUSTABLE TRIGLYCERIDE:VLDL CHOLESTEROL RATIO.THIS FACTOR VARIES BY MEASURED TRIGLYCERIDE AND NON-HDLCHOLESTEROL CONCENTRATIONS WITH INCREASED CALCULATED LDL SEENIN HIGHER TRIGLYCERIDE OR LOWER NON-HDL SPECIMENS. FOR MOREINFORMATION, SEE CLIENT ANNOUNCEMENT AT [email or web address] /CalcLDL-C RISK RATIO LDL/HDL (test code = 2238) 2.53 RATIO <3.22 HIV 1/2 4TH GEN, RFLX [id number] 04:14:55* Test Item Value Reference Range Interpretation Comme nts HIV 1/2 4TH GEN, RFLX CONF (test code = 3514) NON-REACTIVE NON-REACTIVE UNLESS OTHERWISE INDICATED, ALL TESTING PERFORMED AT [facility] [address] [place] [address] CONTINUITY COORDINATOR: NAMRATA HERRING M.D. [place] NUMBER [id number] [facility] [place]. [id number] HEMOGLOBIN [id number] 02:11:58* Test Item Value Reference Range Interpretation Comme [facility] HEMOGLOBIN A1c (test code = 40311) 11.3 % 4.2-5.6 H [employer] GUIDELINES FOR HGB A1C: PREDIABETES/INCREASED RISK . . . . . . . 5.7-6.4% DIAGNOSIS OF DIABETES . . . . . . . . . >=6.5% WITH CONFIRMATION OR APPROPRIATE SYMPTOMS NOTE: ASSAY MAY BE AFFECTED BY HEMOGLOBINOPATHIES (SICKLE CELL ANEMIA, S-C DISEASE, OTHERS) OR ARTIFICIALLY LOWERED BY DECREASED RED CELL SURVIVAL (HEMOLYTIC ANEMIAS, BLOOD LOSS, ETC.). CONSIDER ALTERNATE TESTING OR LABORATORY CONSULTATION. HEMOGLOBIN [id number] 09:10:37* Test Item Value Reference Range Interpretation Comme [facility] HEMOGLOBIN A1c (test code = 81239) 8.0 % 4.2-5.6 H [employer] GUIDELINES FOR HGB A1C: PREDIABETES/INCREASED RISK . . . . . . . 5.7-6.4% DIAGNOSIS OF DIABETES . . . . . . . . . >=6.5% WITH CONFIRMATION OR APPROPRIATE SYMPTOMS NOTE: ASSAY MAY BE AFFECTED BY HEMOGLOBINOPATHIES (SICKLE CELL ANEMIA, S-C DISEASE, OTHERS) OR ARTIFICIALLY LOWERED BY DECREASED RED CELL SURVIVAL (HEMOLYTIC ANEMIAS, BLOOD LOSS, ETC.). CONSIDER ALTERNATE TESTING OR LABORATORY CONSULTATION. VITAMIN D, 25 [id number] 07:06:28* Test Item Value Reference Range Interpretation Comme nts VITAMIN D, 25 OH (test code = 4958) 31 NG/ML SEE BELOW EFFECTIVE 07/2023, PLEASE NOTE NEW METHODOLOGY IS ELECTROCHEMILUMINESCENCE BINDING ASSAY. NOTE: 25-HYDROXYVITAMIN D ASSAY INCLUDES 25-HYDROXYVITAMIN D2 AND D3. INTERPRETIVE RANGES PEDIATRIC (<17 YEARS) . . . . . . . . . . . NG/ML 20-100ADULT: INSUFFICIENT . . . . . . . . . . . . . . NG/ML <20 SUBOPTIMAL . . . . . . . . . . . . . . . NG/ML 20-29 OPTIMAL . . . . . . . . . . . . . . . . . NG/ML 30-100 TSH + FREE T4 [id number] 07:05:56* Test Item Value Reference Range Interpretation Comme nts TSH, THIRD GENERATION (test code = 2821) 5.330 UIU/ML 0.400-4.100 H FREE T4 (THYROXINE) (test co de = 2823) 0.88 NG/DL 0.80-1.90 COMPREHENSIVE METABOLIC [id number] 06:29:59* Test Item Value Reference Range Interpretation Comme nts GLUCOSE (test code = 2217) 162 MG/DL 70-99 H BUN (test code = 2208) 13 MG/DL 6-20 CREATININE (test code = 2214) 0.56 MG/DL 0.60-1.30 L eGFR (2020 CKD-EPI) (test code = 12379) 106 ML/MIN/1.73 >60 CALC BUN/CREAT (test code = 2235) 23 RATIO 6-28 SODIUM (test code = 2231) 142 MEQ/L 133-146 POTASSIUM (test code = 2228) 4.3 MEQ/L 3.5-5.4 CHLORIDE (test code = 2215) 102 MEQ/L 95-107 CARBON DIOXIDE (test code = 2206) 23 MEQ/L 19-31 CALCIUM (test code = 2209) 9.1 MG/DL 8.5-10.5 PROTEIN, TOTAL (test code = 2229) 6.8 G/DL 6.1-8.3 ALBUMIN (test code = 220) 4.2 G/DL 3.5-5.2 CALC GLOBULIN (test code = 2240) 2.6 G/DL 1.9-3.7 CALC A/G RATIO (test code = 2234) 1.6 RATIO 1.0-2.6 BILIRUBIN, TOTAL (test code = 2207) 0.5 MG/DL See_Comment [Automated me ssage] The system which generated this result transmitted reference range: <=1.2. The reference range was not used to interpret this result as normal/abnormal. ALKALINE PHOSPHATASE (test code = 2204) 111 U/L 40-136 AST (test code = 2218) 47 U/L 9-40 H ALT (test code = 2219) 51 U/L 5-40 H [facility] has impo rtant pathology staff changes effective 01/05/2023. New pathology staff will provide uninterrupted, excellent patient care and clinical consultation. See URL: [email or web address]. UNLESS OTHERWISE INDICATED, ALL TESTING PERFORMED AT [facility] [address] [place] [address] CONTINUITY COORDINATOR: NAMRATA HERRING M.D. CLIA NUMBER [id number] [facility] [place]. [id number] VITAMIN D, 25 [id number] 01:38:18* Test Item Value Reference Range Interpretation Comme nts VITAMIN D, 25 OH (test code = 4958) 20 NG/ML SEE BELOW L EFFECTIVE 07/2023, PLEASE NOTE NEW METHODOLOGY IS ELECTROCHEMILUMINESCENCE BINDING ASSAY. NOTE: 25-HYDROXYVITAMIN D ASSAY INCLUDES 25-HYDROXYVITAMIN D2 AND D3. INTERPRETIVE RANGES PEDIATRIC (<17 YEARS) . . . . . . . . . . . NG/ML 20-100ADULT: INSUFFICIENT . . . . . . . . . . . . . . NG/ML <20 SUBOPTIMAL . . . . . . . . . . . . . . . NG/ML 20-29 OPTIMAL . . . . . . . . . . . . . . . . . NG/ML 30-100 UNLESS OTHERWISE INDICATED, [facility] [address] [place] [id number] CONTINUITY COORDINATOR: WILD PERLA M.D. CLIA NUMBER [id number] [facility] [place]. [id number] TSH, THIRD [id number] 01:37:52* Test Item Value Reference Range Interpretation Comme [facility] TSH, THIRD GENERATION (test code = 2821) 7.930 UIU/ML 0.400-4.100 H VITAMIN [id number] 01:37:52* Test Item Value Reference Range Interpretation Comme [facility] VITAMIN B-12 (test code = 2840) 406 PG/ML 200-950 COMPREHENSIVE METABOLIC [id number] 00:59:30* Test Item Value Reference Range Interpretation Comme nts GLUCOSE (test code = 2217) 174 MG/DL 70-99 H BUN (test code = 220) 12 MG/DL 6-20 CREATININE (test code = 2214) 0.66 MG/DL 0.60-1.30 eGFR (2020 CKD-EPI) (test code = 92507) 102 ML/MIN/1.73 >60 CALC BUN/CREAT (test code = 2235) 18 RATIO 6-28 SODIUM (test code = 2231) 147 MEQ/L 133-146 H POTASSIUM (test code = 2228) 4.5 MEQ/L 3.5-5.4 CHLORIDE (test code = 2215) 107 MEQ/L 95-107 CARBON DIOXIDE (test code = 2206) 25 MEQ/L 19-31 CALCIUM (test code = 2209) 9.5 MG/DL 8.5-10.5 PROTEIN, TOTAL (test code = 222) 7.1 G/DL 6.1-8.3 ALBUMIN (test code = 2201) 4.4 G/DL 3.5-5.2 CALC GLOBULIN (test code = 2240) 2.7 G/DL 1.9-3.7 CALC A/G RATIO (test code = 2234) 1.6 RATIO 1.0-2.6 BILIRUBIN, TOTAL (test code = 220) <0.2 MG/DL See_Comment [Automated me ssage] The system which generated this result transmitted reference range: <=1.2. The reference range was not used to interpret this result as normal/abnormal. ALKALINE PHOSPHATASE (test code = 2204) 132 U/L 40-136 AST (test code = 2218) 29 U/L 9-40 ALT (test code = 2219) 40 U/L 5-40 ALBUMIN/CREATININE RATIO, URINE, [id number] 05:10:33* Test Item Value Reference Range Interpretation Comme nts CREATININE, URINE, CONC. (test code = 2072) 120.9 MG/DL NOT ESTAB ALBUMIN, URINE, RANDOM (test code = 93155) 2.6 MG/DL NOT ESTAB CALC ALBUMIN/CREAT, RND (test code = 84154) 22 MG/G <30 Note: Albumin/Creatinine ratio reference interval reflects ADA and NKF guidelines. HEMOGLOBIN [id number] 03:47:55* Test Item Value Reference Range Interpretation Comme nts HEMOGLOBIN A1c (test code = 40779) 7.4 % 4.2-5.6 H [employer]ATION GUIDELINES FOR HGB A1C: PREDIABETES/INCREASED RISK . . . . . . . 5.7-6.4% DIAGNOSIS OF DIABETES . . . . . . . . . >=6.5% WITH CONFIRMATION OR APPROPRIATE SYMPTOMS NOTE: ASSAY MAY BE AFFECTED BY HEMOGLOBINOPATHIES (SICKLE CELL ANEMIA, S-C DISEASE, OTHERS) OR ARTIFICIALLY LOWERED BY DECREASED RED CELL SURVIVAL (HEMOLYTIC ANEMIAS, BLOOD LOSS, ETC.). CONSIDER ALTERNATE TESTING OR LABORATORY CONSULTATION. COMPREHENSIVE METABOLIC [id number] 02:52:30* Test Item Value Reference Range Interpretation Comme nts GLUCOSE (test code = 2217) 122 MG/DL 70-99 H BUN (test code = 2208) 13 MG/DL 6-20 CREATININE (test code = 221) 0.64 MG/DL 0.60-1.30 eGFR (2020 CKD-EPI) (test code = 65287) 103 ML/MIN/1.73 >60 CALC BUN/CREAT (test code = 223) 20 RATIO 6-28 SODIUM (test code = 2230) 139 MEQ/L 133-146 POTASSIUM (test code = 2228) 4.3 MEQ/L 3.5-5.4 CHLORIDE (test code = 2215) 99 MEQ/L 95-107 CARBON DIOXIDE (test code = 6) 28 MEQ/L 19-31 CALCIUM (test code = 2208) 9.7 MG/DL 8.5-10.5 PROTEIN, TOTAL (test code = 222) 7.2 G/DL 6.1-8.3 ALBUMIN (test code = 2200) 4.5 G/DL 3.5-5.2 CALC GLOBULIN (test code = 2240) 2.7 G/DL 1.9-3.7 CALC A/G RATIO (test code = 2233) 1.7 RATIO 1.0-2.6 BILIRUBIN, TOTAL (test code = 7) 0.5 MG/DL See_Comment [Automated me ssage] The system which generated this result transmitted reference range: <=1.2. The reference range was not used to interpret this result as normal/abnormal. ALKALINE PHOSPHATASE (test code = 2203) 122 U/L 40-136 AST (test code = 8) 47 U/L 9-40 H ALT (test code = 2219) 52 U/L 5-40 H LIPID [id number] 02:52:30* Test Item Value Reference Range Interpretation Comme nts CHOLESTEROL (test code = 0) 176 MG/DL <200 TRIGLYCERIDES (test code = 2231) 135 MG/DL <150 HDL CHOLESTEROL (test code = 2219) 52 MG/DL >39 CALC LDL CHOL (test code = 2236) 101 MG/DL <100 H NOTE: CALCULATED LDL IS BASED ON ALTAF-CARDOZA METHOD WHICHINCLUDES ADJUSTABLE TRIGLYCERIDE:VLDL CHOLESTEROL RATIO.THIS FACTOR VARIES BY MEASURED TRIGLYCERIDE AND NON-HDLCHOLESTEROL CONCENTRATIONS WITH INCREASED CALCULATED LDL SEENIN HIGHER TRIGLYCERIDE OR LOWER NON-HDL SPECIMENS. FOR MOREINFORMATION, SEE CLIENT ANNOUNCEMENT AT [email or web address] /CalcLDL-C RISK RATIO LDL/HDL (test code = 2238) 1.94 RATIO <3.22 UNLESS OTHERW ISE INDICATED, ALL [facility] [address] [place] [address] CONTINUITY COORDINATOR: WIDL PERLA M.D. CLIA NUMBER [id number] [facility] [place]. [id number] HEMOGLOBIN [id number] 04:09:24* Test Item Value Reference Range Interpretation Comme nts HEMOGLOBIN A1c (test code = 27732) 7.0 % 4.2-5.6 H [employer] GUIDELINES FOR HGB A1C: PREDIABETES/INCREASED RISK . . . . . . . 5.7-6.4% DIAGNOSIS OF DIABETES . . . . . . . . . >=6.5% WITH CONFIRMATION OR APPROPRIATE SYMPTOMS NOTE: ASSAY MAY BE AFFECTED BY HEMOGLOBINOPATHIES (SICKLE CELL ANEMIA, S-C DISEASE, OTHERS) OR ARTIFICIALLY LOWERED BY DECREASED RED CELL SURVIVAL (HEMOLYTIC ANEMIAS, BLOOD LOSS, ETC.). CONSIDER ALTERNATE TESTING OR LABORATORY CONSULTATION. LIPID [id number] 03:51:40* Test Item Value Reference Range Interpretation Comme nts CHOLESTEROL (test code = 2210) 193 MG/DL <200 TRIGLYCERIDES (test code = 2232) 182 MG/DL <150 H HDL CHOLESTEROL (test code = 2220) 49 MG/DL >39 CALC LDL CHOL (test code = 2237) 114 MG/DL <100 H NOTE: CALCULATED LDL IS BASED ON ALTAF-CARDOZA METHOD WHICHINCLUDES ADJUSTABLE TRIGLYCERIDE:VLDL CHOLESTEROL RATIO.THIS FACTOR VARIES BY MEASURED TRIGLYCERIDE AND NON-HDLCHOLESTEROL CONCENTRATIONS WITH INCREASED CALCULATED LDL SEENIN HIGHER TRIGLYCERIDE OR LOWER NON-HDL SPECIMENS. FOR MOREINFORMATION, SEE CLIENT ANNOUNCEMENT AT [email or web address] /CalcLDL-C RISK RATIO LDL/HDL (test code = 2238) 2.33 RATIO <3.22 COMPREHENSIVE METABOLIC [id number] 03:51:40* Test Item Value Reference Range Interpretation Comme nts GLUCOSE (test code = 2217) 126 MG/DL 70-99 H BUN (test code = 2208) 17 MG/DL 6-20 CREATININE (test code = 2214) 0.60 MG/DL 0.60-1.30 eGFR (2020 CKD-EPI) (test code = 24410) 105 ML/MIN/1.73 >60 CALC BUN/CREAT (test code = 2235) 28 RATIO 6-28 SODIUM (test code = 223) 140 MEQ/L 133-146 POTASSIUM (test code = 2228) 4.5 MEQ/L 3.5-5.4 CHLORIDE (test code = 2215) 102 MEQ/L 95-107 CARBON DIOXIDE (test code = 2206) 28 MEQ/L 19-31 CALCIUM (test code = 2209) 9.3 MG/DL 8.5-10.5 PROTEIN, TOTAL (test code = 222) 7.5 G/DL 6.1-8.3 ALBUMIN (test code = 220) 4.5 G/DL 3.5-5.2 CALC GLOBULIN (test code = 2240) 3.0 G/DL 1.9-3.7 CALC A/G RATIO (test code = 2234) 1.5 RATIO 1.0-2.6 BILIRUBIN, TOTAL (test code = 2207) 0.4 MG/DL See_Comment [Automated [employer] ssage] The system which generated this result transmitted reference range: <=1.2. The reference range was not used to interpret this result as normal/abnormal. ALKALINE PHOSPHATASE (test code = 2204) 119 U/L 40-136 AST (test code = 2218) 24 U/L 9-40 ALT (test code = 2219) 32 U/L 5-40 UNLESS OTHERWISE INDICATED, ALL TESTING PERFORMED [facility] [employer] [address] [place] [address] CONTINUITY COORDINATOR: WILD PERLA M.D. CLIA NUMBER [id number] [facility] [place]. [id number] CBC W/AUTO DIFF WITH [id number] 03:01:10* Test Item Value Reference Range Interpretation Comme nts WBC (test code = 1001) 6.6 K/UL 3.5-11.0 RBC (test code = 1002) 4.30 M/UL 3.80-5.40 HEMOGLOBIN (test code = 1003) 11.4 G/DL 11.5-15.5 L HEMATOCRIT (test code = 1004) 34.3 % 34.0-45.0 MCV (test code = 1005) 79.8 fL 80.0-99.0 L MCH (test code = 1006) 26.5 PG 25.0-33.0 MCHC (test code = 1007) 33.2 G/DL 31.0-36.0 RDW (test code = 1038) 13.4 % 11.5-15.0 NEUTROPHILS (test code = 1008) 55.3 % LYMPHOCYTES (test code = 1010) 36.3 % MONOCYTES (test code = 1011) 5.2 % EOSINOPHILS (test code = 1012) 2.4 % BASOPHILS (test code = 1013) 0.5 % IMMATURE GRANULOCYTES (test code = 1036) 0.3 % NUCLEATED RBCS (test code = 1065) 0.0 /100 WBC'S See_Comment [Automated messa ge] The system which generated this result transmitted reference range: 0.0. The reference range was not used to interpret this result as normal/abnormal. PLATELET COUNT (test code = 1015) 194 K/UL 130-400 ABSOLUTE NEUTROPHILS (test code = 1066) 3.63 K/UL 1.50-7.50 ABSOLUTE LYMPHOCYTES (test code = 1067) 2.38 K/UL 1.00-4.00 ABSOLUTE MONOCYTES (test code = 1068) 0.34 K/UL 0.20-1.00 ABSOLUTE EOSINOPHILS (test code = 1040) 0.16 K/UL 0.00-0.50 ABSOLUTE BASOPHILS (test code = 1069) 0.03 K/UL 0.00-0.20 ABS IMMATURE GRANULOCYTES (test code = 1020) 0.02 K/UL 0.00-0.10 ABS NUCLEATED RBCS (test code = 80589) 0.00 K/UL 0.00-0.11 COMPREHENSIVE METABOLIC [id number] 04:32:29* Test Item Value Reference Range Interpretation Comme nts GLUCOSE (test code = 2217) 113 MG/DL 70-99 H BUN (test code = 2207) 12 MG/DL 6-20 CREATININE (test code = 2214) 0.56 MG/DL 0.60-1.30 L EFFECTIVE 2020, [facility] HAS IMPLEMENTED THE NKF-ASN RECOMMENDED KD-EPI EGFR REFIT CALCULATION THAT DOES NOT INCLUDE A COEFFICIENT FORRACE. FOR MORE INFORMATION, SEE ANNOUNCEMENT [email or web address] eGFR (2020 CKD-EPI) (test code = 88124) 107 ML/MIN/1.73 >60 CALC BUN/CREAT (test code = 223) 21 RATIO 6-28 SODIUM (test code = 223) 142 MEQ/L 133-146 POTASSIUM (test code = 2228) 4.1 MEQ/L 3.5-5.4 CHLORIDE (test code = 2215) 103 MEQ/L 95-107 CARBON DIOXIDE (test code = 220) 27 MEQ/L 19-31 CALCIUM (test code = 2209) 9.2 MG/DL 8.5-10.5 PROTEIN, TOTAL (test code = 222) 7.2 G/DL 6.1-8.3 ALBUMIN (test code = 2200) 4.3 G/DL 3.5-5.2 CALC GLOBULIN (test code = 224) 2.9 G/DL 1.9-3.7 CALC A/G RATIO (test code = 2234) 1.5 RATIO 1.0-2.6 BILIRUBIN, TOTAL (test code = 2207) 0.5 MG/DL See_Comment [Automated me ssage] The system which generated this result transmitted reference range: <=1.2. The reference range was not used to interpret this result as normal/abnormal. ALKALINE PHOSPHATASE (test code = 2204) 116 U/L 40-136 AST (test code = 2218) 22 U/L 9-40 ALT (test code = 2219) 25 U/L 5-40 UNLESS OTHERWISE INDICATED, ALL TESTING PERFORMED [facility] [employer] [address] [place] [id number] CONTINUITY COORDINATOR: WILD PERLA M.D. CLIA NUMBER [id number] [facility] [place] [place]. [id number] LIPID [id number] 04:32:29* Test Item Value Reference Range Interpretation Comme nts CHOLESTEROL (test code = 2210) 156 MG/DL <200 TRIGLYCERIDES (test code = 2232) 116 MG/DL <150 HDL CHOLESTEROL (test code = 2220) 49 MG/DL >39 CALC LDL CHOL (test code = 2237) 86 MG/DL <100 NOTE: CALCULATED LDL IS BASED ON ALTAF-CARDOZA METHOD WHICHINCLUDES ADJUSTABLE TRIGLYCERIDE:VLDL CHOLESTEROL RATIO.THIS FACTOR VARIES BY MEASURED TRIGLYCERIDE AND NON-HDLCHOLESTEROL CONCENTRATIONS WITH INCREASED CALCULATED LDL SEENIN HIGHER TRIGLYCERIDE OR LOWER NON-HDL SPECIMENS. FOR MOREINFORMATION, SEE CLIENT ANNOUNCEMENT AT [email or web address] [email or web address] RATIO LDL/HDL (test code = 2238) 1.76 RATIO <3.22 CBC W/AUTO DIFF WITH [id number] 03:53:25* Test Item Value Reference Range Interpretation Comme nts WBC (test code = 1001) 6.3 K/UL 3.5-11.0 RBC (test code = 1002) 4.40 M/UL 3.80-5.40 HEMOGLOBIN (test code = 1003) 11.4 G/DL 11.5-15.5 L HEMATOCRIT (test code = 1004) 34.9 % 34.0-45.0 MCV (test code = 1005) 79.3 fL 80.0-99.0 L MCH (test code = 1006) 25.9 PG 25.0-33.0 MCHC (test code = 1007) 32.7 G/DL 31.0-36.0 RDW (test code = 1038) 13.5 % 11.5-15.0 NEUTROPHILS (test code = 1008) 55.2 % LYMPHOCYTES (test code = 1010) 35.6 % MONOCYTES (test code = 1011) 6.1 % EOSINOPHILS (test code = 1012) 2.4 % BASOPHILS (test code = 1013) 0.5 % IMMATURE GRANYLOCYTES (test code = 1036) 0.2 % NUCLEATED RBCS (test code = 1065) 0.0 /100 WBC'S See_Comment [Automated [employer] ge] The system which generated this result transmitted reference range: 0.0. The reference range was not used to interpret this result as normal/abnormal. PLATELET COUNT (test code = 1015) 200 K/UL 130-400 ABSOLUTE NEUTROPHILS (test code = 1066) 3.46 K/UL 1.50-7.50 ABSOLUTE LYMPHOCYTES (test code = 1067) 2.23 K/UL 1.00-4.00 ABSOLUTE MONOCYTES (test code = 1068) 0.38 K/UL 0.20-1.00 ABSOLUTE EOSINOPHILS (test code = 1040) 0.15 K/UL 0.00-0.50 ABSOLUTE BASOPHILS (test code = 1069) 0.03 K/UL 0.00-0.20 ABS IMMATURE GRANULOCYTES (test code = 1020) 0.01 K/UL 0.00-0.10 ABS NUCLEATED RBCS (test code = 72829) 0.00 K/UL 0.00-0.11 HEMOGLOBIN [id number] 03:36:21* Test Item Value Reference Range Interpretation Comme nts HEMOGLOBIN A1c (test code = 40636) 7.0 % 4.2-5.6 H [employer] GUIDELINES FOR HGB A1C: PREDIABETES/INCREASED RISK . . . . . . . 5.7-6.4% DIAGNOSIS OF DIABETES . . . . . . . . . >=6.5% WITH CONFIRMATION OR APPROPRIATE SYMPTOMS NOTE: ASSAY MAY BE AFFECTED BY HEMOGLOBINOPATHIES (SICKLE CELL ANEMIA, S-C DISEASE, OTHERS) OR ARTIFICIALLY LOWERED BY DECREASED RED CELL SURVIVAL (HEMOLYTIC ANEMIAS, BLOOD LOSS, ETC.). CONSIDER ALTERNATE TESTING OR LABORATORY CONSULTATION. POCT GLUCOSE(AGE >30DAYS)2020-01-03 19:28:00* Test Item Value Reference Range Interpretation Comme nts POCT Glu (age>30days) (test code = 3342) 123 mg/dL 70-110 A Lab Interpretation (test cod e = 73599-9) [facility]normal [facility]DAYS[facility]2020-01-03 19:28:00* Test Item Value Reference Range Interpretation Comme nts POCT Glu (age>30days) (test code = 3342) 123 mg/dL 70-110 A Lab Interpretation (test cod e = 11436-9) Abnormal [facility] [id number] 18:07:27Examination:BI ULTRASOUND BREAST LIMITED LEFT History:Patient is [...] ? BI-RADS Category: Left 3 - [facility]
[2025-01-23 19:34] LABS: Absolute Eosinophils 0.2 K/uL (0-0.5); Absolute Lymphocytes (CBC) 2.2 K/uL (0.7-4.9); Absolute Monocytes 0.4 K/uL (0.1-1.3); Absolute Neutrophil 3.5 K/uL (1.8-8.0); Basophils % 0.5 % (0-1.3); Eosinophils % 2.4 % (0-4.4); Hematocrit 38.4 % (36.0-45.0); Hemoglobin 12.7 g/dL (12.0-15.0); Lymphocytes % 35.3 % (15.3-44.8); MCH 26.8 pg (27.0-35.0); MCHC 33.1 g/dL (32.0-36.0); MCV 80.9 fL (80-100); MPV 9.3 fL (7.6-11.3); Monocytes % 6.4 % (3.3-12.3); Neutrophils % 55.4 % (41.7-73.7); Nucleated Red Blood Cells % 0.1 % (0-0); Platelets 196 thou/uL (152-406); RBC Red Blood Cell Count 4.75 M/uL (3.86-4.86); Red Cell Distribution Width 14.1 % (12.1-15.2)
[2025-01-23 19:37] LABS: Protime INR 1.06
--- NOTE | 2025-01-23 19:51 | RAD REPORT ---
EXAM: Chest Single View HISTORY: 60 years Female CHEST PAIN COMPARISON: 06/22/2019 FINDINGS: LUNGS/PLEURA: Low lung volumes. There is prominence of the central pulmonary vascular tree. This may be accentuated by portable technique and low lung volumes. CARDIAC/MEDIASTINUM: Magnified by portable technique, but possibly within normal limits. UPPER ABDOMEN: No significant abnormality. BONES: No acute abnormality. LINES/TUBES/OTHER: N/A IMPRESSION: Low lung volumes which can accentuate the pulmonary vasculature. Nevertheless, vascular congestion di fficult to exclude. In addition, the cardiac silhouette is enlarged which may also be magnified by low lung volumes and portable technique.
[2025-01-23 19:52] LABS: ALT/SGPT 47 U/L (13-56); AST/SGOT 30 U/L (15-37); Albumin 3.2 g/dL (3.4-5.0); Albumin/Globulin Ratio 0.8 (1.1-1.8); Alkaline Phosphatase 147 U/L (45-117); Anion Gap 8.9 mEq/L (5.0-15.0); BUN Blood Urea Nitrogen 11 mg/dL (7-18); Bicarbonate 28 mEq/L (21-32); Bilirubin Direct < 0.2 mg/dL (0-0.2); Bilirubin Indirect, Calculated 0.2 mg/dL (0.2-0.8); Bilirubin Total 0.4 mg/dL (0.2-1.0); Globulin 3.8 g/dL (2.3-3.5); Glomerular Filtration Rate 56 ml/min (=/>90); Glucose Level 369 mg/dL (74-106); Magnesium 1.8 mg/dL (1.6-2.4); NT PRO-BNP 73 pg/mL (<125); Potassium 3.9 mEq/L (3.5-5.1); Sodium Level 134 mEq/L (136-145); Troponin High Sensitivity 24.4 pg/mL (<58.9)
--- NOTE | 2025-01-23 19:59 | ER ---
Nurse's Notes [facility] Name: Magaly Galeana Age: 60 yrs Sex: Female : 1965 Arrival Date: 01/23/2025 Time: 18:54 Bed 6 Private MD: Diagnosis: Chest pain Presentation: 01/23 19:11 Chief complaint: Patient states: Left sided chest pain described as sharp pressure cm10 onset last night. Pt states that the pain is worse with cough and deep breaths. Coronavirus screen: Client denies travel out of the [place] in the last 14 days. Ebola Screen: Patient denies travel to an Ebola-affected area in the 21 days before illness onset. Initial Sepsis Screen: Does the patient meet any 2 criteria? No. Patient's initial sepsis screen is negative. Does the patient have a suspected source of infection? No. Patient's initial sepsis screen is negative. Risk Assessment: Do you want to hurt yourself or someone else? Patient reports no desire to harm self or others. Onset of symptoms was January 23, 2025. 19:11 Method Of Arrival: Ambulatory cm10 19:11 Acuity: EKATERINA 2 cm10 Triage Assessment: 19:12 General: Appears in no apparent distress. comfortable, Behavior is calm, cooperative. cm10 Neuro: No deficits noted. Level of Consciousness is awake, alert, obeys commands, Oriented to person, place, time, situation, Appropriate for age. Respiratory: No deficits noted. Airway is patent Respiratory effort is even, unlabored, Respiratory pattern is regular, symmetrical. Historical: - Allergies: 19:12 No Known Allergies; cm10 - PMHx: 19:12 Diabetes - NIDDM; High Cholesterol; Hypertension; cm10 - Immunization history:: Adult Immunizations up to date. - Infectious Disease History:: Denies. - Social history:: Smoking status: Patient denies any tobacco usage or history of. Screenin:25 [facility] ED Fall Risk Assessment (Adult) History of falling in the last 3 months, dd2 including since admission No falls in past 3 months (0 pts) Confusion or Disorientation No (0 pts) Intoxicated or Sedated No (0 pts) Impaired Gait No (0 pts) Mobility Assist Device Used No (0 pt) Altered Elimination No (0 pt) Score/Fall Risk Level 0 - 2 = Low Risk Oriented to surroundings, Maintained a safe environment, Educated pt \T\ family on fall prevention, incl call for assistance when getting out of bed, Assessed \T\ reinforced patient's understanding of fall precautions, Provided non-skid footwear, Used ambulatory aids as needed (educated on \T\ assisted with). Abuse screen: Denies threats or abuse. Denies injuries from another. Nutritional screening: No deficits noted. Tuberculosis screening: No symptoms or risk factors identified. Assessment: 19:27 General: Appears in no apparent distress. uncomfortable, Behavior is calm, cooperative, dd2 appropriate for age. Pain: Complains of pain in xiphoid area, mid-sternal area and left lateral anterior chest Pain radiates to left scapular area and left subscapular area Pain currently is 8 out of 10 on a pain scale. Quality of pain is described as sharp, shooting, Pain began 2-3 days ago. Neuro: Sky Agitation-Sedation Scale (RASS): 0 - Alert and Calm Level of Consciousness is awake, alert, obeys commands, Oriented to person, place, time, situation, Appropriate for age. Cardiovascular: Reports chest pain, Heart tones S1 S2 present Capillary refill < 3 seconds JVD is absent Patient's skin is warm and dry. Rhythm is regular. Respiratory: Reports pain with cough pain with respiration Airway is patent Respiratory effort is even, unlabored, Respiratory pattern is regular, symmetrical. GI: No deficits noted. No signs and/or symptoms were reported involving the gastrointestinal system. Abdomen is non-distended, obese, Bowel sounds present X 4 quads. Abd is soft and non tender X 4 quads. : No deficits noted. No signs and/or symptoms were reported regarding the genitourinary system. EENT: No deficits noted. No signs and/or symptoms were reported regarding the EENT system. Derm: No deficits noted. No signs and/or symptoms reported regarding the dermatologic system. Musculoskeletal: No deficits noted. No signs and/or symptoms reported regarding the musculoskeletal system. Circulation, motion, and sensation intact. Range of motion: intact in all extremities. Vital Signs: 19:11 BP 162 / 75; Pulse 79; Resp 15; Temp 98.7; Pulse Ox 96% on R/A; Weight 103.42 kg; cm10 Height 5 ft. 0 in. ; Pain 8/10; 19:25 BP 159 / 92; Pulse 82; Resp 16; Pulse Ox 99% on R/A; dd2 19:11 Body Mass Index 44.53 (103.42 kg, 152.4 cm) cm10 19:11 Pain Scale: Adult cm10 Silverio Coma Score: 19:25 Eye Response: spontaneous(4). Motor Response: obeys commands(6). Verbal Response: dd2 oriented(5). Total: 15. ED Course: 18:58 Patient arrived in ED. al6 18:58 Claudette Mazariegos MD is Attending Physician. sp3 19:05 Alison Jarvis, ABRAHAM is Primary Nurse. kd3 19:11 EKG done, by ED staff, reviewed by Claudette Mazariegos MD. cm10 19:12 Triage completed. cm10 19:12 Arm band placed on right wrist. Patient placed in an exam room, on a stretcher, on cm10 cardiac nurse practitioner, on pulse oximetry. EKG completed in triage. Results shown to MD. 19:17 XRAY Chest (1 view) In Process Unspecified. EDMS 19:25 No provider procedures requiring assistance completed. Inserted saline lock: 20 gauge dd2 in right antecubital area, using aseptic technique. Blood collected. Flushed with 10 mL NS. Patient maintains SpO2 saturation greater than 95% on room air. 19:25 Patient has correct armband on for positive identification. Bed in low position. Call dd2 light in reach. Side rails up X2. Client placed on continuous cardiac and pulse oximetry monitoring. NIBP monitoring applied. panel monitor on. Door closed. Noise minimized. Warm blanket given. Pillow given. Verbal reassurance given. 19:26 Basic Metabolic Panel Sent. vk 19:26 CBC with Diff Sent. vk 19:26 LFT's Sent. vk 19:26 Magnesium Sent. vk 19:26 NT PRO-BNP Sent. vk 19:26 PT-INR Sent. vk 19:26 Troponin HS Sent. vk 19:58 Luis Alberto Austin MD is Hospitalizing Provider. sp3 Administered Medications: 20:39 Drug: Aspirin PO 325 mg PO once Route: PO; kd3 20:39 Drug: morphine IVP or IV 2 mg IVP once over 4 mins Route: IVP; Infused Over: 4 mins; kd3 Site: right antecubital; 20:39 Drug: Ondansetron IVP 4 mg IVP once; over 2 minutes Route: IVP; Site: right antecubital;kd3 Medication: 19:25 VIS not applicable for this client. dd2 Outcome: 19:58 Decision to Hospitalize by Provider. sp3 22:04 Patient left the ED. kd3 Signatures: Dispatcher [employer] EDMS Claudette Mazariegos MD MD sp3 Alison Jarvis RN RN kd3 Azul Villeda RN RN 10 Charissa Bryant DIANA, RN RN dd2 Selene Valdez al6
--- NOTE | 2025-01-23 19:59 | EDPHYS ---
Physician Documentation [facility] Name: Magaly Galeana Age: 60 yrs Sex: Female : 1965 Arrival Date: 01/23/2025 Time: 18:54 Bed 6 Private MD: ED Physician Claudette Mazariegos HPI: 01/23 19:24 This 60 yrs old Female presents to ER via Ambulatory with complaints of Chest sp3 Pain. 19:24 60-year-old female with history of diabetes, hyperlipidemia, hypertension presents to 3 the ED with chief complaint chest pain started yesterday evening while at rest. Patient describes chest pain as substernal in nature waxing and waning with current pain approximately 1 out of 10. At its maximum it was 7 out of 10. She denies any other associated symptoms including headache, neck pain, back pain extremity pain, abdominal pain, nausea, vomiting, diarrhea, syncope, near syncope, fever, URI symptoms, rash, bleeding, or any other signs or symptoms on ROS at this time. She denies any prolonged immobilization, recent travel or prior history of DVT or PE.. Historical: - Allergies: 19:12 No Known Allergies; cm10 - PMHx: 19:12 Diabetes - NIDDM; High Cholesterol; Hypertension; cm10 - Immunization history:: Adult Immunizations up to date. - Infectious Disease History:: Denies. - Social history:: Smoking status: Patient denies any tobacco usage or history of. ROS: 19:24 Constitutional: Negative for fever, chills, and weight loss, Eyes: Negative for injury, sp3 pain, redness, and discharge, ENT: Negative for injury, pain, and discharge, Neck: Negative for injury, pain, and swelling, Respiratory: Negative for shortness of breath, cough, wheezing, and pleuritic chest pain, Abdomen/GI: Negative for abdominal pain, nausea, vomiting, diarrhea, and constipation, Back: Negative for injury and pain, MS/Extremity: Negative for injury and deformity, Skin: Negative for injury, rash, and discoloration, Neuro: Negative for headache, weakness, numbness, tingling, and seizure, Psych: Negative for depression, anxiety, suicide ideation, homicidal ideation, and hallucinations, Allergy/Immunology: Negative for hives, rash, and allergies, Endocrine: Negative for neck swelling, polydipsia, polyuria, polyphagia, and marked weight changes, Hematologic/Lymphatic: Negative for swollen nodes, abnormal bleeding, and unusual bruising, 19:24 All other systems are negative, Exam: 19:25 Constitutional: This is a well developed, well nourished patient who is awake, alert, sp3 and in no acute distress. Head/Face: Normocephalic, atraumatic. Eyes: Pupils equal round and reactive to light, extra-ocular motions intact. Lids and lashes normal. Conjunctiva and sclera are non-icteric and not injected. Cornea within normal limits. Periorbital areas with no swelling, redness, or edema. ENT: Nares patent. No nasal discharge, no septal abnormalities noted. External auditory canals are clear. Oropharynx with no redness, swelling, or masses, exudates, or evidence of obstruction, uvula midline. Mucous membranes moist. Neck: Trachea midline, no thyromegaly or masses palpated, and no cervical lymphadenopathy. Supple, full range of motion without nuchal rigidity, or vertebral point tenderness. No Meningismus. Chest/axilla: Normal chest wall appearance and motion. Nontender with no deformity. No lesions are appreciated. Cardiovascular: Regular rate and rhythm with a normal S1 and S2. No gallops, murmurs, or rubs. Normal PMI, no JVD. No pulse deficits. Respiratory: Lungs have equal breath sounds bilaterally, clear to auscultation and percussion. No rales, rhonchi or wheezes noted. No increased work of breathing, no retractions or nasal flaring. Abdomen/GI: Soft, non-tender, with normal bowel sounds. No distension or tympany. No guarding or rebound. No evidence of tenderness throughout. Back: No spinal tenderness. No costovertebral tenderness. Full range of motion. Skin: Warm, dry with normal turgor. Normal color with no rashes, no lesions, and no evidence of cellulitis. MS/ Extremity: Pulses equal, no cyanosis. Neurovascular intact. Full, normal range of motion. Neuro: Awake and alert, GCS 15, oriented to person, place, time, and situation. Cranial nerves II-XII grossly intact. Motor strength 5/5 in all extremities. Sensory grossly intact. Cerebellar exam normal. Normal gait. Psych: Awake, alert, with orientation to person, place and time. Behavior, mood, and affect are within normal limits. 19:25 ECG was reviewed by the Attending Physician. EKG demonstrates normal sinus rhythm at 81 bpm with normal intervals, normal QRS, normal axis, normal ST/T segments without evidence of acute ischemia. Vital Signs: 19:11 BP 162 / 75; Pulse 79; Resp 15; Temp 98.7; Pulse Ox 96% on R/A; Weight 103.42 kg; cm10 Height 5 ft. 0 in. ; Pain 8/10; 19:25 BP 159 / 92; Pulse 82; Resp 16; Pulse Ox 99% on R/A; dd2 19:11 Body Mass Index 44.53 (103.42 kg, 152.4 cm) cm10 19:11 Pain Scale: Adult cm10 Silverio Coma Score: 19:25 Eye Response: spontaneous(4). Motor Response: obeys commands(6). Verbal Response: dd2 oriented(5). Total: 15. MDM: 19:01 Medical Screening Exam initiated sp3 19:25 Data reviewed: vital signs, nurses notes, lab test result(s), EKG, radiologic studies. sp3 ED course: 60-year-old female with PMH above now with new onset chest pain since yesterday. Differential diagnosis includes acute coronary syndrome, musculoskeletal pain, pulmonary pathology, GI pathology including GERD, among others. I am not highly suspicious of sepsis, shock, aortic or vascular pathology, or any other critical process including PE. EKG is normal. Chest x-ray and labs pending. Patient will be signed out to nighttime physician for final reevaluation and disposition.. 19:57 ED course: First set of markers negative. Patient still having pain off and on at 11/16. sp[address] in 23 observation given her history, give aspirin and obtain serial enzymes and cardiology consultation. I discussed with Dr. Austin and he will be following up and writing orders.. 01/23 19:02 Order name: Basic Metabolic Panel; Complete Time: 19:54 sp3 01/23 19:02 Order name: CBC with Diff; Complete Time: 19:54 sp3 01/23 19:02 Order name: LFT's; Complete Time: 19:54 sp3 01/23 19:02 Order name: Magnesium; Complete Time: 19:54 sp3 01/23 19:02 Order name: NT PRO-BNP; Complete Time: 19:54 sp3 01/23 19:02 Order name: PT-INR; Complete Time: 19:54 sp3 01/23 19:02 Order name: Troponin HS; Complete Time: 19:54 sp3 01/23 20:50 Order name: Urinalysis w/ reflexes EDMS 01/23 20:50 Order name: CBC with Automated Diff EDMS 01/23 20:50 Order name: CBC with Automated Diff EDMS 01/23 20:50 Order name: Comprehensive Metabolic Panel EDMS 01/23 20:50 Order name: Comprehensive Metabolic Panel EDMS 01/23 20:50 Order name: Troponin High Sensitivity EDMS 01/23 20:50 Order name: Troponin High Sensitivity EDMS 01/23 19:02 Order name: XRAY Chest (1 view); Complete Time: 19:54 sp3 01/23 19:02 Order name: Cardiac monitoring; Complete Time: 19:06 sp3 01/23 19:02 Order name: EKG - Nurse/Tech; Complete Time: 19:06 sp3 01/23 19:02 Order name: IV Saline Lock; Complete Time: 19:06 sp3 01/23 19:02 Order name: Labs collected and sent; Complete Time: 19:24 sp3 01/23 19:02 Order name: O2 Per Protocol; Complete Time: 19:10 sp3 01/23 19:02 Order name: O2 Sat Monitoring; Complete Time: 19:10 sp3 Administered Medications: 20:39 Drug: Aspirin PO 325 mg PO once Route: PO; kd3 20:39 Drug: morphine IVP or IV 2 mg IVP once over 4 mins Route: IVP; Infused Over: 4 mins; kd3 Site: right antecubital; 20:39 Drug: Ondansetron IVP 4 mg IVP once; over 2 minutes Route: IVP; Site: right antecubital;kd3 Disposition Summary: 01/23/25 19:58 Hospitalization Ordered Notes: Hospitalization Status: Observation sp3 Provider: Luis Alberto Austin sp3 Location: Telemetry/[facility] (observation) sp3 Condition: Stable sp3 Problem: new sp3 Symptoms: are unchanged sp3 Bed/Room Type: Standard sp3 Room Assignment: 205(01/23/25 21:10) rv1 Diagnosis - Chest pain sp3 Forms: - Medication Reconciliation Form sp3 - SBAR form sp3 - Leadership Thank You Letter sp3 Signatures: Dispatcher [employer] EDMS Claudette Mazariegos MD MD sp3 Alison Jarvis RN RN kd3 Amira Rangel rv1 Azul Villeda RN RN cm10 Corrections: (The following items were deleted from the chart) 19:02 19:02 Chest Single View+[email or web address] ordered. EDMS EDMS 21:10 19:58 sp3 rv1
[2025-01-23] MEDS ORDERED: ONDANSETRON 4 MG/2 ML VIAL ONE (20:26)
[2025-01-23] MEDS ORDERED: MORPHINE 2 MG/ML SYR ONE (20:27)
[2025-01-23] MEDS ORDERED: ASPIRIN 325 MG TAB ONE (20:27)
--- NOTE | 2025-01-23 20:34 | P.HP ---
Certification for Inpatient Patient admitted to: Observation With expected LOS: <2 Midnights Practitioner: I am a practitioner with admitting privileges, knowledge of patient current condition, hospital course, and medical plan of care. Services: Services provided to patient in accordance with Admission requirements found in Title 42 Section 412.3 of the Code of Federal Regulations Patient History Date of Service: 01/23/25 Reason for admission: Chest Pain History of Present Illness: 60 yrs old Female with past medical history diabetes, hypertension, hyperlipidemia and family history of CAD brought to ER with chief complaint of chest pain started yesterday evening while at rest. Patient describes chest pain as substernal in nature waxing and waning with current pain approximately 1 out of 10. At its maximum it was 7 out of 10. She denies any other associated symptoms including headache, neck pain, back pain extremity pain, abdominal pain, nausea, vomiting, diarrhea, syncope, near syncope, fever, URI symptoms, rash, bleeding, or any other signs or symptoms on ROS at this time. She denies any prolonged immobilization, recent travel or prior history of DVT or PE.. The patient was assessed in the ER and is admitted for further management of chest pain to rule out ACS Allergies No Known Allergies Allergy (Verified 03/22/19 05:48) Home medications list reviewed: Yes Home Medications: Aspirin [Aspirin EC 81 MG] 81 mg PO DAILY #30 tablet. 03/22/19 Metformin ER [Glucophage ER*] 500 mg PO BID 03/22/19 Nitroglycerin [Nitrostat*] 0.4 mg SL SEECOM PRN #15 tab 03/22/19 lisinopriL [Lisinopril] 20 mg PO DAILY 03/22/19 - Past Medical/Surgical History Diabetic: Yes Past Medical History: Reviewed- Non-Contributory -: HTN -: diabetes mellitus II -: dyslipidemia Past Surgical History: Reviewed- Non-Contributory -: -: right ankle surgery - Family History Father -: Hypertension - Social History Smoking Status: Never smoker Alcohol use: No CD- Drugs: No Caffeine use: Yes Review of Systems 10-point ROS is otherwise unremarkable Physical Examination - Vital Signs Temperature: 97.8 F Blood Pressure: 142/76 Pulse: 76 Respirations: 18 Pulse Ox (%): 94 - Physical Exam General: Alert, In no apparent distress, Oriented x3, Obese HEENT: Atraumatic, Normocephalic Neck: Supple, No Thyromegaly Respiratory: Clear to auscultation bilaterally, Normal air movement Cardiovascular: Regular rate/rhythm, Normal S1 S2 Gastrointestinal: Soft and benign, W/out hepatosplenomegaly Musculoskeletal: No clubbing, No swelling Integumentary: No rashes Neurological: Normal speech, Normal strength at 5/5 x4 extr Lymphatics: No axilla or inguinal lymphadenopathy - Studies Laboratory Data (last 24 hrs) 01/23/25 01/23/25 01/23/25 19:18 19:18 19:18 WBC 6.30 Hgb 12.7 Hct 38.4 Plt Count 196 PT 12.0 INR 1.06 Sodium 134 L Potassium 3.9 BUN 11 Creatinine 1.12 H Glucose 369 H Magnesium 1.8 Total Bilirubin 0.4 AST 30 ALT 47 Alkaline Phosphatase 147 H Assessment and Plan - Plan Chest pain rule out ACS Will trend cardiac enzymes Will monitor telemetry Started on aspirin and statin EKG did not show any acute changes suggestive of ischemia Will get an echocardiogram Cardiology consult Hypertension Antihypertensives titrated Continue home medications and titrate as needed Hyperlipidemia Continue statin ERNST Monitor renal parameters Electrolytes monitor and replace accordingly Diabetes Insulin sliding scale Accu-Chek before every meal and at bedtime GI/DVT prophylaxis Advanced directive full code Discharge Plan: Home Plan to discharge in: 48 Hours - Advance Directives Does patient have a Living Will: No Does patient have a Durable POA for Healthcare: No - Code Status/Comfort Care Code Status: Full Code Time Spent Managing Pts Care (In Minutes): 54
[2025-01-23] MEDS ORDERED: ONDANSETRON 4 MG/2 ML VIAL IV PRN (20:46)
[2025-01-23 22:56] VITALS: BMI 42.8
[2025-01-23] MEDS ORDERED: D10W 125 ML IV PRN (23:15)
[2025-01-23] MEDS ORDERED: GLUCAGON 1 MG/VIAL IM PRN (23:15)
[2025-01-24 04:59] LABS: Absolute Eosinophils 0.2 K/uL (0-0.5); Absolute Lymphocytes (CBC) 3.1 K/uL (0.7-4.9); Absolute Monocytes 0.4 K/uL (0.1-1.3); Absolute Neutrophil 3.5 K/uL (1.8-8.0); Basophils % 0.6 % (0-1.3); Eosinophils % 2.9 % (0-4.4); Hematocrit 36.6 % (36.0-45.0); Hemoglobin 12.2 g/dL (12.0-15.0); Lymphocytes % 42.8 % (15.3-44.8); MCHC 33.3 g/dL (32.0-36.0); MCV 81.3 fL (80-100); MPV 9.7 fL (7.6-11.3); Monocytes % 5.9 % (3.3-12.3); Neutrophils % 47.8 % (41.7-73.7); Nucleated Red Blood Cells % 0.1 % (0-0); Platelets 175 thou/uL (152-406); Red Cell Distribution Width 13.6 % (12.1-15.2)
[2025-01-24 05:13] LABS: Albumin/Globulin Ratio 0.9 (1.1-1.8); Bilirubin Total 0.5 mg/dL (0.2-1.0); Globulin 3.2 g/dL (2.3-3.5); Protein, Total 6.2 g/dL (6.4-8.2)
[2025-01-24] MEDS: LOSARTAN/HCTZ 50-12.5 PO SCH (07:26)
[2025-01-24] MEDS: ASPIRIN EC 81 MG TAB PO SCH (07:26)
[2025-01-24] MEDS: ENOXAPARIN 40 MG/0.4 ML SQ SCH (07:26)
[2025-01-24] MEDS: INSULIN REGULAR (HUMAN) 100 UNIT/ML SQ SCH (07:26)
[2025-01-24] MEDS: LOSARTAN POTASSIUM 50 MG TABLET PO SCH (07:26)
[2025-01-24] MEDS ORDERED: FLU (Fluarix Triv) TS24-25(6MOS UP)/PF 45 MCG/0.5 ML Syringe IM ONE (07:30)
[2025-01-24 07:50] LABS: Specific Gravity > 1.030 (1.005-1.030); Urine Bilirubin NEGATIVE (Negative); Urine Blood Negative (Negative); Urine Clarity Clear (Clear); Urine Color Light-Yellow (Yellow); Urine Glucose 4+ (Over) (Negative); Urine Ketones NEGATIVE (Negative); Urine Microscopic Reflex YN NO UMIC; Urine Nitrite NEGATIVE (Negative); Urine Protein NEGATIVE (Negative); Urine Urobilinogen Normal (Normal)
--- NOTE | 2025-01-24 10:59 | P.CNS ---
Date of Consult: 01/24/25 Chief Complaint: Chest Pain History of Present Illness: Patient with PMH of HTN, HLD, DM and family history or CAD presented with chest pressure, left sided for the last 3 days, radiate to her left arm, denies palpitations, no syncope, no SOB, no DUNBAR. Allergies No Known Allergies Allergy (Verified 01/23/25 22:28) Home medications list reviewed: Yes Home Medications: Metformin ER [Glucophage ER*] 1,000 mg PO BID 03/22/19 Atorvastatin Calcium 20 mg PO BEDTIME 01/23/25 Losartan/Hydrochlorothiazide [Losartan-Hctz 100-12.5 mg Tab] 1 tab PO DAILY 01/23/25 - Past Medical/Surgical History Diabetic: Yes -: HTN -: diabetes mellitus II -: dyslipidemia -: -: right ankle surgery - Family History Father Medical History: Hypertension - Social History Alcohol use: No CD- Drugs: No Caffeine use: Yes Place of Residence: Home Review of Systems 10-point ROS is otherwise unremarkable Physical Examination Temp Pulse Resp BP Pulse Ox 98.1 F 73 15 134/73 93 01/24/25 08:00 01/24/25 08:00 01/24/25 08:00 01/24/25 08:00 01/24/25 08:00 General: Alert, In no apparent distress HEENT: Atraumatic, PERRLA, Mucous membr. moist/pink, EOMI, Sclerae nonicteric Neck: Supple, 2+ carotid pulse no bruit, No LAD, Without JVD or thyroid abnormality Respiratory: Clear to auscultation bilaterally, Normal air movement Cardiovascular: Regular rate/rhythm, Normal S1 S2 Gastrointestinal: Normal bowel sounds, No tenderness Musculoskeletal: No tenderness Integumentary: No rashes Neurological: Normal gait, Normal speech, Normal tone, Normal affect Lymphatics: No axilla or inguinal lymphadenopathy Laboratory Data (last 24 hrs) 01/23/25 01/23/25 01/23/25 19:18 19:18 19:18 WBC 6.30 Hgb 12.7 Hct 38.4 Plt Count 196 PT 12.0 INR 1.06 Sodium 134 L Potassium 3.9 BUN 11 Creatinine 1.12 H Glucose 369 H Magnesium 1.8 Total Bilirubin 0.4 AST 30 ALT 47 Alkaline Phosphatase 147 H - Problems (1) Chest pain Onset Date: 11/13/18 Current Visit: No Status: Acute Plan: cardiac enzymes are negative x 3, EKG no significant ST-T wave changes but patient with multple risk factors for CAD recommend getting nuclear stress test in am (Radhaan) get echo ASA 81 mg daily Qualifiers: Chest pain type: precordial pain Qualified Code(s): R07.2 - Precordial pain (2) Hyperlipidemia Onset Date: 11/13/18 Current Visit: No Status: Acute Plan: continue lipitor 40 mg daily Qualifiers: Hyperlipidemia type: mixed hyperlipidemia Qualified Code(s): E78.2 - Mixed hyperlipidemia (3) Hypertension Onset Date: 11/13/18 Current Visit: No Status: Chronic Plan: continue losartan/HCTZ Qualifiers: Hypertension type: essential hypertension Qualified Code(s): I10 - Essential (primary) hypertension
--- NOTE | 2025-01-24 14:43 | P.PN ---
Subjective Date of Service: 01/24/25 Chief Complaint: Chest Pain Patient complaining of left-sided chest pain precipitated by movement. He denies any shortness of breath. Physical Examination - Vital Signs Temperature: 98.0 F Blood Pressure: 152/67 Pulse: 70 Respirations: 16 Pulse Ox (%): 95 - Studies Laboratory Data (last 24 hrs) 01/23/25 01/23/25 01/23/25 19:18 19:18 19:18 WBC 6.30 Hgb 12.7 Hct 38.4 Plt Count 196 PT 12.0 INR 1.06 Sodium 134 L Potassium 3.9 BUN 11 Creatinine 1.12 H Glucose 369 H Magnesium 1.8 Total Bilirubin 0.4 AST 30 ALT 47 Alkaline Phosphatase 147 H Assessment And Plan - Plan Physical examination General: Alert and oriented x3, NAD, morbidly obese HEENT: Conjunctiva not pale, anicteric sclera Neck: Supple, no elevated JVD Heart: Heart sounds 1 and 2 normal, regular rhythm, normal rate, no pedal edema Lungs: Clear to auscultation bilaterally, adequate breath sounds bilaterally, no rhonchi or crackles. Abdomen: Soft, nondistended, nontender, normal bowel sounds. Extremities: No tenderness, no deformity Skin: Normal skin turgor, no rash, no nodules or ulcers. Neuro: No focal motor deficit. Normal speech. Psychiatry: Normal mood, no agitation. Diagnosis Chest pain Essential hypertension Hyperlipidemia DM type II Morbid obese Plan: Chest pain Troponin trended negative. ACS ruled out Patient seen by cardiology Dr. Her who recommended stress test. Continue telemetry Continue aspirin and statin. Echocardiogram result is pending Cardiology to follow. Hypertension Continue home antihypertensives Hyperlipidemia Lipitor Check lipid profile. Diabetes melitis type II Insulin sliding scale Accu-Chek before every meal and at bedtime. DVT prophylaxis: Lovenox Advanced directive: Full code
[2025-01-24] MEDS: ATORVASTATIN 40 MG TAB PO SCH (21:12)
[2025-01-24] MEDS: ACETAMINOPHEN 325 MG TABLET PO PRN (23:43)
[2025-01-25 01:02] VITALS: O2SAT 95
[2025-01-25] MEDS ORDERED: REGADENOSON 0.4 MG/5 ML SYR IV ONE (14:13)
--- NOTE | 2025-01-25 15:38 | RAD REPORT ---
EXAM: Nuclear medicine cardiac perfusion examination with ejection fraction HISTORY: Chest pain CP TECHNIQUE: Rest images: 10.5 mCi technetium 99m sestamibi Stress images: 31.1 mCi of technetium 99m sestamibi COMPARISON: 03/22/2019 FINDINGS: Tomographic images: No fixed or reversible perfusion defects. No finding to suspect hibernating myocardium. Ejection fraction of 60%. EDV: 79 mL ESV: 31 mL LHR: 0.35 TID: 0.95 IMPRESSION: No evidence of stress induced ischemia.
[2025-01-25] MEDS: INSULIN GLARGINE 100 UNIT/ML SQ ONE ×2 (16:45→17:29)
--- NOTE | 2025-01-25 19:41 | P.DS ---
Admission Date: 01/25/25 Discharge Date: 01/25/25 Disposition: ROUTINE DISCHARGE Reason for Admission: Chest Pain Brief History of Present Illness: 60 yrs old Female with past medical history diabetes, hypertension, hyperlipidemia and family history of CAD brought to ER with chief complaint of chest pain of 1 day duration. Patient describes chest pain as substernal in nature waxing and waning, worse with movement and with sneezing. The patient was assessed in the ER, initial troponin negative, chest x-ray unremarkable and is admitted for further management of chest pain to rule out ACS. Hospital Course: Diagnosis Chest pain Essential hypertension Hyperlipidemia DM type II Morbid obese Patient admitted to the medical floor, troponin trended negative, patient was chest pain-free during the hospital stay. She was evaluated by cardiology Dr. Her who recommended nuclear stress test. Stress test did not show any ischemia. ACS ruled out. Patient noted to have hyperglycemia. She manages her blood sugar with metformin which she states does not control her blood sugar. She is taking her blood sugar can range in the 300s. Patient is prescribed NPH insulin to add to metformin for blood sugar control. She states that she has an appointment with her PCP to discuss her diabetes management. Patient is asymptomatic with stable vitals. She is discharged to follow-up with her PCP. Patient voiced understanding of hypoglycemia precautions discussed with her. Vital Signs/Physical Exam: Temp Pulse Resp BP Pulse Ox 98.4 F 81 16 138/79 96 01/25/25 16:00 01/25/25 16:00 01/25/25 16:00 01/25/25 16:00 01/25/25 16:00 General: Alert, In no apparent distress, Obese HEENT: Mucous membr. moist/pink Neck: Supple, JVD not distended Respiratory: Clear to auscultation bilaterally, Normal air movement Cardiovascular: No edema, Regular rate/rhythm, Normal S1 S2 Gastrointestinal: Normal bowel sounds, Soft and benign, Non-distended, No tenderness Musculoskeletal: No swelling Integumentary: No rashes, No cyanosis Neurological: Normal speech, Normal strength at 5/5 x4 extr, Cranial nerves 3-12 intact Lymphatics: No axilla or inguinal lymphadenopathy Laboratory Data at Discharge: WBC 7.20 thou/uL (4.3-10.9) 01/24/25 04:32 Hgb 12.2 g/dL (12.0-15.0) 01/24/25 04:32 Hct 36.6 % (36.0-45.0) 01/24/25 04:32 Plt Count 175 thou/uL (152-406) 01/24/25 04:32 PT 12.0 SECONDS (10-13.0) 01/23/25 19:18 INR 1.06 01/23/25 19:18 Sodium 136 mEq/L (136-145) 01/24/25 04:32 Potassium 4.0 mEq/L (3.5-5.1) 01/24/25 04:32 BUN 17 mg/dL (7-18) 01/24/25 04:32 Creatinine 0.79 mg/dL (0.55-1.02) 01/24/25 04:32 Glucose 313 mg/dL (74-106) H 01/24/25 04:32 Magnesium 1.8 mg/dL (1.6-2.4) 01/23/25 19:18 Total Bilirubin 0.5 mg/dL (0.2-1.0) 01/24/25 04:32 AST 19 U/L (15-37) 01/24/25 04:32 ALT 37 U/L (13-56) 01/24/25 04:32 Alkaline Phosphatase 129 U/L (45-117) H 01/24/25 04:32 Home Medications: Metformin ER [Glucophage ER*] 1,000 mg PO BID 03/22/19 Losartan/Hydrochlorothiazide [Losartan-Hctz 100-12.5 mg Tab] 1 tab PO DAILY 01/23/25 Alcohol Antiseptic Pads [Alcohol Prep Pad] 1 each TP BID #100 ea 01/25/25 Aspirin [Aspirin EC 81 MG] 81 mg PO DAILY #30 tab 01/25/25 Atorvastatin Calcium [Lipitor] 40 mg PO BEDTIME #30 tab 01/25/25 Blood Sugar Diagnostic [Blood Glucose Test Strip] 1 each MC BID #60 strip 01/25/25 Insulin NPH Hum/Reg Insulin Hm [Novolin 70-30 Flexpen] 10 unit SQ BID #15 ml 01/25/25 Lancets 1 each MC BID #100 ea 01/25/25 Pen Needle, Diabetic [Pen [place]] 1 each MC BID #100 ea 01/25/25 New Medications: Alcohol Antiseptic Pads [Alcohol Prep Pad] 1 each TP BID #100 ea Aspirin [Aspirin EC 81 MG] 81 mg PO DAILY #30 tab Blood Sugar Diagnostic [Blood Glucose Test Strip] 1 each MC BID #60 strip Lancets 1 each MC BID #100 ea Atorvastatin Calcium [Lipitor] 40 mg PO BEDTIME #30 tab Insulin NPH Hum/Reg Insulin Hm [Novolin 70-30 Flexpen] 10 unit SQ BID #15 ml Pen Needle, Diabetic [Pen [place]] 1 each MC BID #100 ea Diet: ADA Activity: Ad sammy Followup: NONE,NONE [Primary Care Provider] - 1-2 Weeks Time spent managing pt's care (in minutes): 33
[2025-01-25 21:03] VITALS: BP 156/80; TEMP 98
--- NOTE | 2025-01-28 08:56 | TREADPHA ---
DX: CHEST PAIN Date of Study: 01/25/2025 Ht: 5' 0 " Wt: 219 lb 8 oz Consulting Physician: DANNY MEDICATIONS: ASPIRIN, LIPITOR, LOVENOX, HYZAAR, COZAAR, NOVOLIN-R HISTORY: 60-YEAR-OLD FEMALE WITH COMPLAINTS OF CHEST PAIN. HISTORY OF DIABETES MELLITUS, HYPERTENSION, HYPERLIPIDEMIA PHYSICIAL EXAMINATION: RESTING B.P.: 155/81 RESTING H.R.: 77 RESTING EKG: NORMAL SINUS RHYTHM PROTOCOL: PHARMACOLOGIC EXERCISE TIME: 3:30 B.P. AT [place] STRESS: 192/79 IMPRESSION: LEXISCAN INJECTED. CARDIOLITE INJECTED - SEE NUCLEAR MEDICINE REPORT. COMPLAINTS OF MILD CHEST TIGHTNESS. NO VENTRICULAR TACHYCARDIA. NO SUPRAVENTRICULAR TACHYCARDIA. NO ARRHYTHMIAS. CAFFEINE PROVIDED TO PATIENT. NO ELECTROCARDIOGRAM CHANGES OF ISCHEMIA.
--- NOTE | 2025-01-28 09:16 | ECHO ---
HEIGHT: 5 ft 0 in WEIGHT: 219 lb 8 oz DATE OF STUDY: 01/24/[address]: Chi Austin DO 2-DIMENSIONAL: YES M.MODE: YES DOPPLER: YES COLOR FLOW: YES TDS: PORTABLE: YES DEFINITY: BUBBLE STUDY: DIAGNOSIS: CHEST PAIN CARDIAC HISTORY: CATHERIZATION: NO SURGERY: NO PROSTHETIC VALVE: NO PACEMAKER: NO MEASUREMENTS (cm) DIASTOLIC (NORMALS) SYSTOLIC (NORMALS) IVSd 0.9 (0.6-1.2) LA Diam 2.3 (1.9-4.0) LVEF 60-65% LVIDd 3.4 (3.5-5.7) LVIDs 2.3 (2.0-3.5) %FS 33% LVPWd 1.0 (0.6-1.2) Ao Diam 2.4 (2.0-3.7) 2 DIMENSIONAL ASSESSMENT: RIGHT ATRIUM: NORMAL LEFT ATRIUM: NORMAL RIGHT VENTRICLE: NORMAL LEFT VENTRICLE: NORMAL TRICUSPID VALVE: NORMAL MITRAL VALVE: NORMAL PULMONIC VALVE: NORMAL AORTIC VALVE: NORMAL PERICARDIAL EFFUSION: NONE AORTIC ROOT: NORMAL LEFT VENTRICULAR WALL MOTION: NORMAL DOPPLER/COLOR FLOW: SEE BELOW COMMENTS: 1. NORMAL LEFT VENTRICULAR EJECTION FRACTION 60-65% WITH NORMAL WALL MOTION 2. GRADE I DIASTOLIC DYSFUNCTION 3. TRACE MITRAL REGURGITATION TECHNOLOGIST: EFREM MCCORMICK
--- NOTE | 2025-01-28 12:16 | EKG ---
Test Date: 2025-01-23 Test Time: 19:07:37 Pig Furnace Operator: RUTHIE MEASUREMENT RESULTS: Intervals: Rate: 81 MT: 156 QRSD: 86 QT: 376 QTc: 436 [place]: P: 35 MT: 156 QRS: 49 T: 71 INTERPRETIVE STATEMENTS: Normal sinus rhythm Normal ECG Compared to ECG 06/25/2019 06:28:47 Myocardial infarct finding no longer present Electronically Signed On 01-28-25 12:05:57 CDT by Pascual Her
== END 2025-01-25 21:08 | disposition home or self-care (01) | DRG 313 ==
LOC: ER 18:54 → ERHOLD 20:46 → 2ND 21:29 → OBSVTOIN 01-25 08:20
PROVIDERS: ADMIT Family Medicine; ATTEND Internal Medicine
DX: R07.2 Precordial pain (principal); N17.9 Acute kidney failure, unspecified; Z68.41 Body mass index [BMI] 40.0-44.9, adult; E66.01 Morbid (severe) obesity due to excess calories; I10 Essential (primary) hypertension; E11.65 Type 2 diabetes mellitus with hyperglycemia; E78.2 Mixed hyperlipidemia; E78.00 Pure hypercholesterolemia, unspecified; Z79.84 Long term (current) use of oral hypoglycemic drugs; Z79.899 Other long term (current) drug therapy; Z82.49 Family history of ischemic heart disease and other diseases of the circulatory system
CPT/HCPCS: 36415; 71045; 78452; 80048; 80053; 80076; 81003; 82947; 83735; 83880; 84484; 85025; 85610; 93005; 93017; 93306; 96374; 96375; 99285; A9500; G0378; J1650; J1815; J2270; J2405; J2785

== ENCOUNTER 2025-01-29 11:03 | Emergency (ER) | payer SELFPAY ==
--- OUTSIDE RECORDS SUMMARY | 2025-01-29 11:07 | XMS REPORT | Continuity of Care Document ---
Author Name Unknown Address [address] [facility] [address] [facility] [address] [place] [address] [facility] Address [address] [facility] [address] [place] [address] Care Team Providers Care Certified Procedural Coder Name Role Phone Pcp, Patient Does Not Have A Primary Care Physic ermelinda Dominique Beltran Attending Clinician DOMINIQUE TRAN Attending Clinician Unavailable Doctor Unassigned, [place] Attending Clinician U navailable Care, Ang Primary Attending Clinician UnavailNGUYEN Buenrostro Attending Clinician Unav ailable DOMINIQUE TRAN Admitting Clinician Unavailable Payers Payer Name Policy Type Policy Number Effective Date Expirati on Date Source [facility] [employer] [facility] [id number] 2019 7 00:00:00 Problems Condition Name Condition Details Condition Category Status Onset Date Resolution Date Last Treatment Date Treating Clinician Comments Source HTN (hypertens ion), benign HTN (hypertens ion), benign Disease Active 08-02 00:00: 00 [facility] Anxiety and depression Anxiety and depression Disease Active 08-02 00:00: 00 [facility] Uterine bleeding, dysfunctio nal Uterine bleeding, dysfunctio nal Disease Active 08-02 00:00: 00 [facility] New onset type 2 diabetes mellitus New onset type 2 diabetes mellitus Disease Active 08-02 00:00: 00 [facility] Allergies, Adverse Reactions, Alerts Allergy Name Allergy Type Status Severity Reaction(s) Onset Date Inactive Date Treating Clinician Comments Source NO KNOWN ALLERGIE S Drug Class Active [facility] Social History Social Habit Start Date Stop Date Quantity Comments Source History SDOH Alcohol Frequency [facility] History SDOH Alcohol Std Drinks [facility] History SDOH Alcohol Binge [facility] [...] Components Source IBUPROFEN 600 mg tablet 2020-11 2-16 00:00: 00 Yes [id number] TAKE 1 TABLET BY MOUTH EVERY 6 HOURS NEEDED FOR PAIN [facility] METFORMIN 500 mg tablet 02-06 00:00: 00 Yes [id number] TAKE 1 TABLET BY MOUTH TWICE DAILY WITH MEALS. [facility] CARVEDILOL 6.25 mg tablet 02-06 00:00: 00 Yes [id number] TAKE 1 TABLET BY MOUTH TWICE DAILY WITH MEALS. [facility] amoxicillin -clavulanat e 875-125 mg per tablet 01-03 00:00: 00 01-13 04:59 :00 No [id number] 1{tbl} Take 1 tablet by mouth 2 (two) times daily for 10 days. [facility] metFORMIN 500 mg tablet 11-29 16:27: 11-29 00:00 :00 No 500mg Take 500 mg by mouth 2 (two) times daily with meals. [facility] atorvastati n 20 mg tablet 11-29 16:27: 11-29 00:00 :00 No 20mg Take 20 mg by mouth at bedtime. [facility] carvedilol 6.25 mg tablet 11-29 16:27: 11-29 00:00 :00 No 6.25mg Take 6.25 mg by mouth 2 (two) times daily with meals. [facility] atorvastati n 20 mg tablet 11-29 00:00: 00 Yes [id number] 20mg Take 1 tablet by mouth at bedtime. [facility] ibuprofen 600 mg tablet 11-29 00:00: 00 10-22 00:00 :00 No [id number] 600mg Take 1 tablet by mouth every 6 (six) hours as needed for Pain (scale 4-6). [facility] carvediloL 6.25 mg tablet 11-29 00:00: 00 02-06 00:00 :00 No [id number] 6.25mg Take 1 tablet by mouth 2 (two) times daily with meals. [facility] metFORMIN 500 mg tablet 11-29 00:00: 00 02-06 00:00 :00 No [id number] 500mg Take 1 tablet by mouth 2 (two) times daily with meals. [facility] citalopram 20 mg tablet 08-02 00:00: 00 11-29 00:00 :00 No [id number] 20mg Take 1 tablet by mouth daily. [facility] Vital Signs Vital Name Observation Time Observation Value Comments Danielle gracia Systolic blood pressure 2020-01-03 19:16:00 118 mm[Hg] [facility] Diastolic blood pressure 2020-01-03 19:16:00 69 mm[Hg] [facility] Heart rate 2020-01-03 19:16:00 73 /min [facility] Body temperature 2020-01-03 19:16:00 36.61 Nellie [facility] Respiratory rate 2020-01-03 19:16:00 20 /min [facility] Body height 2020-01-03 19:16:00 149.9 cm [facility] Body weight 2020-01-03 19:16:00 94.802 kg [facility] BMI 2020-01-03 19:16:00 42.21 kg/m2 [facility] Systolic blood pressure 2019-11-29 16:08:00 133 mm[Hg] [place] [facility] Diastolic blood pressure 2019-11-29 16:08:00 76 mm[Hg] [place] [facility] Heart rate 2019-11-29 16:08:00 66 /min [facility] Body temperature 2019-11-29 16:08:00 37 Nellie [facility] Respiratory rate 2019-11-29 16:08:00 18 /min [facility] Body height 2019-11-29 16:08:00 149.9 cm [facility] Body weight 2019-11-29 16:08:00 91.536 kg [facility] BMI 2019-11-29 16:08:00 40.76 kg/m2 [facility] Oxygen saturation in Arterial blood by Pulse oximetry 2019-11-29 16:08:00 99 /min [facility] Procedures Procedure Date / Time Performed Performing Clinicia n Source EXTERNAL PROVIDER RECORDS 2020-01-29 05:01:00 Doctor Unassigned, [place] [facility] POCT GLUCOSE(AGE >30DAYS) 2020-01-03 19:28:00 Dominique Tran [facility] SCANNED LAB RESULTS 2020-01-03 06:01:00 Doctor Cecille ross, [place] [facility] BI ULTRASOUND BREAST LIMITED LEFT 2019-12-26 17:49:54 Dominique Tran [facility] NOTICE OF PRIVACY PRACTICES 2019-12-26 17:02:34 Doctor Unassigned, [place] [facility] CONSENT/REFUSAL FOR DIAGNOSIS AND TREATMENT 2019-12-26 17:01:12 Doctor Unassigned, [place] [facility] ASSIGNMENT OF BENEFITS 2019-12-26 17:00:49 Docto r Unassigned, [place] [facility] FLU VACC ([phone]), 6+ MONTHS, YODIT ROSENTHAL 2019-11-29 16:45:26 Dominique Tran [facility] SCANNED LAB RESULTS 2019-11-29 06:01:00 Doctor Cecille nassignenrique, [place] [facility] Encounters Start Date/Time End Date/Time Encounter Type Admission Type Attending [facility] Care Department Encounter ID Source 2024-08-31 11:23:33 2024-08-31 11:23:33 Outpatient [facility] [id number] Deven Pittman 2024-08-29 16:00:52 2024-08-29 16:00:52 Outpatient [facility] [id number] Deven Pittman 2024-08-16 15:30:09 2024-08-16 15:30:09 Outpatient [facility] [id number] Deven Pittman 2023-01-21 11:08:59 2023-01-21 11:08:59 Outpatient [facility] [id number] Deven Pittman 2022-11-26 16:13:25 2022-11-26 16:13:25 Outpatient [facility] [id number] Deven Pittman 2022-11-10 11:18:00 2022-11-10 11:18:00 Outpatient [facility] [id number] Deven Pittman 2022-10-26 13:07:30 2022-10-26 13:07:30 Outpatient [facility] [id number] Deven Pittman 2021-10-21 00:00:00 2021-10-21 00:00:00 Refill [facility]ique [facility] [id number] 350.1.13.10 [id number] [id number] [facility] 2021-02-06 00:00:00 2021-02-06 00:00:00 Refill Dominique Tran [facility] 1.2.840.114 350.1.13.10 4.2.7.2.686 [id number] [facility] 2020-07-24 00:00:00 2020-07-24 00:00:00 Outpatient Nima TRAN [facility] [id number] [facility] 2020-06-27 00:00:00 2020-06-27 00:00:00 Telephone [facility] 1.2.840.114 350.1.13.10 4.2.7.2.686 [id number] [facility] 2020-01-29 00:00:00 2020-01-29 00:00:00 Orders Only Doctor Unassigned, [place] [facility] 1.2.840.114 350.1.13.10 4.2.7.2.686 [id number] [facility] 2020-01-03 13:12:10 2020-01-03 14:01:39 Office Visit Care, Ang Primary [facility] 1.2.840.114 350.1.13.10 4.2.7.2.686 [id number] [facility] 2020-01-03 13:30:00 2020-01-03 13:30:00 Outpatient R MARC [facility] [id number] [facility] 2020-01-03 00:00:00 2020-01-03 00:00:00 Orders Only Doctor Unassigned, [place] [facility] 1.2.840.114 350.1.13.10 4.2.7.2.686 [id number] [facility] 2019-12-26 11:00:00 2019-12-26 23:59:00 Hospital Encounter Marc [facility] 1.2.840.114 350.1.13.10 4.2.7.2.686 [id number] [facility] 2019-12-26 10:54:24 2019-12-26 10:59:00 Outpatient R DOMINIQUE TRAN [facility] [id number] [facility] s [facility] 2019-12-26 10:54:00 2019-12-26 10:59:00 Hospital Encounter Dominique Tran [facility] 1.2.840.114 350.1.13.10 4.2.7.2.686 [id number] [facility] 2019-12-04 00:00:00 2019-12-04 00:00:00 Telephone [facility] 1.2.840.114 350.1.13.10 4.2.7.2.686 [id number] [facility] 2019-11-29 10:05:30 2019-11-29 11:48:36 [facility] Visit [facility] 1.2.840.114 350.1.13.10 4.2.7.2.686 [id number] [facility] 2019-11-29 00:00:00 2019-11-29 00:00:00 Orders Only Doctor Unassigned, [place] [facility] 1.2.840.114 350.1.13.10 4.2.7.2.686 [id number] [facility] 2019-10-22 00:00:00 2019-10-22 00:00:00 Outpatient NGUYEN [facility] [id number] [facility] Results Test Description Test Time Test Comments Results Result Co mments Source LIPID [id number] 04:23:25* Test Item Value Reference Range Interpretation [...] SPECIMENS. FOR MOREINFORMATION, SEE CLIENT ANNOUNCEMENT AT [email or web address] /CalcLDL-C RISK RATIO LDL/HDL (test code = 2238) 2.53 RATIO <3.22 HIV 1/2 4TH GEN, RFLX [id number] 04:14:55* Test Item Value Reference Range Interpretation Comme nts HIV 1/2 4TH GEN, RFLX CONF (test code = 3514) NON-REACTIVE NON-REACTIVE UNLESS OTHERWISE INDICATED, ALL TESTING PERFORMED AT [facility] [address] [place] [address] INFANT AND TODDLER TEACHER: NAMRATA HERRING M.D. [place] NUMBER [id number] [facility] [place]. [id number] HEMOGLOBIN [id number] 02:11:58* Test Item Value Reference Range Interpretation Comme [facility] HEMOGLOBIN A1c (test code = 65650) 11.3 % 4.2-5.[address] [employer] GUIDELINES FOR HGB A1C: [...] CONSIDER ALTERNATE TESTING OR LABORATORY CONSULTATION. HEMOGLOBIN [id number] 09:10:37* Test Item Value Reference Range Interpretation Comme [facility] HEMOGLOBIN A1c (test code = 70403) 8.0 % 4.2-5.[address] [employer] GUIDELINES FOR HGB A1C: [...] TESTING OR LABORATORY CONSULTATION. VITAMIN D, 25 [id number] 07:06:28* Test Item Value Reference Range Interpretation [...] . NG/ML 30-100 TSH + FREE T4 [id number] 07:05:56* Test Item Value Reference Range Interpretation Comme nts TSH, THIRD GENERATION (test code = 2821) 5.330 UIU/ML 0.400-4.100 H FREE T4 (THYROXINE) (test co de = 2823) 0.88 NG/DL 0.80-1.90 COMPREHENSIVE METABOLIC [id number] 06:29:59* Test Item Value Reference Range Interpretation Comme nts GLUCOSE (test code = 2217) 162 MG/DL 70-99 H BUN (test code = 2208) 13 MG/DL 6-20 CREATININE (test code = 2214) 0.56 MG/DL 0.60-1.30 L eGFR (2020 CKD-EPI) (test code = 57410) 106 ML/MIN/1.73 >60 CALC BUN/CREAT (test code = 2235) 23 RATIO 6-28 SODIUM (test code = 2231) 142 MEQ/L 133-146 POTASSIUM (test code = 2228) 4.3 MEQ/L 3.5-5.4 CHLORIDE (test code = 2215) 102 MEQ/L 95-107 CARBON DIOXIDE (test code = 2206) 23 MEQ/L 19-31 CALCIUM (test code = 2209) 9.1 MG/DL 8.5-10.5 PROTEIN, TOTAL (test code = 222) 6.8 G/DL 6.1-8.3 ALBUMIN (test code = [...] code = 2219) 51 U/L 5-40 H [facility] has impo rtant pathology staff changes effective 01/05/2023. New pathology staff will provide uninterrupted, excellent patient care and clinical consultation. See URL: [email or web address]. UNLESS OTHERWISE INDICATED, ALL TESTING PERFORMED AT [facility] [address] [place], [place] [address] INFANT AND TODDLER TEACHER: NAMRATA HERRING M.D. CLIA NUMBER [id number] [facility] [place]. [id number] VITAMIN D, 25 [id number] 01:38:18* Test Item Value Reference Range Interpretation [...] UNLESS OTHERWISE INDICATED, [facility] [address] [place] [address] INFANT AND TODDLER TEACHER: WILD PERLA M.D. CLIA NUMBER [id number] [facility] [place]. [id number] TSH, THIRD [id number] 01:37:52* Test Item Value Reference Range Interpretation Comme [facility] TSH, THIRD GENERATION (test code = 2821) 7.930 UIU/ML 0.400-4.100 H VITAMIN [id number] 01:37:52* Test Item Value Reference Range Interpretation Comme [facility] VITAMIN B-12 (test code = 2840) 406 PG/ML 200-950 COMPREHENSIVE METABOLIC [id number] 00:59:30* Test Item Value Reference Range Interpretation Comme nts GLUCOSE (test code = 2217) 174 MG/DL 70-99 H BUN (test code = 220) 12 MG/DL 6-20 CREATININE (test code = 2214) 0.66 MG/DL 0.60-1.30 eGFR (2020 CKD-EPI) (test code = 37078) 102 ML/MIN/1.73 >60 CALC BUN/CREAT (test code [...] 2219) 40 U/L 5-40 ALBUMIN/CREATININE RATIO, URINE, [id number] 05:10:33* Test Item Value Reference Range Interpretation Comme nts CREATININE, URINE, CONC. (test code = 2072) 120.9 MG/DL NOT ESTAB ALBUMIN, URINE, RANDOM (test code = 05175) 2.6 MG/DL NOT ESTAB CALC ALBUMIN/CREAT, RND (test code = 83911) 22 MG/G <30 Note: Albumin/Creatinine ratio reference interval reflects ADA and NKF guidelines. HEMOGLOBIN [id number] 03:47:55* Test Item Value Reference Range Interpretation Comme nts HEMOGLOBIN A1c (test code = 68205) 7.4 % 4.2-5.[address] [employer] GUIDELINES FOR HGB A1C: [...] ALTERNATE TESTING OR LABORATORY CONSULTATION. COMPREHENSIVE METABOLIC [id number] 02:52:30* Test Item Value Reference Range Interpretation Comme nts GLUCOSE (test code = 2217) 122 MG/DL 70-99 H BUN (test code = 2208) 13 MG/DL 6-20 CREATININE (test code = 221) 0.64 MG/DL 0.60-1.30 eGFR (2020 CKD-EPI) (test code = 63817) 103 ML/MIN/1.73 >60 CALC BUN/CREAT (test code [...] 1.9-3.7 CALC A/G RATIO (test code = 223) 1.7 RATIO 1.0-2.6 BILIRUBIN, TOTAL (test code = 7) 0.5 MG/DL See_Comment [Automated me ssage] The system which generated this result transmitted reference range: <=1.2. The reference range was not used to interpret this result as normal/abnormal. ALKALINE PHOSPHATASE (test code = 2203) 122 U/L 40-136 AST (test code = 2218) 47 U/L 9-40 H ALT (test code = 2219) 52 U/L 5-40 H LIPID [id number] 02:52:30* Test Item Value Reference Range Interpretation [...] SPECIMENS. FOR MOREINFORMATION, SEE CLIENT ANNOUNCEMENT AT [email or web address] /CalcLDL-C RISK RATIO LDL/HDL (test code = 2238) 1.94 RATIO <3.22 UNLESS OTHERW ISE INDICATED, ALL TESTING PERFORMED [facility] [address] [place] [address] INFANT AND TODDLER TEACHER: WILD PERLA M.D. CLIA NUMBER [id number] [facility] [place]. [id number] HEMOGLOBIN [id number] 04:09:24* Test Item Value Reference Range Interpretation Comme nts HEMOGLOBIN A1c (test code = 61898) 7.0 % 4.2-5.[address] [employer] GUIDELINES FOR HGB A1C: [...] CONSIDER ALTERNATE TESTING OR LABORATORY CONSULTATION. LIPID [id number] 03:51:40* Test Item Value Reference Range Interpretation [...] SPECIMENS. FOR MOREINFORMATION, SEE CLIENT ANNOUNCEMENT AT [email or web address] /CalcLDL-C RISK RATIO LDL/HDL (test code = 2238) 2.33 RATIO <3.22 COMPREHENSIVE METABOLIC [id number] 03:51:40* Test Item Value Reference Range Interpretation Comme nts GLUCOSE (test code = 2217) 126 MG/DL 70-99 H BUN (test code = 2208) 17 MG/DL 6-20 CREATININE (test code = 2214) 0.60 MG/DL 0.60-1.30 eGFR (2020 CKD-EPI) (test code = 10071) 105 ML/MIN/1.73 >60 CALC BUN/CREAT (test code [...] code = 2207) 0.4 MG/DL See_Comment [Automated me ssage] The system which generated this result transmitted reference range: <=1.2. The reference range was not used to interpret this result as normal/abnormal. ALKALINE PHOSPHATASE (test code = 2204) 119 U/L 40-136 AST (test code = 2218) 24 U/L 9-40 ALT (test code = 2219) 32 U/L 5-40 UNLESS OTHERWISE INDICATED, ALL TESTING PERFORMED [facility] [address] [place] [address] INFANT AND TODDLER TEACHER: WILD PERLA M.D. CLIA NUMBER [id number] [facility] [place]. [id number] CBC W/AUTO DIFF WITH [id number] 03:01:10* Test Item Value Reference Range Interpretation [...] = 1065) 0.0 /100 WBC'S See_Comment [Automated message] The system which generated this result transmitted [...] 0.00-0.10 ABS NUCLEATED RBCS (test code = 84142) 0.00 K/UL 0.00-0.11 LIPID [id number] 04:32:29* Test Item Value Reference Range Interpretation [...] SPECIMENS. FOR MOREINFORMATION, SEE CLIENT ANNOUNCEMENT AT [email or web address] /CalcLDL-C RISK RATIO LDL/HDL (test code = 2238) 1.76 RATIO <3.22 COMPREHENSIVE METABOLIC [id number] 04:32:29* Test Item Value Reference Range Interpretation Comme nts GLUCOSE (test code = 2217) 113 MG/DL 70-99 H BUN (test code = 2208) 12 MG/DL 6-20 CREATININE (test code = 2214) 0.56 MG/DL 0.60-1.30 L EFFECTIVE 2020, [facility] HAS IMPLEMENTED THE NKF-ASN RECOMMENDED KD-EPI EGFR REFIT CALCULATION THAT DOES NOT INCLUDE A COEFFICIENT FORRACE. FOR MORE INFORMATION, SEE ANNOUNCEMENT [email or web address] eGFR (2020 CKD-EPI) (test code = ) 107 ML/MIN/1.73 >60 CALC BUN/CREAT (test code = 2234) 21 RATIO 6-28 SODIUM (test code = 2230) 142 MEQ/L 133-146 POTASSIUM (test code = 2227) 4.1 MEQ/L 3.5-5.4 CHLORIDE (test code = 2214) 103 MEQ/L 95-107 CARBON DIOXIDE (test code = 2205) 27 MEQ/L 19-31 CALCIUM (test code = 2208) 9.2 MG/DL 8.5-10.5 PROTEIN, TOTAL (test code = 2228) 7.2 G/DL 6.1-8.3 ALBUMIN (test code = 2200) 4.3 G/DL 3.5-5.2 CALC GLOBULIN (test code = 2239) 2.9 G/DL 1.9-3.7 CALC A/G RATIO (test code = 2233) 1.5 RATIO 1.0-2.6 BILIRUBIN, TOTAL (test code = 2206) 0.5 MG/DL See_Comment [Automated me ssage] The system which generated this result transmitted reference range: <=1.2. The reference range was not used to interpret this result as normal/abnormal. ALKALINE PHOSPHATASE (test code = 2203) 116 U/L 40-136 AST (test code = 2217) 22 U/L 9-40 ALT (test code = 2218) 25 U/L 5-40 UNLESS OTHERWISE INDICATED, ALL TESTING PERFORMED [facility] [address] [place] [address] INFANT AND TODDLER TEACHER: WILD PERLA M.D. CLIA NUMBER [id number] [facility] [place]. [id number] CBC W/AUTO DIFF WITH [id number] 03:53:25* Test Item Value Reference Range Interpretation [...] = 1065) 0.0 /100 WBC'S See_Comment [Automated WiLinxa ge] The system which generated this result [...] 0.00-0.10 ABS NUCLEATED RBCS (test code = 15682) 0.00 K/UL 0.00-0.11 HEMOGLOBIN [id number] 03:36:21* Test Item Value Reference Range Interpretation Comme nts HEMOGLOBIN A1c (test code = 14300) 7.0 % 4.2-5.[address] [employer] GUIDELINES FOR HGB A1C: [...] A Lab Interpretation (test cod e = 07959-2) [facility]normal [facility] >30DAYS)2020-01-03 19:28:00* Test Item Value Reference Range Interpretation Comme nts POCT Glu (age>30days) (test code = 3342) 123 mg/dL 70-110 A Lab Interpretation (test cod e = 71881-3) Abnormal [facility] BREAST LIMITED [id number] 18:07:27Examination:BI ULTRASOUND BREAST LIMITED LEFT History:Patient is [...] ? BI-RADS Category: Left 3 [facility]
[2025-01-29] MEDS ORDERED: KETOROLAC 30 MG/ML INJ ONE (11:37)
[2025-01-29] MEDS ORDERED: ACETAMINOPHEN 500 MG TAB ONE (11:37)
[2025-01-29 11:58] LABS: Absolute Eosinophils 0.1 K/uL (0-0.5); Absolute Lymphocytes (CBC) 0.8 K/uL (0.7-4.9); Absolute Monocytes 0.5 K/uL (0.1-1.3); Absolute Neutrophil 4.8 K/uL (1.8-8.0); Basophils % 0.5 % (0-1.3); Eosinophils % 0.8 % (0-4.4); Hematocrit 36.9 % (36.0-45.0); Hemoglobin 12.6 g/dL (12.0-15.0); Lymphocytes % 13.5 % (15.3-44.8); MCH 27.2 pg (27.0-35.0); MCHC 34.1 g/dL (32.0-36.0); MCV 79.7 fL (80-100); MPV 9.8 fL (7.6-11.3); Neutrophils % 77.2 % (41.7-73.7); Nucleated Red Blood Cells % 0.1 % (0-0); Platelets 146 thou/uL (152-406); RBC Red Blood Cell Count 4.63 M/uL (3.86-4.86); Red Cell Distribution Width 13.8 % (12.1-15.2)
[2025-01-29 12:09] LABS: Anion Gap 10.3 mEq/L (5.0-15.0); Potassium 3.3 mEq/L (3.5-5.1)
[2025-01-29 12:19] LABS: PT Prothrombin Time 13.6 SECONDS (10-13.0); PTT, Activated Partial Thromb 27.3 SECONDS (27.2-37.4); Protime INR 1.2
--- NOTE | 2025-01-29 13:18 | RAD REPORT ---
EXAMINATION: US UPPER EXTREMITY VENOUS UNILATE CLINICAL INDICATION: Female, 60 years old. [facility] MAIN RUE dvt eval TECHNIQUE: Complete venous duplex sonography of the right upper extremity was performed. The examinat ion included compression for vein patency, color Doppler imaging and flow augmentation in response to distal compression of the internal jugular, brachiocephalic, subclavian, axillary, brachial, radia l, ulnar, cephalic and basilic veins. COMPARISON: No prior exam. FINDINGS: Duplex sonography testing of the veins of the right upper extremity is completed. Color flow imaging shows all the veins to be compressible with appropriate color filling. Pulsatile and phasic flow is present within the upper extremity deep veins examined. Hypoechoic thrombus present within the noncom pressible distal cephalic and basilic tributaries starting at the antecubital fossa. IMPRESSION: There is no deep vein thrombosis. Cephalic and basilic superficial thrombophlebitis, starting at the antecubital fossa and extending al javon the forearm.
--- NOTE | 2025-01-29 13:25 | ER ---
Nurse's Notes [facility] Name: Magaly Galeana Age: 60 yrs Sex: Female : 1965 Arrival Date: 01/29/2025 Time: 11:03 Bed 8 Private MD: Diagnosis: Superficial Thrombophlebitis of the Right Upper Extremity Presentation: 01/29 11:28 Chief complaint: Patient states: right arm redness and swelling since being d/c from [facility] , had an IV in place during that time. Coronavirus screen: At this time, the client does not indicate any symptoms associated with coronavirus-19. Ebola Screen: No symptoms or risks identified at this time. Initial Sepsis Screen: Does the patient meet any 2 criteria? No. Patient's initial sepsis screen is negative. Does the patient have a suspected source of infection? No. Patient's initial sepsis screen is negative. Risk Assessment: Do you want to hurt yourself or someone else? Patient reports no desire to harm self or others. 11:28 Method Of Arrival: Ambulatory 11:28 Acuity: EKATERINA 3 13:39 Onset of symptoms is unknown. cm10 Historical: - Allergies: 11:49 No Known Allergies; kc6 - PMHx: 11:49 Diabetes - NIDDM; High Cholesterol; Hypertension; kc6 - Immunization history:: Adult Immunizations not up to date. - Infectious Disease History:: Denies. - Social history:: Smoking status: Patient denies any tobacco usage or history of. Screenin:27 [facility] ED Fall Risk Assessment (Adult) History of falling in the last 3 months, kc6 including since admission No falls in past 3 months (0 pts) Confusion or Disorientation No (0 pts) Intoxicated or Sedated No (0 pts) Impaired Gait No (0 pts) Mobility Assist Device Used No (0 pt) Altered Elimination No (0 pt) Score/Fall Risk Level 0 - 2 = Low Risk Oriented to surroundings, Maintained a safe environment, Educated pt \T\ family on fall prevention, incl call for assistance when getting out of bed. Abuse screen: Denies threats or abuse. Denies injuries from another. Nutritional screening: No deficits noted. Tuberculosis screening: No symptoms or risk factors identified. Assessment: 11:49 General: Appears in no apparent distress. comfortable, well groomed, well developed, kc6 Behavior is calm, cooperative, appropriate for age. Pain: Complains of pain in right antecubital area and dorsal aspect of right forearm Pain currently is 7 out of 10 on a pain scale. Neuro: Level of Consciousness is awake, alert, obeys commands, Oriented to person, place, time, situation, Appropriate for age. Cardiovascular: Capillary refill < 3 seconds. Respiratory: Airway is patent Trachea midline Respiratory effort is even, unlabored, Respiratory pattern is regular, symmetrical. GI: No signs and/or symptoms were reported involving the gastrointestinal system. : No signs and/or symptoms were reported regarding the genitourinary system. EENT: No signs and/or symptoms were reported regarding the EENT system. Derm: Skin is intact, is healthy with good turgor, Skin is pink, warm \T\ dry. Musculoskeletal: Swelling present in right antecubital area and dorsal aspect of right forearm. Musculoskeletal: Circulation, motion, and sensation intact. Range of motion: intact in all extremities. 12:44 Reassessment: Patient appears in no apparent distress at this time. No changes from kc6 previously documented assessment. Patient and/or family updated on plan of care and expected duration. Pain level reassessed. Patient is alert, oriented x 3, equal unlabored respirations, skin warm/dry/pink. Vital Signs: 11:27 BP 123 / 64; Pulse 89; Resp 16 S; Temp 99.5(O); Pulse Ox 96% on R/A; kc6 13:38 BP 137 / 80; Pulse 78; Resp 15; Pulse Ox 96% ; cm10 ED Course: 11:06 Patient arrived in ED. cj3 11:07 Keshawn Duran MD is Attending Physician. ec2 11:24 Vandana Melendez, ABRAHAM is Primary Nurse. kc6 11:28 Patient has correct armband on for positive identification. Bed in low position. Call [facility] light in reach. Side rails up X 1. Adult w/ patient. Pulse ox on. NIBP on. Door closed. Noise minimized. Lights dimmed. Pillow given. Verbal reassurance given. 11:28 Patient maintains SpO2 saturation greater than 95% on room air. kc6 11:29 Triage completed. iw 11:49 Arm band placed on. kc6 11:49 Initial lab(s) drawn, by me, sent to lab. Inserted saline lock: 20 gauge in left kc6 antecubital area, using aseptic technique. Blood collected. Flushed with 10 mL NS. 12:55 UPPER EXTREMITY VENOUS UNILATE In Process Unspecified. EDMS 13:38 Provided Education on: FOLLOW-UP INSTRUCTIONS. cm10 13:38 No provider procedures requiring assistance completed. IV discontinued, intact, cm10 bleeding controlled, No redness/swelling at site. Pressure dressing applied. 13:39 Zechariah wrap to right elbow. cm10 Administered Medications: 11:49 Drug: Ketorolac IVP 15 mg IVP once Route: IVP; Site: left antecubital; kc6 12:44 Follow up: Response: No adverse reaction kc6 11:49 Drug: Acetaminophen PO 1000 mg PO once Route: PO; kc6 12:44 Follow up: Response: No adverse reaction kc6 Medication: 13:39 VIS not applicable for this client. cm10 Outcome: 13:24 Discharge ordered by . ec2 13:39 Discharged to home ambulatory, with significant other, cm10 13:39 Condition: good 13:39 Discharge instructions given to patient, Instructed on discharge instructions, follow up and referral plans. medication usage, Demonstrated understanding of instructions, follow-up care, medications, Prescriptions given X 1, 13:39 Patient left the ED. cm10 Signatures: Dispatcher [employer] EDDottie Joy RN RN iw Vandana Melendez RN RN kc6 Martinez, Clarissa, RN RN cm10 Keshawn Duran MD MD ec2 Arlene Roblero cj3 Corrections: (The following items were deleted from the chart) 11:35 11:27 Temp 99.5F Oral; kc6 kc6
--- NOTE | 2025-01-29 13:25 | EDPHYS ---
Physician Documentation [facility] Name: Magaly Galeana Age: 60 yrs Sex: Female : 1965 Arrival Date: 01/29/2025 Time: 11:03 Bed 8 Private MD: ED Physician Keshawn Duran HPI: 01/29 11:30 This 60 yrs old Female presents to ER via Ambulatory with complaints of Arm ec2 Swelling. 11:30 Patient arrives today for right upper extremity swelling and discomfort. Patient had a ec2 recent IV placed, is having pain and swelling at the insertion site. Reports some firmness as well. No fevers or chills, no nausea or vomiting.. Historical: - Allergies: 11:49 No Known Allergies; kc6 - PMHx: 11:49 Diabetes - NIDDM; High Cholesterol; Hypertension; kc6 - Immunization history:: Adult Immunizations not up to date. - Infectious Disease History:: Denies. - Social history:: Smoking status: Patient denies any tobacco usage or history of. ROS: 11:31 Constitutional: as per hpi ec2 Exam: 11:31 Constitutional: GEN: NAD Head: atraumatic Eyes: EOMI Ears: External ears are ec2 normal. CV: regular rate LUNGS: no respiratory distress ABD: non-distended SKIN: Right inner elbow with induration and erythema noted MSK: no evidence of trauma Vital Signs: 11:27 BP 123 / 64; Pulse 89; Resp 16 S; Temp 99.5(O); Pulse Ox 96% on R/A; kc6 13:38 BP 137 / 80; Pulse 78; Resp 15; Pulse Ox 96% ; cm10 MDM: 11:29 Medical Screening Exam initiated ec2 11:31 Data reviewed: vital signs, nurses notes. ED course: Patient arrives today for ec2 evaluation of a headache. Examination yields abdominal patient arrives today for evaluation of arm swelling. Examination yields skin findings as above. Suspect superficial phlebitis, will also obtain ultrasound to evaluate for DVT.. 13:23 ED course: Lab work is unrevealing, ultrasound shows superficial thrombophlebitis, will ec2 instructed on ice and ibuprofen and will discharge home per return precautions given.. 01/29 11:29 Order name: CBC with Diff; Complete Time: 12:20 ec2 01/29 11:29 Order name: BMP; Complete Time: 12:20 ec2 01/29 11:29 Order name: PT-INR; Complete Time: 12:20 ec2 01/29 11:29 Order name: Ptt, Activated; Complete Time: 12:20 ec2 01/29 11:34 Order name: UPPER EXTREMITY VENOUS UNILATE; Complete Time: 13:19 EDMS 01/29 11:29 Order name: IV; Complete Time: 11:49 ec2 01/29 11:29 Order name: Ice pack; Complete Time: 11:49 ec2 Administered Medications: 11:49 Drug: Ketorolac IVP 15 mg IVP once Route: IVP; Site: left antecubital; kc6 12:44 Follow up: Response: No adverse reaction kc6 11:49 Drug: Acetaminophen PO 1000 mg PO once Route: PO; kc6 12:44 Follow up: Response: No adverse reaction kc6 Disposition Summary: 01/29/25 13:24 Discharge Ordered Notes: Location: Home ec2 Condition: Stable ec2 Diagnosis - Superficial Thrombophlebitis of the Right Upper Extremity ec2 Followup: ec2 - With: Private Physician - When: - Reason: Re-evaluation by your physician Discharge Instructions: - Discharge Summary Sheet ec2 - Thrombophlebitis ec2 Forms: - Medication Reconciliation Form ec2 - Antibiotic Education ec2 - Prescription Opioid Use ec2 - Patient Portal Instructions ec2 - Leadership Thank You Letter ec2 Prescriptions: - Ibuprofen 800 mg Oral Tablet - take 1 tablet ORAL route every 8 hours As needed take with food; 30 tablet; ec2 Refills: 0, Product Selection Permitted Signatures: Dispatcher [employer] Vandana Montana RN RN kc6 Keshawn Duran MD MD ec2 Corrections: (The following items were deleted from the chart) 11:30 11:30 CBC+H.LAB.BRZ ordered. EDMS EDMS 11:30 11:30 BASIC METABOLIC PANEL+C.LAB.BRZ ordered. EDMS EDMS 11:30 11:30 PROTIME (+INR)+COAG.LAB.BRZ ordered. EDMS EDMS 11:30 11:30 PTT, ACTIVATED+COAG.LAB.BRZ ordered. EDMS EDMS 11:30 11:30 Extremity Venous Uni Ltd+US.RAD.BRZ ordered. EDMS EDMS
[2025-01-29 13:53] VITALS: TEMP 99.5; O2SAT 96
[2025-01-29 14:04] VITALS: BP 137/80
== END 2025-01-29 13:39 | disposition home or self-care (01) ==
LOC: ER 11:03
DX: I80.8 Phlebitis and thrombophlebitis of other sites (principal)
CPT/HCPCS: 36415; 80048; 85025; 85610; 85730; 93971; 96374; 99284